=== PATIENT | female | born 1965 | race African-American/Black ===

== ENCOUNTER 2018-01-02 11:57 | Inpatient (IN) | payer OTHER ==
[2018-01-02 12:16] VITALS: BMI 24.1
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
[2018-01-02] MEDS ORDERED: IBUPROFEN 400 MG TABLET (FP) PO PRN (14:08)
[2018-01-02] MEDS ORDERED: MAG HYDROX/AL HYDROX/SIMETH 30 ML UNIT-DOSE CUP PO PRN (14:08)
[2018-01-02] MEDS ORDERED: LOPERAMIDE HCL 2 MG CAPSULE PO PRN (14:08)
[2018-01-02] MEDS ORDERED: guaiFENesin/D-METHORPHAN HB 10 ML UNIT-DOSE CUPS PO PRN (14:08)
[2018-01-02] MEDS ORDERED: MAGNESIUM HYDROX 2400MG/30ML ORAL SUSPENSION 30 ML CUP PO PRN (14:08)
[2018-01-02] MEDS ORDERED: MAGNESIUM CITRATE 300 ML BOTTLE PO PRN (14:08)
[2018-01-02] MEDS ORDERED: MENTHOL/PHENOL 1 EACH UD MM PRN (14:08)
[2018-01-02] MEDS ORDERED: ACETAMINOPHEN 325 MG TABLET (FP) PO PRN (14:08)
[2018-01-02] MEDS ORDERED: P-EPHED 60MG/TRIPROLIDI 2.5MG TABLET PO PRN (14:08)
[2018-01-02] MEDS: NICOTINE 14 MG/24 HOURS TOPICAL PATCH TD SCH (15:30)
--- NOTE | 2018-01-02 20:04 | PN ---
[facility] Progress Note Note: As per nursing report patient needs Seroquel 100mg po qhs [place] issued
--- NOTE | 2018-01-02 20:06 | PN ---
[facility] Progress Note Note: as per nursing report patient needs Seroquel 100mg po qhs Order issued
[2018-01-02 21:21] LABS: URINE APPEARANCE SLCLOUDY; URINE BILIRUBIN NEGATIVE (<2.0 mg/dL); URINE COLOR LTYELLOW; URINE GLUCOSE (UA) NEGATIVE (NEGATIVE); URINE KETONE NEGATIVE (NEGATIVE); URINE LEUK ESTERASE NEGATIVE (NEGATIVE); URINE NITRITE NEGATIVE (NEGATIVE); URINE PROTEIN NEGATIVE (NEGATIVE); URINE UROBILINOGEN NEGATIVE mg/dL (0.2-1.0)
[2018-01-02] MEDS: QUEtiapine FUMARATE 100 MG TABLET (FP) PO SCH (21:44)
[2018-01-02] MEDS: THIAMINE HCL 100 MG TABLET (FP) PO SCH (21:44)
[2018-01-02] MEDS: PHENYTOIN NA EXTENDED 100 MG CAPSULE (FP) PO SCH (21:44)
[2018-01-02] MEDS: MELATONIN 5 MG TABLETS PO PRN (21:45)
[2018-01-03] MEDS ORDERED: ALBUTEROL SO4 8 GM HFA INHALER IH PRN (00:20)
[2018-01-03] MEDS ORDERED: PT OWN MED DRAWER 7, Y5N ONE ×4 (08:47→21:56)
[2018-01-03 10:07] LABS: HEMATOCRIT 40.1 % (32.4-45.2); HEMOGLOBIN 13.4 GM/dL (10.7-15.3); MCH 30.8 pg (25.7-33.7); MCHC 33.3 g/dl (32.0-36.0); MEAN CELL VOLUME 92.5 fl (80-96); MEAN PLT VOLUME 9.9 fl (7.5-11.1); PLATELET COUNT 255 K/MM3 (134-434); RBC 4.34 M/mm3 (3.60-5.2); RDW 13.9 % (11.6-15.6); WHITE BLOOD COUNT 5.9 K/mm3 (4.0-10.0)
[2018-01-03 10:09] LABS: ANION GAP 7 (8-16); BLOOD UREA NITROGEN 9 mg/dL (7-18); CHLORIDE 110 mmol/L (98-107); CO2 27 mmol/L (21-32); GLUCOSE,RANDOM 77 mg/dL (74-106); POTASSIUM 4.5 mmol/L (3.5-5.1); SODIUM 144 mmol/L (136-145)
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
[2018-01-03 10:27] LABS: ALK PHOS 109 U/L (45-117); BILIRUBIN,TOTAL 0.2 mg/dL (0.2-1.0); CREATININE 0.7 mg/dL (0.55-1.02); SGOT/AST 18 U/L (15-37); SGPT/ALT 22 U/L (12-78); TOT PROT 7.4 g/dl (6.4-8.2)
[2018-01-03] MEDS: PRENATAL VITAMINS W/ FOLIC ACID TABLET (FP) PO SCH (10:27)
[2018-01-03] MEDS: NICOTINE 14 MG/24 HOURS TOPICAL PATCH TD SCH (10:27)
[2018-01-03] MEDS: DIGOXIN 0.125 MG TABLET (FP) PO SCH (10:27)
[2018-01-03] MEDS: ASPIRIN 81 MG CHEWABLE TABLETS PO SCH (10:27)
[2018-01-03] MEDS: LIDOCAINE HCL 5% TOP OINTMENT 50 GM TUBE TP SCH (10:27)
[2018-01-03] MEDS ORDERED: PNEUMOCOCCAL 23 VACCINE 0.5 ML VIAL IM ONE (12:00)
[2018-01-03] MEDS ORDERED: PNEUMOC 13-VAL CONJ-DIP CRM/PF 0.5 ML DISP.SYRIN IM ONE (12:00)
--- NOTE | 2018-01-03 13:03 | EKG ---
Test Reason : Blood Pressure : / mmHG Vent. Rate : 077 BPM Atrial Rate : 077 BPM P-R Int : 108 ms QRS Dur : 076 ms QT Int : 376 ms P-R-T Axes : 013 072 069 degrees QTc Int : 425 ms SINUS RHYTHM WITH SHORT RI OTHERWISE NORMAL ECG NO PREVIOUS ECGS AVAILABLE Confirmed by BENITO SILVA MD ([id number]) on 01/03/2018 1:02:47 PM Referred By: Confirmed By:BENITO SILVA MD
--- NOTE | 2018-01-03 13:49 | PN ---
[facility] Progress Note Note: EKG REVIEWED AND SHOWS SINUS RHYTHM WITH SHORT OH, CXR NO ACUTE PATHOLOGY. PT ASYMPTOMATIC. CONTINUE TO MONITOR CLINICALLY. DILANTIN LEVEL 3.3, WILL REPEAT LEVEL IN 01/08/18. Vital Signs Temperature 97.8 F 01/03/18 07:17 Pulse Rate 82 01/03/18 10:27 Respiratory Rate 18 01/03/18 07:17 Blood Pressure 92/68 01/03/18 09:48 O2 Sat by Pulse Oximetry (%) Laboratory Tests 01/02/18 01/03/18 01/03/18 21:03 05:45 05:45 WBC 5.9 RBC 4.34 Hgb 13.4 Hct 40.1 MCV 92.5 MCH 30.8 MCHC 33.3 RDW 13.9 Plt Count 255 MPV 9.9 Sodium 144 Potassium 4.5 Chloride 110 H Carbon Dioxide 27 Anion Gap 7 L BUN 9 Creatinine 0.7 Creat Clearance w eGFR > 60 Random Glucose 77 Calcium 9.0 Total Bilirubin 0.2 AST 18 ALT 22 Alkaline Phosphatase 109 Total Protein 7.4 Albumin 4.0 Urine Color Ltyellow Urine Appearance Slcloudy Urine pH 5.0 Ur Specific [place] 1.018 Urine Protein Negative Urine Glucose (UA) Negative Urine Ketones Negative Urine Blood Negative Urine Nitrite Negative Urine Bilirubin Negative Urine Urobilinogen Negative Ur Leukocyte Esterase Negative Digoxin 0.48 L Phenytoin RPR Titer HIV 1&2 Antibody Screen HIV P24 Antigen 01/03/18 01/03/18 01/03/18 05:45 05:45 05:45 WBC RBC Hgb Hct MCV MCH MCHC RDW Plt Count MPV Sodium Potassium Chloride Carbon Dioxide Anion Gap BUN Creatinine Creat Clearance w eGFR Random Glucose Calcium Total Bilirubin AST ALT Alkaline Phosphatase Total Protein Albumin Urine Color Urine Appearance Urine pH Ur Specific [place] Urine Protein Urine Glucose (UA) Urine Ketones Urine Blood Urine Nitrite Urine Bilirubin Urine Urobilinogen Ur Leukocyte Esterase Digoxin Phenytoin 3.3 L D RPR Titer Nonreactive HIV 1&2 Antibody Screen Negative HIV P24 Antigen Negative
[2018-01-03] MEDS ORDERED: PERMETHRIN 5% TOPICAL CREAM 60 GM TUBE TP ONE (14:50)
--- NOTE | 2018-01-03 14:51 | PN ---
[facility] Progress Note Note: PATIENT PRESENTS WITH C/O ITCHING TO ARMS, LEGS AND GROIN. STATES SHE WAS TREATED WITH PREMETHRIN CREAM FOR HEAD LICE AND SCABIES AT [facility] BUT DID NOT FOLLOW DIRECTIONS CORRECTLY. PATIENT MEDICALLY STABLE. EXAM SHOWS SHOWS SCRATCH HUSAIN ON ARMS AND LEGS AND SCARS BUT NO BURROWS. WILL ORDER HYDROCORTISONE CREAM PRURITIS AND REORDER PREMETHRIN CREAM TO ASSURE PROPER AND COMPLETE TREATMENT ALTHOUGH EXAM DOES NOT SHOW ACTIVE SCABIES. PATIENT EDUCATED REGARDING PROPER USE OF CREAM AND VERBALIZES UNDERSTANDING. CONTINUE TO MONITOR CLINICALLY.
[2018-01-03] MEDS: DIVALPROEX SODIUM 250 MG TABLET E.C. PO SCH ×2 (15:13→21:51)
[2018-01-03] MEDS ORDERED: ALBUTEROL SO4 2.5/IPRATROPIUM 0.5 INH SOL 3 ML VIAL.NEB. NEB PRN (18:27)
--- NOTE | 2018-01-03 18:29 | PN ---
S Progress Note Note: Vital Signs Temperature 97.8 F 01/03/18 07:17 Pulse Rate 82 01/03/18 10:27 Respiratory Rate 18 01/03/18 07:17 Blood Pressure 92/68 01/03/18 09:48 O2 Sat by Pulse Oximetry (%) Patient with hx of COPD. Patient reports taking symbicort BID at home. medication ordered PRN neb ordered continue to monitor
[2018-01-03] MEDS: THIAMINE HCL 100 MG TABLET (FP) PO SCH (21:51)
[2018-01-03] MEDS: PHENYTOIN NA EXTENDED 100 MG CAPSULE (FP) PO SCH (21:51)
[2018-01-03] MEDS: QUEtiapine FUMARATE 100 MG TABLET (FP) PO SCH (21:51)
[2018-01-03] MEDS: BUDESONIDE/FORMETEROL FUMARATE 160/4.5 mcg INHALER IH SCH (21:52)
[2018-01-03] MEDS: hydrOXYzine PAMOATE 25 MG CAPSULE (FP) PO PRN (21:54)
[2018-01-03] MEDS: LIDOCAINE PATCH REMOVAL MC SCH (21:55)
[2018-01-03] MEDS: HYDROCORTISONE 1% TOPICAL CREAM 30 GM TUBE TP SCH (21:56)
[2018-01-04] MEDS ORDERED: LIDOCAINE 5% TOPICAL PATCH TP SCH (10:00)
[2018-01-04] MEDS: ASPIRIN 81 MG CHEWABLE TABLETS PO SCH (10:16)
[2018-01-04] MEDS: DIVALPROEX SODIUM 250 MG TABLET E.C. PO SCH ×2 (10:16→21:52)
[2018-01-04] MEDS: BUDESONIDE/FORMETEROL FUMARATE 160/4.5 mcg INHALER IH SCH ×2 (10:17→21:52)
[2018-01-04] MEDS: DIGOXIN 0.125 MG TABLET (FP) PO SCH (10:17)
[2018-01-04] MEDS: NICOTINE 14 MG/24 HOURS TOPICAL PATCH TD SCH (10:18)
[2018-01-04] MEDS: LIDOCAINE HCL 5% TOP OINTMENT 50 GM TUBE TP SCH (10:21)
[2018-01-04] MEDS: PRENATAL VITAMINS W/ FOLIC ACID TABLET (FP) PO SCH (10:21)
[2018-01-04] MEDS: HYDROCORTISONE 1% TOPICAL CREAM 30 GM TUBE TP SCH ×2 (10:21→21:54)
[2018-01-04] MEDS ORDERED: PT OWN MED DRAWER 7, Y5N ONE (10:34)
--- NOTE | 2018-01-04 13:36 | PN ---
[facility] Progress Note Note: Vital Signs Temperature 97.6 F 01/04/18 07:21 Pulse Rate 91 H 01/04/18 10:17 Respiratory Rate 18 01/04/18 07:21 Blood Pressure 136/83 01/04/18 09:19 O2 Sat by Pulse Oximetry (%) Laboratory Last Values WBC 5.9 K/mm3 (4.0-10.0) 01/03/18 05:45 RBC 4.34 M/mm3 (3.60-5.2) 01/03/18 05:45 Hgb 13.4 GM/dL (10.7-15.3) 01/03/18 05:45 Hct 40.1 % (32.4-45.2) 01/03/18 05:45 MCV 92.5 fl (80-96) 01/03/18 05:45 MCH 30.8 pg (25.7-33.7) 01/03/18 05:45 MCHC 33.3 g/dl (32.0-36.0) 01/03/18 05:45 RDW 13.9 % (11.6-15.6) 01/03/18 05:45 Plt Count 255 K/MM3 (134-434) 01/03/18 05:45 MPV 9.9 fl (7.5-11.1) 01/03/18 05:45 Sodium 144 mmol/L (136-145) 01/03/18 05:45 Potassium 4.5 mmol/L (3.5-5.1) 01/03/18 05:45 Chloride 110 mmol/L (98-107) H 01/03/18 05:45 Carbon Dioxide 27 mmol/L (21-32) 01/03/18 05:45 Anion Gap 7 (8-16) L 01/03/18 05:45 BUN 9 mg/dL (7-18) 01/03/18 05:45 Creatinine 0.7 mg/dL (0.55-1.02) 01/03/18 05:45 Creat Clearance w eGFR > 60 (>60) 01/03/18 05:45 Random Glucose 77 mg/dL (74-106) 01/03/18 05:45 Calcium 9.0 mg/dL (8.5-10.1) 01/03/18 05:45 Total Bilirubin 0.2 mg/dL (0.2-1.0) 01/03/18 05:45 AST 18 U/L (15-37) 01/03/18 05:45 ALT 22 U/L (12-78) 01/03/18 05:45 Alkaline Phosphatase 109 U/L (45-117) 01/03/18 05:45 Total Protein 7.4 g/dl (6.4-8.2) 01/03/18 05:45 Albumin 4.0 g/dl (3.4-5.0) 01/03/18 05:45 Urine Color Ltyellow 01/02/18 21:03 Urine Appearance Slcloudy 01/02/18 21:03 Urine pH 5.0 (5.0-8.0) 01/02/18 21:03 Ur Specific [place] 1.018 (1.001-1.035) 01/02/18 21:03 Urine Protein Negative (NEGATIVE) 01/02/18 21:03 Urine Glucose (UA) Negative (NEGATIVE) 01/02/18 21:03 Urine Ketones Negative (NEGATIVE) 01/02/18 21:03 Urine Blood Negative (NEGATIVE) 01/02/18 21:03 Urine Nitrite Negative (NEGATIVE) 01/02/18 21:03 Urine Bilirubin Negative (<2.0 mg/dL) 01/02/18 21:03 Urine Urobilinogen Negative mg/dL (0.2-1.0) 01/02/18 21:03 Ur Leukocyte Esterase Negative (NEGATIVE) 01/02/18 21:03 Digoxin 0.48 ng/ml (0.8-2.0) L 01/03/18 05:45 Phenytoin 3.3 ug/ml (10.0-20.0) L D 01/03/18 05:45 RPR Titer Nonreactive (NONREACTIVE) 01/03/18 05:45 HIV 1&2 Antibody Screen Negative 01/03/18 05:45 HIV P24 Antigen Negative 01/03/18 05:45 Patient asymptomatic. patient requested lidocaine patch for knee t be d/c. order d/c as per patients requested. repeat dig and phenytoin in AM continue to monitor
[2018-01-04] MEDS: LIDOCAINE 5% TOPICAL PATCH TP SCH (14:17)
[2018-01-04] MEDS: QUEtiapine FUMARATE 100 MG TABLET (FP) PO SCH (21:52)
[2018-01-04] MEDS: THIAMINE HCL 100 MG TABLET (FP) PO SCH (21:52)
[2018-01-04] MEDS: PHENYTOIN NA EXTENDED 100 MG CAPSULE (FP) PO SCH (21:52)
[2018-01-04] MEDS: MELATONIN 5 MG TABLETS PO PRN (21:53)
[2018-01-04] MEDS: hydrOXYzine PAMOATE 25 MG CAPSULE (FP) PO PRN (21:53)
[2018-01-04] MEDS: LIDOCAINE PATCH REMOVAL MC SCH (21:54)
[2018-01-05] MEDS ORDERED: PT OWN MED DRAWER 7, Y5N ONE ×2 (08:52→21:53)
[2018-01-05] MEDS: DIVALPROEX SODIUM 250 MG TABLET E.C. PO SCH ×2 (10:50→21:43)
[2018-01-05] MEDS: ASPIRIN 81 MG CHEWABLE TABLETS PO SCH (10:50)
[2018-01-05] MEDS: PRENATAL VITAMINS W/ FOLIC ACID TABLET (FP) PO SCH (10:50)
[2018-01-05] MEDS: DIGOXIN 0.125 MG TABLET (FP) PO SCH (10:50)
[2018-01-05] MEDS: NICOTINE 14 MG/24 HOURS TOPICAL PATCH TD SCH (10:52)
[2018-01-05] MEDS: LIDOCAINE HCL 5% TOP OINTMENT 50 GM TUBE TP SCH (10:53)
[2018-01-05] MEDS: HYDROCORTISONE 1% TOPICAL CREAM 30 GM TUBE TP SCH ×2 (10:54→21:44)
[2018-01-05] MEDS: BUDESONIDE/FORMETEROL FUMARATE 160/4.5 mcg INHALER IH SCH ×2 (10:54→21:52)
[2018-01-05] MEDS: LIDOCAINE 5% TOPICAL PATCH TP SCH (10:55)
[2018-01-05] MEDS: hydrOXYzine PAMOATE 25 MG CAPSULE (FP) PO PRN (18:57)
[2018-01-05] MEDS: QUEtiapine FUMARATE 100 MG TABLET (FP) PO SCH (21:43)
[2018-01-05] MEDS: THIAMINE HCL 100 MG TABLET (FP) PO SCH (21:43)
[2018-01-05] MEDS: PHENYTOIN NA EXTENDED 100 MG CAPSULE (FP) PO SCH (21:43)
[2018-01-05] MEDS: LIDOCAINE PATCH REMOVAL MC SCH (21:44)
[2018-01-05] MEDS: MELATONIN 5 MG TABLETS PO PRN (21:44)
[2018-01-06] MEDS ORDERED: PT OWN MED DRAWER 7, Y5N ONE ×2 (08:55→20:38)
[2018-01-06] MEDS: ASPIRIN 81 MG CHEWABLE TABLETS PO SCH (10:10)
[2018-01-06] MEDS: NICOTINE 14 MG/24 HOURS TOPICAL PATCH TD SCH (10:11)
[2018-01-06] MEDS: PRENATAL VITAMINS W/ FOLIC ACID TABLET (FP) PO SCH (10:11)
[2018-01-06] MEDS: DIGOXIN 0.125 MG TABLET (FP) PO SCH (10:11)
[2018-01-06] MEDS: DIVALPROEX SODIUM 250 MG TABLET E.C. PO SCH ×2 (10:11→21:42)
[2018-01-06] MEDS: HYDROCORTISONE 1% TOPICAL CREAM 30 GM TUBE TP SCH ×2 (10:12→21:46)
[2018-01-06] MEDS: BUDESONIDE/FORMETEROL FUMARATE 160/4.5 mcg INHALER IH SCH ×2 (10:13→21:42)
[2018-01-06] MEDS: LIDOCAINE 5% TOPICAL PATCH TP SCH (10:13)
[2018-01-06] MEDS: LIDOCAINE HCL 5% TOP OINTMENT 50 GM TUBE TP SCH (10:29)
[2018-01-06] MEDS: QUEtiapine FUMARATE 100 MG TABLET (FP) PO SCH (21:42)
[2018-01-06] MEDS: PHENYTOIN NA EXTENDED 100 MG CAPSULE (FP) PO SCH (21:42)
[2018-01-06] MEDS: THIAMINE HCL 100 MG TABLET (FP) PO SCH (21:43)
[2018-01-06] MEDS: LIDOCAINE PATCH REMOVAL MC SCH (21:43)
[2018-01-06] MEDS: MELATONIN 5 MG TABLETS PO PRN (21:44)
[2018-01-06] MEDS: hydrOXYzine PAMOATE 25 MG CAPSULE (FP) PO PRN (21:45)
[2018-01-07] MEDS: hydrOXYzine PAMOATE 25 MG CAPSULE (FP) PO PRN (01:39)
[2018-01-07] MEDS ORDERED: PT OWN MED DRAWER 7, Y5N ONE ×2 (08:57→20:15)
[2018-01-07] MEDS ORDERED: COLLOIDAL OATMEAL 1 BAR EACH TP PRN (09:16)
--- NOTE | 2018-01-07 09:18 | PN ---
S Progress Note Note: Patient c/o of dry skin after treated for scabies. Patient was started on TP hydrocortisone cream . Vital Signs Temperature 97.6 F 01/07/18 07:01 Pulse Rate 81 01/07/18 07:01 Respiratory Rate 18 01/07/18 07:01 Blood Pressure 105/69 01/07/18 07:01 O2 Sat by Pulse Oximetry (%) Patient AOx3 no distress dry skin full ROM, ambulating in the unit dry skin Plan: aveeno soap A & D oint BID increase fluids continue to monitor
[2018-01-07] MEDS: DIVALPROEX SODIUM 250 MG TABLET E.C. PO SCH ×2 (10:05→21:43)
[2018-01-07] MEDS: DIGOXIN 0.125 MG TABLET (FP) PO SCH (10:05)
[2018-01-07] MEDS: PRENATAL VITAMINS W/ FOLIC ACID TABLET (FP) PO SCH (10:05)
[2018-01-07] MEDS: ASPIRIN 81 MG CHEWABLE TABLETS PO SCH (10:07)
[2018-01-07] MEDS: LIDOCAINE HCL 5% TOP OINTMENT 50 GM TUBE TP SCH (10:07)
[2018-01-07] MEDS: HYDROCORTISONE 1% TOPICAL CREAM 30 GM TUBE TP SCH ×2 (10:08→21:43)
[2018-01-07] MEDS: LIDOCAINE 5% TOPICAL PATCH TP SCH (10:08)
[2018-01-07] MEDS: BUDESONIDE/FORMETEROL FUMARATE 160/4.5 mcg INHALER IH SCH ×2 (10:08→21:42)
[2018-01-07] MEDS: NICOTINE 14 MG/24 HOURS TOPICAL PATCH TD SCH (10:08)
[2018-01-07] MEDS: QUEtiapine FUMARATE 100 MG TABLET (FP) PO SCH (21:43)
[2018-01-07] MEDS: THIAMINE HCL 100 MG TABLET (FP) PO SCH (21:43)
[2018-01-07] MEDS: PHENYTOIN NA EXTENDED 100 MG CAPSULE (FP) PO SCH (21:43)
[2018-01-07] MEDS: LIDOCAINE PATCH REMOVAL MC SCH (21:44)
[2018-01-07] MEDS: MELATONIN 5 MG TABLETS PO PRN (21:45)
[2018-01-08] MEDS: ASPIRIN 81 MG CHEWABLE TABLETS PO SCH (10:40)
[2018-01-08] MEDS: PRENATAL VITAMINS W/ FOLIC ACID TABLET (FP) PO SCH (10:41)
[2018-01-08] MEDS: NICOTINE 14 MG/24 HOURS TOPICAL PATCH TD SCH (10:41)
[2018-01-08] MEDS: BUDESONIDE/FORMETEROL FUMARATE 160/4.5 mcg INHALER IH SCH ×2 (10:42→22:26)
[2018-01-08] MEDS: LIDOCAINE 5% TOPICAL PATCH TP SCH (10:42)
[2018-01-08] MEDS: LIDOCAINE HCL 5% TOP OINTMENT 50 GM TUBE TP SCH (10:43)
[2018-01-08] MEDS: DIVALPROEX SODIUM 250 MG TABLET E.C. PO SCH ×2 (10:47→22:26)
[2018-01-08] MEDS: HYDROCORTISONE 1% TOPICAL CREAM 30 GM TUBE TP SCH ×2 (11:07→22:27)
[2018-01-08] MEDS: DIGOXIN 0.125 MG TABLET (FP) PO SCH (11:08)
[2018-01-08] MEDS ORDERED: diphenhydrAMINE HCL 25 MG CAPSULE (FP) PO PRN (17:04)
--- NOTE | 2018-01-08 17:09 | PN ---
S Progress Note Note: c/o of itch on pubic hair and body. Reports prior to admission was treated for pubic lice and scabies. Vital Signs Temperature 97.6 F 01/08/18 07:05 Pulse Rate 92 H 01/08/18 16:12 Respiratory Rate 18 01/08/18 07:05 Blood Pressure 105/70 01/08/18 16:12 O2 Sat by Pulse Oximetry (%) Laboratory Last Values WBC 5.9 K/mm3 (4.0-10.0) 01/03/18 05:45 RBC 4.34 M/mm3 (3.60-5.2) 01/03/18 05:45 Hgb 13.4 GM/dL (10.7-15.3) 01/03/18 05:45 Hct 40.1 % (32.4-45.2) 01/03/18 05:45 MCV 92.5 fl (80-96) 01/03/18 05:45 MCH 30.8 pg (25.7-33.7) 01/03/18 05:45 MCHC 33.3 g/dl (32.0-36.0) 01/03/18 05:45 RDW 13.9 % (11.6-15.6) 01/03/18 05:45 Plt Count 255 K/MM3 (134-434) 01/03/18 05:45 MPV 9.9 fl (7.5-11.1) 01/03/18 05:45 Sodium 144 mmol/L (136-145) 01/03/18 05:45 Potassium 4.5 mmol/L (3.5-5.1) 01/03/18 05:45 Chloride 110 mmol/L (98-107) H 01/03/18 05:45 Carbon Dioxide 27 mmol/L (21-32) 01/03/18 05:45 Anion Gap 7 (8-16) L 01/03/18 05:45 BUN 9 mg/dL (7-18) 01/03/18 05:45 Creatinine 0.7 mg/dL (0.55-1.02) 01/03/18 05:45 Creat Clearance w eGFR > 60 (>60) 01/03/18 05:45 Random Glucose 77 mg/dL (74-106) 01/03/18 05:45 Calcium 9.0 mg/dL (8.5-10.1) 01/03/18 05:45 Total Bilirubin 0.2 mg/dL (0.2-1.0) 01/03/18 05:45 AST 18 U/L (15-37) 01/03/18 05:45 ALT 22 U/L (12-78) 01/03/18 05:45 Alkaline Phosphatase 109 U/L (45-117) 01/03/18 05:45 Total Protein 7.4 g/dl (6.4-8.2) 01/03/18 05:45 Albumin 4.0 g/dl (3.4-5.0) 01/03/18 05:45 Urine Color Ltyellow 01/02/18 21:03 Urine Appearance Slcloudy 01/02/18 21:03 Urine pH 5.0 (5.0-8.0) 01/02/18 21:03 Ur Specific [place] 1.018 (1.001-1.035) 01/02/18 21:03 Urine Protein Negative (NEGATIVE) 01/02/18 21:03 Urine Glucose (UA) Negative (NEGATIVE) 01/02/18 21:03 Urine Ketones Negative (NEGATIVE) 01/02/18 21:03 Urine Blood Negative (NEGATIVE) 01/02/18 21:03 Urine Nitrite Negative (NEGATIVE) 01/02/18 21:03 Urine Bilirubin Negative (<2.0 mg/dL) 01/02/18 21:03 Urine Urobilinogen Negative mg/dL (0.2-1.0) 01/02/18 21:03 Ur Leukocyte Esterase Negative (NEGATIVE) 01/02/18 21:03 Digoxin 0.35 ng/ml (0.8-2.0) L 01/05/18 08:30 Phenytoin 8.4 ug/ml (10.0-20.0) L D 01/08/18 08:30 RPR Titer Nonreactive (NONREACTIVE) 01/03/18 05:45 HIV 1&2 Antibody Screen Negative 01/03/18 05:45 HIV P24 Antigen Negative 01/03/18 05:45 Patient Aox3, no distress no adventitious breath sounds + dry dandruff on hair and pubic area skin dry Plan: wash bedding patient to wash hair benadryl 25 mg PRN for pruritus permenthium TOP on scalp and hair on pubic area continue to monitor
[2018-01-08] MEDS ORDERED: PERMETHRIN 5% TOPICAL CREAM 60 GM TUBE TP ONE (17:30)
[2018-01-08] MEDS ORDERED: PT OWN MED DRAWER 7, Y5N ONE (18:35)
[2018-01-08] MEDS: THIAMINE HCL 100 MG TABLET (FP) PO SCH (22:25)
[2018-01-08] MEDS: PHENYTOIN NA EXTENDED 100 MG CAPSULE (FP) PO SCH (22:25)
[2018-01-08] MEDS: QUEtiapine FUMARATE 100 MG TABLET (FP) PO SCH (22:26)
[2018-01-08] MEDS: LIDOCAINE PATCH REMOVAL MC SCH (22:27)
[2018-01-09] MEDS ORDERED: PT OWN MED DRAWER 7, Y5N ONE (09:03)
[2018-01-09] MEDS: ASPIRIN 81 MG CHEWABLE TABLETS PO SCH (09:25)
[2018-01-09] MEDS: DIVALPROEX SODIUM 250 MG TABLET E.C. PO SCH (09:26)
[2018-01-09] MEDS: HYDROCORTISONE 1% TOPICAL CREAM 30 GM TUBE TP SCH (09:26)
[2018-01-09] MEDS: NICOTINE 14 MG/24 HOURS TOPICAL PATCH TD SCH (09:28)
[2018-01-09] MEDS: LIDOCAINE 5% TOPICAL PATCH TP SCH (09:28)
[2018-01-09] MEDS: BUDESONIDE/FORMETEROL FUMARATE 160/4.5 mcg INHALER IH SCH (09:29)
[2018-01-09] MEDS: PRENATAL VITAMINS W/ FOLIC ACID TABLET (FP) PO SCH (09:29)
[2018-01-09] MEDS: DIGOXIN 0.125 MG TABLET (FP) PO SCH (10:37)
[2018-01-09] MEDS: LIDOCAINE HCL 5% TOP OINTMENT 50 GM TUBE TP SCH (11:00)
--- NOTE | 2018-01-09 12:42 | PN ---
[facility] Progress Note Note: complaint of tightness in the chest not in distress Vital Signs Temperature 98.2 F 01/09/18 11:32 Pulse Rate 88 01/09/18 12:25 Respiratory Rate 19 01/09/18 11:32 Blood Pressure 95/60 01/09/18 12:25 O2 Sat by Pulse Oximetry (%) pulse oxymeter is 99 ekg nsr,no acute change qt/qtc 366/445 close monitoring with vital signs monitoring
--- NOTE | 2018-01-09 13:31 | PN ---
[facility] Progress Note Note: Vital Signs Temperature 98.2 F 01/09/18 11:32 Pulse Rate 88 01/09/18 12:25 Respiratory Rate 19 01/09/18 11:32 Blood Pressure 95/60 01/09/18 12:25 O2 Sat by Pulse Oximetry (%) Patient is a 52 yo female currently in rehab for cocaine and alcohol, has hx of cardiac arrest in 2009, CHF on Digioxin 0.125 mg, GERD and seizure d/o. Patient c/o of Chest pain, non-radiating since this AM, rates pain 8/10 at this time, as per patient, pain worsen when sitting in an upright position and with ambulation. Patient reports mild relief with rest. Reports feeling dizzy and unsteady on her feet and "tingling" on both of her finger tips. No SOB present at this time. pulse oxymeter is 99 ekg nsr, non- specific T waves, no acute change qt/qtc 366/445 A/P Patient Aox3 no distress no JVD lungs clear throughout, no adventitious breath sounds Full ROM skin intact no edema or erythema Plan: Patient to be evaluate with at [facility] ED, transferred via [facility] to Dr. Godinez
[2018-01-09 13:58] VITALS: BP 103/64; PULSE 97; TEMP 98.6
--- NOTE | 2018-01-09 17:04 | EKG ---
Test Reason : Blood Pressure : / mmHG Vent. Rate : 089 BPM Atrial Rate : 089 BPM P-R Int : 128 ms QRS Dur : 078 ms QT Int : 366 ms P-R-T Axes : 070 071 072 degrees QTc Int : 445 ms NORMAL SINUS RHYTHM POSSIBLE LEFT ATRIAL ENLARGEMENT NONSPECIFIC T WAVE ABNORMALITY ABNORMAL ECG WHEN COMPARED WITH ECG OF 03-JAN-2018 10:07, NO SIGNIFICANT CHANGE WAS FOUND Confirmed by MD Elliott, Josh ([id number]) on 01/09/2018 5:04:01 PM Referred By: Sari ALVAREZ Confirmed By:Josh Gallagher MD
== END 2018-01-09 22:41 | disposition hospice, inpatient (51) | DRG 772 ==
LOC: YASAS 11:57 → Y3E 13:40
PROVIDERS: ADMIT Psychiatry & Neurology Psychiatry; ATTEND Psychiatry & Neurology Psychiatry
PROC: HZ42ZZZ Group Counseling for Substance Abuse Treatment, Cognitive-Behavioral (ICD-10-PCS; principal; 2018-01-02)
DX: F10.20 Alcohol dependence, uncomplicated (principal); F14.20 Cocaine dependence, uncomplicated; F31.81 Bipolar II disorder; I10 Essential (primary) hypertension; I50.9 Heart failure, unspecified; G47.00 Insomnia, unspecified; G40.909 Epilepsy, unspecified, not intractable, without status epilepticus; K21.9 Gastro-esophageal reflux disease without esophagitis; E78.00 Pure hypercholesterolemia, unspecified; L85.3 Xerosis cutis; B86 Scabies; B85.0 Pediculosis due to Pediculus humanus capitis; D64.9 Anemia, unspecified; R07.9 Chest pain, unspecified; Z86.74 Personal history of sudden cardiac arrest
CPT/HCPCS: 36415; 71046-TC-FY; 80053; 80162; 80185; 81003; 85027; 86593; 87389; 93005; 93010

== ENCOUNTER 2018-01-10 17:42 | Inpatient (IN) | payer OTHER ==
[2018-01-10] MEDS ORDERED: MENTHOL/PHENOL 1 EACH UD MM PRN (17:53)
[2018-01-10] MEDS ORDERED: P-EPHED 60MG/TRIPROLIDI 2.5MG TABLET PO PRN (17:53)
[2018-01-10] MEDS ORDERED: LOPERAMIDE HCL 2 MG CAPSULE PO PRN (17:53)
[2018-01-10] MEDS ORDERED: IBUPROFEN 400 MG TABLET (FP) PO PRN (17:53)
[2018-01-10] MEDS ORDERED: guaiFENesin/D-METHORPHAN HB 10 ML UNIT-DOSE CUPS PO PRN (17:53)
--- NOTE | 2018-01-10 17:56 | HP ---
[facility] Rehab Assess/Revision - Admission History Admitted to Rehab from: Emergency Department Date of Admission to Rehab: 01/10/18 - Vital signs Vital Signs: Vital Signs Period Temp Pulse Resp BP Sys/Mauricio Pulse Ox Last 24 Hr 97.7 F 78 18 119/81 - Findings Detox History & Physical reviewed: Yes Concur with findings: Yes Comments/Additional Findings: Patient was admitted to Rehab program 01/02/18 during the course of her treatment patient was sent to [facility] for evaluation of chest pain on 01/09/18 and returns today to continue her rehab at [facility]. Inpatient Rehab Admission - Initial Determination Are CD services needed?: Yes Free of communicable disease: Yes Not in need of hospitalization: Yes - Rehab Admission Criteria Previous failed treatment: Yes Poor recovery environment: Yes Comorbidities: Yes Lacks judgement: Yes Patient is meeting Inpatient Rehab admission criteria:: Yes
[2018-01-10] MEDS: PHENYTOIN NA EXTENDED 100 MG CAPSULE (FP) PO SCH (21:30)
[2018-01-10] MEDS: THIAMINE HCL 100 MG TABLET (FP) PO SCH (21:30)
[2018-01-10] MEDS: ATORVASTATIN CA 20 MG TABLET (FP) PO SCH (21:30)
[2018-01-10] MEDS ORDERED: MELATONIN 5 MG TABLETS PO PRN (22:00)
[2018-01-11] MEDS: ACETAMINOPHEN 325 MG TABLET (FP) PO PRN (01:34)
[2018-01-11] MEDS: DIGOXIN 0.125 MG TABLET (FP) PO SCH (09:10)
[2018-01-11] MEDS: ASPIRIN 81 MG CHEWABLE TABLETS PO SCH (09:10)
[2018-01-11] MEDS: PRENATAL VITAMINS W/ FOLIC ACID TABLET (FP) PO SCH (09:11)
[2018-01-11] MEDS: PHENYTOIN NA EXTENDED 100 MG CAPSULE (FP) PO SCH (21:48)
[2018-01-11] MEDS: THIAMINE HCL 100 MG TABLET (FP) PO SCH (21:48)
[2018-01-11] MEDS: ATORVASTATIN CA 20 MG TABLET (FP) PO SCH (21:51)
[2018-01-11] MEDS ORDERED: hydrOXYzine PAMOATE 50 MG CAPSULE (FP) PO PRN (22:47)
--- NOTE | 2018-01-12 06:06 | PN ---
[facility] Progress Note Note: seen for alleged fall. informed client stated she fell oob. client now denies; states she rolled in the bed hitting right elbow against the edge of the bed. denies pain, injury or falling out of bed seen seated in bed awake/alert x3 nad ncat, peerla, eomi skin intact moving all extremities w/o limitations or pain back- nl findings denies pain Vital Signs Temperature 97.7 F 01/12/18 07:03 Pulse Rate 76 01/12/18 07:03 Respiratory Rate 16 01/12/18 07:03 Blood Pressure 97/67 01/12/18 07:03 O2 Sat by Pulse Oximetry (%) a- alleged fall p- fall protocol #1 cont to monitor clincally tylenol/motrin for delayed pain
[2018-01-12] MEDS: ASPIRIN 81 MG CHEWABLE TABLETS PO SCH (10:34)
[2018-01-12] MEDS: PRENATAL VITAMINS W/ FOLIC ACID TABLET (FP) PO SCH (10:34)
[2018-01-12] MEDS: DIGOXIN 0.125 MG TABLET (FP) PO SCH (10:34)
[2018-01-12] MEDS ORDERED: ALBUTEROL SO4 2.5/IPRATROPIUM 0.5 INH SOL 3 ML VIAL.NEB. NEB PRN (13:34)
--- NOTE | 2018-01-12 13:35 | PN ---
S Progress Note Note: Vital Signs Temperature 98 F 01/12/18 12:00 Pulse Rate 81 01/12/18 12:00 Respiratory Rate 18 01/12/18 12:00 Blood Pressure 91/62 01/12/18 12:00 O2 Sat by Pulse Oximetry (%) reports taking symbicort out patient. Home meds reviewed. Symbicort ordered continue to monitor
--- NOTE | 2018-01-12 14:02 | PN ---
[facility] Progress Note Note: Patient c/o of dizziness. Foundry Worker tried assessed the patient, patient decline continue to monitor
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
[2018-01-12] MEDS ORDERED: PT OWN MED DRAWER 7, Y5N ONE ×3 (19:59→20:20)
[2018-01-12] MEDS: ACETAMINOPHEN 325 MG TABLET (FP) PO PRN (20:20)
[2018-01-12] MEDS ORDERED: QUEtiapine FUMARATE 100 MG TABLET (FP) PO SCH (22:00)
[2018-01-12] MEDS: BUDESONIDE/FORMETEROL FUMARATE 160/4.5 mcg INHALER IH SCH (22:00)
[2018-01-12] MEDS: QUEtiapine FUMARATE 50 MG TABLET PO SCH (22:01)
[2018-01-12] MEDS: PHENYTOIN NA EXTENDED 100 MG CAPSULE (FP) PO SCH (22:01)
[2018-01-12] MEDS: ATORVASTATIN CA 20 MG TABLET (FP) PO SCH (22:01)
[2018-01-12] MEDS: THIAMINE HCL 100 MG TABLET (FP) PO SCH (22:02)
[2018-01-13] MEDS: PRENATAL VITAMINS W/ FOLIC ACID TABLET (FP) PO SCH (10:06)
[2018-01-13] MEDS: ASPIRIN 81 MG CHEWABLE TABLETS PO SCH (10:07)
[2018-01-13] MEDS: BUDESONIDE/FORMETEROL FUMARATE 160/4.5 mcg INHALER IH SCH ×2 (10:08→21:49)
[2018-01-13] MEDS: DIGOXIN 0.125 MG TABLET (FP) PO SCH (10:31)
[2018-01-13] MEDS ORDERED: PT OWN MED DRAWER 7, Y5N ONE (11:04)
[2018-01-13] MEDS: LIDOCAINE HCL 5% TOP OINTMENT 50 GM TUBE TP SCH (11:05)
[2018-01-13] MEDS ORDERED: ALBUTEROL SO4 8 GM HFA INHALER IH PRN (11:29)
[2018-01-13] MEDS: DIVALPROEX SODIUM 250 MG TABLET E.C. PO SCH ×2 (12:30→21:46)
[2018-01-13] MEDS: ACETAMINOPHEN 325 MG TABLET (FP) PO PRN (14:40)
[2018-01-13] MEDS: THIAMINE HCL 100 MG TABLET (FP) PO SCH (21:46)
[2018-01-13] MEDS: ATORVASTATIN CA 20 MG TABLET (FP) PO SCH (21:46)
[2018-01-13] MEDS: PHENYTOIN NA EXTENDED 100 MG CAPSULE (FP) PO SCH (21:46)
[2018-01-13] MEDS: QUEtiapine FUMARATE 50 MG TABLET PO SCH (21:46)
[2018-01-14 07:18] VITALS: TEMP 97.8
[2018-01-14] MEDS: ASPIRIN 81 MG CHEWABLE TABLETS PO SCH (10:26)
[2018-01-14] MEDS: BUDESONIDE/FORMETEROL FUMARATE 160/4.5 mcg INHALER IH SCH ×2 (10:26→21:40)
[2018-01-14] MEDS: DIGOXIN 0.125 MG TABLET (FP) PO SCH (10:26)
[2018-01-14] MEDS: DIVALPROEX SODIUM 250 MG TABLET E.C. PO SCH ×2 (10:26→21:38)
[2018-01-14] MEDS: PRENATAL VITAMINS W/ FOLIC ACID TABLET (FP) PO SCH (10:27)
[2018-01-14] MEDS: LIDOCAINE HCL 5% TOP OINTMENT 50 GM TUBE TP SCH (10:27)
[2018-01-14] MEDS: PHENYTOIN NA EXTENDED 100 MG CAPSULE (FP) PO SCH (21:38)
[2018-01-14] MEDS: QUEtiapine FUMARATE 50 MG TABLET PO SCH (21:38)
[2018-01-14] MEDS: THIAMINE HCL 100 MG TABLET (FP) PO SCH (21:38)
[2018-01-14] MEDS: ATORVASTATIN CA 20 MG TABLET (FP) PO SCH (21:39)
[2018-01-15 07:26] VITALS: BP 120/82
--- NOTE | 2018-01-15 08:21 | PN ---
Psychiatric Progress Note Vital Signs: Vital Signs Period Temp Pulse Resp BP Sys/Mauricio Pulse Ox Last 24 Hr 97.8 F 79-85 16-18 98-120/65-82 Date of Session: 01/15/18 Chief Complaint:: Discharge visit HPI: Patient addressed Alcohol ,Cocaine dependence comorbid with Bipolar disorder. ROS: Multiple medical conditions. Current Medications: Active Medications Generic Name Dose Route Start Last Admin Trade Name Freq PRN Reason Stop Dose Admin Acetaminophen 650 mg 01/10/18 17:53 01/13/18 14:40 Tylenol - PO 650 mg Q4H PRN Administration FEVER Albuterol Sulfate 2 puff 01/13/18 11:29 01/13/18 11:43 Ventolin Hfa Inhaler - IH 2 puff Q4H PRN Administration SHORT OF BREATH/WHEEZING Albuterol/Ipratropium 1 amp 01/12/18 13:34 Duoneb - NEB Q6H PRN SHORTNESS OF BREATH Aspirin 81 mg 01/11/18 10:00 01/14/18 10:26 Asa - PO 81 mg DAILY STAN Administration Atorvastatin Calcium 20 mg 01/10/18 22:00 01/14/18 21:39 Lipitor - PO 20 mg HS STAN Administration Budesonide/Formoterol Fumarate 2 puff 01/12/18 22:00 01/14/18 21:40 Symbicort 160/4.5mcg - IH Not Given BID STAN Digoxin 0.125 mg 01/11/18 10:00 01/14/18 10:26 Lanoxin - PO 0.125 mg DAILY STAN Administration Divalproex Sodium 250 mg 01/13/18 12:45 01/14/18 21:38 Depakote - PO 250 mg BID STAN Administration Eucalyptus/Menthol/Phenol/Sorbitol 1 each 01/10/18 17:53 Cepastat Lozenge - MM Q4H PRN SORE THROAT Guaifenesin 10 ml 01/10/18 17:53 Robitussin Dm - PO Q6H PRN COUGH Hydroxyzine Pamoate 50 mg 01/11/18 22:47 Vistaril - PO Q4H PRN ANXIETY Ibuprofen 400 mg 01/10/18 17:53 Motrin - PO Q6H PRN Pain Level 4-6 Lidocaine HCl 1 applic 01/13/18 11:00 01/14/18 10:27 Xylocaine 5% Top. Ointment TP 1 applic DAILY STAN Administration Loperamide HCl 4 mg 01/10/18 17:53 Imodium - PO Q6H PRN DIARRHEA Melatonin 5 mg 01/10/18 22:00 01/11/18 01:37 Melatonin PO 5 mg HS PRN Administration INSOMNIA Phenytoin Sodium 400 mg 01/10/18 22:00 01/14/18 21:38 Dilantin - PO 400 mg HS STAN Administration Multivit/Folic Acid/Iron 1 tab 01/11/18 10:00 01/14/18 10:27 Vitamins (Sjr) - PO Not Given DAILY STAN Pseudoephedrine/Triprolidine 1 combo 01/10/18 17:53 Actifed - PO TID PRN NASAL CONGESTION Quetiapine Fumarate 50 mg 01/12/18 22:00 01/14/18 21:38 Seroquel - PO 50 mg HS STAN Administration Thiamine HCl 100 mg 01/10/18 22:00 01/14/18 21:38 Vitamin B1 - PO 100 mg HS STAN Administration Current Side Effect: No Lab tests ordered: No Lab tests reviewed: Yes Provider note:: Patient completed this program today.She has met her treatment goals and will continue to address her issues on outpatient basis at [facility] rehabilitation program in the [place].Patient will continue Depakote 250 mg po bid ,Seroquel 50 mg po hs.Scripts for 30 days provided. Supportive therapy provided focusing on relapse prevention including coping skills ,support utilization to maintain recovery. patient is stable for discharge today. Total face to face time:: 30 Mental Status Exam - Mental Status Exam Alert and Oriented to: Time, Place, Person Cognitive Function: Grossly Intact Patient Appearance: Well Groomed Mood: Hopeful, Euthymic Affect: Appropriate, Mood Congruent Patient Behavior: Cooperative Speech Pattern: Clear Voice Loudness: Normal Thought Process: Goal Oriented Thought Disorder: Not Present Hallucinations: Denies Suicidal Ideation: Denies Homicidal Ideation: Denies Insight/Judgement: Fair Sleep: Fair Appetite: Good Muscle strength/Tone: Normal Gait/Station: Normal Psychiatric Treatment Plan - Problem List (1) Dry skin Current Visit: Yes (2) Knee pain, left Current Visit: Yes (3) Pruritic rash Current Visit: Yes (4) Alcohol dependence Current Visit: No (5) Cocaine dependence in remission Current Visit: Yes (6) Bipolar II disorder Current Visit: Yes (7) CHF Congestive heart failure Current Visit: Yes (8) Gastroesophageal reflux disease Current Visit: Yes (9) Hypercholesterolemia Current Visit: Yes (10) Hypertension Current Visit: Yes (11) Seizure disorder Current Visit: Yes
[2018-01-15] MEDS ORDERED: PT OWN MED DRAWER 7, Y5N ONE (08:47)
[2018-01-15] MEDS: LIDOCAINE HCL 5% TOP OINTMENT 50 GM TUBE TP SCH (09:13)
[2018-01-15] MEDS: DIGOXIN 0.125 MG TABLET (FP) PO SCH (09:14)
[2018-01-15] MEDS: ASPIRIN 81 MG CHEWABLE TABLETS PO SCH (09:14)
[2018-01-15] MEDS: PRENATAL VITAMINS W/ FOLIC ACID TABLET (FP) PO SCH (09:14)
[2018-01-15] MEDS: DIVALPROEX SODIUM 250 MG TABLET E.C. PO SCH (09:14)
[2018-01-15] MEDS: BUDESONIDE/FORMETEROL FUMARATE 160/4.5 mcg INHALER IH SCH (09:15)
[2018-01-15 09:16] VITALS: PULSE 86
== END 2018-01-15 09:55 | disposition home or self-care (01) | DRG 772 ==
LOC: YASAS 17:42 → Y3E 17:43
PROVIDERS: ADMIT Psychiatry & Neurology Psychiatry; ATTEND Psychiatry & Neurology Psychiatry
PROC: HZ42ZZZ Group Counseling for Substance Abuse Treatment, Cognitive-Behavioral (ICD-10-PCS; principal; 2018-01-10)
DX: F10.20 Alcohol dependence, uncomplicated (principal); F14.20 Cocaine dependence, uncomplicated; F31.81 Bipolar II disorder; I10 Essential (primary) hypertension; I50.9 Heart failure, unspecified; G40.909 Epilepsy, unspecified, not intractable, without status epilepticus; K21.9 Gastro-esophageal reflux disease without esophagitis; E78.00 Pure hypercholesterolemia, unspecified; M25.562 Pain in left knee; R21 Rash and other nonspecific skin eruption; L29.9 Pruritus, unspecified; L98.8 Other specified disorders of the skin and subcutaneous tissue
CPT/HCPCS: 36415; 80162; 80185

== ENCOUNTER 2018-07-26 13:44 | Inpatient (IN) | payer OTHER ==
[2018-07-26 15:43] VITALS: BMI 22.3
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
[2018-07-26] MEDS ORDERED: MAGNESIUM HYDROX 2400MG/30ML ORAL SUSPENSION 30 ML CUP PO PRN (16:54)
[2018-07-26] MEDS ORDERED: MAG HYDROX/AL HYDROX/SIMETH 30 ML UNIT-DOSE CUP PO PRN (16:54)
[2018-07-26] MEDS ORDERED: NICOTINE POLACRILEX 2 MG GUM BC PRN (16:54)
[2018-07-26] MEDS ORDERED: ACETAMINOPHEN 325 MG TABLET (FP) PO PRN (16:54)
[2018-07-26] MEDS ORDERED: hydrOXYzine PAMOATE 25 MG CAPSULE (FP) PO PRN (16:54)
[2018-07-26] MEDS ORDERED: chlordiazePOXIDE HCL 25 MG CAPSULE PO PRN (16:54)
[2018-07-26] MEDS ORDERED: MAGNESIUM CITRATE 300 ML BOTTLE PO PRN (16:54)
[2018-07-26] MEDS ORDERED: ALBUTEROL SO4 0.083% IH SOL 2.5 MG/3 ML VIAL.NEB. NEB PRN (16:59)
[2018-07-26] MEDS ORDERED: MELATONIN 5 MG TABLETS PO PRN (22:00)
[2018-07-26] MEDS: PHENYTOIN NA EXTENDED 100 MG CAPSULE (FP) PO SCH (22:38)
[2018-07-26] MEDS: QUEtiapine FUMARATE 50 MG TABLET PO SCH (22:38)
[2018-07-26] MEDS: LIDOCAINE HCL 5% TOP OINTMENT 50 GM TUBE TP SCH (22:39)
[2018-07-26] MEDS: DIGOXIN 0.125 MG TABLET (FP) PO SCH (22:39)
[2018-07-26] MEDS: ASPIRIN 81 MG CHEWABLE TABLETS PO SCH (22:39)
[2018-07-26] MEDS: THIAMINE HCL 100 MG TABLET (FP) PO SCH (22:39)
[2018-07-26] MEDS: chlordiazePOXIDE HCL 25 MG CAPSULE PO SCH (23:25)
[2018-07-27] MEDS: chlordiazePOXIDE HCL 25 MG CAPSULE PO SCH ×4 (05:24→22:15)
[2018-07-27] MEDS: LIDOCAINE HCL 5% TOP OINTMENT 50 GM TUBE TP SCH (10:29)
[2018-07-27] MEDS: NICOTINE 7 MG/24 HOURS TOPICAL PATCH TD SCH (10:29)
[2018-07-27] MEDS: PRENATAL VITAMINS W/ FOLIC ACID TABLET (FP) PO SCH (10:29)
[2018-07-27] MEDS: ASPIRIN 81 MG CHEWABLE TABLETS PO SCH (10:29)
[2018-07-27 11:28] LABS: HEMATOCRIT 39.2 % (32.4-45.2); HEMOGLOBIN 13.1 GM/dL (10.7-15.3); MCH 31.7 pg (25.7-33.7); MCHC 33.5 g/dl (32.0-36.0); MEAN CELL VOLUME 94.5 fl (80-96); MEAN PLT VOLUME 9.5 fl (7.5-11.1); PLATELET COUNT 224 K/MM3 (134-434); RBC 4.14 M/mm3 (3.60-5.2); RDW 13.9 % (11.6-15.6); WHITE BLOOD COUNT 6.7 K/mm3 (4.0-10.0)
[2018-07-27] MEDS: DIGOXIN 0.125 MG TABLET (FP) PO SCH (11:58)
[2018-07-27 12:09] LABS: ALBUMIN 3.6 g/dl (3.4-5.0); ALK PHOS 134 U/L (45-117); ANION GAP 7 MMOL/L (8-16); BILIRUBIN,TOTAL 0.1 mg/dL (0.2-1); BLOOD UREA NITROGEN 11 mg/dL (7-18); CALCIUM 8.9 mg/dL (8.5-10.1); CHLORIDE 107 mmol/L (98-107); CO2 24 mmol/L (21-32); CREATININE 0.6 mg/dL (0.55-1.3); GLUCOSE,RANDOM 81 mg/dL (74-106); POTASSIUM 4.5 mmol/L (3.5-5.1); SGOT/AST 20 U/L (15-37); SGPT/ALT 41 U/L (13-61); SODIUM 139 mmol/L (136-145); TOT PROT 7.2 g/dl (6.4-8.2)
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
[2018-07-27] MEDS: MENTHOL/PHENOL 1 EACH UD MM PRN (16:59)
[2018-07-27] MEDS ORDERED: ALBUTEROL SO4 8 GM HFA INHALER IH PRN (17:02)
--- NOTE | 2018-07-27 18:11 | PN ---
S CIWA - CIWA Score Nausea/Vomitin Muscle Tremors: None Anxiety: 3 Agitation: 3 Paroxysmal Sweats: 3 Orientation: 0-Oriented Tacttile Disturbances: 0-None Auditory Disturbances: 0-None Visual Disturbances: 0-None Headache: 3-Moderate CIWA-Ar Total Score: 15 BHS Progress Note (SOAP) Subjective: Sweating, H/A, Body Aches, Nausea, Stomach Cramping, Diarrhea. Objective: PATIENT A & O X 3, OBSERVED AMBULATING ON UNIT. IN NO ACUTE DISTRESS. 07/27/18 18:10 Vital Signs Temperature 98.2 F 07/27/18 17:50 Pulse Rate 95 H 07/27/18 17:50 Respiratory Rate 18 07/27/18 17:50 Blood Pressure 102/69 07/27/18 17:50 O2 Sat by Pulse Oximetry (%) Laboratory Tests 07/27/18 07/27/18 07/27/18 07:00 07:00 07:00 WBC 6.7 RBC 4.14 Hgb 13.1 Hct 39.2 MCV 94.5 MCH 31.7 MCHC 33.5 RDW 13.9 Plt Count 224 MPV 9.5 D Sodium 139 Potassium 4.5 Chloride 107 Carbon Dioxide 24 Anion Gap 7 L BUN 11 Creatinine 0.6 Creat Clearance w eGFR > 60 Random Glucose 81 Calcium 8.9 Total Bilirubin 0.1 L AST 20 ALT 41 Alkaline Phosphatase 134 H Total Protein 7.2 Albumin 3.6 Phenytoin RPR Titer Nonreactive 07/27/18 07:00 WBC RBC Hgb Hct MCV MCH MCHC RDW Plt Count MPV Sodium Potassium Chloride Carbon Dioxide Anion Gap BUN Creatinine Creat Clearance w eGFR Random Glucose Calcium Total Bilirubin AST ALT Alkaline Phosphatase Total Protein Albumin Phenytoin 4.4 L RPR Titer LABS NOTED. Assessment: 07/27/18 18:10 WITHDRAWAL SYMPTOMS. Plan: CONTINUE DETOX.
[2018-07-27] MEDS ORDERED: LOPERAMIDE HCL 2 MG CAPSULE PO PRN (18:15)
[2018-07-27] MEDS: guaiFENesin 200 MG/10 ML 10 ML UNIT-DOSE CUPS PO PRN (20:50)
[2018-07-27] MEDS: PHENYTOIN NA EXTENDED 100 MG CAPSULE (FP) PO SCH (22:14)
[2018-07-27] MEDS: QUEtiapine FUMARATE 50 MG TABLET PO SCH (22:15)
[2018-07-27] MEDS: THIAMINE HCL 100 MG TABLET (FP) PO SCH (22:15)
[2018-07-28] MEDS: chlordiazePOXIDE HCL 25 MG CAPSULE PO SCH ×3 (05:56→17:19)
[2018-07-28] MEDS: guaiFENesin 200 MG/10 ML 10 ML UNIT-DOSE CUPS PO PRN ×2 (05:57→20:44)
[2018-07-28] MEDS: MENTHOL/PHENOL 1 EACH UD MM PRN ×2 (05:58→20:47)
[2018-07-28] MEDS: NICOTINE 7 MG/24 HOURS TOPICAL PATCH TD SCH (10:16)
[2018-07-28] MEDS: LIDOCAINE HCL 5% TOP OINTMENT 50 GM TUBE TP SCH (10:17)
[2018-07-28] MEDS: ASPIRIN 81 MG CHEWABLE TABLETS PO SCH (10:18)
[2018-07-28] MEDS: DIGOXIN 0.125 MG TABLET (FP) PO SCH (10:18)
[2018-07-28] MEDS: PRENATAL VITAMINS W/ FOLIC ACID TABLET (FP) PO SCH (10:18)
--- NOTE | 2018-07-28 13:23 | PN ---
[facility] CIWA - CIWA Score Nausea/Vomitin Muscle Tremors: None Anxiety: 3 Agitation: 2 Paroxysmal Sweats: 3 Orientation: 0-Oriented Tacttile Disturbances: 2-Mild Itch/Numbness/Burn Auditory Disturbances: 0-None Visual Disturbances: 1-Very Mild Sensitivity Headache: 0-None Present CIWA-Ar Total Score: 13 S Progress Note (SOAP) Subjective: Sweating, Anxious, Nausea, Diarrhea. Objective: PATIENT A & O X 3, OBSERVED AMBULATING ON UNIT. IN NO ACUTE DISTRESS. PATIENT REPORTS A HISTORY OF LOW BP. 07/28/18 13:24 Vital Signs Temperature 98.1 F 07/28/18 09:42 Pulse Rate 85 07/28/18 10:18 Respiratory Rate 20 07/28/18 09:42 Blood Pressure 105/80 07/28/18 09:42 O2 Sat by Pulse Oximetry (%) Laboratory Tests 07/27/18 07/27/18 07/27/18 07:00 07:00 07:00 WBC 6.7 RBC 4.14 Hgb 13.1 Hct 39.2 MCV 94.5 MCH 31.7 MCHC 33.5 RDW 13.9 Plt Count 224 MPV 9.5 D Sodium 139 Potassium 4.5 Chloride 107 Carbon Dioxide 24 Anion Gap 7 L BUN 11 Creatinine 0.6 Creat Clearance w eGFR > 60 Random Glucose 81 Calcium 8.9 Total Bilirubin 0.1 L AST 20 ALT 41 Alkaline Phosphatase 134 H Total Protein 7.2 Albumin 3.6 Phenytoin RPR Titer Nonreactive 07/27/18 07:00 WBC RBC Hgb Hct MCV MCH MCHC RDW Plt Count MPV Sodium Potassium Chloride Carbon Dioxide Anion Gap BUN Creatinine Creat Clearance w eGFR Random Glucose Calcium Total Bilirubin AST ALT Alkaline Phosphatase Total Protein Albumin Phenytoin 4.4 L RPR Titer LABS NOTED. 07/28/18 13:32 Assessment: 07/28/18 13:25 WITHDRAWAL SYMPTOMS. Plan: CONTINUE DETOX. INCREASE DAILY PO FLUID INTAKE. PRN IMMODIUM FOR DIARRHEA. PATIENT BROUGHT PRESCRIPTION (WRITTEN BY MEDICAL PROVIDER DR. WANDA ESPINOSA) WITH HER AT TIME OF ADMISSION FOR DILATNIN ER, 400 MG PO HS. PRESCRIPTION VIEWED AGAIN ON DETOX UNIT. HOWEVER, PATIENT CLEARLY STATES TO [employer]IVER TODAY THAT, AT RECOMMENDATION OF DR. ESPINOSA, SHE TAKES DILANTIN ER, 100 MG PO IN AM AND THEN 400 MG PO HS EVERY DAY ON AN OUTPATIENT BASIS. DILANTIN LEVEL ON DETOX ADMISSION NOTED TO BE LOW (4.4). WILL ORDER DILANTIN ER 100 MG DAILY IN AM TO TAKEN IN ADDITION TO 400 MG PO HS.
[2018-07-28] MEDS ORDERED: PHENYTOIN NA EXTENDED 100 MG CAPSULE (FP) PO ONE (14:00)
[2018-07-28] MEDS: IBUPROFEN 400 MG TABLET (FP) PO PRN (20:46)
[2018-07-28] MEDS: THIAMINE HCL 100 MG TABLET (FP) PO SCH (22:18)
[2018-07-28] MEDS: chlordiazePOXIDE 5 MG CAPSULE PO SCH (22:19)
[2018-07-28] MEDS: PHENYTOIN NA EXTENDED 100 MG CAPSULE (FP) PO SCH (22:19)
[2018-07-28] MEDS: QUEtiapine FUMARATE 50 MG TABLET PO SCH (22:19)
[2018-07-29] MEDS: chlordiazePOXIDE 5 MG CAPSULE PO SCH ×3 (06:20→16:39)
[2018-07-29] MEDS: MENTHOL/PHENOL 1 EACH UD MM PRN (06:43)
[2018-07-29] MEDS: guaiFENesin 200 MG/10 ML 10 ML UNIT-DOSE CUPS PO PRN (06:45)
[2018-07-29] MEDS ORDERED: PHENYTOIN NA EXTENDED 100 MG CAPSULE (FP) PO SCH (10:00)
--- NOTE | 2018-07-29 10:02 | PN ---
S CIWA - CIWA Score Nausea/Vomitin-No Nausea/No Vomiting Muscle Tremors: 3 Anxiety: 2 Agitation: 2 Paroxysmal Sweats: 1-Minimal Palms Moist Orientation: 0-Oriented Tacttile Disturbances: 0-None Auditory Disturbances: 0-None Visual Disturbances: 0-None Headache: 1-Very Mild CIWA-Ar Total Score: 9 S Progress Note (SOAP) Subjective: feeling better but anxious about discharged to the community that temptation and environmental factors made her felt weak ambulate with cane on [address] social with peers in day room discuss aftercare care Objective: 07/29/18 10:04 Vital Signs Temperature 98.2 F 07/29/18 09:46 Pulse Rate 84 07/29/18 09:46 Respiratory Rate 20 07/29/18 09:46 Blood Pressure 94/65 07/29/18 09:46 O2 Sat by Pulse Oximetry (%) Laboratory Last Values WBC 6.7 K/mm3 (4.0-10.0) 07/27/18 07:00 RBC 4.14 M/mm3 (3.60-5.2) 07/27/18 07:00 Hgb 13.1 GM/dL (10.7-15.3) 07/27/18 07:00 Hct 39.2 % (32.4-45.2) 07/27/18 07:00 MCV 94.5 fl (80-96) 07/27/18 07:00 MCH 31.7 pg (25.7-33.7) 07/27/18 07:00 MCHC 33.5 g/dl (32.0-36.0) 07/27/18 07:00 RDW 13.9 % (11.6-15.6) 07/27/18 07:00 Plt Count 224 K/MM3 (134-434) 07/27/18 07:00 MPV 9.5 fl (7.5-11.1) D 07/27/18 07:00 Sodium 139 mmol/L (136-145) 07/27/18 07:00 Potassium 4.5 mmol/L (3.5-5.1) 07/27/18 07:00 Chloride 107 mmol/L (98-107) 07/27/18 07:00 Carbon Dioxide 24 mmol/L (21-32) 07/27/18 07:00 Anion Gap 7 MMOL/L (8-16) L 07/27/18 07:00 BUN 11 mg/dL (7-18) 07/27/18 07:00 Creatinine 0.6 mg/dL (0.55-1.3) 07/27/18 07:00 Creat Clearance w eGFR > 60 (>60) 07/27/18 07:00 Random Glucose 81 mg/dL (74-106) 07/27/18 07:00 Calcium 8.9 mg/dL (8.5-10.1) 07/27/18 07:00 Total Bilirubin 0.1 mg/dL (0.2-1) L 07/27/18 07:00 AST 20 U/L (15-37) 07/27/18 07:00 ALT 41 U/L (13-61) 07/27/18 07:00 Alkaline Phosphatase 134 U/L (45-117) H 07/27/18 07:00 Total Protein 7.2 g/dl (6.4-8.2) 07/27/18 07:00 Albumin 3.6 g/dl (3.4-5.0) 07/27/18 07:00 Phenytoin 4.4 ug/ml (10.0-20.0) L 07/27/18 07:00 RPR Titer Nonreactive (NONREACTIVE) 07/27/18 07:00 lab noted low dilantin serum level encourage adherence with dilantin and digoxin patient acknowledged the negative consequences of non adherence with medications as prescribed 07/29/18 10:08 Assessment: 07/29/18 10:08 mild withdrawal sx Plan: continue detox patient agrees to return to her primary care provider for follow up patient admitted that last visited primary care provider was around 05/2018 to 06/2018 discuss urgent care and [facility] as walk in community health services for medical and mental issues as well as addiction
[2018-07-29] MEDS: ASPIRIN 81 MG CHEWABLE TABLETS PO SCH (10:30)
[2018-07-29] MEDS: PRENATAL VITAMINS W/ FOLIC ACID TABLET (FP) PO SCH (10:30)
[2018-07-29] MEDS: DIGOXIN 0.125 MG TABLET (FP) PO SCH (10:30)
[2018-07-29] MEDS: LIDOCAINE HCL 5% TOP OINTMENT 50 GM TUBE TP SCH (10:34)
[2018-07-29] MEDS: NICOTINE 7 MG/24 HOURS TOPICAL PATCH TD SCH (10:35)
[2018-07-29] MEDS: IBUPROFEN 400 MG TABLET (FP) PO PRN (16:40)
[2018-07-29] MEDS ORDERED: hydrOXYzine PAMOATE 25 MG CAPSULE (FP) PO ONE (22:00)
[2018-07-29] MEDS: THIAMINE HCL 100 MG TABLET (FP) PO SCH (22:33)
[2018-07-29] MEDS: chlordiazePOXIDE HCL 10 MG CAPSULE PO SCH (22:33)
[2018-07-29] MEDS: QUEtiapine FUMARATE 50 MG TABLET PO SCH (22:34)
[2018-07-29] MEDS: PHENYTOIN NA EXTENDED 100 MG CAPSULE (FP) PO SCH (22:34)
[2018-07-30] MEDS: chlordiazePOXIDE HCL 10 MG CAPSULE PO SCH (05:25)
[2018-07-30] MEDS: guaiFENesin 200 MG/10 ML 10 ML UNIT-DOSE CUPS PO PRN (05:25)
[2018-07-30] MEDS: MENTHOL/PHENOL 1 EACH UD MM PRN (05:25)
[2018-07-30 09:17] VITALS: TEMP 96.4
[2018-07-30 09:19] VITALS: BP 112/60; PULSE 90
--- NOTE | 2018-07-30 11:28 | DS ---
[facility] Detox Discharge Summary Admission Date: 07/26/18 Discharge Date: 07/30/18 - History Present History: Alcohol Dependence Additional Comments: 52 years old female admitted on 07/26/18 for alcohol withdrawal sx completed alcohol detox regimen aftercare [facility] - Physical Exam Results Vital Signs: Vital Signs Temperature 96.4 F L 07/30/18 09:16 Pulse Rate 90 07/30/18 09:16 Respiratory Rate 18 07/30/18 09:16 Blood Pressure 112/60 07/30/18 09:16 O2 Sat by Pulse Oximetry (%) Pertinent Admission Physical Exam Findings: alcohol withdrawal sx Laboratory Last Values WBC 6.7 K/mm3 (4.0-10.0) 07/27/18 07:00 RBC 4.14 M/mm3 (3.60-5.2) 07/27/18 07:00 Hgb 13.1 GM/dL (10.7-15.3) 07/27/18 07:00 Hct 39.2 % (32.4-45.2) 07/27/18 07:00 MCV 94.5 fl (80-96) 07/27/18 07:00 MCH 31.7 pg (25.7-33.7) 07/27/18 07:00 MCHC 33.5 g/dl (32.0-36.0) 07/27/18 07:00 RDW 13.9 % (11.6-15.6) 07/27/18 07:00 Plt Count 224 K/MM3 (134-434) 07/27/18 07:00 MPV 9.5 fl (7.5-11.1) D 07/27/18 07:00 Sodium 139 mmol/L (136-145) 07/27/18 07:00 Potassium 4.5 mmol/L (3.5-5.1) 07/27/18 07:00 Chloride 107 mmol/L (98-107) 07/27/18 07:00 Carbon Dioxide 24 mmol/L (21-32) 07/27/18 07:00 Anion Gap 7 MMOL/L (8-16) L 07/27/18 07:00 BUN 11 mg/dL (7-18) 07/27/18 07:00 Creatinine 0.6 mg/dL (0.55-1.3) 07/27/18 07:00 Creat Clearance w eGFR > 60 (>60) 07/27/18 07:00 Random Glucose 81 mg/dL (74-106) 07/27/18 07:00 Calcium 8.9 mg/dL (8.5-10.1) 07/27/18 07:00 Total Bilirubin 0.1 mg/dL (0.2-1) L 07/27/18 07:00 AST 20 U/L (15-37) 07/27/18 07:00 ALT 41 U/L (13-61) 07/27/18 07:00 Alkaline Phosphatase 134 U/L (45-117) H 07/27/18 07:00 Total Protein 7.2 g/dl (6.4-8.2) 07/27/18 07:00 Albumin 3.6 g/dl (3.4-5.0) 07/27/18 07:00 Phenytoin 4.4 ug/ml (10.0-20.0) L 07/27/18 07:00 RPR Titer Nonreactive (NONREACTIVE) 07/27/18 07:00 lab noted strong recommend adherence with dilantin dosage and schedule as well as follow up with neurologist or primary care provider for dilantin serum level encourage the patient to follow up with offc spec for digoxin serum level as well as adherence with the schedule and dosage as prescribed - Treatment Hospital Course: Detox Protocol Followed, Detoxed Safely, Responded well, Discharged Condition Good, Rehab Referral Accepted Patient has Accepted a Rehab Referral to: [facility] - Medication Discharge Medications: Ambulatory Orders Aspirin [ASA -] 81 mg PO DAILY 20 Days #20 tab.chew 01/15/18 Digoxin [Lanoxin -] 0.125 mg PO DAILY 20 Days #20 tablet 01/15/18 Quetiapine Fumarate [Seroquel -] 50 mg PO HS #30 tablet 01/15/18 Albuterol Sulfate Inhaler - [Ventolin Hfa Inhaler -] 2 inh PO Q4H 07/26/18 Phenytoin Na Extended [Dilantin -] 400 mg PO HS 07/29/18 - Diagnosis (1) Weight decreased Status: Acute (2) Hypertension Status: Chronic Qualifiers: Hypertension type: essential hypertension Qualified Code(s): I10 - Essential (primary) hypertension (3) Nicotine dependence Status: Acute Qualifiers: Nicotine product type: cigarettes Substance use status: in withdrawal Qualified Code(s): F17.213 - Nicotine dependence, cigarettes, with withdrawal (4) Seizure disorder Status: Chronic (5) Substance induced mood disorder Status: Suspected - AMA Did Patient Leave Against Medical Advice: No
== END 2018-07-30 10:20 | disposition home or self-care (01) | DRG 775 ==
LOC: YASAS 13:44 → Y3N 17:52
PROVIDERS: ADMIT Surgery; ATTEND Surgery
PROC: HZ2ZZZZ Detoxification Services for Substance Abuse Treatment (ICD-10-PCS; principal; 2018-07-26)
DX: F10.230 Alcohol dependence with withdrawal, uncomplicated (principal); F12.20 Cannabis dependence, uncomplicated; F17.213 Nicotine dependence, cigarettes, with withdrawal; F19.24 Other psychoactive substance dependence with psychoactive substance-induced mood disorder; F43.10 Post-traumatic stress disorder, unspecified; I10 Essential (primary) hypertension; G40.909 Epilepsy, unspecified, not intractable, without status epilepticus; G47.00 Insomnia, unspecified; I50.9 Heart failure, unspecified; I48.91 Unspecified atrial fibrillation; J45.909 Unspecified asthma, uncomplicated; D64.9 Anemia, unspecified; Z91.14 Patient's other noncompliance with medication regimen
CPT/HCPCS: 36415; 80053; 80185; 85027; 86593

== ENCOUNTER 2018-07-31 13:25 | Inpatient (IN) | payer OTHER ==
[2018-07-31 15:43] VITALS: BMI 27.4
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
[2018-07-31] MEDS ORDERED: ALBUTEROL SO4 2.5/IPRATROPIUM 0.5 INH SOL 3 ML VIAL.NEB. NEB PRN (17:21)
[2018-07-31] MEDS ORDERED: LOPERAMIDE HCL 2 MG CAPSULE PO PRN (17:30)
[2018-07-31] MEDS ORDERED: P-EPHED 60MG/TRIPROLIDI 2.5MG TABLET PO PRN (17:30)
[2018-07-31] MEDS ORDERED: MAGNESIUM CITRATE 300 ML BOTTLE PO PRN (17:30)
[2018-07-31] MEDS ORDERED: NICOTINE POLACRILEX 2 MG GUM BC PRN (17:30)
[2018-07-31] MEDS ORDERED: MAGNESIUM HYDROX 2400MG/30ML ORAL SUSPENSION 30 ML CUP PO PRN (17:30)
[2018-07-31] MEDS ORDERED: HYDROCORTISONE 1% TOPICAL OINT 30 GM TUBE TP PRN (17:35)
[2018-07-31] MEDS ORDERED: LIDOCAINE HCL 5% TOP OINTMENT 50 GM TUBE TP ONE (18:45)
[2018-07-31] MEDS: PHENYTOIN NA EXTENDED 100 MG CAPSULE (FP) PO SCH (21:37)
[2018-07-31] MEDS: THIAMINE HCL 100 MG TABLET (FP) PO SCH (21:37)
[2018-07-31] MEDS ORDERED: MELATONIN 5 MG TABLETS PO PRN (22:00)
[2018-07-31] MEDS: guaiFENesin/D-METHORPHAN HB 10 ML UNIT-DOSE CUPS PO PRN (22:50)
[2018-07-31] MEDS: MENTHOL/PHENOL 1 EACH UD MM PRN (22:50)
[2018-08-01] MEDS: guaiFENesin/D-METHORPHAN HB 10 ML UNIT-DOSE CUPS PO PRN ×2 (03:53→20:28)
[2018-08-01] MEDS: MENTHOL/PHENOL 1 EACH UD MM PRN ×2 (03:54→20:28)
[2018-08-01] MEDS ORDERED: PT OWN MED DRAWER 7, Y5N ONE ×2 (09:04→16:33)
[2018-08-01] MEDS: ALBUTEROL SO4 8 GM HFA INHALER IH PRN ×2 (09:16→18:26)
[2018-08-01] MEDS: ASPIRIN 81 MG CHEWABLE TABLETS PO SCH (10:44)
[2018-08-01] MEDS: PRENATAL VITAMINS W/ FOLIC ACID TABLET (FP) PO SCH (10:44)
[2018-08-01] MEDS: NICOTINE 7 MG/24 HOURS TOPICAL PATCH TD SCH (10:45)
[2018-08-01] MEDS: DIGOXIN 0.125 MG TABLET (FP) PO SCH (11:39)
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
[2018-08-01] MEDS: hydrOXYzine PAMOATE 50 MG CAPSULE (FP) PO PRN ×2 (16:01→21:29)
[2018-08-01] MEDS: PHENYTOIN NA EXTENDED 100 MG CAPSULE (FP) PO SCH (21:29)
[2018-08-01] MEDS: THIAMINE HCL 100 MG TABLET (FP) PO SCH (21:29)
[2018-08-01] MEDS: QUEtiapine FUMARATE 50 MG TABLET PO SCH (21:30)
[2018-08-01] MEDS: DIVALPROEX SODIUM 250 MG TABLET E.C. PO SCH (21:30)
[2018-08-02] MEDS: ASPIRIN 81 MG CHEWABLE TABLETS PO SCH (09:55)
[2018-08-02] MEDS: DIVALPROEX SODIUM 250 MG TABLET E.C. PO SCH ×2 (09:55→21:25)
[2018-08-02] MEDS: DIGOXIN 0.125 MG TABLET (FP) PO SCH (09:55)
[2018-08-02] MEDS: PRENATAL VITAMINS W/ FOLIC ACID TABLET (FP) PO SCH (09:56)
[2018-08-02] MEDS: NICOTINE 7 MG/24 HOURS TOPICAL PATCH TD SCH (09:56)
[2018-08-02] MEDS: QUEtiapine FUMARATE 50 MG TABLET PO SCH ×2 (09:57→21:25)
--- NOTE | 2018-08-02 13:25 | PN ---
[facility] Progress Note Note: Vital Signs Temperature 97.8 F 08/02/18 07:16 Pulse Rate 91 H 08/02/18 10:00 Respiratory Rate 18 08/02/18 07:16 Blood Pressure 105/70 08/02/18 10:00 O2 Sat by Pulse Oximetry (%) Laboratory Tests 08/01/18 08/01/18 08/01/18 10:30 10:30 10:30 Digoxin 0.11 L Phenytoin 7.7 L HIV 1&2 Antibody Screen Negative HIV P24 Antigen Negative Digoxin level appreciated. Patient currently on 0.125mg of Digoxin daily. Will repeat level on 08/06/18. Continue to monitor clinically.
[2018-08-02] MEDS: THIAMINE HCL 100 MG TABLET (FP) PO SCH (21:24)
[2018-08-02] MEDS: PHENYTOIN NA EXTENDED 100 MG CAPSULE (FP) PO SCH (21:25)
[2018-08-02] MEDS: hydrOXYzine PAMOATE 50 MG CAPSULE (FP) PO PRN (21:26)
[2018-08-03] MEDS: guaiFENesin/D-METHORPHAN HB 10 ML UNIT-DOSE CUPS PO PRN ×2 (01:08→23:21)
[2018-08-03] MEDS: MENTHOL/PHENOL 1 EACH UD MM PRN ×2 (01:08→23:21)
[2018-08-03] MEDS: DIVALPROEX SODIUM 250 MG TABLET E.C. PO SCH ×2 (10:12→21:33)
[2018-08-03] MEDS: QUEtiapine FUMARATE 50 MG TABLET PO SCH ×2 (10:12→21:32)
[2018-08-03] MEDS: PRENATAL VITAMINS W/ FOLIC ACID TABLET (FP) PO SCH (10:12)
[2018-08-03] MEDS: ASPIRIN 81 MG CHEWABLE TABLETS PO SCH (10:12)
[2018-08-03] MEDS: NICOTINE 7 MG/24 HOURS TOPICAL PATCH TD SCH (10:12)
[2018-08-03] MEDS: DIGOXIN 0.125 MG TABLET (FP) PO SCH (11:00)
[2018-08-03] MEDS: hydrOXYzine PAMOATE 50 MG CAPSULE (FP) PO PRN ×2 (14:21→21:34)
[2018-08-03] MEDS: PHENYTOIN NA EXTENDED 100 MG CAPSULE (FP) PO SCH (21:32)
[2018-08-03] MEDS: THIAMINE HCL 100 MG TABLET (FP) PO SCH (21:32)
[2018-08-03] MEDS ORDERED: PT OWN MED DRAWER 7, Y5N ONE (22:27)
[2018-08-04] MEDS ORDERED: PT OWN MED DRAWER 7, Y5N ONE ×2 (08:43→20:45)
[2018-08-04] MEDS: PRENATAL VITAMINS W/ FOLIC ACID TABLET (FP) PO SCH (10:13)
[2018-08-04] MEDS: NICOTINE 7 MG/24 HOURS TOPICAL PATCH TD SCH (10:13)
[2018-08-04] MEDS: DIVALPROEX SODIUM 250 MG TABLET E.C. PO SCH ×2 (10:13→21:46)
[2018-08-04] MEDS: DIGOXIN 0.125 MG TABLET (FP) PO SCH (10:13)
[2018-08-04] MEDS: QUEtiapine FUMARATE 50 MG TABLET PO SCH ×2 (10:13→21:46)
[2018-08-04] MEDS: ASPIRIN 81 MG CHEWABLE TABLETS PO SCH (10:13)
[2018-08-04] MEDS: THIAMINE HCL 100 MG TABLET (FP) PO SCH (21:46)
[2018-08-04] MEDS: PHENYTOIN NA EXTENDED 100 MG CAPSULE (FP) PO SCH (21:46)
[2018-08-04] MEDS: hydrOXYzine PAMOATE 50 MG CAPSULE (FP) PO PRN (21:47)
[2018-08-04] MEDS: guaiFENesin/D-METHORPHAN HB 10 ML UNIT-DOSE CUPS PO PRN (23:50)
[2018-08-04] MEDS: MENTHOL/PHENOL 1 EACH UD MM PRN (23:51)
[2018-08-05] MEDS ORDERED: PT OWN MED DRAWER 7, Y5N ONE (08:42)
[2018-08-05] MEDS: DIVALPROEX SODIUM 250 MG TABLET E.C. PO SCH ×2 (09:55→21:39)
[2018-08-05] MEDS: ASPIRIN 81 MG CHEWABLE TABLETS PO SCH (09:55)
[2018-08-05] MEDS: DIGOXIN 0.125 MG TABLET (FP) PO SCH (09:56)
[2018-08-05] MEDS: NICOTINE 7 MG/24 HOURS TOPICAL PATCH TD SCH (09:56)
[2018-08-05] MEDS: PRENATAL VITAMINS W/ FOLIC ACID TABLET (FP) PO SCH (09:56)
[2018-08-05] MEDS: QUEtiapine FUMARATE 50 MG TABLET PO SCH ×2 (09:57→21:40)
[2018-08-05] MEDS: THIAMINE HCL 100 MG TABLET (FP) PO SCH (21:39)
[2018-08-05] MEDS: PHENYTOIN NA EXTENDED 100 MG CAPSULE (FP) PO SCH (21:40)
[2018-08-05] MEDS: hydrOXYzine PAMOATE 50 MG CAPSULE (FP) PO PRN (21:41)
[2018-08-05] MEDS: guaiFENesin/D-METHORPHAN HB 10 ML UNIT-DOSE CUPS PO PRN (23:08)
[2018-08-05] MEDS: MENTHOL/PHENOL 1 EACH UD MM PRN (23:13)
[2018-08-06] MEDS: ACETAMINOPHEN 325 MG TABLET (FP) PO PRN (02:41)
[2018-08-06] MEDS ORDERED: PT OWN MED DRAWER 7, Y5N ONE ×2 (08:45→22:40)
[2018-08-06] MEDS ORDERED: METHYL SALICYLATE/MENTHOL OINT 30 GM TUBE TP PRN (10:05)
[2018-08-06] MEDS: NICOTINE 7 MG/24 HOURS TOPICAL PATCH TD SCH (10:06)
[2018-08-06] MEDS: QUEtiapine FUMARATE 50 MG TABLET PO SCH ×2 (10:06→21:53)
[2018-08-06] MEDS: DIVALPROEX SODIUM 250 MG TABLET E.C. PO SCH ×2 (10:06→21:53)
[2018-08-06] MEDS: PRENATAL VITAMINS W/ FOLIC ACID TABLET (FP) PO SCH (10:06)
[2018-08-06] MEDS: ASPIRIN 81 MG CHEWABLE TABLETS PO SCH (10:06)
[2018-08-06] MEDS: DIGOXIN 0.125 MG TABLET (FP) PO SCH (10:07)
[2018-08-06] MEDS: hydrOXYzine PAMOATE 50 MG CAPSULE (FP) PO PRN ×2 (10:08→21:54)
--- NOTE | 2018-08-06 11:19 | PN ---
Psychiatric Progress Note Vital Signs: Vital Signs Period Temp Pulse Resp BP Sys/Mauricio Pulse Ox Last 24 Hr 97.7 F 58-85 16-16 98-103/65-71 Date of Session: 08/06/18 Chief Complaint:: Remy hearing voices,i need my Zyprexa back. HPI: Patient addressed Alcohol and Cocaine dependence comprbid with Bipolar disorder. ROS: Significant for BA,COPD,Anemia. Current Medications: Active Medications Generic Name Dose Route Start Last Admin Trade Name Freq PRN Reason Stop Dose Admin Acetaminophen 650 mg 07/31/18 17:30 08/06/18 02:41 Tylenol - PO 650 mg Q4H PRN Administration FEVER Al Hydroxide/Mg Hydroxide 30 ml 07/31/18 17:30 Mylanta Oral Suspension - PO Q6H PRN DYSPEPSIA Albuterol Sulfate 2 puff 07/31/18 17:22 08/01/18 18:26 Ventolin Hfa Inhaler - IH 2 puff Q4H PRN Administration WHEEZING Artificial Tears 1 drop 07/31/18 17:24 Artificial Tears OU Q12H PRN dry eyes Aspirin 81 mg 08/01/18 10:00 08/06/18 10:06 Asa - PO 81 mg DAILY STAN Administration Digoxin 0.125 mg 08/01/18 10:00 08/06/18 10:07 Lanoxin - PO Not Given DAILY STAN Divalproex Sodium 250 mg 08/01/18 22:00 08/06/18 10:06 Depakote - PO 250 mg BID STAN Administration Eucalyptus/Menthol/Phenol/Sorbitol 1 each 07/31/18 17:30 08/05/18 23:13 Cepastat Lozenge - MM 1 each Q4H PRN Administration SORE THROAT Guaifenesin 10 ml 07/31/18 17:30 08/05/18 23:08 Robitussin Dm - PO 10 ml Q6H PRN Administration COUGH Hydrocortisone 1 applic 07/31/18 17:35 Hytone 1% Ointment - TP Q12H PRN FOR ITCHING Hydroxyzine Pamoate 50 mg 08/01/18 14:23 08/06/18 10:08 Vistaril - PO 50 mg Q6H PRN Administration ANXIETY Loperamide HCl 4 mg 07/31/18 17:30 Imodium - PO Q6H PRN DIARRHEA Magnesium Citrate 300 ml 07/31/18 17:30 Citroma - PO Q48H PRN CONSTIPATION Magnesium Hydroxide 30 ml 07/31/18 17:30 Milk Of Magnesia - PO DAILY PRN CONSTIPATION Melatonin 5 mg 07/31/18 22:00 07/31/18 21:38 Melatonin PO 5 mg HS PRN Administration INSOMNIA Methyl Salicylate 1 applic 08/06/18 10:05 Oj-Mehta - TP BID PRN PAIN LEVEL 1-5 Nicotine 7 mg 08/01/18 10:00 08/06/18 10:06 Nicoderm Patch - TD 7 mg DAILY STAN Administration Nicotine Polacrilex 2 mg 07/31/18 17:30 Nicorette Gum - BC Q2H PRN NICOTINE REPLACEMENT RX Phenytoin Sodium 400 mg 07/31/18 22:00 08/05/18 21:40 Dilantin - PO 400 mg HS STAN Administration Multivit/Folic Acid/Iron 1 tab 08/01/18 10:00 08/06/18 10:06 Vitamins (Sjr) - PO 1 tab DAILY STAN Administration Pseudoephedrine/Triprolidine 1 combo 07/31/18 17:30 Actifed - PO TID PRN NASAL CONGESTION Quetiapine Fumarate 50 mg 08/01/18 22:00 08/06/18 10:06 Seroquel - PO 50 mg BID STAN Administration Thiamine HCl 100 mg 07/31/18 22:00 08/05/18 21:39 Vitamin B1 - PO 100 mg HS STAN Administration Current Side Effect: No Lab tests ordered: No Lab tests reviewed: Yes Provider note:: Chart was revuewed,attending notes read and appreciated,patient was seen in my office.She addressed auditory ahallucinations (voices calling her name on and off).Patient reports that she was on Zyprexa in the past with good effect.Patient will contibue her psychotropic medications as per plan. Properties of Zyprexa has been discussed with the patient including side effcts, benefits and dose adjustment. Zyprexa 5 mg po hs will be strarted tonight. Supportive therapy provided. Mental Status Exam - Mental Status Exam Alert and Oriented to: Time, Place, Person Cognitive Function: Grossly Intact Patient Appearance: Well Groomed Mood: Sad, Anxious Affect: Mood Congruent, Labile Patient Behavior: Cooperative Speech Pattern: Clear Voice Loudness: Mildly Loud Thought Process: Goal Oriented Thought Disorder: Present Hallucinations: Auditory Suicidal Ideation: Denies Homicidal Ideation: Denies Insight/Judgement: Fair Sleep: Fair Appetite: Good Muscle strength/Tone: Normal Gait/Station: Normal Psychiatric Treatment Plan - Problem List (1) Nicotine dependence Current Visit: Yes Qualifiers: Nicotine product type: cigarettes Substance use status: in withdrawal Qualified Code(s): F17.213 - Nicotine dependence, cigarettes, with withdrawal (2) Alcohol dependence Current Visit: Yes (3) Anemia Current Visit: Yes Qualifiers: Anemia type: unspecified type Qualified Code(s): D64.9 - Anemia, unspecified (4) Seizure disorder Current Visit: Yes Comment: on dilantin (5) COPD (chronic obstructive pulmonary disease) Current Visit: Yes (6) Bipolar disorder Current Visit: Yes (7) Hypercholesterolemia Current Visit: Yes (8) Hypertension Current Visit: Yes Qualifiers: Hypertension type: essential hypertension Qualified Code(s): I10 - Essential (primary) hypertension (9) Post traumatic stress disorder (PTSD) Current Visit: Yes (10) Cocaine dependence in remission Current Visit: Yes
--- NOTE | 2018-08-06 11:44 | PN ---
[facility] Progress Note Note: PATIENT C/O JOINT PAIN WITH RELIEF FROM BENGAY TP OINTMENT. PATIENT DENIES RECENT INJURIES AND EXTREMITIES WITHOUT SWELLING AND HAS FULL ROM. AMB INDEPENDENTLY. WILL ORDER BENGAY OINTMENT PRN AND MONITOR CLINICALLY. Vital Signs Temperature 97.7 F 08/06/18 07:04 Pulse Rate 58 L 08/06/18 10:07 Respiratory Rate 16 08/06/18 09:16 Blood Pressure 103/71 08/06/18 09:16 O2 Sat by Pulse Oximetry (%)
--- NOTE | 2018-08-06 15:48 | PN ---
[facility] Progress Note Note: Repeat Digoxin level 0.32. Will repeat level in one week. Continue current dose of Digoxin. Laboratory Tests 08/01/18 08/01/18 08/01/18 10:30 10:30 10:30 Digoxin 0.11 L Phenytoin 7.7 L HIV 1&2 Antibody Screen Negative HIV P24 Antigen Negative 08/06/18 07:30 Digoxin 0.32 L Phenytoin HIV 1&2 Antibody Screen HIV P24 Antigen
[2018-08-06] MEDS: MAG HYDROX/AL HYDROX/SIMETH 30 ML UNIT-DOSE CUP PO PRN (18:59)
[2018-08-06] MEDS: PHENYTOIN NA EXTENDED 100 MG CAPSULE (FP) PO SCH (21:53)
[2018-08-06] MEDS: THIAMINE HCL 100 MG TABLET (FP) PO SCH (21:54)
[2018-08-06] MEDS: guaiFENesin/D-METHORPHAN HB 10 ML UNIT-DOSE CUPS PO PRN (21:56)
[2018-08-06] MEDS: OLANZapine 5 MG TABLET PO SCH (22:39)
[2018-08-07] MEDS: ACETAMINOPHEN 325 MG TABLET (FP) PO PRN ×2 (05:42→10:59)
[2018-08-07] MEDS ORDERED: ALBUTEROL SO4 0.083% IH SOL 2.5 MG/3 ML VIAL.NEB. NEB ONE (07:05)
[2018-08-07] MEDS ORDERED: ALBUTEROL SO4 2.5/IPRATROPIUM 0.5 INH SOL 3 ML VIAL.NEB. NEB PRN (07:13)
[2018-08-07] MEDS: ALBUTEROL SO4 8 GM HFA INHALER IH PRN (07:19)
[2018-08-07] MEDS ORDERED: ASPIRIN 81 MG CHEWABLE TABLETS PO ONE (07:21)
--- NOTE | 2018-08-07 07:25 | PN ---
[facility] Progress Note Note: Rapid response was called by the nurse, Ms. Singh for a patient with complaint of respiratory distress and chest pain. Patient was very anxious and hyperventilation. She was alert and able to answer questions. Vital Signs 08/07/18 08/07/18 08/07/18 00:30 03:30 07:25 Temperature 98.0 F Pulse Rate 77 Respiratory 17 18 22 H Rate Blood Pressure 87/61 L Action: Oxygen a 2 liters per minute initiated Duoeb nebulizer treatment Q4H PRN initiated Aspirin 81mg tablet 1 tablet oral stat ordered EKG stat
[2018-08-07] MEDS: NICOTINE 7 MG/24 HOURS TOPICAL PATCH TD SCH (09:40)
[2018-08-07] MEDS: ASPIRIN 81 MG CHEWABLE TABLETS PO SCH (09:40)
[2018-08-07] MEDS: PRENATAL VITAMINS W/ FOLIC ACID TABLET (FP) PO SCH (09:41)
[2018-08-07] MEDS: QUEtiapine FUMARATE 50 MG TABLET PO SCH ×2 (09:41→21:57)
[2018-08-07] MEDS: DIVALPROEX SODIUM 250 MG TABLET E.C. PO SCH ×2 (09:41→21:57)
[2018-08-07] MEDS ORDERED: PT OWN MED DRAWER 7, Y5N ONE ×2 (09:42→17:30)
[2018-08-07] MEDS: hydrOXYzine PAMOATE 50 MG CAPSULE (FP) PO PRN ×2 (09:43→21:57)
[2018-08-07] MEDS: DIGOXIN 0.125 MG TABLET (FP) PO SCH (10:58)
--- NOTE | 2018-08-07 11:42 | EKG ---
Test Reason : Blood Pressure : / mmHG Vent. Rate : 074 BPM Atrial Rate : 074 BPM P-R Int : 120 ms QRS Dur : 080 ms QT Int : 370 ms P-R-T Axes : 012 075 057 degrees QTc Int : 410 ms NORMAL SINUS RHYTHM NONSPECIFIC T WAVE ABNORMALITY ABNORMAL ECG WHEN COMPARED WITH ECG OF 09-JAN-2018 14:43, NONSPECIFIC T WAVE ABNORMALITY NOW EVIDENT IN INFERIOR LEADS Confirmed by Yrn Plummer MD ([id number]) on 08/07/2018 11:41:40 AM Referred By: GLORIA CHAVEZ Confirmed By:Yrn Plummer MD
[2018-08-07] MEDS ORDERED: LIDOCAINE HCL 5% TOP OINTMENT 50 GM TUBE MM ONE (13:14)
--- NOTE | 2018-08-07 13:24 | PN ---
[facility] Progress Note Note: PT REPORTS SHE HAS A HX OF CARPLE TUNNEL AND JOINT PAIN ON HANDS/WRISTS. ON BENGAY OINTMENT BT STATES SHE WANTS LIDOCAINE OINTMENT INSTEAD. PT WAS SEEN IN BED IN HER ROOM AND QUICKLY SAT UP. SHE IS ALERT O X 3. REPORTS NO SOB. Vital Signs - 24 hr 08/07/18 08/07/18 08/07/18 00:30 03:30 06:30 Temperature 97.6 F Pulse Rate 84 Respiratory 17 18 18 Rate Blood Pressure 118/76 O2 Sat by Pulse Oximetry (%) 08/07/18 08/07/18 08/07/18 07:25 07:45 10:58 Temperature 98.0 F Pulse Rate 77 77 86 Respiratory 22 H Rate Blood Pressure 87/61 L O2 Sat by Pulse 99 Oximetry (%) PLAN:D/C ANALGESIC BALM BEFORE START LIDOCAINE 5% TOPICAL APPLY BID TO AFFECTED AREAS.
[2018-08-07] MEDS ORDERED: LIDOCAINE HCL 5% TOP OINTMENT 50 GM TUBE TP ONE (13:45)
[2018-08-07] MEDS: THIAMINE HCL 100 MG TABLET (FP) PO SCH (21:56)
[2018-08-07] MEDS: PHENYTOIN NA EXTENDED 100 MG CAPSULE (FP) PO SCH (21:57)
[2018-08-07] MEDS: OLANZapine 5 MG TABLET PO SCH (21:57)
[2018-08-07] MEDS: LIDOCAINE HCL 5% TOP OINTMENT 50 GM TUBE TP SCH (21:58)
[2018-08-08] MEDS ORDERED: PT OWN MED DRAWER 7, Y5N ONE (08:21)
[2018-08-08] MEDS: DIGOXIN 0.125 MG TABLET (FP) PO SCH (10:05)
[2018-08-08] MEDS: ASPIRIN 81 MG CHEWABLE TABLETS PO SCH (10:05)
[2018-08-08] MEDS: DIVALPROEX SODIUM 250 MG TABLET E.C. PO SCH ×2 (10:05→21:58)
[2018-08-08] MEDS: PRENATAL VITAMINS W/ FOLIC ACID TABLET (FP) PO SCH (10:06)
[2018-08-08] MEDS: QUEtiapine FUMARATE 50 MG TABLET PO SCH ×2 (10:06→21:59)
[2018-08-08] MEDS: NICOTINE 7 MG/24 HOURS TOPICAL PATCH TD SCH (10:06)
[2018-08-08] MEDS: LIDOCAINE HCL 5% TOP OINTMENT 50 GM TUBE TP SCH ×2 (10:07→21:59)
[2018-08-08] MEDS: hydrOXYzine PAMOATE 50 MG CAPSULE (FP) PO PRN (21:58)
[2018-08-08] MEDS: PHENYTOIN NA EXTENDED 100 MG CAPSULE (FP) PO SCH (21:58)
[2018-08-08] MEDS: OLANZapine 5 MG TABLET PO SCH (21:59)
[2018-08-08] MEDS: THIAMINE HCL 100 MG TABLET (FP) PO SCH (21:59)
[2018-08-09] MEDS: PRENATAL VITAMINS W/ FOLIC ACID TABLET (FP) PO SCH (10:16)
[2018-08-09] MEDS: QUEtiapine FUMARATE 50 MG TABLET PO SCH ×2 (10:16→21:15)
[2018-08-09] MEDS: ASPIRIN 81 MG CHEWABLE TABLETS PO SCH (10:17)
[2018-08-09] MEDS: DIVALPROEX SODIUM 250 MG TABLET E.C. PO SCH ×2 (10:17→21:15)
[2018-08-09] MEDS: ARTIFICIAL TEARS (POLYVINYL ALCOHOL) OPTH DROPS OU PRN (10:17)
[2018-08-09] MEDS: NICOTINE 7 MG/24 HOURS TOPICAL PATCH TD SCH (10:17)
[2018-08-09] MEDS: DIGOXIN 0.125 MG TABLET (FP) PO SCH (10:19)
[2018-08-09] MEDS: LIDOCAINE HCL 5% TOP OINTMENT 50 GM TUBE TP SCH ×2 (10:21→22:15)
[2018-08-09] MEDS: ACETAMINOPHEN 325 MG TABLET (FP) PO PRN (15:17)
[2018-08-09] MEDS: MAG HYDROX/AL HYDROX/SIMETH 30 ML UNIT-DOSE CUP PO PRN (18:53)
[2018-08-09] MEDS: PHENYTOIN NA EXTENDED 100 MG CAPSULE (FP) PO SCH (21:14)
[2018-08-09] MEDS: OLANZapine 5 MG TABLET PO SCH (21:15)
[2018-08-09] MEDS: THIAMINE HCL 100 MG TABLET (FP) PO SCH (21:15)
[2018-08-09] MEDS: hydrOXYzine PAMOATE 50 MG CAPSULE (FP) PO PRN (21:16)
[2018-08-10] MEDS ORDERED: PT OWN MED DRAWER 7, Y5N ONE ×3 (09:10→19:35)
[2018-08-10] MEDS: MENTHOL/PHENOL 1 EACH UD MM PRN (09:17)
[2018-08-10] MEDS: guaiFENesin/D-METHORPHAN HB 10 ML UNIT-DOSE CUPS PO PRN (09:17)
[2018-08-10] MEDS: ASPIRIN 81 MG CHEWABLE TABLETS PO SCH (09:18)
[2018-08-10] MEDS: NICOTINE 7 MG/24 HOURS TOPICAL PATCH TD SCH (09:18)
[2018-08-10] MEDS: PRENATAL VITAMINS W/ FOLIC ACID TABLET (FP) PO SCH (09:18)
[2018-08-10] MEDS: QUEtiapine FUMARATE 50 MG TABLET PO SCH ×2 (09:18→21:49)
[2018-08-10] MEDS: DIVALPROEX SODIUM 250 MG TABLET E.C. PO SCH ×2 (09:18→21:50)
[2018-08-10] MEDS: DIGOXIN 0.125 MG TABLET (FP) PO SCH (09:18)
[2018-08-10] MEDS: ARTIFICIAL TEARS (POLYVINYL ALCOHOL) OPTH DROPS OU PRN ×2 (09:19→21:50)
[2018-08-10] MEDS: LIDOCAINE HCL 5% TOP OINTMENT 50 GM TUBE TP SCH ×2 (09:20→21:50)
[2018-08-10] MEDS ORDERED: ALBUTEROL SO4 2.5/IPRATROPIUM 0.5 INH SOL 3 ML VIAL.NEB. NEB PRN (12:00)
[2018-08-10] MEDS: ACETAMINOPHEN 325 MG TABLET (FP) PO PRN (15:22)
[2018-08-10] MEDS: PHENYTOIN NA EXTENDED 100 MG CAPSULE (FP) PO SCH (21:49)
[2018-08-10] MEDS: OLANZapine 5 MG TABLET PO SCH (21:50)
[2018-08-10] MEDS: THIAMINE HCL 100 MG TABLET (FP) PO SCH (21:50)
[2018-08-10] MEDS: hydrOXYzine PAMOATE 50 MG CAPSULE (FP) PO PRN (21:52)
[2018-08-11] MEDS: guaiFENesin/D-METHORPHAN HB 10 ML UNIT-DOSE CUPS PO PRN (05:43)
[2018-08-11] MEDS: DIGOXIN 0.125 MG TABLET (FP) PO SCH (10:10)
[2018-08-11] MEDS: ASPIRIN 81 MG CHEWABLE TABLETS PO SCH (10:10)
[2018-08-11] MEDS: PRENATAL VITAMINS W/ FOLIC ACID TABLET (FP) PO SCH (10:10)
[2018-08-11] MEDS: DIVALPROEX SODIUM 250 MG TABLET E.C. PO SCH ×2 (10:10→21:55)
[2018-08-11] MEDS: hydrOXYzine PAMOATE 50 MG CAPSULE (FP) PO PRN ×2 (10:10→21:57)
[2018-08-11] MEDS: QUEtiapine FUMARATE 50 MG TABLET PO SCH ×2 (10:10→21:55)
[2018-08-11] MEDS: NICOTINE 7 MG/24 HOURS TOPICAL PATCH TD SCH (10:11)
[2018-08-11] MEDS: LIDOCAINE HCL 5% TOP OINTMENT 50 GM TUBE TP SCH ×2 (10:11→21:56)
[2018-08-11] MEDS: OLANZapine 5 MG TABLET PO SCH (21:55)
[2018-08-11] MEDS: THIAMINE HCL 100 MG TABLET (FP) PO SCH (21:55)
[2018-08-11] MEDS: PHENYTOIN NA EXTENDED 100 MG CAPSULE (FP) PO SCH (21:55)
[2018-08-12] MEDS: hydrOXYzine PAMOATE 50 MG CAPSULE (FP) PO PRN ×3 (04:27→21:58)
[2018-08-12] MEDS: ACETAMINOPHEN 325 MG TABLET (FP) PO PRN ×2 (04:27→14:25)
[2018-08-12] MEDS: ASPIRIN 81 MG CHEWABLE TABLETS PO SCH (10:00)
[2018-08-12] MEDS: DIVALPROEX SODIUM 250 MG TABLET E.C. PO SCH ×2 (10:00→21:57)
[2018-08-12] MEDS: QUEtiapine FUMARATE 50 MG TABLET PO SCH ×2 (10:00→21:57)
[2018-08-12] MEDS: PRENATAL VITAMINS W/ FOLIC ACID TABLET (FP) PO SCH (10:01)
[2018-08-12] MEDS: LIDOCAINE HCL 5% TOP OINTMENT 50 GM TUBE TP SCH ×2 (10:01→21:57)
[2018-08-12] MEDS: NICOTINE 7 MG/24 HOURS TOPICAL PATCH TD SCH (10:01)
[2018-08-12] MEDS: DIGOXIN 0.125 MG TABLET (FP) PO SCH (10:01)
[2018-08-12] MEDS ORDERED: PT OWN MED DRAWER 7, Y5N ONE (11:54)
[2018-08-12] MEDS: THIAMINE HCL 100 MG TABLET (FP) PO SCH (21:56)
[2018-08-12] MEDS: PHENYTOIN NA EXTENDED 100 MG CAPSULE (FP) PO SCH (21:57)
[2018-08-12] MEDS: OLANZapine 5 MG TABLET PO SCH (21:57)
[2018-08-13 07:13] VITALS: BP 118/82; TEMP 97.6
--- NOTE | 2018-08-13 09:24 | PN ---
[facility] Progress Note Note: Patient is discharged today. Scripts for 30 days supply of medications(Depakote , Seroquel, Zyprexa) are electronically transmitted to [facility] at [address] [place] [phone]
[2018-08-13] MEDS: QUEtiapine FUMARATE 50 MG TABLET PO SCH (09:30)
[2018-08-13] MEDS: PRENATAL VITAMINS W/ FOLIC ACID TABLET (FP) PO SCH (09:31)
[2018-08-13] MEDS: DIVALPROEX SODIUM 250 MG TABLET E.C. PO SCH (09:31)
[2018-08-13] MEDS: NICOTINE 7 MG/24 HOURS TOPICAL PATCH TD SCH (09:31)
[2018-08-13] MEDS: ASPIRIN 81 MG CHEWABLE TABLETS PO SCH (09:31)
[2018-08-13] MEDS: DIGOXIN 0.125 MG TABLET (FP) PO SCH (09:31)
[2018-08-13 09:32] VITALS: PULSE 86
[2018-08-13] MEDS: LIDOCAINE HCL 5% TOP OINTMENT 50 GM TUBE TP SCH (09:32)
--- NOTE | 2018-08-13 09:35 | PN ---
[facility] Progress Note Note: PT COMPLETED REHAB AND DISCHARGING TODAY. PT MET WITH HER COUNSELOR AND WAS REFERRED TO [facility] AFTERC[facility]. PT REPORTS SHE HAS PRIMARY CARE AT [facility] WHERE SHE WILL FOLLOW UP WITH MEDICAL MANAGEMENT AFTER DISCHARGE(FORGOT HER DOCTOR'S NAME BECAUSE GOT A NEW ONE WITH NEW INSURANCE- [email or web address]). PT REQUESTED FOR COURTESY RX SENT ELECTRONICALLY TO HER PREFERRED PHARMACY ON CHART UNTILL SHE CAN GET TO HER PCP. ALERT O X 3. DENIES S/H/I. Home Medications Medication Instructions Recorded Albuterol Sulfate Inhaler - 2 inh PO Q4H 07/26/18 [Ventolin Hfa Inhaler -] Quetiapine Fumarate [Seroquel -] 50 mg PO BID #60 tablet 08/01/18 Aspirin [ASA -] 81 mg PO DAILY 20 Days #20 tab.chew 08/13/18 Digoxin [Lanoxin -] 0.125 mg PO DAILY 20 Days #30 08/13/18 tablet Divalproex [Depakote -] 250 mg PO BID #60 tablet.ec 08/13/18 Olanzapine [Zyprexa -] 5 mg PO HS #30 tablet 08/13/18 Phenytoin Na Extended [Dilantin -] 400 mg PO HS #30 capsule 08/13/18 Quetiapine Fumarate [Seroquel -] 50 mg PO BID #60 tablet 08/13/18 Vital Signs - 24 hr 08/12/18 08/12/18 08/13/18 10:00 10:01 00:30 Temperature Pulse Rate 80 80 Respiratory 18 Rate Blood Pressure 101/75 08/13/18 08/13/18 08/13/18 03:30 07:11 09:31 Temperature 97.6 F Pulse Rate 73 86 Respiratory 18 18 Rate Blood Pressure 118/82 Laboratory Tests 08/01/18 08/01/18 08/01/18 10:30 10:30 10:30 Digoxin 0.11 L Phenytoin 7.7 L HIV 1&2 Antibody Screen Negative HIV P24 Antigen Negative 08/06/18 08/12/18 07:30 08:40 Digoxin 0.32 L 0.24 L Phenytoin HIV 1&2 Antibody Screen HIV P24 Antigen NAD MEDICALLY STABLE PLAN:FOLLOW UP WITH CD AFTERCARE WITH [facility] RECOMMENDED FOLLOW UP WITH PCP AT [facility] FOR MEDICAL MANAGEMENT WITHIN 1-2 WEEKS AFTER DISCHARGE.
== END 2018-08-13 10:30 | disposition home or self-care (01) | DRG 772 ==
LOC: YASAS 13:25 → Y3E 18:17
PROVIDERS: ADMIT Neuromusculoskeletal Medicine & OMM; ATTEND Neuromusculoskeletal Medicine & OMM
PROC: HZ42ZZZ Group Counseling for Substance Abuse Treatment, Cognitive-Behavioral (ICD-10-PCS; principal; 2018-07-30)
DX: F10.20 Alcohol dependence, uncomplicated (principal); F14.21 Cocaine dependence, in remission; F17.210 Nicotine dependence, cigarettes, uncomplicated; F30.9 Manic episode, unspecified; F43.10 Post-traumatic stress disorder, unspecified; F20.9 Schizophrenia, unspecified; I11.0 Hypertensive heart disease with heart failure; I50.9 Heart failure, unspecified; E78.00 Pure hypercholesterolemia, unspecified; J44.9 Chronic obstructive pulmonary disease, unspecified; J45.909 Unspecified asthma, uncomplicated; K21.9 Gastro-esophageal reflux disease without esophagitis; G40.909 Epilepsy, unspecified, not intractable, without status epilepticus; D64.9 Anemia, unspecified; L29.8 Other pruritus; R07.9 Chest pain, unspecified; R06.02 Shortness of breath
CPT/HCPCS: 36415; 80162; 80185; 87389; 93005; 93010; 94640

== ENCOUNTER 2019-04-27 12:37 | Inpatient (IN) | payer OTHER ==
[2019-04-27 13:29] VITALS: BMI 26.5
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
[2019-04-27] MEDS ORDERED: MAGNESIUM HYDROX 2400MG/30ML ORAL SUSPENSION 30 ML CUP PO PRN (15:13)
[2019-04-27] MEDS ORDERED: MAGNESIUM CITRATE 300 ML BOTTLE PO PRN (15:13)
[2019-04-27] MEDS ORDERED: METHOCARBAMOL 500 MG TABLET PO PRN (15:13)
[2019-04-27] MEDS ORDERED: NICOTINE POLACRILEX 2 MG GUM BUC PRN (15:13)
[2019-04-27] MEDS ORDERED: chlordiazePOXIDE HCL 25 MG CAPSULE PO ONE (15:13)
[2019-04-27] MEDS ORDERED: MAG HYDROX/AL HYDROX/SIMETH 30 ML UNIT-DOSE CUP PO PRN (15:13)
[2019-04-27] MEDS ORDERED: MELATONIN 5 MG TABLETS PO PRN (15:13)
[2019-04-27] MEDS ORDERED: IBUPROFEN 400 MG TABLET (FP) PO PRN (15:13)
[2019-04-27] MEDS ORDERED: ACETAMINOPHEN 325 MG TABLET (FP) PO PRN (15:13)
[2019-04-27] MEDS ORDERED: chlordiazePOXIDE HCL 10 MG CAPSULE PO PRN (15:13)
[2019-04-27] MEDS ORDERED: hydrOXYzine PAMOATE 25 MG CAPSULE (FP) PO PRN (15:13)
[2019-04-27] MEDS ORDERED: ONDANSETRON *ODT* 4 MG TABLET SL PRN (15:13)
[2019-04-27] MEDS ORDERED: BISMUTH SUBSALICYLATE 524 MG/30 ML UD PO PRN (15:13)
[2019-04-27] MEDS ORDERED: PROCHLORPERAZINE MALEATE 5 MG TABLET PO PRN (15:13)
[2019-04-27] MEDS ORDERED: ALBUTEROL SO4 8 GM HFA INHALER IH PRN (15:15)
[2019-04-27] MEDS: NICOTINE 7 MG/24 HOURS TOPICAL PATCH TD SCH (17:31)
[2019-04-27] MEDS: PHENYTOIN NA EXTENDED 100 MG CAPSULE (FP) PO SCH (22:47)
[2019-04-27] MEDS: DIVALPROEX SODIUM 250 MG TABLET E.C. PO SCH (22:48)
[2019-04-27] MEDS: OLANZapine 10 MG TABLET PO SCH (22:48)
[2019-04-27] MEDS: THIAMINE HCL 100 MG TABLET (FP) PO SCH (22:48)
[2019-04-27] MEDS: QUEtiapine FUMARATE 50 MG TABLET PO SCH (22:48)
[2019-04-27] MEDS: ACETAMINOPHEN 325 MG TABLET (FP) PO PRN (22:51)
[2019-04-27] MEDS: chlordiazePOXIDE HCL 25 MG CAPSULE PO SCH (23:24)
[2019-04-28] MEDS: chlordiazePOXIDE HCL 25 MG CAPSULE PO SCH ×3 (05:06→22:46)
[2019-04-28] MEDS: MENTHOL/PHENOL 1 EACH UD MM PRN (05:08)
[2019-04-28] MEDS: ASPIRIN 81 MG CHEWABLE TABLETS PO SCH (10:54)
[2019-04-28] MEDS: NICOTINE 7 MG/24 HOURS TOPICAL PATCH TD SCH (10:55)
[2019-04-28] MEDS: PRENATAL VITAMINS W/ FOLIC ACID TABLET (FP) PO SCH (10:55)
[2019-04-28] MEDS: QUEtiapine FUMARATE 50 MG TABLET PO SCH ×2 (10:55→22:44)
[2019-04-28] MEDS: DIVALPROEX SODIUM 250 MG TABLET E.C. PO SCH ×2 (10:55→22:44)
[2019-04-28] MEDS: DIGOXIN 0.125 MG TABLET (FP) PO SCH (10:55)
[2019-04-28 11:03] LABS: HEMATOCRIT 39.8 % (32.4-45.2); HEMOGLOBIN 13.3 GM/dL (10.7-15.3); MCH 31.4 pg (25.7-33.7); MCHC 33.5 g/dl (32.0-36.0); MEAN CELL VOLUME 93.9 fl (80-96); MEAN PLT VOLUME 8.8 fl (7.5-11.1); PLATELET COUNT 256 K/MM3 (134-434); RBC 4.24 M/mm3 (3.60-5.2); RDW 14.2 % (11.6-15.6); WHITE BLOOD COUNT 5.6 K/mm3 (4.0-10.0)
[2019-04-28 11:11] LABS: ALBUMIN 3.4 g/dl (3.4-5.0); BILIRUBIN,TOTAL 0.2 mg/dL (0.2-1); CALCIUM 8.5 mg/dL (8.5-10.1); CREATININE 0.7 mg/dL (0.55-1.3); POTASSIUM 3.8 mmol/L (3.5-5.1); TOT PROT 6.4 g/dl (6.4-8.2)
[2019-04-28] MEDS ORDERED: PNEUMOC 13-VAL CONJ-DIP CRM/PF 0.5 ML DISP.SYRIN IM ONE (12:00)
--- NOTE | 2019-04-28 16:10 | PN ---
[facility] CIWA - CIWA Score Nausea/Vomitin-Mild Nausea/No Vomiting Muscle Tremors: 3 Anxiety: 4-Mod. Anxious/Guarded Agitation: 3 Paroxysmal Sweats: 3 Orientation: 0-Oriented Tacttile Disturbances: 0-None Auditory Disturbances: 0-None Visual Disturbances: 0-None Headache: 0-None Present CIWA-Ar Total Score: 14 S Progress Note (SOAP) Subjective: Chills, N/V (vomited once this morning), interrupted sleep Objective: 04/28/19 16:08 Last Vital Signs Temp Pulse Resp BP Pulse Ox 97.5 F L 94 H 18 110/66 04/28/19 06:23 04/28/19 06:23 04/28/19 06:23 04/28/19 06:23 Laboratory Tests 04/28/19 04/28/19 04/28/19 07:40 07:40 07:40 WBC 5.6 RBC 4.24 Hgb 13.3 Hct 39.8 MCV 93.9 MCH 31.4 MCHC 33.5 RDW 14.2 Plt Count 256 MPV 8.8 Sodium 142 Potassium 3.8 Chloride 112 H Carbon Dioxide 26 Anion Gap 5 L BUN 11.0 Creatinine 0.7 Est GFR (CKD-EPI)AfAm 116.27 Est GFR (CKD-EPI)NonAf 100.32 Random Glucose 124 H Calcium 8.5 Total Bilirubin 0.2 AST 9 L ALT 19 Alkaline Phosphatase 134 H Total Protein 6.4 Albumin 3.4 Digoxin Phenytoin 5.1 RPR Titer 04/28/19 04/28/19 07:40 09:00 WBC RBC Hgb Hct MCV MCH MCHC RDW Plt Count MPV Sodium Potassium Chloride Carbon Dioxide Anion Gap BUN Creatinine Est GFR (CKD-EPI)AfAm Est GFR (CKD-EPI)NonAf Random Glucose Calcium Total Bilirubin AST ALT Alkaline Phosphatase Total Protein Albumin Digoxin < 0.3 L Phenytoin RPR Titer Nonreactive Labs reviewed: serum glucose 124 Assessment: 04/28/19 16:09 Withdrawal sxs Hyperglycemia noted Plan: Continue detox Encouraged PO water intake Hyperglycemia: denies DM, most likely r/t withdrawal, repeat fasting glucose ( will order BMP due to c/o vomiting), send A1c
[2019-04-28] MEDS: PHENYTOIN NA EXTENDED 100 MG CAPSULE (FP) PO SCH (22:44)
[2019-04-28] MEDS: THIAMINE HCL 100 MG TABLET (FP) PO SCH (22:44)
[2019-04-28] MEDS: OLANZapine 10 MG TABLET PO SCH (22:44)
[2019-04-29] MEDS: chlordiazePOXIDE 5 MG CAPSULE PO SCH ×3 (05:17→22:58)
[2019-04-29] MEDS: MENTHOL/PHENOL 1 EACH UD MM PRN (05:17)
[2019-04-29] MEDS: ACETAMINOPHEN 325 MG TABLET (FP) PO PRN (05:18)
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
[2019-04-29] MEDS ORDERED: MELATONIN 5 MG TABLETS PO PRN (08:38)
[2019-04-29] MEDS: DIGOXIN 0.125 MG TABLET (FP) PO SCH (10:32)
[2019-04-29] MEDS: PRENATAL VITAMINS W/ FOLIC ACID TABLET (FP) PO SCH (10:32)
[2019-04-29] MEDS: ASPIRIN 81 MG CHEWABLE TABLETS PO SCH (10:32)
[2019-04-29] MEDS: DIVALPROEX SODIUM 250 MG TABLET E.C. PO SCH ×2 (10:32→22:38)
[2019-04-29] MEDS: QUEtiapine FUMARATE 50 MG TABLET PO SCH ×2 (10:32→22:38)
[2019-04-29] MEDS: NICOTINE 7 MG/24 HOURS TOPICAL PATCH TD SCH (10:33)
[2019-04-29 12:20] LABS: BLOOD UREA NITROGEN 13.1 mg/dL (7-18); CREATININE 0.7 mg/dL (0.55-1.3); POTASSIUM 4.1 mmol/L (3.5-5.1)
--- NOTE | 2019-04-29 12:42 | PN ---
S CIWA - CIWA Score Nausea/Vomitin-No Nausea/No Vomiting Muscle Tremors: 2 Anxiety: 2 Agitation: 2 Paroxysmal Sweats: 2 Orientation: 0-Oriented Tacttile Disturbances: 0-None Auditory Disturbances: 0-None Visual Disturbances: 0-None Headache: 0-None Present CIWA-Ar Total Score: 8 BHS Progress Note (SOAP) Subjective: sweats interrupted sleep agitation Objective: 04/29/19 12:41 Vital Signs Temperature 98.2 F 04/29/19 09:32 Pulse Rate 106 H 04/29/19 10:32 Respiratory Rate 20 04/29/19 09:32 Blood Pressure 148/64 04/29/19 09:32 O2 Sat by Pulse Oximetry (%) Laboratory Tests 04/27/19 04/28/19 04/28/19 14:57 07:40 07:40 WBC 5.6 RBC 4.24 Hgb 13.3 Hct 39.8 MCV 93.9 MCH 31.4 MCHC 33.5 RDW 14.2 Plt Count 256 MPV 8.8 Sodium Potassium Chloride Carbon Dioxide Anion Gap BUN Creatinine Est GFR (CKD-EPI)AfAm Est GFR (CKD-EPI)NonAf Random Glucose Hemoglobin A1c % Calcium Total Bilirubin AST ALT Alkaline Phosphatase Total Protein Albumin POC Urine HCG, Qual Negative Digoxin Phenytoin 5.1 RPR Titer 04/28/19 04/28/19 04/28/19 07:40 07:40 09:00 WBC RBC Hgb Hct MCV MCH MCHC RDW Plt Count MPV Sodium 142 Potassium 3.8 Chloride 112 H Carbon Dioxide 26 Anion Gap 5 L BUN 11.0 Creatinine 0.7 Est GFR (CKD-EPI)AfAm 116.27 Est GFR (CKD-EPI)NonAf 100.32 Random Glucose 124 H Hemoglobin A1c % Calcium 8.5 Total Bilirubin 0.2 AST 9 L ALT 19 Alkaline Phosphatase 134 H Total Protein 6.4 Albumin 3.4 POC Urine HCG, Qual Digoxin < 0.3 L Phenytoin RPR Titer Nonreactive 04/29/19 04/29/19 08:15 08:15 WBC RBC Hgb Hct MCV MCH MCHC RDW Plt Count MPV Sodium 140 Potassium 4.1 Chloride 109 H Carbon Dioxide 24 Anion Gap 7 L BUN 13.1 Creatinine 0.7 Est GFR (CKD-EPI)AfAm 116.27 Est GFR (CKD-EPI)NonAf 100.32 Random Glucose 113 H Hemoglobin A1c % 5.0 Calcium 9.0 Total Bilirubin AST ALT Alkaline Phosphatase Total Protein Albumin POC Urine HCG, Qual Digoxin Phenytoin RPR Titer labs noted A1C 5.0 WNL. pt denies having diabetes. aaox3 ambulating no acute distress Assessment: 04/29/19 12:46 withdrawal Plan: continue detox increase fluids
[2019-04-29] MEDS: PHENYTOIN NA EXTENDED 100 MG CAPSULE (FP) PO SCH (22:38)
[2019-04-29] MEDS: OLANZapine 10 MG TABLET PO SCH (22:38)
[2019-04-29] MEDS: THIAMINE HCL 100 MG TABLET (FP) PO SCH (22:38)
[2019-04-29] MEDS: MELATONIN 5 MG TABLETS PO SCH (22:39)
[2019-04-30] MEDS ORDERED: chlordiazePOXIDE HCL 10 MG CAPSULE PO PRN
[2019-04-30] MEDS: chlordiazePOXIDE HCL 10 MG CAPSULE PO SCH ×3 (06:43→22:20)
[2019-04-30] MEDS: ASPIRIN 81 MG CHEWABLE TABLETS PO SCH (10:21)
[2019-04-30] MEDS: NICOTINE 7 MG/24 HOURS TOPICAL PATCH TD SCH (10:21)
[2019-04-30] MEDS: DIVALPROEX SODIUM 250 MG TABLET E.C. PO SCH ×2 (10:21→22:23)
[2019-04-30] MEDS: DIGOXIN 0.125 MG TABLET (FP) PO SCH (10:21)
[2019-04-30] MEDS: QUEtiapine FUMARATE 50 MG TABLET PO SCH ×2 (10:22→22:23)
[2019-04-30] MEDS: PRENATAL VITAMINS W/ FOLIC ACID TABLET (FP) PO SCH (10:22)
--- NOTE | 2019-04-30 11:53 | PN ---
S CIWA - CIWA Score Nausea/Vomitin-No Nausea/No Vomiting Muscle Tremors: 2 Anxiety: 1-Mildly Anxious Agitation: 1-Slight > Activity Paroxysmal Sweats: No Perspiration Orientation: 0-Oriented Tacttile Disturbances: 0-None Auditory Disturbances: 0-None Visual Disturbances: 0-None Headache: 0-None Present CIWA-Ar Total Score: 4 BHS Progress Note (SOAP) Subjective: feeling better I slept better little sweats Objective: 04/30/19 11:53 Vital Signs Temperature 97.9 F 04/30/19 10:29 Pulse Rate 86 04/30/19 10:29 Respiratory Rate 16 04/30/19 10:29 Blood Pressure 109/76 04/30/19 06:35 O2 Sat by Pulse Oximetry (%) Laboratory Tests 04/27/19 04/28/19 04/28/19 14:57 07:40 07:40 WBC 5.6 RBC 4.24 Hgb 13.3 Hct 39.8 MCV 93.9 MCH 31.4 MCHC 33.5 RDW 14.2 Plt Count 256 MPV 8.8 Sodium Potassium Chloride Carbon Dioxide Anion Gap BUN Creatinine Est GFR (CKD-EPI)AfAm Est GFR (CKD-EPI)NonAf Random Glucose Hemoglobin A1c % Calcium Total Bilirubin AST ALT Alkaline Phosphatase Total Protein Albumin POC Urine HCG, Qual Negative Digoxin Phenytoin 5.1 RPR Titer 04/28/19 04/28/19 04/28/19 07:40 07:40 09:00 WBC RBC Hgb Hct MCV MCH MCHC RDW Plt Count MPV Sodium 142 Potassium 3.8 Chloride 112 H Carbon Dioxide 26 Anion Gap 5 L BUN 11.0 Creatinine 0.7 Est GFR (CKD-EPI)AfAm 116.27 Est GFR (CKD-EPI)NonAf 100.32 Random Glucose 124 H Hemoglobin A1c % Calcium 8.5 Total Bilirubin 0.2 AST 9 L ALT 19 Alkaline Phosphatase 134 H Total Protein 6.4 Albumin 3.4 POC Urine HCG, Qual Digoxin < 0.3 L Phenytoin RPR Titer Nonreactive 04/29/19 04/29/19 08:15 08:15 WBC RBC Hgb Hct MCV MCH MCHC RDW Plt Count MPV Sodium 140 Potassium 4.1 Chloride 109 H Carbon Dioxide 24 Anion Gap 7 L BUN 13.1 Creatinine 0.7 Est GFR (CKD-EPI)AfAm 116.27 Est GFR (CKD-EPI)NonAf 100.32 Random Glucose 113 H Hemoglobin A1c % 5.0 Calcium 9.0 Total Bilirubin AST ALT Alkaline Phosphatase Total Protein Albumin POC Urine HCG, Qual Digoxin Phenytoin RPR Titer aaox3 ambulating no acute distress Assessment: 04/30/19 11:53 mild withdrawal sx Plan: continue detox increase fluids d/c in am
[2019-04-30] MEDS: OLANZapine 10 MG TABLET PO SCH (22:23)
[2019-04-30] MEDS: MELATONIN 5 MG TABLETS PO SCH (22:23)
[2019-04-30] MEDS: PHENYTOIN NA EXTENDED 100 MG CAPSULE (FP) PO SCH (22:23)
[2019-04-30] MEDS: THIAMINE HCL 100 MG TABLET (FP) PO SCH (22:23)
[2019-05-01] MEDS ORDERED: chlordiazePOXIDE HCL 10 MG CAPSULE PO ONE (05:00)
[2019-05-01] MEDS: ACETAMINOPHEN 325 MG TABLET (FP) PO PRN (05:43)
[2019-05-01] MEDS: QUEtiapine FUMARATE 50 MG TABLET PO SCH (09:27)
[2019-05-01] MEDS: ASPIRIN 81 MG CHEWABLE TABLETS PO SCH (09:27)
[2019-05-01] MEDS: DIVALPROEX SODIUM 250 MG TABLET E.C. PO SCH (09:27)
[2019-05-01] MEDS: DIGOXIN 0.125 MG TABLET (FP) PO SCH (09:27)
[2019-05-01 09:41] VITALS: BP 98/76; PULSE 101; TEMP 97.7
--- NOTE | 2019-05-01 09:42 | DS ---
[facility] Detox Discharge Summary Admission Date: 04/27/19 Discharge Date: 05/01/19 - History Present History: Alcohol Dependence - Physical Exam Results Vital Signs: Vital Signs Temperature 97.9 F 05/01/19 06:28 Pulse Rate 72 05/01/19 09:27 Respiratory Rate 16 05/01/19 06:28 Blood Pressure 123/80 05/01/19 06:28 O2 Sat by Pulse Oximetry (%) Pertinent Admission Physical Exam Findings: pt arrived in withdrawals Vital Signs Temperature 97.9 F 05/01/19 06:28 Pulse Rate 72 05/01/19 09:27 Respiratory Rate 16 05/01/19 06:28 Blood Pressure 123/80 05/01/19 06:28 O2 Sat by Pulse Oximetry (%) Laboratory Tests 04/27/19 04/28/19 04/28/19 14:57 07:40 07:40 WBC 5.6 RBC 4.24 Hgb 13.3 Hct 39.8 MCV 93.9 MCH 31.4 MCHC 33.5 RDW 14.2 Plt Count 256 MPV 8.8 Sodium Potassium Chloride Carbon Dioxide Anion Gap BUN Creatinine Est GFR (CKD-EPI)AfAm Est GFR (CKD-EPI)NonAf Random Glucose Hemoglobin A1c % Calcium Total Bilirubin AST ALT Alkaline Phosphatase Total Protein Albumin POC Urine HCG, Qual Negative Digoxin Phenytoin 5.1 RPR Titer 04/28/19 04/28/19 04/28/19 07:40 07:40 09:00 WBC RBC Hgb Hct MCV MCH MCHC RDW Plt Count MPV Sodium 142 Potassium 3.8 Chloride 112 H Carbon Dioxide 26 Anion Gap 5 L BUN 11.0 Creatinine 0.7 Est GFR (CKD-EPI)AfAm 116.27 Est GFR (CKD-EPI)NonAf 100.32 Random Glucose 124 H Hemoglobin A1c % Calcium 8.5 Total Bilirubin 0.2 AST 9 L ALT 19 Alkaline Phosphatase 134 H Total Protein 6.4 Albumin 3.4 POC Urine HCG, Qual Digoxin < 0.3 L Phenytoin RPR Titer Nonreactive 04/29/19 04/29/19 08:15 08:15 WBC RBC Hgb Hct MCV MCH MCHC RDW Plt Count MPV Sodium 140 Potassium 4.1 Chloride 109 H Carbon Dioxide 24 Anion Gap 7 L BUN 13.1 Creatinine 0.7 Est GFR (CKD-EPI)AfAm 116.27 Est GFR (CKD-EPI)NonAf 100.32 Random Glucose 113 H Hemoglobin A1c % 5.0 Calcium 9.0 Total Bilirubin AST ALT Alkaline Phosphatase Total Protein Albumin POC Urine HCG, Qual Digoxin Phenytoin RPR Titer today pt is aaox3 ambulating no acute distress no s/s of withdrawals - Treatment Hospital Course: Detox Protocol Followed, Detoxed Safely, Responded well, Discharged Condition Good, Rehab Referral Accepted Patient has Accepted a Rehab Referral to: pt referred to [facility] inpatient rehab - Medication Discharge Medications: Ambulatory Orders Albuterol Sulfate Inhaler - [Ventolin Hfa Inhaler -] 2 inh PO Q4H 07/26/18 Quetiapine Fumarate [Seroquel -] 50 mg PO BID #60 tablet 08/01/18 Aspirin [ASA -] 81 mg PO DAILY 20 Days #20 tab.chew 08/13/18 Digoxin [Lanoxin -] 0.125 mg PO DAILY 20 Days #30 tablet 08/13/18 Divalproex [Depakote -] 250 mg PO BID #60 tablet.ec 08/13/18 Phenytoin Na Extended [Dilantin -] 400 mg PO HS #30 capsule 08/13/18 Quetiapine Fumarate [Seroquel -] 50 mg PO BID #60 tablet 08/13/18 Olanzapine [Zyprexa -] 10 mg PO HS 04/27/19 - Diagnosis (1) Alcohol dependence, uncomplicated Current Visit: Yes Status: Chronic (2) Substance induced mood disorder Current Visit: Yes Status: Acute (3) Substance-induced sleep disorder Current Visit: Yes Status: Acute (4) A-fib Current Visit: Yes Status: Chronic Qualifiers: Atrial fibrillation type: longstanding persistent Qualified Code(s): I48.11 - Longstanding persistent atrial fibrillation (5) COPD (chronic obstructive pulmonary disease) Current Visit: Yes Status: Chronic Qualifiers: COPD type: COPD with acute lower respiratory infection Qualified Code(s): J44.0 - Chronic obstructive pulmonary disease with (acute) lower respiratory infection (6) Nicotine dependence Current Visit: Yes Status: Chronic Qualifiers: Nicotine product type: cigarettes Substance use status: uncomplicated Qualified Code(s): F17.210 - Nicotine dependence, cigarettes, uncomplicated (7) PTSD (post-traumatic stress disorder) Current Visit: Yes Status: Chronic (8) Seizure disorder Current Visit: Yes Status: Chronic (9) Chest pain Current Visit: No Status: Acute Qualifiers: Chest pain type: unspecified Qualified Code(s): R07.9 - Chest pain, unspecified (10) Non-compliance Current Visit: No Status: Acute (11) Syncope Current Visit: No Status: Acute (12) Bipolar II disorder Current Visit: No Status: Chronic (13) Bipolar disorder Current Visit: No Status: Chronic (14) CHF Congestive heart failure Current Visit: No Status: Chronic (15) Cocaine dependence Current Visit: Yes Status: Chronic Qualifiers: Substance use status: uncomplicated Qualified Code(s): F14.20 - Cocaine dependence, uncomplicated (16) Gastroesophageal reflux disease Current Visit: No Status: Chronic (17) History of bipolar disorder Current Visit: No Status: Chronic (18) Hypercholesterolemia Current Visit: No Status: Chronic (19) Hypertension Current Visit: No Status: Chronic Qualifiers: Hypertension type: essential hypertension Qualified Code(s): I10 - Essential (primary) hypertension (20) Insomnia Current Visit: No Status: Chronic (21) Knee pain, left Current Visit: No Status: Chronic Qualifiers: Chronicity: chronic Qualified Code(s): M25.562 - Pain in left knee; G89.29 - Other chronic pain (22) Post traumatic stress disorder (PTSD) Current Visit: No Status: Chronic (23) Substance induced mood disorder Current Visit: No Status: Suspected (24) Anemia Current Visit: No Status: Resolved Qualifiers: Anemia type: unspecified type Qualified Code(s): D64.9 - Anemia, unspecified - AMA Did Patient Leave Against Medical Advice: No
== END 2019-05-01 13:04 | disposition home or self-care (01) | DRG 774 ==
LOC: YASAS 12:37 → Y6N 15:24
PROVIDERS: ADMIT Allergy & Immunology; ATTEND Allergy & Immunology
PROC: HZ2ZZZZ Detoxification Services for Substance Abuse Treatment (ICD-10-PCS; principal; 2019-04-27)
DX: F10.230 Alcohol dependence with withdrawal, uncomplicated (principal); F14.20 Cocaine dependence, uncomplicated; F17.210 Nicotine dependence, cigarettes, uncomplicated; F19.282 Other psychoactive substance dependence with psychoactive substance-induced sleep disorder; F19.24 Other psychoactive substance dependence with psychoactive substance-induced mood disorder; F43.10 Post-traumatic stress disorder, unspecified; G40.909 Epilepsy, unspecified, not intractable, without status epilepticus; I11.0 Hypertensive heart disease with heart failure; I50.9 Heart failure, unspecified; I48.91 Unspecified atrial fibrillation; J44.0 Chronic obstructive pulmonary disease with (acute) lower respiratory infection; K21.9 Gastro-esophageal reflux disease without esophagitis; E78.00 Pure hypercholesterolemia, unspecified; D64.9 Anemia, unspecified; Z91.018 Allergy to other foods
CPT/HCPCS: 36415; 80048; 80053; 80162; 80185; 81025; 83036; 85027; 86593

== ENCOUNTER 2019-12-31 11:38 | Inpatient (IN) | payer OTHER ==
--- NOTE | 2019-12-31 12:08 | BHS.RME ---
Substance Use & Tx History - Substance Use History Alcohol Substance amount: 2 six pack beers Frequency of use: Daily Substance route: Oral Date of Last Use: 12/31/19 Marijuana/Hashish Substance amount: $10 Frequency of use: Daily Substance route: Smoking Date of Last Use: 12/28/19 Nicotine Substance amount: 1/2 pack Frequency of use: Daily Substance route: Smoking Date of Last Use: 12/31/19 Physical/Psych/Mental Status - Behavior General Behavior: Decreased activity Eye Contact: Normal - Cooperativeness Cooperativeness: Cooperative - Thinking Thought Processes: Tight, Logical, Goal Directed - Physical Health Problems Is patient presently having any pain?: No Does patient presently have any injuries (include location): No Does patient currently have a fever: No Is patient : No CIWA Nausea/Vomitin-No Nausea/No Vomiting Muscle Tremors: 1-None Visible, but [place] Anxiety: 1-Mildly Anxious Agitation: 1-Slight > Activity Paroxysmal Sweats: No Perspiration Orientation: 0-Oriented Tacttile Disturbances: 0-None Auditory Disturbances: 0-None Visual Disturbances: 0-None Headache: 0-None Present (drank 8:30AM) CIWA-Ar Total Score: 3
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
[2019-12-31] MEDS ORDERED: BISMUTH SUBSALICYLATE 524 MG/30 ML UD PO PRN (16:48)
[2019-12-31] MEDS ORDERED: NICOTINE POLACRILEX 2 MG GUM BUC PRN (16:48)
[2019-12-31] MEDS ORDERED: MAG HYDROX/AL HYDROX/SIMETH 30 ML UNIT-DOSE CUP PO PRN (16:48)
[2019-12-31] MEDS ORDERED: MAGNESIUM CITRATE 300 ML BOTTLE PO PRN (16:48)
[2019-12-31] MEDS ORDERED: ACETAMINOPHEN 325 MG TABLET (FP) PO PRN ×2 (16:48)
[2019-12-31] MEDS ORDERED: MAGNESIUM HYDROX 2400MG/30ML ORAL SUSPENSION 30 ML CUP PO PRN (16:48)
[2019-12-31] MEDS ORDERED: IBUPROFEN 400 MG TABLET (FP) PO PRN (16:48)
[2019-12-31] MEDS ORDERED: chlordiazePOXIDE HCL 25 MG CAPSULE PO PRN (16:50)
[2019-12-31] MEDS ORDERED: chlordiazePOXIDE HCL 25 MG CAPSULE PO SCH (17:00)
[2019-12-31] MEDS ORDERED: ALBUTEROL SO4 HFA INHALER IH PRN (17:07)
[2019-12-31] MEDS ORDERED: ONDANSETRON *ODT* 4 MG TABLET SL ONE (17:30)
[2019-12-31 17:41] VITALS: BMI 26.5
[2019-12-31] MEDS ORDERED: METHYL SALICYLATE/MENTHOL OINT 30 GM TUBE TP PRN (17:47)
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
[2019-12-31] MEDS ORDERED: chlordiazePOXIDE HCL 10 MG CAPSULE PO PRN (18:22)
[2019-12-31] MEDS: PHENYTOIN NA EXTENDED 100 MG CAPSULE (FP) PO SCH (18:37)
[2019-12-31] MEDS: NICOTINE 7 MG/24 HOURS TOPICAL PATCH TD SCH (18:38)
[2019-12-31] MEDS: hydrOXYzine PAMOATE 25 MG CAPSULE (FP) PO SCH ×2 (18:38→23:00)
[2019-12-31] MEDS: PRENATAL VITAMINS W/ FOLIC ACID TABLET (FP) PO SCH (18:39)
[2019-12-31] MEDS: chlordiazePOXIDE HCL 25 MG CAPSULE PO SCH (21:52)
[2019-12-31] MEDS ORDERED: QUEtiapine FUMARATE 50 MG TABLET PO ONE (22:00)
[2019-12-31] MEDS: THIAMINE HCL 100 MG TABLET (FP) PO SCH (23:00)
[2019-12-31] MEDS: MELATONIN 5 MG TABLETS PO SCH (23:00)
[2020-01-01] MEDS: hydrOXYzine PAMOATE 25 MG CAPSULE (FP) PO SCH ×2 (06:15→10:40)
[2020-01-01] MEDS: METHOCARBAMOL 500 MG TABLET PO PRN (06:15)
[2020-01-01] MEDS: chlordiazePOXIDE HCL 25 MG CAPSULE PO SCH ×3 (06:16→20:59)
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
[2020-01-01 09:54] LABS: HEMATOCRIT 42.5 % (32.4-45.2); HEMOGLOBIN 14.1 GM/dL (10.7-15.3); MCHC 33.2 g/dl (32.0-36.0); MEAN CELL VOLUME 93.3 fl (80-96); MEAN PLT VOLUME 9.6 fl (7.5-11.1); PLATELET COUNT 248 K/MM3 (134-434); RBC 4.56 M/mm3 (3.60-5.2); RDW 13.6 % (11.6-15.6); WHITE BLOOD COUNT 5.9 K/mm3 (4.0-10.0)
[2020-01-01 10:05] LABS: ALBUMIN 3.6 g/dl (3.4-5.0); BILIRUBIN,TOTAL 0.5 mg/dL (0.2-1); BLOOD UREA NITROGEN 9.2 mg/dL (7-18); CALCIUM 9.2 mg/dL (8.5-10.1); CREATININE 0.6 mg/dL (0.55-1.3); POTASSIUM 4.5 mmol/L (3.5-5.1)
[2020-01-01] MEDS ORDERED: hydrOXYzine PAMOATE 25 MG CAPSULE (FP) PO PRN (10:32)
[2020-01-01] MEDS: NICOTINE 7 MG/24 HOURS TOPICAL PATCH TD SCH (10:34)
[2020-01-01] MEDS: ASPIRIN 81 MG CHEWABLE TABLETS PO SCH (10:34)
[2020-01-01] MEDS: PRENATAL VITAMINS W/ FOLIC ACID TABLET (FP) PO SCH (10:34)
[2020-01-01] MEDS: DIGOXIN 0.125 MG TABLET (FP) PO SCH (10:34)
[2020-01-01] MEDS: PHENYTOIN NA EXTENDED 100 MG CAPSULE (FP) PO SCH (10:34)
[2020-01-01] MEDS: QUEtiapine FUMARATE 50 MG TABLET PO SCH ×2 (10:35→20:59)
--- NOTE | 2020-01-01 10:39 | PN ---
[facility] CIWA - CIWA Score Nausea/Vomitin-Mild Nausea/No Vomiting Muscle Tremors: 3 Anxiety: 2 Agitation: 2 Paroxysmal Sweats: 2 Orientation: 0-Oriented Tacttile Disturbances: 0-None Auditory Disturbances: 0-None Visual Disturbances: 0-None Headache: 0-None Present CIWA-Ar Total Score: 10 S Progress Note (SOAP) Subjective: sweats agitation interrupted sleep body aches irritable carpel tunnel pain Objective: 01/01/20 10:37 Vital Signs Temperature 97.1 F L 01/01/20 08:40 Pulse Rate 78 01/01/20 08:40 Respiratory Rate 17 01/01/20 08:40 Blood Pressure 118/62 01/01/20 08:40 O2 Sat by Pulse Oximetry (%) 98 01/01/20 05:45 Laboratory Tests 12/31/19 01/01/20 01/01/20 15:05 07:45 07:45 WBC 5.9 RBC 4.56 Hgb 14.1 Hct 42.5 MCV 93.3 MCH 31.0 MCHC 33.2 RDW 13.6 Plt Count 248 MPV 9.6 Sodium Potassium Chloride Carbon Dioxide Anion Gap BUN Creatinine Est GFR (CKD-EPI)AfAm Est GFR (CKD-EPI)NonAf Random Glucose Calcium Total Bilirubin AST ALT Alkaline Phosphatase Total Protein Albumin POC Urine HCG, Qual Negative Digoxin < 0.3 L Phenytoin 10.9 01/01/20 07:45 WBC RBC Hgb Hct MCV MCH MCHC RDW Plt Count MPV Sodium 138 Potassium 4.5 Chloride 106 Carbon Dioxide 25 Anion Gap 7 L BUN 9.2 Creatinine 0.6 Est GFR (CKD-EPI)AfAm 121.46 Est GFR (CKD-EPI)NonAf 104.80 Random Glucose 96 Calcium 9.2 Total Bilirubin 0.5 AST 12 L ALT 17 Alkaline Phosphatase 112 Total Protein 7.0 Albumin 3.6 POC Urine HCG, Qual Digoxin Phenytoin labs noted aaox3 ambulating no acute distress Assessment: 01/01/20 10:38 withdrawals Plan: continue detox increase fluids lidocaine patch ordered motrin and tylenol prn
--- NOTE | 2020-01-01 12:57 | EKG ---
Test Reason : Blood Pressure : / mmHG Vent. Rate : 071 BPM Atrial Rate : 071 BPM P-R Int : 116 ms QRS Dur : 080 ms QT Int : 420 ms P-R-T Axes : 068 082 062 degrees QTc Int : 456 ms NORMAL SINUS RHYTHM NONSPECIFIC T WAVE ABNORMALITY ABNORMAL ECG WHEN COMPARED WITH ECG OF 07-AUG-2018 07:14, NONSPECIFIC T WAVE ABNORMALITY NO LONGER EVIDENT IN ANTERIOR LEADS QT HAS LENGTHENED Confirmed by MD NASIR, CHRISTINA ([id number]) on 01/01/2020 12:57:24 PM Referred By: Confirmed By:CHRISTINA BEST MD
[2020-01-01] MEDS: LIDOCAINE 5% TOPICAL PATCH TP SCH (13:34)
[2020-01-01] MEDS: MENTHOL/PHENOL 1 EACH UD MM PRN (16:01)
[2020-01-01] MEDS: THIAMINE HCL 100 MG TABLET (FP) PO SCH (20:59)
[2020-01-01] MEDS: LIDOCAINE PATCH REMOVAL MC SCH (22:20)
[2020-01-01] MEDS: MELATONIN 5 MG TABLETS PO SCH (22:20)
[2020-01-02] MEDS ORDERED: chlordiazePOXIDE HCL 25 MG CAPSULE PO SCH (05:00)
[2020-01-02] MEDS: chlordiazePOXIDE 5 MG CAPSULE PO SCH ×3 (06:42→22:00)
[2020-01-02] MEDS: METHOCARBAMOL 500 MG TABLET PO PRN (06:46)
[2020-01-02] MEDS: PHENYTOIN NA EXTENDED 100 MG CAPSULE (FP) PO SCH (10:36)
[2020-01-02] MEDS: ASPIRIN 81 MG CHEWABLE TABLETS PO SCH (10:36)
[2020-01-02] MEDS: DIGOXIN 0.125 MG TABLET (FP) PO SCH (10:36)
[2020-01-02] MEDS: PRENATAL VITAMINS W/ FOLIC ACID TABLET (FP) PO SCH (10:37)
[2020-01-02] MEDS: NICOTINE 7 MG/24 HOURS TOPICAL PATCH TD SCH (10:37)
[2020-01-02] MEDS: LIDOCAINE 5% TOPICAL PATCH TP SCH (10:37)
[2020-01-02] MEDS: QUEtiapine FUMARATE 50 MG TABLET PO SCH ×2 (10:37→22:44)
--- NOTE | 2020-01-02 11:58 | PN ---
S CIWA - CIWA Score Nausea/Vomitin-No Nausea/No Vomiting Muscle Tremors: 2 Anxiety: 2 Agitation: 2 Paroxysmal Sweats: No Perspiration Orientation: 0-Oriented Tacttile Disturbances: 0-None Auditory Disturbances: 0-None Visual Disturbances: 0-None Headache: 0-None Present CIWA-Ar Total Score: 6 BHS Progress Note (SOAP) Subjective: sweats interrupted sleep I need two lidocaine patches for both my wrist d/t carpal tunnel Objective: 01/02/20 11:57 Vital Signs Temperature 98.3 F 01/02/20 09:00 Pulse Rate 72 01/02/20 10:36 Respiratory Rate 16 01/02/20 09:00 Blood Pressure 151/88 01/02/20 09:00 O2 Sat by Pulse Oximetry (%) 99 01/02/20 06:04 Laboratory Tests 12/31/19 01/01/20 01/01/20 15:05 07:45 07:45 WBC RBC Hgb Hct MCV MCH MCHC RDW Plt Count MPV Sodium Potassium Chloride Carbon Dioxide Anion Gap BUN Creatinine Est GFR (CKD-EPI)AfAm Est GFR (CKD-EPI)NonAf Random Glucose Calcium Total Bilirubin AST ALT Alkaline Phosphatase Total Protein Albumin POC Urine HCG, Qual Negative Digoxin < 0.3 L Phenytoin 10.9 Syphilis Serology Non-reactive 01/01/20 01/01/20 07:45 07:45 WBC 5.9 RBC 4.56 Hgb 14.1 Hct 42.5 MCV 93.3 MCH 31.0 MCHC 33.2 RDW 13.6 Plt Count 248 MPV 9.6 Sodium 138 Potassium 4.5 Chloride 106 Carbon Dioxide 25 Anion Gap 7 L BUN 9.2 Creatinine 0.6 Est GFR (CKD-EPI)AfAm 121.46 Est GFR (CKD-EPI)NonAf 104.80 Random Glucose 96 Calcium 9.2 Total Bilirubin 0.5 AST 12 L ALT 17 Alkaline Phosphatase 112 Total Protein 7.0 Albumin 3.6 POC Urine HCG, Qual Digoxin Phenytoin Syphilis Serology labs noted aaox3 ambulating no acute distress Assessment: 01/02/20 11:58 withdrawals Plan: continue detox lidocaine x 2 patches ordered
[2020-01-02] MEDS ORDERED: LIDOCAINE 5% TOPICAL PATCH TP ONE (12:45)
[2020-01-02] MEDS: MENTHOL/PHENOL 1 EACH UD MM PRN (19:53)
[2020-01-02] MEDS ORDERED: LIDOCAINE PATCH REMOVAL MC ONE (22:00)
[2020-01-02] MEDS: MELATONIN 5 MG TABLETS PO SCH ×2 (22:44)
[2020-01-02] MEDS: THIAMINE HCL 100 MG TABLET (FP) PO SCH (22:44)
[2020-01-02] MEDS: LIDOCAINE PATCH REMOVAL MC SCH (22:48)
[2020-01-03] MEDS ORDERED: chlordiazePOXIDE HCL 10 MG CAPSULE PO PRN ×2
[2020-01-03] MEDS ORDERED: chlordiazePOXIDE HCL 10 MG CAPSULE PO SCH (05:00)
[2020-01-03] MEDS: chlordiazePOXIDE HCL 10 MG CAPSULE PO SCH ×3 (06:16→22:08)
[2020-01-03] MEDS ORDERED: LIDOCAINE 5% TOPICAL PATCH TP SCH (10:00)
[2020-01-03] MEDS: PHENYTOIN NA EXTENDED 100 MG CAPSULE (FP) PO SCH (11:56)
[2020-01-03] MEDS: QUEtiapine FUMARATE 50 MG TABLET PO SCH ×2 (11:56→22:08)
[2020-01-03] MEDS: ASPIRIN 81 MG CHEWABLE TABLETS PO SCH (11:57)
[2020-01-03] MEDS: DIGOXIN 0.125 MG TABLET (FP) PO SCH (11:58)
[2020-01-03] MEDS ORDERED: hydrOXYzine PAMOATE 50 MG CAPSULE (FP) PO PRN (11:58)
[2020-01-03] MEDS: PRENATAL VITAMINS W/ FOLIC ACID TABLET (FP) PO SCH (11:59)
[2020-01-03] MEDS: NICOTINE 7 MG/24 HOURS TOPICAL PATCH TD SCH (12:13)
[2020-01-03] MEDS ORDERED: LIDOCAINE PATCH REMOVAL MC SCH (22:00)
[2020-01-03] MEDS: THIAMINE HCL 100 MG TABLET (FP) PO SCH (22:08)
[2020-01-03] MEDS: MELATONIN 5 MG TABLETS PO SCH (22:08)
[2020-01-04] MEDS ORDERED: chlordiazePOXIDE HCL 10 MG CAPSULE PO SCH (05:00)
[2020-01-04] MEDS ORDERED: chlordiazePOXIDE HCL 10 MG CAPSULE PO ONE (05:00)
[2020-01-04] MEDS: METHOCARBAMOL 500 MG TABLET PO PRN (05:41)
[2020-01-04] MEDS: MENTHOL/PHENOL 1 EACH UD MM PRN (05:42)
[2020-01-04 09:39] VITALS: BP 98/64; PULSE 85; TEMP 97.1
--- NOTE | 2020-01-04 12:53 | DS ---
[facility] Detox Discharge Summary Admission Date: 12/31/19 Discharge Date: 01/04/20 - History Present History: Alcohol Dependence, Cannabis Dependence, Cocaine Dependence Additional Comments: Alert and oriented x3, in no acute respiratory distress. Decreased ROM, ambulatory with walker. Skin warm to touch. Completed detox protocol, stable for discharge today. Pertinent Past History: History of Afib, CHF, COPD/Asthma, Carpel turnel syndrome, hernia repair, es xlap, alcohol, Cannabis, and cocaine use disorder. - Physical Exam Results Vital Signs: Vital Signs Temperature 97.1 F L 01/04/20 08:43 Pulse Rate 85 01/04/20 08:43 Respiratory Rate 18 01/04/20 08:43 Blood Pressure 98/64 01/04/20 08:43 O2 Sat by Pulse Oximetry (%) 100 01/04/20 08:43 Vital Signs 01/04/20 01/04/20 05:27 08:43 Temperature 97.3 F L 97.1 F L Pulse Rate 80 85 Respiratory 20 18 Rate Blood Pressure 114/76 98/64 O2 Sat by Pulse 100 100 Oximetry (%) Laboratory Last Values WBC 5.9 K/mm3 (4.0-10.0) 01/01/20 07:45 RBC 4.56 M/mm3 (3.60-5.2) 01/01/20 07:45 Hgb 14.1 GM/dL (10.7-15.3) 01/01/20 07:45 Hct 42.5 % (32.4-45.2) 01/01/20 07:45 MCV 93.3 fl (80-96) 01/01/20 07:45 MCH 31.0 pg (25.7-33.7) 01/01/20 07:45 MCHC 33.2 g/dl (32.0-36.0) 01/01/20 07:45 RDW 13.6 % (11.6-15.6) 01/01/20 07:45 Plt Count 248 K/MM3 (134-434) 01/01/20 07:45 MPV 9.6 fl (7.5-11.1) 01/01/20 07:45 Sodium 138 mmol/L (136-145) 01/01/20 07:45 Potassium 4.5 mmol/L (3.5-5.1) 01/01/20 07:45 Chloride 106 mmol/L (98-107) 01/01/20 07:45 Carbon Dioxide 25 mmol/L (21-32) 01/01/20 07:45 Anion Gap 7 MMOL/L (8-16) L 01/01/20 07:45 BUN 9.2 mg/dL (7-18) 01/01/20 07:45 Creatinine 0.6 mg/dL (0.55-1.3) 01/01/20 07:45 Est GFR (CKD-EPI)AfAm 121.46 01/01/20 07:45 Est GFR (CKD-EPI)NonAf 104.80 01/01/20 07:45 Random Glucose 96 mg/dL (74-106) 01/01/20 07:45 Calcium 9.2 mg/dL (8.5-10.1) 01/01/20 07:45 Total Bilirubin 0.5 mg/dL (0.2-1) 01/01/20 07:45 AST 12 U/L (15-37) L 01/01/20 07:45 ALT 17 U/L (13-61) 01/01/20 07:45 Alkaline Phosphatase 112 U/L (45-117) 01/01/20 07:45 Total Protein 7.0 g/dl (6.4-8.2) 01/01/20 07:45 Albumin 3.6 g/dl (3.4-5.0) 01/01/20 07:45 POC Urine HCG, Qual Negative 12/31/19 15:05 Digoxin < 0.3 ng/ml (0.8-2.0) L 01/01/20 07:45 Phenytoin 10.9 01/01/20 07:45 Syphilis Serology Non-reactive (NONREACTIVE) 01/01/20 07:45 COVID-19 (LELA) Not detected (Not Detected) 12/31/19 21:32 Labs noted. Pertinent Admission Physical Exam Findings: Withdrawal symptoms. - Treatment Hospital Course: Detox Protocol Followed, Detoxed Safely, Responded well, Discharged Condition Good - Medication Discharge Medications: Ambulatory Orders Quetiapine Fumarate [Seroquel -] 50 mg PO BID #60 tablet 08/13/18 Olanzapine [Zyprexa -] 10 mg PO HS 04/27/19 Albuterol Sulfate Inhaler - [Ventolin HFA Inhaler -] 2 inh PO Q4H #1 inhaler 05/01/19 Aspirin [ASA -] 81 mg PO DAILY 20 Days #20 tab.chew 05/01/19 Digoxin [Lanoxin -] 0.125 mg PO DAILY 20 Days #30 tablet 05/01/19 Phenytoin Sodium Extended 300 mg PO HS 12/31/19 - Diagnosis (1) Alcohol dependence, uncomplicated Status: Acute (2) Cannabis dependence Status: Chronic (3) Cocaine dependence Status: Chronic Qualifiers: Substance use status: uncomplicated Qualified Code(s): F14.20 - Cocaine dependence, uncomplicated (4) A-fib Status: Chronic Qualifiers: Atrial fibrillation type: longstanding persistent Qualified Code(s): I48.11 - Longstanding persistent atrial fibrillation (5) Nicotine dependence Status: Chronic Qualifiers: Nicotine product type: cigarettes Substance use status: uncomplicated Qualified Code(s): F17.210 - Nicotine dependence, cigarettes, uncomplicated - AMA Did Patient Leave Against Medical Advice: No
[2020-01-05] MEDS ORDERED: chlordiazePOXIDE HCL 10 MG CAPSULE PO ONE (05:00)
== END 2020-01-04 09:59 | disposition home or self-care (01) | DRG 774 ==
LOC: YASAS 11:38 → Y6N 17:09
PROVIDERS: ADMIT Allergy & Immunology; ATTEND Allergy & Immunology
PROC: HZ2ZZZZ Detoxification Services for Substance Abuse Treatment (ICD-10-PCS; principal; 2019-12-31)
DX: F10.230 Alcohol dependence with withdrawal, uncomplicated (principal); F14.20 Cocaine dependence, uncomplicated; F12.20 Cannabis dependence, uncomplicated; F17.210 Nicotine dependence, cigarettes, uncomplicated; F19.280 Other psychoactive substance dependence with psychoactive substance-induced anxiety disorder; F19.282 Other psychoactive substance dependence with psychoactive substance-induced sleep disorder; F20.9 Schizophrenia, unspecified; F31.9 Bipolar disorder, unspecified; F90.9 Attention-deficit hyperactivity disorder, unspecified type; F43.10 Post-traumatic stress disorder, unspecified; F41.9 Anxiety disorder, unspecified; I11.0 Hypertensive heart disease with heart failure; I50.9 Heart failure, unspecified; I48.11 Longstanding persistent atrial fibrillation; I25.2 Old myocardial infarction; J44.0 Chronic obstructive pulmonary disease with (acute) lower respiratory infection; J22 Unspecified acute lower respiratory infection; G56.03 Carpal tunnel syndrome, bilateral upper limbs; G40.909 Epilepsy, unspecified, not intractable, without status epilepticus; E78.00 Pure hypercholesterolemia, unspecified; Z86.2 Personal history of diseases of the blood and blood-forming organs and certain disorders involving the immune mechanism; Z98.890 Other specified postprocedural states; Z99.89 Dependence on other enabling machines and devices; Z79.82 Long term (current) use of aspirin; Z91.410 Personal history of adult physical and sexual abuse
CPT/HCPCS: 36415; 71046-TC-FY; 80053; 80162; 80185; 81025; 85027; 86780; 93005; 93010; Q0162; U0003

== ENCOUNTER 2020-03-26 10:53 | Inpatient (IN) | payer OTHER ==
--- OUTSIDE RECORDS SUMMARY | 2020-03-26 10:57 | XMS ---
:1965 Author Organization [facility] Support Name Relationship Address Phone UE, UNEMPLOYED Unavailable Unavailable Unavailable UE Unavailable Unavailable Unavailable DIANA MORALES COUSIN [address] [phone] [place] [address] DIANA MORALES Other [address] [place] [address] Re-disclosure Warning The records that you are about to access may contain information from federally- assisted alcohol or drug abuse programs. If such information is present, then the following federally mandated warning applies: This information has been disclosed to you from records protected by federal confidentiality rules (42 CFR part 2). The federal rules prohibit you from making any further disclosure of this information unless further disclosure is expressly permitted by the written consent of the person to whom it pertains or as otherwise permitted by 42 CFR part 2. A general authorization for the release of medical or other information is NOT sufficient for this purpose. The Federal rules restrict any use of the information to criminally investigate or prosecute any alcohol or drug abuse patient.The records that you are about to access may contain highly sensitive health information, the redisclosure of which is protected by Article 27-F of the [facility] Public Health law. If you continue you may haveaccess to information: Regarding HIV / AIDS; Provided by facilities licensed or operated by the [facility] Office of Mental Health; or Provided by the [facility] Office for People With Developmental Disabilities. If such information is present, then the following [facility] mandated warning applies: This information has been disclosed to you from confidential records which are protected by state law. State law prohibits you from making any further disclosure of this information without the specific written consent of the person to whom it pertains, or as otherwise permitted by law. Any unauthorized further disclosure in violation of state law may result in a fine or usp sentence or both. A general authorization for the release of medical or other information is NOT sufficient authorization for further disclosure. Insurance Providers Payer name Policy type Policy ID Covered Covered democrat's Policy P jamia / Coverage democrat ID relationship to Lopez Inf ormation type lopez BEACON [id number] SP [id number] METROPLUS BEACON [id number] SP [id number] METROPLUS BEACON [id number] SP [id number] METROPLUS DILSHAD [id number] SP [id number] 900 HEALTH NON CAP Results ID Date Data Source [id number] 03/02/2020 08:05:00 PM EDT [facility] Name Value Range Interpretation Code Description Data [place] rce(s) Supporting Document(s ) Overall [facility] Result: This lab was ordered by [facility] and reported by [facility]. ID Date Data Source [id number] 02/03/2020 07:54:00 PM EDT [facility] Name Value Range Interpretation Description Data Sup porting Code Source(s) Document(s ) SARS [facility] coronavirus 2 RNA This lab was ordered by [facility] and reported by [facility]. ID Date Data Source [id number] 01/29/2020 07:48:00 AM EDT [facility] Name Value Range Interpretation Description Data Sup porting Code Source(s) Document(s ) SARS [facility] Coronavirus 2 RNA Presence Respiratory Specimen LELA Probe Detection This lab was ordered by [facility] and rep orted by [facility]. ID Date Data Source [id number] 12/31/2019 09:32:00 PM EDT [facility] Name Value Range Interpretation Description Data Sup porting Code Source(s) Document(s ) SARS [facility] coronavirus 2 RNA This lab was ordered by [facility] and reported by [facility]. ID Date Data Source [id number] 11/17/2019 06:13:00 PM EDT [facility] Name Value Range Interpretation Code Description Data [place] rce(s) Supporting Document(s ) SARS-CoV-2 [facility] RNA Resp Ql LELA+probe This lab was ordered by Kelechi and lili [facility]. Procedure
--- NOTE | 2020-03-26 12:07 | BHS.RME ---
CIWA Nausea/Vomitin-Mild Nausea/No Vomiting Muscle Tremors: 3 Anxiety: 2 Agitation: 2 Paroxysmal Sweats: 2 Orientation: 0-Oriented Tacttile Disturbances: 1-Very Mild Itch/Numbness Auditory Disturbances: 0-None Visual Disturbances: 1-Very Mild Sensitivity Headache: 5-Severe CIWA-Ar Total Score: 17
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
[2020-03-26 12:33] VITALS: BMI 24.1
[2020-03-26] MEDS ORDERED: ONDANSETRON *ODT* 4 MG TABLET SL PRN (12:44)
[2020-03-26] MEDS ORDERED: MAGNESIUM HYDROX 2400MG/30ML ORAL SUSPENSION 30 ML CUP PO PRN (12:44)
[2020-03-26] MEDS ORDERED: chlordiazePOXIDE HCL 25 MG CAPSULE PO PRN (12:44)
[2020-03-26] MEDS ORDERED: ACETAMINOPHEN 325 MG TABLET (FP) PO PRN ×2 (12:44)
[2020-03-26] MEDS ORDERED: MAGNESIUM CITRATE 300 ML BOTTLE PO PRN (12:44)
[2020-03-26] MEDS ORDERED: NICOTINE POLACRILEX 2 MG GUM BUC PRN (12:44)
[2020-03-26] MEDS ORDERED: BISMUTH SUBSALICYLATE 262 MG/15 ML BTL PO PRN (12:44)
[2020-03-26] MEDS ORDERED: IBUPROFEN 400 MG TABLET (FP) PO PRN (12:44)
--- OUTSIDE RECORDS SUMMARY | 2020-03-26 13:08 | XMS ---
:1965 Author Organization [facility] Support Name Relationship Address Phone UE, UNEMPLOYED Unavailable Unavailable Unavailable UE Unavailable Unavailable Unavailable DIANA MORALES COUSIN [address] [place] [address] DIANA MORALES Other [address] [place] [address] Re-disclosure Warning The records that you are [...] protected by Article 27-F of the [facility] Public Health law. If you continue you may haveaccess to information: Regarding HIV / AIDS; Provided by facilities licensed or operated by the [facility] Office of Mental Health; or Provided by the [facility] Office for People With Developmental Disabilities. If such information is present, then the following [facility] mandated warning applies: This information has [...] law may result in a fine or skilled nursing sentence or both. A general authorization for the release of medical or other information is NOT sufficient authorization for further disclosure. Insurance Providers Payer name Policy type Policy ID Covered Covered alliance party's Policy P jamia / Coverage alliance party ID relationship to Lopez Inf ormation type lopez BEACON [id number] SP [id number] METROP[employer]US BEACON [id number] SP [id number] METROPLUS BEACON [id number] SP [id number] METROPLUS DILSHAD [id number] SP [id number] 900 HEALTH NON CAP Results ID Date Data Source [id number] 03/02/2020 08:05:00 PM EDT [facility] Name Value Range Interpretation Code Description Data [place] rce(s) Supporting Document(s ) Overall [facility] Result: This lab was ordered by [facility] and reported by [facility]. ID Date Data Source [id number] 02/03/2020 07:54:00 PM EDT [facility] Name Value Range Interpretation Description Data Sup porting Code Source(s) Document(s ) SARS [facility] coronavirus 2 RNA This lab was ordered by [facility] Ac ct [facility] and reported by [facility]. ID Date Data Source [id number] 01/29/2020 07:48:00 AM EDT [facility] Name Value Range Interpretation Description Data Sup porting Code Source(s) Document(s ) SARS [facility] Coronavirus 2 RNA Presence Respiratory Specimen LELA Probe Detection This lab was ordered by [facility] and rep orted by [facility]. ID Date Data Source [id number] 12/31/2019 09:32:00 PM EDT [facility] Name Value Range Interpretation Description Data Sup porting Code Source(s) Document(s ) SARS [facility] coronavirus 2 RNA This lab was ordered by [facility] Ac ct [facility] and reported by [facility]. ID Date Data Source [id number] 11/17/2019 06:13:00 PM EDT [facility] Name Value Range Interpretation Code Description Data [place] rce(s) Supporting Document(s ) SARS-CoV-2 [facility] RNA Resp Ql LELA+probe This lab was ordered by Kelechi and lili cobb by [facility]. Procedure
[2020-03-26] MEDS: hydrOXYzine PAMOATE 25 MG CAPSULE (FP) PO SCH ×3 (14:49→22:52)
[2020-03-26] MEDS: MENTHOL/PHENOL 1 EACH UD MM PRN ×2 (14:53→23:46)
[2020-03-26] MEDS: ALBUTEROL SO4 HFA INHALER IH SCH ×3 (14:53→20:52)
[2020-03-26 14:58] LABS: HEMATOCRIT 40.4 % (32.4-45.2); HEMOGLOBIN 13.3 GM/dL (10.7-15.3); MCH 30.3 pg (25.7-33.7); MCHC 32.9 g/dl (32.0-36.0); MEAN CELL VOLUME 92.2 fl (80-96); MEAN PLT VOLUME 9.1 fl (7.5-11.1); PLATELET COUNT 197 K/MM3 (134-434); RBC 4.38 M/mm3 (3.60-5.2); RDW 13.6 % (11.6-15.6)
[2020-03-26 15:05] LABS: INR 0.89 (0.83-1.09); PROTHROMBIN TIME (PATIENT) 10.8 SEC (9.7-13.0)
[2020-03-26 15:11] LABS: ALBUMIN 3.8 g/dl (3.4-5.0); BILIRUBIN,TOTAL 0.2 mg/dL (0.2-1); BLOOD UREA NITROGEN 14.6 mg/dL (7-18); CALCIUM 9.1 mg/dL (8.5-10.1); CREATININE 0.7 mg/dL (0.55-1.3); POTASSIUM 4.3 mmol/L (3.5-5.1); TOT PROT 7.4 g/dl (6.4-8.2)
[2020-03-26] MEDS: chlordiazePOXIDE HCL 25 MG CAPSULE PO SCH ×2 (17:46→22:59)
[2020-03-26] MEDS: guaiFENesin 200 MG/10 ML 10 ML UNIT-DOSE CUPS PO PRN (22:49)
[2020-03-26] MEDS: THIAMINE HCL 100 MG TABLET (FP) PO SCH (22:49)
[2020-03-26] MEDS: MELATONIN 5 MG TABLETS PO SCH ×2 (22:59→23:46)
[2020-03-26] MEDS ORDERED: PHENYTOIN NA EXTENDED 100 MG CAPSULE (FP) PO ONE (23:46)
--- NOTE | 2020-03-26 23:49 | PN ---
[facility] Progress Note Note: Patient with history of epilepsy was admitted this morning by Dr. Delvalle. She reports that she is on Dilantin 400mg tablet oral but medication was acknowledged and not ordered for patient. Unknown at this time why other meds. were ordered except Dilantin. Vital Signs Temperature 97.3 F L 03/26/20 23:32 Pulse Rate 96 H 03/26/20 23:32 Respiratory Rate 18 03/26/20 23:32 Blood Pressure 94/66 03/26/20 23:32 O2 Sat by Pulse Oximetry (%) 96 03/26/20 23:32 Action: Dilantin level ordered Dilantin 400mg capsule oral stat ordered
[2020-03-27] MEDS: METHOCARBAMOL 500 MG TABLET PO PRN ×2 (01:12→22:14)
[2020-03-27] MEDS: ALBUTEROL SO4 HFA INHALER IH SCH ×3 (01:13→10:22)
[2020-03-27] MEDS: hydrOXYzine PAMOATE 25 MG CAPSULE (FP) PO SCH ×2 (05:10→10:26)
[2020-03-27] MEDS: chlordiazePOXIDE HCL 25 MG CAPSULE PO SCH ×4 (05:14→22:15)
[2020-03-27] MEDS: MENTHOL/PHENOL 1 EACH UD MM PRN ×2 (06:22→14:35)
[2020-03-27 09:59] LABS: INR 0.86 (0.83-1.09); PROTHROMBIN TIME (PATIENT) 10.6 SEC (9.7-13.0)
[2020-03-27] MEDS ORDERED: NICOTINE 7 MG/24 HOURS TOPICAL PATCH TD SCH (10:00)
[2020-03-27] MEDS: ASPIRIN 81 MG CHEWABLE TABLETS PO SCH (10:26)
[2020-03-27] MEDS: NICOTINE 21 MG/24 HOURS TOPICAL PATCH TD SCH (10:27)
[2020-03-27] MEDS: PRENATAL VITAMINS W/ FOLIC ACID TABLET (FP) PO SCH (10:27)
[2020-03-27] MEDS: guaiFENesin 200 MG/10 ML 10 ML UNIT-DOSE CUPS PO PRN ×2 (10:29→23:11)
[2020-03-27] MEDS: DIGOXIN 0.125 MG TABLET (FP) PO SCH (11:05)
[2020-03-27] MEDS ORDERED: hydrOXYzine PAMOATE 50 MG CAPSULE (FP) PO SCH (11:15)
--- NOTE | 2020-03-27 12:40 | PN ---
S CIWA - CIWA Score Nausea/Vomitin Muscle Tremors: 3 Anxiety: 4-Mod. Anxious/Guarded Agitation: 2 Paroxysmal Sweats: 1-Minimal Palms Moist Orientation: 0-Oriented Tacttile Disturbances: 0-None Auditory Disturbances: 1-Very Mild Visual Disturbances: 1-Very Mild Sensitivity Headache: 1-Very Mild CIWA-Ar Total Score: 15 S Progress Note (SOAP) Subjective: Pt seen and examined at bedside this morning. Pt with mild improvement of withdrawal symptoms; still c/o anxiety, restlessness, etc. Pt also c/o interrupted sleep. Objective: Last Vital Signs Temp Pulse Resp BP Pulse Ox 97.1 F L 81 19 107/71 97 03/27/20 09:05 03/27/20 11:05 03/27/20 09:05 03/27/20 09:05 03/27/20 09:05 Gen - AOx3; well-nourished; anxious appearing CV - RRR, normal s1/s2 Pulm - CTAB Ext - moving all extremities equally/spontaneously; mild tremor; moist palms; ambulating well with walker Laboratory 03/26/20 03/26/20 03/26/20 11:31 12:33 13:10 WBC RBC Hgb Hct MCV MCH MCHC RDW Plt Count MPV PT with INR 10.80 SEC SEC (9.7-13.0) INR 0.89 (0.83-1.09) Sodium Potassium Chloride Carbon Dioxide Anion Gap BUN Creatinine Est GFR (CKD-EPI)AfAm Est GFR (CKD-EPI)NonAf Random Glucose Calcium Total Bilirubin AST ALT Alkaline Phosphatase Total Protein Albumin POC Urine HCG, Qual Negative Digoxin < 0.3 ng/ml L ng/ml (0.8-2.0) Phenytoin Syphilis Serology HIV Ag/Ab Combo Qual 03/26/20 03/26/20 03/26/20 13:15 13:15 13:15 WBC 7.0 K/mm3 K/mm3 (4.0-10.0) RBC 4.38 M/mm3 M/mm3 (3.60-5.2) Hgb 13.3 GM/dL GM/dL (10.7-15.3) Hct 40.4 % % (32.4-45.2) MCV 92.2 fl fl (80-96) MCH 30.3 pg pg (25.7-33.7) MCHC 32.9 g/dl g/dl (32.0-36.0) RDW 13.6 % % (11.6-15.6) Plt Count 197 K/MM3 K/MM3 (134-434) MPV 9.1 fl fl (7.5-11.1) PT with INR INR Sodium 140 mmol/L mmol/L (136-145) Potassium 4.3 mmol/L mmol/L (3.5-5.1) Chloride 108 mmol/L H mmol/L (98-107) Carbon Dioxide 25 mmol/L mmol/L (21-32) Anion Gap 7 MMOL/L L MMOL/L (8-16) BUN 14.6 mg/dL mg/dL (7-18) Creatinine 0.7 mg/dL mg/dL (0.55-1.3) Est GFR (CKD-EPI)AfAm 115.45 Est GFR (CKD-EPI)NonAf 99.62 Random Glucose 90 mg/dL mg/dL (74-106) Calcium 9.1 mg/dL mg/dL (8.5-10.1) Total Bilirubin 0.2 mg/dL mg/dL (0.2-1) AST 12 U/L L U/L (15-37) ALT 19 U/L U/L (13-61) Alkaline Phosphatase 115 U/L U/L (45-117) Total Protein 7.4 g/dl g/dl (6.4-8.2) Albumin 3.8 g/dl g/dl (3.4-5.0) POC Urine HCG, Qual Digoxin Phenytoin Syphilis Serology Non-reactive (NONREACTIVE) HIV Ag/Ab Combo Qual 03/26/20 03/26/20 03/27/20 13:15 13:15 07:50 WBC RBC Hgb Hct MCV MCH MCHC RDW Plt Count MPV PT with INR INR Sodium Potassium Chloride Carbon Dioxide Anion Gap BUN Creatinine Est GFR (CKD-EPI)AfAm Est GFR (CKD-EPI)NonAf Random Glucose Calcium Total Bilirubin AST ALT Alkaline Phosphatase Total Protein Albumin POC Urine HCG, Qual Digoxin Phenytoin <0.4 6.5 Syphilis Serology HIV Ag/Ab Combo Qual Negative (NEGATIVE) 03/27/20 03/27/20 07:50 07:50 WBC RBC Hgb Hct MCV MCH MCHC RDW Plt Count MPV PT with INR 10.60 SEC SEC (9.7-13.0) INR 0.86 (0.83-1.09) Sodium Potassium Chloride Carbon Dioxide Anion Gap BUN Creatinine Est GFR (CKD-EPI)AfAm Est GFR (CKD-EPI)NonAf Random Glucose Calcium Total Bilirubin AST ALT Alkaline Phosphatase Total Protein Albumin POC Urine HCG, Qual Digoxin Phenytoin Syphilis Serology HIV Ag/Ab Combo Qual Negative (NEGATIVE) 03/27/20 12:38 Assessment: Pt with continued alcohol withdrawal symptoms; mild improvement. Interrupted sleep. 03/27/20 12:40 Plan: Continue librium detox protocol. Vistaril dose increased. Dilantin level checked. Home dilantin dose resumed.
[2020-03-27] MEDS: ALBUTEROL SO4 HFA INHALER IH PRN ×2 (14:34→23:11)
[2020-03-27] MEDS: MAG HYDROX/AL HYDROX/SIMETH 30 ML UNIT-DOSE CUP PO PRN (16:31)
[2020-03-27] MEDS: hydrOXYzine PAMOATE 50 MG CAPSULE (FP) PO SCH ×2 (17:37→22:14)
[2020-03-27] MEDS ORDERED: PHENYTOIN NA EXTENDED 100 MG CAPSULE (FP) PO SCH (22:00)
[2020-03-27] MEDS: MELATONIN 5 MG TABLETS PO SCH (22:14)
[2020-03-27] MEDS: THIAMINE HCL 100 MG TABLET (FP) PO SCH (22:15)
[2020-03-28] MEDS: hydrOXYzine PAMOATE 50 MG CAPSULE (FP) PO SCH ×5 (06:17→22:01)
[2020-03-28] MEDS: chlordiazePOXIDE HCL 25 MG CAPSULE PO SCH ×4 (06:17→22:27)
[2020-03-28] MEDS: PHENYTOIN NA EXTENDED 100 MG CAPSULE (FP) PO SCH ×2 (07:33→10:14)
[2020-03-28] MEDS: ASPIRIN 81 MG CHEWABLE TABLETS PO SCH (10:12)
[2020-03-28] MEDS: NICOTINE 21 MG/24 HOURS TOPICAL PATCH TD SCH (10:13)
[2020-03-28] MEDS: PRENATAL VITAMINS W/ FOLIC ACID TABLET (FP) PO SCH (10:14)
[2020-03-28] MEDS: DIGOXIN 0.125 MG TABLET (FP) PO SCH (12:12)
--- NOTE | 2020-03-28 12:51 | PN ---
S CIWA - CIWA Score Nausea/Vomitin-No Nausea/No Vomiting Muscle Tremors: 2 Anxiety: 2 Agitation: 0-Normal Activity Paroxysmal Sweats: 2 Orientation: 0-Oriented Tacttile Disturbances: 0-None Auditory Disturbances: 0-None Visual Disturbances: 0-None Headache: 2-Mild CIWA-Ar Total Score: 8 [facility] Progress Note (SOAP) Subjective: c/o shakes, sweats, anxiety, and headache. Objective: 03/28/20 12:51 Vital Signs 03/28/20 03/28/20 06:35 09:04 Temperature 97.9 F 97.3 F L Pulse Rate 69 82 Respiratory 18 18 Rate Blood Pressure 96/59 L 100/70 O2 Sat by Pulse 100 100 Oximetry (%) Laboratory Last Values WBC 7.0 K/mm3 (4.0-10.0) 03/26/20 13:15 RBC 4.38 M/mm3 (3.60-5.2) 03/26/20 13:15 Hgb 13.3 GM/dL (10.7-15.3) 03/26/20 13:15 Hct 40.4 % (32.4-45.2) 03/26/20 13:15 MCV 92.2 fl (80-96) 03/26/20 13:15 MCH 30.3 pg (25.7-33.7) 03/26/20 13:15 MCHC 32.9 g/dl (32.0-36.0) 03/26/20 13:15 RDW 13.6 % (11.6-15.6) 03/26/20 13:15 Plt Count 197 K/MM3 (134-434) 03/26/20 13:15 MPV 9.1 fl (7.5-11.1) 03/26/20 13:15 PT with INR 10.60 SEC (9.7-13.0) 03/27/20 07:50 INR 0.86 (0.83-1.09) 03/27/20 07:50 Sodium 140 mmol/L (136-145) 03/26/20 13:15 Potassium 4.3 mmol/L (3.5-5.1) 03/26/20 13:15 Chloride 108 mmol/L (98-107) H 03/26/20 13:15 Carbon Dioxide 25 mmol/L (21-32) 03/26/20 13:15 Anion Gap 7 MMOL/L (8-16) L 03/26/20 13:15 BUN 14.6 mg/dL (7-18) 03/26/20 13:15 Creatinine 0.7 mg/dL (0.55-1.3) 03/26/20 13:15 Est GFR (CKD-EPI)AfAm 115.45 03/26/20 13:15 Est GFR (CKD-EPI)NonAf 99.62 03/26/20 13:15 Random Glucose 90 mg/dL (74-106) 03/26/20 13:15 Calcium 9.1 mg/dL (8.5-10.1) 03/26/20 13:15 Total Bilirubin 0.2 mg/dL (0.2-1) 03/26/20 13:15 AST 12 U/L (15-37) L 03/26/20 13:15 ALT 19 U/L (13-61) 03/26/20 13:15 Alkaline Phosphatase 115 U/L (45-117) 03/26/20 13:15 Total Protein 7.4 g/dl (6.4-8.2) 03/26/20 13:15 Albumin 3.8 g/dl (3.4-5.0) 03/26/20 13:15 POC Urine HCG, Qual Negative 03/26/20 12:33 Digoxin < 0.3 ng/ml (0.8-2.0) L 03/26/20 11:31 Phenytoin 6.5 03/27/20 07:50 Syphilis Serology Non-reactive (NONREACTIVE) 03/26/20 13:15 COVID-19 ([facility]LA) Not detected (Not Detected) 03/26/20 13:35 HIV Ag/Ab Combo Qual Negative (NEGATIVE) 03/27/20 07:50 Labs noted. Assessment: 03/28/20 12:51 AOX3, in no acute respiratory distress. Full ROM, ambulating in the unit. Withdrawal symptoms. Plan: continue detox.
[2020-03-28] MEDS: MAG HYDROX/AL HYDROX/SIMETH 30 ML UNIT-DOSE CUP PO PRN (17:48)
[2020-03-28] MEDS: guaiFENesin 200 MG/10 ML 10 ML UNIT-DOSE CUPS PO PRN (17:48)
[2020-03-28] MEDS: THIAMINE HCL 100 MG TABLET (FP) PO SCH (22:01)
[2020-03-28] MEDS: MELATONIN 5 MG TABLETS PO SCH (22:01)
[2020-03-28] MEDS: METHOCARBAMOL 500 MG TABLET PO PRN (22:02)
[2020-03-29] MEDS ORDERED: chlordiazePOXIDE HCL 10 MG CAPSULE PO PRN
[2020-03-29] MEDS: guaiFENesin 200 MG/10 ML 10 ML UNIT-DOSE CUPS PO PRN ×2 (01:38→21:40)
[2020-03-29] MEDS: chlordiazePOXIDE HCL 10 MG CAPSULE PO SCH ×4 (06:27→22:19)
[2020-03-29] MEDS: hydrOXYzine PAMOATE 50 MG CAPSULE (FP) PO SCH ×5 (06:27→21:39)
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
[2020-03-29] MEDS: ASPIRIN 81 MG CHEWABLE TABLETS PO SCH (10:30)
[2020-03-29] MEDS: QUEtiapine FUMARATE 50 MG TABLET PO SCH ×2 (10:30→21:39)
[2020-03-29] MEDS: DIGOXIN 0.125 MG TABLET (FP) PO SCH (10:30)
[2020-03-29] MEDS: PHENYTOIN NA EXTENDED 100 MG CAPSULE (FP) PO SCH (10:30)
[2020-03-29] MEDS: PRENATAL VITAMINS W/ FOLIC ACID TABLET (FP) PO SCH (10:32)
[2020-03-29] MEDS: NICOTINE 21 MG/24 HOURS TOPICAL PATCH TD SCH (10:32)
--- NOTE | 2020-03-29 13:03 | PN ---
[facility] CIWA - CIWA Score Nausea/Vomitin-No Nausea/No Vomiting Muscle Tremors: 1-None Visible, but [place] Anxiety: 1-Mildly Anxious Agitation: 3 Paroxysmal Sweats: 1-Minimal Palms Moist Orientation: 0-Oriented Tacttile Disturbances: 0-None Auditory Disturbances: 0-None Visual Disturbances: 0-None Headache: 0-None Present CIWA-Ar Total Score: 6 BHS Progress Note (SOAP) Subjective: 54 years old female was admitted on 03/26/20 for alcohol withdrawal sx management treating with librium regiment ambulating with walker slow steady demands ability seen by psychiatrist resume seroquel low serum digoxin and dilantin level ms shirley refuses to discuss digoxin and dilantin but "ability" the doctor will give me ability when I leave right ? encourage ms shirley to discuss with psychiatrist Objective: 03/29/20 13:07 Vital Signs - 24 hr 03/28/20 03/28/20 03/29/20 16:57 20:58 06:35 Temperature 97.5 F L 97.3 F L 97.5 F L Pulse Rate 93 H 92 H 86 Respiratory 16 18 18 Rate Blood Pressure 107/75 123/78 103/77 O2 Sat by Pulse 97 98 Oximetry (%) 03/29/20 03/29/20 03/29/20 06:36 08:37 10:30 Temperature 97.6 F Pulse Rate 64 64 Respiratory 18 Rate Blood Pressure 126/73 O2 Sat by Pulse 98 98 Oximetry (%) Laboratory Tests 03/26/20 03/26/20 03/26/20 11:31 12:33 13:10 WBC RBC Hgb Hct MCV MCH MCHC RDW Plt Count MPV PT with INR 10.80 INR 0.89 Sodium Potassium Chloride Carbon Dioxide Anion Gap BUN Creatinine Est GFR (CKD-EPI)AfAm Est GFR (CKD-EPI)NonAf Random Glucose Calcium Total Bilirubin AST ALT Alkaline Phosphatase Total Protein Albumin POC Urine HCG, Qual Negative Digoxin < 0.3 L Phenytoin Syphilis Serology COVID-19 (LELA) HIV Ag/Ab Combo Qual 03/26/20 03/26/20 03/26/20 13:15 13:15 13:15 WBC 7.0 RBC 4.38 Hgb 13.3 Hct 40.4 MCV 92.2 MCH 30.3 MCHC 32.9 RDW 13.6 Plt Count 197 MPV 9.1 PT with INR INR Sodium 140 Potassium 4.3 Chloride 108 H Carbon Dioxide 25 Anion Gap 7 L BUN 14.6 Creatinine 0.7 Est GFR (CKD-EPI)AfAm 115.45 Est GFR (CKD-EPI)NonAf 99.62 Random Glucose 90 Calcium 9.1 Total Bilirubin 0.2 AST 12 L ALT 19 Alkaline Phosphatase 115 Total Protein 7.4 Albumin 3.8 POC Urine HCG, Qual Digoxin Phenytoin Syphilis Serology Non-reactive COVID-19 (LELA) HIV Ag/Ab Combo Qual 03/26/20 03/26/20 03/26/20 13:15 13:15 13:35 WBC RBC Hgb Hct MCV MCH MCHC RDW Plt Count MPV PT with INR INR Sodium Potassium Chloride Carbon Dioxide Anion Gap BUN Creatinine Est GFR (CKD-EPI)AfAm Est GFR (CKD-EPI)NonAf Random Glucose Calcium Total Bilirubin AST ALT Alkaline Phosphatase Total Protein Albumin POC Urine HCG, Qual Digoxin Phenytoin <0.4 Syphilis Serology COVID-19 (LELA) Not detected HIV Ag/Ab Combo Qual Negative 03/27/20 03/27/20 03/27/20 07:50 07:50 07:50 WBC RBC Hgb Hct MCV MCH MCHC RDW Plt Count MPV PT with INR 10.60 INR 0.86 Sodium Potassium Chloride Carbon Dioxide Anion Gap BUN Creatinine Est GFR (CKD-EPI)AfAm Est GFR (CKD-EPI)NonAf Random Glucose Calcium Total Bilirubin AST ALT Alkaline Phosphatase Total Protein Albumin POC Urine HCG, Qual Digoxin Phenytoin 6.5 Syphilis Serology COVID-19 (LELA) HIV Ag/Ab Combo Qual Negative low digoxin low dilantin upon admission discuss cardiac and seizure disorders Assessment: 03/29/20 13:09 alcohol withdrawal Plan: librium regiment
[2020-03-29] MEDS: CLOTRIMAZOLE 1% CREAM 15 GM TUBE TP SCH ×2 (15:52→21:38)
[2020-03-29] MEDS ORDERED: MASKS NR ONE (21:28)
[2020-03-29] MEDS: MELATONIN 5 MG TABLETS PO SCH (21:38)
[2020-03-29] MEDS: THIAMINE HCL 100 MG TABLET (FP) PO SCH (21:39)
[2020-03-30] MEDS: chlordiazePOXIDE HCL 10 MG CAPSULE PO SCH ×2 (06:21→18:06)
[2020-03-30] MEDS: hydrOXYzine PAMOATE 50 MG CAPSULE (FP) PO SCH ×4 (06:22→18:06)
[2020-03-30] MEDS: METHOCARBAMOL 500 MG TABLET PO PRN (06:24)
[2020-03-30] MEDS: guaiFENesin 200 MG/10 ML 10 ML UNIT-DOSE CUPS PO PRN (06:26)
[2020-03-30] MEDS: PHENYTOIN NA EXTENDED 100 MG CAPSULE (FP) PO SCH (11:10)
[2020-03-30] MEDS: DIGOXIN 0.125 MG TABLET (FP) PO SCH (11:11)
[2020-03-30] MEDS: QUEtiapine FUMARATE 50 MG TABLET PO SCH (11:11)
[2020-03-30] MEDS: ASPIRIN 81 MG CHEWABLE TABLETS PO SCH (11:11)
[2020-03-30] MEDS: CLOTRIMAZOLE 1% CREAM 15 GM TUBE TP SCH (11:12)
[2020-03-30] MEDS: NICOTINE 21 MG/24 HOURS TOPICAL PATCH TD SCH (11:12)
[2020-03-30] MEDS: PRENATAL VITAMINS W/ FOLIC ACID TABLET (FP) PO SCH (11:12)
--- NOTE | 2020-03-30 13:33 | PN ---
S CIWA - CIWA Score Nausea/Vomitin-No Nausea/No Vomiting Muscle Tremors: 1-None Visible, but [place] Anxiety: 1-Mildly Anxious Agitation: 0-Normal Activity Paroxysmal Sweats: No Perspiration Orientation: 0-Oriented Tacttile Disturbances: 0-None Auditory Disturbances: 0-None Visual Disturbances: 0-None Headache: 1-Very Mild CIWA-Ar Total Score: 3 BHS Progress Note (SOAP) Subjective: 54 years old female was admitted on 03/26/20 for alcohol withdrawal sx management treating with librium detox regiment ambulating with walker slow steady feels better today less tremor mild anxiety discussing aftercare with staff ms shirley prefers [facility] for alcohol abuse treatment Objective: 03/30/20 13:34 Vital Signs - 24 hr 03/29/20 03/29/20 03/30/20 16:56 20:33 07:05 Temperature 97.1 F L 98.2 F 97.3 F L Pulse Rate 84 96 H 86 Respiratory 18 18 18 Rate Blood Pressure 101/74 113/81 99/69 O2 Sat by Pulse 96 99 Oximetry (%) 03/30/20 03/30/20 03/30/20 08:35 11:11 12:39 Temperature 97.5 F L 97.8 F Pulse Rate 86 86 93 H Respiratory 18 18 Rate Blood Pressure 100/64 110/68 O2 Sat by Pulse 95 Oximetry (%) Laboratory Tests 03/26/20 03/26/20 03/26/20 11:31 12:33 13:10 WBC RBC Hgb Hct MCV MCH MCHC RDW Plt Count MPV PT with INR 10.80 INR 0.89 Sodium Potassium Chloride Carbon Dioxide Anion Gap BUN Creatinine Est GFR (CKD-EPI)AfAm Est GFR (CKD-EPI)NonAf Random Glucose Calcium Total Bilirubin AST ALT Alkaline Phosphatase Total Protein Albumin POC Urine HCG, Qual Negative Digoxin < 0.3 L Phenytoin Syphilis Serology COVID-19 ([facility]) HIV Ag/Ab Combo Qual 03/26/20 03/26/20 03/26/20 13:15 13:15 13:15 WBC 7.0 RBC 4.38 Hgb 13.3 Hct 40.4 MCV 92.2 MCH 30.3 MCHC 32.9 RDW 13.6 Plt Count 197 MPV 9.1 PT with INR INR Sodium 140 Potassium 4.3 Chloride 108 H Carbon Dioxide 25 Anion Gap 7 L BUN 14.6 Creatinine 0.7 Est GFR (CKD-EPI)AfAm 115.45 Est GFR (CKD-EPI)NonAf 99.62 Random Glucose 90 Calcium 9.1 Total Bilirubin 0.2 AST 12 L ALT 19 Alkaline Phosphatase 115 Total Protein 7.4 Albumin 3.8 POC Urine HCG, Qual Digoxin Phenytoin Syphilis Serology Non-reactive COVID-19 ([facility]LA) HIV Ag/Ab Combo Qual 03/26/20 03/26/20 03/26/20 13:15 13:15 13:35 WBC RBC Hgb Hct MCV MCH MCHC RDW Plt Count MPV PT with INR INR Sodium Potassium Chloride Carbon Dioxide Anion Gap BUN Creatinine Est GFR (CKD-EPI)AfAm Est GFR (CKD-EPI)NonAf Random Glucose Calcium Total Bilirubin AST ALT Alkaline Phosphatase Total Protein Albumin POC Urine HCG, Qual Digoxin Phenytoin <0.4 Syphilis Serology COVID-19 (LELA) Not detected HIV Ag/Ab Combo Qual Negative 03/27/20 03/27/20 03/27/20 07:50 07:50 07:50 WBC RBC Hgb Hct MCV MCH MCHC RDW Plt Count MPV PT with INR 10.60 INR 0.86 Sodium Potassium Chloride Carbon Dioxide Anion Gap BUN Creatinine Est GFR (CKD-EPI)AfAm Est GFR (CKD-EPI)NonAf Random Glucose Calcium Total Bilirubin AST ALT Alkaline Phosphatase Total Protein Albumin POC Urine HCG, Qual Digoxin Phenytoin 6.5 Syphilis Serology COVID-19 (LELA) HIV Ag/Ab Combo Qual Negative lab noted discuss risks of non compliance with digoxin and dilantin Assessment: 03/30/20 13:38 alcohol withdrawal Plan: librium regiment
--- NOTE | 2020-03-30 19:57 | DS ---
[facility] Detox Discharge Summary Admission Date: 03/26/20 Discharge Date: 03/30/20 - History Additional Comments: Patient is scheduled for discharge tomorrow. She reports that she was on the phone at the counselor's office and was told by a relative that her mother had a heart attack and was transferred to [facility]. Patient is medically cleared to be discharged to home today. She states that she will be picked up by a relative. She is alert ad oriented, ambulates with a walker, not in acute distress and vital signs within patient's norm. Patient reports that she recently refilled her medications from her provider, yet admitting that she is not compliant with prescribed medications. She tolerated detox well and is stable to be discharged home. Discharge was completed in 30 minutes. Pertinent Past History: Alcohol dependence Cocaine dependence Cannabis dependence Nicotine dependence AFIB CHF COPD GERD Hypertension Hyperlipidemia Seizure disorder Anemia PPD positive AdHD Bipolar disorder PTSD Insomnia - Physical Exam Results Vital Signs: Vital Signs Temperature 97.1 F L 03/30/20 16:54 Pulse Rate 95 H 03/30/20 16:54 Respiratory Rate 18 03/30/20 16:54 Blood Pressure 110/71 03/30/20 16:54 O2 Sat by Pulse Oximetry (%) 95 03/30/20 12:39 Laboratory Last Values WBC 7.0 K/mm3 (4.0-10.0) 03/26/20 13:15 RBC 4.38 M/mm3 (3.60-5.2) 03/26/20 13:15 Hgb 13.3 GM/dL (10.7-15.3) 03/26/20 13:15 Hct 40.4 % (32.4-45.2) 03/26/20 13:15 MCV 92.2 fl (80-96) 03/26/20 13:15 MCH 30.3 pg (25.7-33.7) 03/26/20 13:15 MCHC 32.9 g/dl (32.0-36.0) 03/26/20 13:15 RDW 13.6 % (11.6-15.6) 03/26/20 13:15 Plt Count 197 K/MM3 (134-434) 03/26/20 13:15 MPV 9.1 fl (7.5-11.1) 03/26/20 13:15 PT with INR 10.60 SEC (9.7-13.0) 03/27/20 07:50 INR 0.86 (0.83-1.09) 03/27/20 07:50 Sodium 140 mmol/L (136-145) 03/26/20 13:15 Potassium 4.3 mmol/L (3.5-5.1) 03/26/20 13:15 Chloride 108 mmol/L (98-107) H 03/26/20 13:15 Carbon Dioxide 25 mmol/L (21-32) 03/26/20 13:15 Anion Gap 7 MMOL/L (8-16) L 03/26/20 13:15 BUN 14.6 mg/dL (7-18) 03/26/20 13:15 Creatinine 0.7 mg/dL (0.55-1.3) 03/26/20 13:15 Est GFR (CKD-EPI)AfAm 115.45 03/26/20 13:15 Est GFR (CKD-EPI)NonAf 99.62 03/26/20 13:15 Random Glucose 90 mg/dL (74-106) 03/26/20 13:15 Calcium 9.1 mg/dL (8.5-10.1) 03/26/20 13:15 Total Bilirubin 0.2 mg/dL (0.2-1) 03/26/20 13:15 AST 12 U/L (15-37) L 03/26/20 13:15 ALT 19 U/L (13-61) 03/26/20 13:15 Alkaline Phosphatase 115 U/L (45-117) 03/26/20 13:15 Total Protein 7.4 g/dl (6.4-8.2) 03/26/20 13:15 Albumin 3.8 g/dl (3.4-5.0) 03/26/20 13:15 POC Urine HCG, Qual Negative 03/26/20 12:33 Digoxin < 0.3 ng/ml (0.8-2.0) L 03/26/20 11:31 Phenytoin 6.5 03/27/20 07:50 Syphilis Serology Non-reactive (NONREACTIVE) 03/26/20 13:15 COVID-19 (LELA) Not detected (Not Detected) 03/26/20 13:35 HIV Ag/Ab Combo Qual Negative (NEGATIVE) 03/27/20 07:50 Pertinent Admission Physical Exam Findings: Alcohol withdrawal symptoms - Treatment Hospital Course: Detox Protocol Followed, Detoxed Safely, Responded well, Discharged Condition Good - Medication Discharge Medications: Ambulatory Orders Quetiapine Fumarate [Seroquel -] 50 mg PO BID #60 tablet 08/13/18 Olanzapine [Zyprexa -] 10 mg PO HS 04/27/19 Albuterol Sulfate Inhaler - [Ventolin HFA Inhaler -] 2 inh PO Q4H #1 inhaler 05/01/19 Aspirin [ASA -] 81 mg PO DAILY 20 Days #20 tab.chew 05/01/19 Digoxin [Lanoxin -] 0.125 mg PO DAILY 20 Days #30 tablet 05/01/19 Phenytoin Na Extended [Dilantin -] 400 mg PO HS 03/26/20 - Diagnosis (1) Alcohol abuse with withdrawal, uncomplicated Status: Chronic (2) Cocaine dependence Status: Chronic Qualifiers: Substance use status: uncomplicated Qualified Code(s): F14.20 - Cocaine dependence, uncomplicated (3) A-fib Status: Chronic Qualifiers: Atrial fibrillation type: longstanding persistent Qualified Code(s): I48.11 - Longstanding persistent atrial fibrillation (4) Nicotine dependence Status: Chronic Qualifiers: Nicotine product type: cigarettes Substance use status: uncomplicated Qualified Code(s): F17.210 - Nicotine dependence, cigarettes, uncomplicated (5) Walker as ambulation aid Status: Chronic (6) Schizoaffective disorder Status: Chronic Qualifiers: Schizoaffective disorder type: unspecified Qualified Code(s): F25.9 - Schizoaffective disorder, unspecified (7) Cannabis dependence Status: Chronic (8) ADHD (attention deficit hyperactivity disorder) Status: Chronic (9) Bipolar disorder Status: Chronic (10) CHF Congestive heart failure Status: Chronic (11) COPD (chronic obstructive pulmonary disease) Status: Chronic Qualifiers: COPD type: COPD with acute lower respiratory infection Qualified Code(s): J44.0 - Chronic obstructive pulmonary disease with (acute) lower respiratory infection (12) Gastroesophageal reflux disease Status: Chronic (13) Hypercholesterolemia Status: Chronic (14) Hypertension Status: Chronic Qualifiers: Hypertension type: essential hypertension Qualified Code(s): I10 - Essential (primary) hypertension (15) Insomnia Status: Chronic (16) PPD positive, treated Status: Chronic (17) PTSD (post-traumatic stress disorder) Status: Chronic (18) Seizure disorder Status: Chronic (19) Anemia Status: Resolved Qualifiers: Anemia type: unspecified type Qualified Code(s): D64.9 - Anemia, unspecified - AMA Did Patient Leave Against Medical Advice: No
[2020-03-30 21:44] VITALS: BP 105/65; PULSE 101; TEMP 97.9
[2020-03-31] MEDS ORDERED: chlordiazePOXIDE HCL 10 MG CAPSULE PO ONE (05:00)
== END 2020-03-30 20:50 | disposition home or self-care (01) | DRG 774 ==
LOC: YASAS 10:53 → Y3N 13:06
PROVIDERS: ADMIT Allergy & Immunology; ATTEND Allergy & Immunology
PROC: HZ2ZZZZ Detoxification Services for Substance Abuse Treatment (ICD-10-PCS; principal; 2020-03-26)
DX: F10.230 Alcohol dependence with withdrawal, uncomplicated (principal); F14.20 Cocaine dependence, uncomplicated; F12.20 Cannabis dependence, uncomplicated; F17.210 Nicotine dependence, cigarettes, uncomplicated; F19.282 Other psychoactive substance dependence with psychoactive substance-induced sleep disorder; F19.24 Other psychoactive substance dependence with psychoactive substance-induced mood disorder; F31.81 Bipolar II disorder; F43.10 Post-traumatic stress disorder, unspecified; F90.9 Attention-deficit hyperactivity disorder, unspecified type; J44.0 Chronic obstructive pulmonary disease with (acute) lower respiratory infection; I11.0 Hypertensive heart disease with heart failure; I50.9 Heart failure, unspecified; I48.11 Longstanding persistent atrial fibrillation; I25.2 Old myocardial infarction; G40.909 Epilepsy, unspecified, not intractable, without status epilepticus; K21.9 Gastro-esophageal reflux disease without esophagitis; E78.00 Pure hypercholesterolemia, unspecified; R76.11 Nonspecific reaction to tuberculin skin test without active tuberculosis; Z86.2 Personal history of diseases of the blood and blood-forming organs and certain disorders involving the immune mechanism; Z99.89 Dependence on other enabling machines and devices; Z91.5 Personal history of self-harm; Z91.018 Allergy to other foods
CPT/HCPCS: 36415; 80053; 80162; 80185; 81025; 85027; 85610; 86780; 87389; C9803; U0003

== ENCOUNTER 2020-05-03 17:27 | Inpatient (IN) | payer OTHER ==
[2020-05-03 17:56] VITALS: BMI 25.2
[2020-05-03] MEDS ORDERED: MAG HYDROX/AL HYDROX/SIMETH 30 ML UNIT-DOSE CUP PO PRN (19:23)
[2020-05-03] MEDS ORDERED: ACETAMINOPHEN 325 MG TABLET (FP) PO PRN (19:23)
[2020-05-03] MEDS ORDERED: NICOTINE POLACRILEX 2 MG GUM BUC PRN (19:23)
[2020-05-03] MEDS ORDERED: METHOCARBAMOL 500 MG TABLET PO PRN (19:23)
[2020-05-03] MEDS ORDERED: BISMUTH SUBSALICYLATE 524 MG/30 ML UD PO PRN (19:23)
[2020-05-03] MEDS ORDERED: MAGNESIUM CITRATE 300 ML BOTTLE PO PRN (19:23)
[2020-05-03] MEDS ORDERED: MAGNESIUM HYDROX 2400MG/30ML ORAL SUSPENSION 30 ML CUP PO PRN (19:23)
[2020-05-03] MEDS ORDERED: ONDANSETRON *ODT* 4 MG TABLET SL PRN (19:23)
[2020-05-03] MEDS ORDERED: ALBUTEROL SO4 HFA INHALER IH PRN (19:30)
[2020-05-03] MEDS: P-EPHED 60MG/TRIPROLIDI 2.5MG TABLET PO SCH (20:59)
[2020-05-03] MEDS: PHENYTOIN NA EXTENDED 100 MG CAPSULE (FP) PO SCH (21:00)
[2020-05-03] MEDS: THIAMINE HCL 100 MG TABLET (FP) PO SCH (21:00)
[2020-05-03] MEDS: BACITRACIN 0.9 GM PACKET TP SCH (21:00)
[2020-05-03] MEDS: hydrOXYzine PAMOATE 25 MG CAPSULE (FP) PO PRN (21:02)
[2020-05-03] MEDS ORDERED: MELATONIN 5 MG TABLETS PO SCH (22:00)
[2020-05-03] MEDS: chlordiazePOXIDE HCL 25 MG CAPSULE PO SCH (22:19)
[2020-05-03] MEDS: ACETAMINOPHEN 325 MG TABLET (FP) PO PRN (22:24)
[2020-05-04] MEDS: MENTHOL/PHENOL 1 EACH UD MM PRN (01:20)
[2020-05-04] MEDS: guaiFENesin 200 MG/10 ML 10 ML UNIT-DOSE CUPS PO PRN ×2 (01:20→17:16)
[2020-05-04] MEDS: P-EPHED 60MG/TRIPROLIDI 2.5MG TABLET PO SCH ×2 (01:52→07:22)
[2020-05-04] MEDS: chlordiazePOXIDE HCL 25 MG CAPSULE PO SCH (06:13)
[2020-05-04] MEDS: hydrOXYzine PAMOATE 25 MG CAPSULE (FP) PO PRN (06:14)
[2020-05-04] MEDS ORDERED: P-EPHED 60MG/TRIPROLIDI 2.5MG TABLET PO PRN (09:07)
[2020-05-04] MEDS ORDERED: LORazepam 1 MG TABLET PO PRN (09:38)
[2020-05-04 10:20] LABS: POTASSIUM 4.5 mmol/L (3.5-5.1)
[2020-05-04 10:21] LABS: HEMOGLOBIN 12.4 GM/dL (10.7-15.3); MCHC 32.6 g/dl (32.0-36.0); MEAN PLT VOLUME 9.3 fl (7.5-11.1); PLATELET COUNT 259 K/MM3 (134-434); RDW 14.3 % (11.6-15.6); WHITE BLOOD COUNT 5.4 K/mm3 (4.0-10.0)
[2020-05-04] MEDS: NICOTINE 7 MG/24 HOURS TOPICAL PATCH TD SCH (10:23)
[2020-05-04] MEDS: ASPIRIN 81 MG CHEWABLE TABLETS PO SCH (10:23)
[2020-05-04] MEDS: PRENATAL VITAMINS W/ FOLIC ACID TABLET (FP) PO SCH (10:23)
[2020-05-04] MEDS: BACITRACIN 0.9 GM PACKET TP SCH ×2 (10:23→22:27)
[2020-05-04] MEDS: LORazepam 2 MG TABLET PO SCH ×3 (10:24→22:26)
[2020-05-04 10:30] LABS: CALCIUM 8.4 mg/dL (8.5-10.1)
[2020-05-04 10:31] LABS: ALBUMIN 3.3 g/dl (3.4-5.0); BLOOD UREA NITROGEN 16.6 mg/dL (7-18)
[2020-05-04 10:34] LABS: CREATININE 0.7 mg/dL (0.55-1.3)
[2020-05-04 10:35] LABS: BILIRUBIN,TOTAL 0.6 mg/dL (0.2-1)
[2020-05-04 10:36] LABS: TOT PROT 6.4 g/dl (6.4-8.2)
[2020-05-04] MEDS: QUEtiapine FUMARATE 50 MG TABLET PO SCH ×2 (11:11→22:26)
[2020-05-04] MEDS: DIGOXIN 0.125 MG TABLET (FP) PO SCH (11:11)
[2020-05-04] MEDS: CLOTRIMAZOLE 1% CREAM 15 GM TUBE TP SCH ×2 (11:13→22:27)
[2020-05-04] MEDS ORDERED: PNEUMOC 13-VAL CONJ-DIP CRM/PF 0.5 ML DISP.SYRIN IM ONE (12:00)
[2020-05-04] MEDS ORDERED: PNEUMOCOCCAL 23 VACCINE 0.5 ML VIAL IM ONE (12:00)
[2020-05-04] MEDS: hydrOXYzine PAMOATE 50 MG CAPSULE (FP) PO PRN ×2 (13:06→22:29)
[2020-05-04] MEDS: MELATONIN 5 MG TABLETS PO SCH (22:26)
[2020-05-04] MEDS: PHENYTOIN NA EXTENDED 100 MG CAPSULE (FP) PO SCH (22:26)
[2020-05-04] MEDS: THIAMINE HCL 100 MG TABLET (FP) PO SCH (22:26)
[2020-05-05] MEDS ORDERED: chlordiazePOXIDE HCL 10 MG CAPSULE PO SCH (05:00)
[2020-05-05] MEDS: LORazepam 1 MG TABLET PO SCH ×4 (06:03→22:01)
[2020-05-05] MEDS: MENTHOL/PHENOL 1 EACH UD MM PRN (06:15)
[2020-05-05] MEDS: guaiFENesin 200 MG/10 ML 10 ML UNIT-DOSE CUPS PO PRN (06:16)
[2020-05-05] MEDS: CLOTRIMAZOLE 1% CREAM 15 GM TUBE TP SCH ×2 (10:22→21:33)
[2020-05-05] MEDS: BACITRACIN 0.9 GM PACKET TP SCH ×2 (10:23→21:32)
[2020-05-05] MEDS: QUEtiapine FUMARATE 50 MG TABLET PO SCH ×2 (10:23→21:34)
[2020-05-05] MEDS: DIGOXIN 0.125 MG TABLET (FP) PO SCH (10:23)
[2020-05-05] MEDS: PRENATAL VITAMINS W/ FOLIC ACID TABLET (FP) PO SCH (10:23)
[2020-05-05] MEDS: ASPIRIN 81 MG CHEWABLE TABLETS PO SCH (10:24)
[2020-05-05] MEDS: NICOTINE 7 MG/24 HOURS TOPICAL PATCH TD SCH (10:24)
[2020-05-05] MEDS ORDERED: PHENYTOIN NA EXTENDED 100 MG CAPSULE (FP) PO ONE (10:30)
[2020-05-05] MEDS: PHENYTOIN NA EXTENDED 100 MG CAPSULE (FP) PO SCH (21:34)
[2020-05-05] MEDS: MIRTAZAPINE 15 MG TABLET (FP) PO SCH (21:34)
[2020-05-05] MEDS: MELATONIN 5 MG TABLETS PO SCH (21:35)
[2020-05-05] MEDS: THIAMINE HCL 100 MG TABLET (FP) PO SCH (21:35)
[2020-05-05] MEDS: hydrOXYzine PAMOATE 50 MG CAPSULE (FP) PO PRN (21:37)
[2020-05-06] MEDS ORDERED: LORazepam 0.5 MG TABLET PO PRN
[2020-05-06] MEDS ORDERED: chlordiazePOXIDE HCL 10 MG CAPSULE PO PRN
[2020-05-06] MEDS ORDERED: chlordiazePOXIDE HCL 10 MG CAPSULE PO SCH (05:00)
[2020-05-06] MEDS ORDERED: MASKS NR ONE ×2 (07:12→07:52)
[2020-05-06] MEDS: LORazepam 0.5 MG TABLET PO SCH ×4 (07:55→22:24)
[2020-05-06] MEDS: CLOTRIMAZOLE 1% CREAM 15 GM TUBE TP SCH ×2 (10:01→22:24)
[2020-05-06] MEDS: QUEtiapine FUMARATE 50 MG TABLET PO SCH ×2 (10:02→22:24)
[2020-05-06] MEDS: PRENATAL VITAMINS W/ FOLIC ACID TABLET (FP) PO SCH (10:02)
[2020-05-06] MEDS: ASPIRIN 81 MG CHEWABLE TABLETS PO SCH (10:02)
[2020-05-06] MEDS: BACITRACIN 0.9 GM PACKET TP SCH ×2 (10:03→22:23)
[2020-05-06] MEDS: NICOTINE 7 MG/24 HOURS TOPICAL PATCH TD SCH (10:04)
[2020-05-06] MEDS: DIGOXIN 0.125 MG TABLET (FP) PO SCH (10:04)
[2020-05-06] MEDS ORDERED: PHENYTOIN NA EXTENDED 100 MG CAPSULE (FP) PO ONE (13:58)
[2020-05-06] MEDS: hydrOXYzine PAMOATE 50 MG CAPSULE (FP) PO PRN ×2 (17:32→22:27)
[2020-05-06] MEDS: THIAMINE HCL 100 MG TABLET (FP) PO SCH (22:23)
[2020-05-06] MEDS: MELATONIN 5 MG TABLETS PO SCH (22:23)
[2020-05-06] MEDS: PHENYTOIN NA EXTENDED 100 MG CAPSULE (FP) PO SCH (22:24)
[2020-05-06] MEDS: MIRTAZAPINE 15 MG TABLET (FP) PO SCH (22:25)
[2020-05-06] MEDS: ACETAMINOPHEN 325 MG TABLET (FP) PO PRN (22:26)
[2020-05-07] MEDS ORDERED: LORazepam 0.5 MG TABLET PO ONE (05:00)
[2020-05-07] MEDS ORDERED: chlordiazePOXIDE HCL 10 MG CAPSULE PO ONE (05:00)
[2020-05-07] MEDS: hydrOXYzine PAMOATE 50 MG CAPSULE (FP) PO PRN (06:16)
[2020-05-07] MEDS: DIGOXIN 0.125 MG TABLET (FP) PO SCH (10:20)
[2020-05-07] MEDS: QUEtiapine FUMARATE 50 MG TABLET PO SCH ×2 (10:20→22:08)
[2020-05-07] MEDS: ASPIRIN 81 MG CHEWABLE TABLETS PO SCH (10:20)
[2020-05-07] MEDS: BACITRACIN 0.9 GM PACKET TP SCH ×2 (10:21→22:06)
[2020-05-07] MEDS: CLOTRIMAZOLE 1% CREAM 15 GM TUBE TP SCH ×2 (10:21→22:09)
[2020-05-07] MEDS: NICOTINE 7 MG/24 HOURS TOPICAL PATCH TD SCH (10:21)
[2020-05-07] MEDS: PRENATAL VITAMINS W/ FOLIC ACID TABLET (FP) PO SCH (10:24)
[2020-05-07] MEDS: PHENYTOIN NA EXTENDED 100 MG CAPSULE (FP) PO SCH (22:06)
[2020-05-07] MEDS: MELATONIN 5 MG TABLETS PO SCH (22:07)
[2020-05-07] MEDS: MIRTAZAPINE 15 MG TABLET (FP) PO SCH (22:07)
[2020-05-07] MEDS: THIAMINE HCL 100 MG TABLET (FP) PO SCH (22:09)
[2020-05-08] MEDS ORDERED: LORazepam 0.5 MG TABLET PO ONE (05:00)
[2020-05-08] MEDS: QUEtiapine FUMARATE 50 MG TABLET PO SCH (09:06)
[2020-05-08] MEDS: DIGOXIN 0.125 MG TABLET (FP) PO SCH (09:06)
[2020-05-08] MEDS: ASPIRIN 81 MG CHEWABLE TABLETS PO SCH (09:07)
[2020-05-08] MEDS: PRENATAL VITAMINS W/ FOLIC ACID TABLET (FP) PO SCH (09:07)
[2020-05-08] MEDS: BACITRACIN 0.9 GM PACKET TP SCH (09:07)
[2020-05-08] MEDS: CLOTRIMAZOLE 1% CREAM 15 GM TUBE TP SCH (09:07)
[2020-05-08 09:10] VITALS: BP 128/73; PULSE 69; TEMP 97.3
[2020-05-08] MEDS: NICOTINE 7 MG/24 HOURS TOPICAL PATCH TD SCH (09:10)
== END 2020-05-08 09:20 | disposition home or self-care (01) | DRG 774 ==
LOC: YASAS 17:27 → Y3N 18:32
PROVIDERS: ADMIT Allergy & Immunology; ATTEND Allergy & Immunology
PROC: HZ2ZZZZ Detoxification Services for Substance Abuse Treatment (ICD-10-PCS; principal; 2020-05-03)
DX: F10.230 Alcohol dependence with withdrawal, uncomplicated (principal); F14.20 Cocaine dependence, uncomplicated; F12.20 Cannabis dependence, uncomplicated; F17.210 Nicotine dependence, cigarettes, uncomplicated; F19.282 Other psychoactive substance dependence with psychoactive substance-induced sleep disorder; F25.9 Schizoaffective disorder, unspecified; F31.9 Bipolar disorder, unspecified; F25.0 Schizoaffective disorder, bipolar type; F90.9 Attention-deficit hyperactivity disorder, unspecified type; F43.10 Post-traumatic stress disorder, unspecified; G40.309 Generalized idiopathic epilepsy and epileptic syndromes, not intractable, without status epilepticus; I25.10 Atherosclerotic heart disease of native coronary artery without angina pectoris; I11.0 Hypertensive heart disease with heart failure; I50.9 Heart failure, unspecified; I48.11 Longstanding persistent atrial fibrillation; I25.2 Old myocardial infarction; Z79.01 Long term (current) use of anticoagulants; E78.00 Pure hypercholesterolemia, unspecified; G47.00 Insomnia, unspecified; E78.5 Hyperlipidemia, unspecified; J44.9 Chronic obstructive pulmonary disease, unspecified; K21.9 Gastro-esophageal reflux disease without esophagitis; Z87.81 Personal history of (healed) traumatic fracture; Z86.2 Personal history of diseases of the blood and blood-forming organs and certain disorders involving the immune mechanism; Z91.013 Allergy to seafood; Z91.018 Allergy to other foods; Z91.5 Personal history of self-harm
CPT/HCPCS: 36415; 80053; 80162; 80185; 81025; 85027; 86780; 90732; C9803; G0009; U0003

== ENCOUNTER 2020-08-23 12:08 | Inpatient (IN) | payer OTHER ==
[2020-08-23 12:58] VITALS: BMI 24.5
[2020-08-23] MEDS ORDERED: MENTHOL/PHENOL 1 EACH UD MM PRN (13:59)
[2020-08-23] MEDS ORDERED: MAG HYDROX/AL HYDROX/SIMETH 30 ML UNIT-DOSE CUP PO PRN (13:59)
[2020-08-23] MEDS ORDERED: ONDANSETRON *ODT* 4 MG TABLET SL PRN (13:59)
[2020-08-23] MEDS ORDERED: METHOCARBAMOL 500 MG TABLET PO PRN (13:59)
[2020-08-23] MEDS ORDERED: MAGNESIUM HYDROX 2400MG/30ML ORAL SUSPENSION 30 ML CUP PO PRN (13:59)
[2020-08-23] MEDS ORDERED: ACETAMINOPHEN 325 MG TABLET (FP) PO PRN ×2 (13:59)
[2020-08-23] MEDS ORDERED: BISMUTH SUBSALICYLATE 524 MG/30 ML UD PO PRN (13:59)
[2020-08-23] MEDS ORDERED: NICOTINE POLACRILEX 2 MG GUM BUC PRN (13:59)
[2020-08-23] MEDS ORDERED: IBUPROFEN 400 MG TABLET (FP) PO PRN (13:59)
[2020-08-23] MEDS ORDERED: MAGNESIUM CITRATE 300 ML BOTTLE PO PRN (13:59)
[2020-08-23] MEDS ORDERED: ALBUTEROL SO4 HFA INHALER IH PRN (14:07)
[2020-08-23] MEDS: hydrOXYzine PAMOATE 25 MG CAPSULE (FP) PO SCH ×2 (14:58→19:10)
[2020-08-23] MEDS ORDERED: valACYclovir HCL 500 MG TABLET (FP) PO SCH (15:45)
[2020-08-23] MEDS ORDERED: diphenhydrAMINE HCL 50 MG CAPSULE PO ONE (17:41)
[2020-08-23] MEDS ORDERED: diphenhydrAMINE HCL 25 MG CAPSULE (FP) PO ONE (17:49)
[2020-08-23] MEDS: chlordiazePOXIDE HCL 25 MG CAPSULE PO SCH (17:55)
[2020-08-23] MEDS: chlordiazePOXIDE HCL 25 MG CAPSULE PO PRN (19:50)
[2020-08-23] MEDS: levETIRAcetam 500 MG TABLET (FP) PO SCH (23:27)
[2020-08-23] MEDS: PHENYTOIN NA EXTENDED 100 MG CAPSULE (FP) PO SCH (23:28)
[2020-08-24] MEDS: THIAMINE HCL 100 MG TABLET (FP) PO SCH ×2 (00:09→22:29)
[2020-08-24] MEDS: MELATONIN 5 MG TABLETS PO SCH ×2 (00:09→22:30)
[2020-08-24] MEDS: chlordiazePOXIDE HCL 25 MG CAPSULE PO SCH ×5 (00:09→22:34)
[2020-08-24] MEDS: hydrOXYzine PAMOATE 25 MG CAPSULE (FP) PO SCH ×6 (00:09→22:31)
[2020-08-24] MEDS: chlordiazePOXIDE HCL 25 MG CAPSULE PO PRN ×2 (03:25→22:32)
[2020-08-24] MEDS: guaiFENesin 200 MG/10 ML 10 ML UNIT-DOSE CUPS PO PRN (05:02)
[2020-08-24] MEDS: ASPIRIN 81 MG CHEWABLE TABLETS PO SCH (10:28)
[2020-08-24] MEDS: PRENATAL VITAMINS W/ FOLIC ACID TABLET (FP) PO SCH (10:28)
[2020-08-24] MEDS: levETIRAcetam 500 MG TABLET (FP) PO SCH ×2 (10:28→22:29)
[2020-08-24] MEDS: valACYclovir HCL 500 MG TABLET (FP) PO SCH (10:29)
[2020-08-24] MEDS: DIGOXIN 0.125 MG TABLET (FP) PO SCH (12:00)
[2020-08-24 12:54] LABS: HEMATOCRIT 39.1 % (32.4-45.2); HEMOGLOBIN 13.2 GM/dL (10.7-15.3); MCH 31.6 pg (25.7-33.7); MCHC 33.7 g/dl (32.0-36.0); MEAN CELL VOLUME 93.7 fl (80-96); MEAN PLT VOLUME 9.4 fl (7.5-11.1); PLATELET COUNT 252 K/MM3 (134-434); RBC 4.17 M/mm3 (3.60-5.2); RDW 13.6 % (11.6-15.6); WHITE BLOOD COUNT 6.2 K/mm3 (4.0-10.0)
[2020-08-24 13:00] LABS: POTASSIUM 4.1 mmol/L (3.5-5.1)
[2020-08-24 13:07] LABS: CALCIUM 9.2 mg/dL (8.5-10.1)
[2020-08-24 13:08] LABS: ALBUMIN 3.8 g/dl (3.4-5.0)
[2020-08-24 13:11] LABS: CREATININE 0.8 mg/dL (0.55-1.3)
[2020-08-24 13:12] LABS: BILIRUBIN,TOTAL 0.4 mg/dL (0.2-1)
[2020-08-24] MEDS ORDERED: OLANZapine 5 MG TABLET PO SCH (22:00)
[2020-08-24] MEDS: QUEtiapine FUMARATE 50 MG TABLET PO SCH (22:29)
[2020-08-24] MEDS: PHENYTOIN NA EXTENDED 100 MG CAPSULE (FP) PO SCH (22:29)
[2020-08-25] MEDS: guaiFENesin 200 MG/10 ML 10 ML UNIT-DOSE CUPS PO PRN ×2 (05:17→23:33)
[2020-08-25] MEDS: hydrOXYzine PAMOATE 25 MG CAPSULE (FP) PO SCH ×5 (05:18→23:27)
[2020-08-25] MEDS: chlordiazePOXIDE HCL 25 MG CAPSULE PO SCH ×4 (05:18→22:49)
[2020-08-25] MEDS: DIGOXIN 0.125 MG TABLET (FP) PO SCH (10:27)
[2020-08-25] MEDS: ASPIRIN 81 MG CHEWABLE TABLETS PO SCH (10:27)
[2020-08-25] MEDS: levETIRAcetam 500 MG TABLET (FP) PO SCH ×2 (10:28→22:49)
[2020-08-25] MEDS: QUEtiapine FUMARATE 50 MG TABLET PO SCH ×2 (10:28→22:51)
[2020-08-25] MEDS: valACYclovir HCL 500 MG TABLET (FP) PO SCH (10:28)
[2020-08-25] MEDS: PRENATAL VITAMINS W/ FOLIC ACID TABLET (FP) PO SCH (10:28)
[2020-08-25] MEDS: PHENYTOIN NA EXTENDED 100 MG CAPSULE (FP) PO SCH (22:49)
[2020-08-25] MEDS: MELATONIN 5 MG TABLETS PO SCH (22:51)
[2020-08-25] MEDS: THIAMINE HCL 100 MG TABLET (FP) PO SCH (22:51)
[2020-08-26] MEDS ORDERED: chlordiazePOXIDE HCL 10 MG CAPSULE PO PRN
[2020-08-26] MEDS: chlordiazePOXIDE HCL 10 MG CAPSULE PO SCH ×4 (06:27→23:41)
[2020-08-26] MEDS: hydrOXYzine PAMOATE 25 MG CAPSULE (FP) PO SCH ×5 (06:30→23:36)
[2020-08-26] MEDS: DIGOXIN 0.125 MG TABLET (FP) PO SCH (10:17)
[2020-08-26] MEDS: levETIRAcetam 500 MG TABLET (FP) PO SCH ×2 (10:17→23:35)
[2020-08-26] MEDS: ASPIRIN 81 MG CHEWABLE TABLETS PO SCH (10:17)
[2020-08-26] MEDS: valACYclovir HCL 500 MG TABLET (FP) PO SCH (10:18)
[2020-08-26] MEDS: QUEtiapine FUMARATE 50 MG TABLET PO SCH ×2 (10:18→23:35)
[2020-08-26] MEDS: PRENATAL VITAMINS W/ FOLIC ACID TABLET (FP) PO SCH (10:18)
[2020-08-26] MEDS: PHENYTOIN NA EXTENDED 100 MG CAPSULE (FP) PO SCH (23:35)
[2020-08-26] MEDS: THIAMINE HCL 100 MG TABLET (FP) PO SCH (23:35)
[2020-08-26] MEDS: MELATONIN 5 MG TABLETS PO SCH (23:37)
[2020-08-27] MEDS ORDERED: chlordiazePOXIDE HCL 10 MG CAPSULE PO SCH (05:00)
[2020-08-27] MEDS: hydrOXYzine PAMOATE 25 MG CAPSULE (FP) PO SCH (06:39)
[2020-08-27 09:40] VITALS: BP 92/57; PULSE 62; TEMP 98.2
[2020-08-27] MEDS: QUEtiapine FUMARATE 50 MG TABLET PO SCH (09:41)
[2020-08-27] MEDS: ASPIRIN 81 MG CHEWABLE TABLETS PO SCH (09:41)
[2020-08-27] MEDS: levETIRAcetam 500 MG TABLET (FP) PO SCH (09:41)
[2020-08-27] MEDS: valACYclovir HCL 500 MG TABLET (FP) PO SCH (09:42)
[2020-08-27] MEDS: PRENATAL VITAMINS W/ FOLIC ACID TABLET (FP) PO SCH (09:44)
[2020-08-28] MEDS ORDERED: chlordiazePOXIDE HCL 10 MG CAPSULE PO ONE (05:00)
== END 2020-08-27 11:04 | disposition home or self-care (01) | DRG 774 ==
LOC: YASAS 12:08 → Y6N 14:17
PROVIDERS: ADMIT Allergy & Immunology; ATTEND Allergy & Immunology
PROC: HZ2ZZZZ Detoxification Services for Substance Abuse Treatment (ICD-10-PCS; principal; 2020-08-23)
DX: F10.230 Alcohol dependence with withdrawal, uncomplicated (principal); F14.20 Cocaine dependence, uncomplicated; F17.210 Nicotine dependence, cigarettes, uncomplicated; F31.81 Bipolar II disorder; F20.9 Schizophrenia, unspecified; F19.24 Other psychoactive substance dependence with psychoactive substance-induced mood disorder; F90.9 Attention-deficit hyperactivity disorder, unspecified type; I10 Essential (primary) hypertension; G40.909 Epilepsy, unspecified, not intractable, without status epilepticus; G47.00 Insomnia, unspecified; J44.9 Chronic obstructive pulmonary disease, unspecified; Z62.810 Personal history of physical and sexual abuse in childhood; Z96.652 Presence of left artificial knee joint; Z99.89 Dependence on other enabling machines and devices; Z86.79 Personal history of other diseases of the circulatory system; Z87.42 Personal history of other diseases of the female genital tract; Z91.018 Allergy to other foods; Z56.0 Unemployment, unspecified; Z59.0 Homelessness
CPT/HCPCS: 36415; 80053; 80162; 80177; 80185; 81025; 85027; 86780; 93005; 93010; C9803; U0003

== ENCOUNTER 2021-07-09 10:02 | Inpatient (IN) | payer OTHER ==
[2021-07-09] MEDS ORDERED: MENTHOL/PHENOL 1 EACH UD MM PRN (10:16)
[2021-07-09] MEDS ORDERED: ONDANSETRON *ODT* 4 MG TABLET SL PRN (10:16)
[2021-07-09] MEDS ORDERED: METHOCARBAMOL 500 MG TABLET PO PRN (10:16)
[2021-07-09] MEDS ORDERED: MAGNESIUM CITRATE 300 ML BOTTLE PO PRN (10:16)
[2021-07-09] MEDS ORDERED: BISMUTH SUBSALICYLATE 262 MG/15 ML BTL PO PRN (10:16)
[2021-07-09] MEDS ORDERED: IBUPROFEN 400 MG TABLET (FP) PO PRN (10:16)
[2021-07-09] MEDS ORDERED: ACETAMINOPHEN 325 MG TABLET (FP) PO PRN ×2 (10:16)
[2021-07-09] MEDS ORDERED: MAGNESIUM HYDROX 2400MG/30ML ORAL SUSPENSION 30 ML CUP PO PRN (10:16)
[2021-07-09] MEDS ORDERED: MAG HYDROX/AL HYDROX/SIMETH 30 ML UNIT-DOSE CUP PO PRN (10:16)
[2021-07-09] MEDS ORDERED: NICOTINE 10 MG CARTRIDGE (INHALER) IH PRN (10:16)
[2021-07-09] MEDS ORDERED: chlordiazePOXIDE HCL 25 MG CAPSULE PO PRN (10:16)
[2021-07-09 10:32] VITALS: BMI 27.2
[2021-07-09] MEDS: chlordiazePOXIDE HCL 25 MG CAPSULE PO SCH ×3 (11:27→23:01)
[2021-07-09] MEDS ORDERED: ALBUTEROL SO4 HFA INHALER IH PRN (13:53)
[2021-07-09] MEDS: PRENATAL VITAMINS W/ FOLIC ACID TABLET (FP) PO SCH (14:37)
[2021-07-09] MEDS: hydrOXYzine PAMOATE 25 MG CAPSULE (FP) PO SCH ×3 (14:37→23:00)
[2021-07-09 14:51] LABS: HEMATOCRIT 39.8 % (32.4-45.2); HEMOGLOBIN 13.3 GM/dL (10.7-15.3); MCH 30.9 pg (25.7-33.7); MCHC 33.5 g/dl (32.0-36.0); MEAN CELL VOLUME 92.2 fl (80-96); MEAN PLT VOLUME 9.1 fl (7.5-11.1); PLATELET COUNT 199 10^3/uL (134-434); RBC 4.32 M/mm3 (3.60-5.2); RDW 14.6 % (11.6-15.6); WHITE BLOOD COUNT 5.6 K/mm3 (4.0-10.0)
[2021-07-09 15:02] LABS: ALBUMIN 3.7 g/dl (3.4-5.0); BLOOD UREA NITROGEN 12.3 mg/dL (7-18); CREATININE 0.8 mg/dL (0.55-1.3)
[2021-07-09 15:04] LABS: BILIRUBIN,TOTAL 0.2 mg/dL (0.2-1); TOT PROT 6.9 g/dl (6.4-8.2)
[2021-07-09 15:05] LABS: CALCIUM 8.7 mg/dL (8.5-10.1)
[2021-07-09 15:48] LABS: HIV INTERPRETATION NEGATIVE (NEGATIVE)
[2021-07-09] MEDS: MELATONIN 5 MG TABLETS PO SCH (23:00)
[2021-07-09] MEDS: QUEtiapine FUMARATE 50 MG TABLET PO SCH (23:00)
[2021-07-09] MEDS: THIAMINE HCL 100 MG TABLET (FP) PO SCH (23:00)
[2021-07-10] MEDS: hydrOXYzine PAMOATE 25 MG CAPSULE (FP) PO SCH ×5 (06:56→22:54)
[2021-07-10] MEDS: chlordiazePOXIDE HCL 25 MG CAPSULE PO SCH ×4 (06:56→22:55)
[2021-07-10] MEDS: PRENATAL VITAMINS W/ FOLIC ACID TABLET (FP) PO SCH (15:05)
[2021-07-10] MEDS: QUEtiapine FUMARATE 50 MG TABLET PO SCH ×2 (15:05→22:54)
[2021-07-10] MEDS: THIAMINE HCL 100 MG TABLET (FP) PO SCH (22:54)
[2021-07-10] MEDS: MELATONIN 5 MG TABLETS PO SCH (22:54)
[2021-07-11] MEDS: hydrOXYzine PAMOATE 25 MG CAPSULE (FP) PO SCH ×5 (06:29→23:27)
[2021-07-11] MEDS: chlordiazePOXIDE HCL 25 MG CAPSULE PO SCH ×4 (06:30→23:26)
[2021-07-11] MEDS: PRENATAL VITAMINS W/ FOLIC ACID TABLET (FP) PO SCH (10:21)
[2021-07-11] MEDS: QUEtiapine FUMARATE 50 MG TABLET PO SCH ×2 (10:21→23:27)
[2021-07-11] MEDS: THIAMINE HCL 100 MG TABLET (FP) PO SCH (23:27)
[2021-07-11] MEDS: MELATONIN 5 MG TABLETS PO SCH (23:27)
[2021-07-12] MEDS ORDERED: chlordiazePOXIDE HCL 10 MG CAPSULE PO PRN
[2021-07-12] MEDS: hydrOXYzine PAMOATE 25 MG CAPSULE (FP) PO SCH ×5 (06:41→23:22)
[2021-07-12] MEDS: chlordiazePOXIDE HCL 10 MG CAPSULE PO SCH ×4 (06:41→23:24)
[2021-07-12] MEDS: PRENATAL VITAMINS W/ FOLIC ACID TABLET (FP) PO SCH (10:39)
[2021-07-12] MEDS: QUEtiapine FUMARATE 50 MG TABLET PO SCH ×2 (10:41→23:23)
[2021-07-12] MEDS: MELATONIN 5 MG TABLETS PO SCH (23:23)
[2021-07-12] MEDS: THIAMINE HCL 100 MG TABLET (FP) PO SCH (23:23)
[2021-07-13] MEDS ORDERED: chlordiazePOXIDE HCL 10 MG CAPSULE PO SCH (05:00)
[2021-07-13] MEDS: hydrOXYzine PAMOATE 25 MG CAPSULE (FP) PO SCH ×2 (06:24→11:10)
[2021-07-13 08:57] VITALS: BP 100/64; TEMP 96.7
[2021-07-13] MEDS ORDERED: DIGOXIN 0.125 MG TABLET PO SCH (10:00)
[2021-07-13] MEDS: QUEtiapine FUMARATE 50 MG TABLET PO SCH (10:19)
[2021-07-13] MEDS: PRENATAL VITAMINS W/ FOLIC ACID TABLET (FP) PO SCH (10:19)
[2021-07-13 12:56] VITALS: PULSE 72
[2021-07-14] MEDS ORDERED: chlordiazePOXIDE HCL 10 MG CAPSULE PO ONE (05:00)
== END 2021-07-13 01:08 | disposition home or self-care (01) | DRG 774 ==
LOC: YASAS 10:02 → Y3N 12:27
PROVIDERS: ADMIT Allergy & Immunology; ATTEND Allergy & Immunology
PROC: HZ2ZZZZ Detoxification Services for Substance Abuse Treatment (ICD-10-PCS; principal; 2021-07-09)
DX: F10.230 Alcohol dependence with withdrawal, uncomplicated (principal); F14.10 Cocaine abuse, uncomplicated; F17.210 Nicotine dependence, cigarettes, uncomplicated; F19.282 Other psychoactive substance dependence with psychoactive substance-induced sleep disorder; F19.280 Other psychoactive substance dependence with psychoactive substance-induced anxiety disorder; F19.24 Other psychoactive substance dependence with psychoactive substance-induced mood disorder; F25.9 Schizoaffective disorder, unspecified; F31.9 Bipolar disorder, unspecified; I25.10 Atherosclerotic heart disease of native coronary artery without angina pectoris; I11.0 Hypertensive heart disease with heart failure; I50.9 Heart failure, unspecified; I48.11 Longstanding persistent atrial fibrillation; J44.0 Chronic obstructive pulmonary disease with (acute) lower respiratory infection; R73.9 Hyperglycemia, unspecified; Z99.89 Dependence on other enabling machines and devices; Z91.013 Allergy to seafood; Z88.6 Allergy status to analgesic agent; Z56.0 Unemployment, unspecified
CPT/HCPCS: 36415; 71046-TC-FY; 80053; 81025; 85027; 86780; 87389; C9803; U0003; U0005

== ENCOUNTER 2022-01-03 09:46 | Inpatient (IN) | payer OTHER ==
[2022-01-03 11:05] VITALS: BMI 32.3
[2022-01-03] MEDS ORDERED: MAGNESIUM HYDROX 2400MG/30ML ORAL SUSPENSION 30 ML CUP PO PRN (12:09)
[2022-01-03] MEDS ORDERED: MAG HYDROX/AL HYDROX/SIMETH 30 ML UNIT-DOSE CUP PO PRN (12:09)
[2022-01-03] MEDS ORDERED: NALOXONE HCL (KLOXXADO) 8 MG SPRAY NS PRN (12:09)
[2022-01-03] MEDS ORDERED: NICOTINE 10 MG CARTRIDGE (INHALER) IH PRN (12:09)
[2022-01-03] MEDS ORDERED: IBUPROFEN 400 MG TABLET (FP) PO PRN (12:09)
[2022-01-03] MEDS ORDERED: MAGNESIUM CITRATE 300 ML BOTTLE PO PRN (12:09)
[2022-01-03] MEDS ORDERED: P-EPHED 60MG/TRIPROLIDI 2.5MG TABLET PO PRN (12:09)
[2022-01-03] MEDS ORDERED: LOPERAMIDE HCL 2 MG CAPSULE PO PRN (12:09)
[2022-01-03 15:30] LABS: HEMATOCRIT 44.2 % (32.4-45.2); HEMOGLOBIN 14.7 GM/dL (10.7-15.3); MCH 30.7 pg (25.7-33.7); MCHC 33.3 g/dl (32.0-36.0); MEAN CELL VOLUME 92.3 fl (80-96); MEAN PLT VOLUME 8.9 fl (7.5-11.1); PLATELET COUNT 283 10^3/uL (134-434); RBC 4.79 M/mm3 (3.60-5.2); RDW 14.1 % (11.6-15.6); WHITE BLOOD COUNT 8.2 K/mm3 (4.0-10.0)
[2022-01-03 15:47] LABS: CALCIUM 9.1 mg/dL (8.5-10.1)
[2022-01-03 15:48] LABS: BLOOD UREA NITROGEN 11.9 mg/dL (7-18)
[2022-01-03 15:51] LABS: CREATININE 0.7 mg/dL (0.55-1.3)
[2022-01-03 15:52] LABS: BILIRUBIN,TOTAL 0.5 mg/dL (0.2-1)
[2022-01-03 15:53] LABS: TOT PROT 7.5 g/dl (6.4-8.2)
[2022-01-03] MEDS: PRENATAL VITAMINS W/ FOLIC ACID TABLET (FP) PO SCH (18:24)
[2022-01-03] MEDS: NICOTINE 7 MG/24 HOURS TOPICAL PATCH TD SCH (18:24)
[2022-01-03] MEDS: hydrOXYzine PAMOATE 25 MG CAPSULE (FP) PO SCH ×3 (18:25→21:50)
[2022-01-03] MEDS: NICOTINE 14 MG/24 HOURS TOPICAL PATCH TD SCH (18:30)
[2022-01-03] MEDS: guaiFENesin 200 MG/10 ML 10 ML UNIT-DOSE CUPS PO PRN (19:54)
[2022-01-03] MEDS: ACETAMINOPHEN 325 MG TABLET (FP) PO PRN (21:49)
[2022-01-03] MEDS: THIAMINE HCL 100 MG TABLET (FP) PO SCH (21:50)
[2022-01-03] MEDS: MELATONIN 5 MG TABLETS PO SCH (21:50)
[2022-01-03] MEDS ORDERED: ALBUTEROL SO4 HFA INHALER IH PRN (23:45)
[2022-01-04] MEDS: hydrOXYzine PAMOATE 25 MG CAPSULE (FP) PO SCH ×5 (07:24→21:41)
[2022-01-04] MEDS: NICOTINE 14 MG/24 HOURS TOPICAL PATCH TD SCH (11:04)
[2022-01-04] MEDS: PRENATAL VITAMINS W/ FOLIC ACID TABLET (FP) PO SCH ×2 (11:04→11:09)
[2022-01-04] MEDS: ACETAMINOPHEN 325 MG TABLET (FP) PO PRN (11:04)
[2022-01-04] MEDS: NICOTINE 7 MG/24 HOURS TOPICAL PATCH TD SCH (11:05)
[2022-01-04] MEDS: ASPIRIN 81 MG CHEWABLE TABLETS PO SCH (12:42)
[2022-01-04] MEDS: DIGOXIN 0.125 MG TABLET PO SCH (12:43)
[2022-01-04] MEDS: THIAMINE HCL 100 MG TABLET (FP) PO SCH (21:41)
[2022-01-04] MEDS: MELATONIN 5 MG TABLETS PO SCH (21:41)
[2022-01-04] MEDS: PHENYTOIN NA EXTENDED 100 MG CAPSULE (FP) PO SCH (21:43)
[2022-01-04] MEDS: QUEtiapine FUMARATE 50 MG TABLET PO SCH (21:44)
[2022-01-05] MEDS: hydrOXYzine PAMOATE 25 MG CAPSULE (FP) PO SCH (07:14)
[2022-01-05] MEDS: PRENATAL VITAMINS W/ FOLIC ACID TABLET (FP) PO SCH (10:11)
[2022-01-05] MEDS: DIGOXIN 0.125 MG TABLET PO SCH (10:12)
[2022-01-05] MEDS: ASPIRIN 81 MG CHEWABLE TABLETS PO SCH (10:12)
[2022-01-05] MEDS: NICOTINE 7 MG/24 HOURS TOPICAL PATCH TD SCH (10:13)
[2022-01-05] MEDS: NICOTINE 14 MG/24 HOURS TOPICAL PATCH TD SCH (10:13)
[2022-01-05] MEDS: guaiFENesin 200 MG/10 ML 10 ML UNIT-DOSE CUPS PO PRN (10:14)
[2022-01-05 10:17] LABS: EPI CELLS 31 /uL (0-25.1); HYALINE CASTS 0 /uL (0-3.1); PH,URINE 6.5 (5.0-8.0); URINE APPEARANCE CLEAR; URINE BACTERIA 680 /uL (0-1359); URINE BILIRUBIN NEGATIVE (NEGATIVE); URINE COLOR YELLOW; URINE GLUCOSE (UA) NEGATIVE (NEGATIVE); URINE KETONE NEGATIVE (NEGATIVE); URINE LEUK ESTERASE TRACE (NEGATIVE); URINE NITRITE NEGATIVE (NEGATIVE); URINE PROTEIN NEGATIVE (NEGATIVE); URINE RBC 2 /uL (0-23.9); URINE UROBILINOGEN 0.2 mg/dL (0.2-1.0); URINE WBC 14 /uL (0-25.8)
[2022-01-05] MEDS: THIAMINE HCL 100 MG TABLET (FP) PO SCH (21:36)
[2022-01-05] MEDS: hydrOXYzine PAMOATE 25 MG CAPSULE (FP) PO PRN (21:36)
[2022-01-05] MEDS: MELATONIN 5 MG TABLETS PO SCH (21:37)
[2022-01-05] MEDS: PHENYTOIN NA EXTENDED 100 MG CAPSULE (FP) PO SCH (21:38)
[2022-01-05] MEDS: QUEtiapine FUMARATE 50 MG TABLET PO SCH (21:40)
[2022-01-06 07:18] VITALS: BP 106/74; RESP 16; TEMP 97.3
[2022-01-06] MEDS: ASPIRIN 81 MG CHEWABLE TABLETS PO SCH (10:09)
[2022-01-06] MEDS: PRENATAL VITAMINS W/ FOLIC ACID TABLET (FP) PO SCH (10:09)
[2022-01-06] MEDS: hydrOXYzine PAMOATE 25 MG CAPSULE (FP) PO PRN (10:10)
[2022-01-06] MEDS: DIGOXIN 0.125 MG TABLET PO SCH (10:10)
[2022-01-06 10:11] VITALS: PULSE 70
[2022-01-06] MEDS: guaiFENesin 200 MG/10 ML 10 ML UNIT-DOSE CUPS PO PRN (11:18)
[2022-01-06] MEDS: NICOTINE 7 MG/24 HOURS TOPICAL PATCH TD SCH (11:18)
[2022-01-06] MEDS: NICOTINE 14 MG/24 HOURS TOPICAL PATCH TD SCH (11:19)
== END 2022-01-06 11:40 | disposition left against medical advice (07) | DRG 770 ==
LOC: SUATTDRO 09:46 → YASAS 09:46 → Y5N 17:30
PROVIDERS: ADMIT Allergy & Immunology; ATTEND Psychiatry & Neurology Pain Medicine
PROC: HZ42ZZZ Group Counseling for Substance Abuse Treatment, Cognitive-Behavioral (ICD-10-PCS; principal; 2022-01-03)
DX: F10.20 Alcohol dependence, uncomplicated (principal); F14.20 Cocaine dependence, uncomplicated; F17.210 Nicotine dependence, cigarettes, uncomplicated; F43.10 Post-traumatic stress disorder, unspecified; F31.9 Bipolar disorder, unspecified; F19.24 Other psychoactive substance dependence with psychoactive substance-induced mood disorder; I11.0 Hypertensive heart disease with heart failure; I50.9 Heart failure, unspecified; I48.91 Unspecified atrial fibrillation; J44.0 Chronic obstructive pulmonary disease with (acute) lower respiratory infection; J45.909 Unspecified asthma, uncomplicated; K21.9 Gastro-esophageal reflux disease without esophagitis; I25.2 Old myocardial infarction; G40.909 Epilepsy, unspecified, not intractable, without status epilepticus; G47.00 Insomnia, unspecified; Z91.013 Allergy to seafood; Z91.018 Allergy to other foods; Z88.8 Allergy status to other drugs, medicaments and biological substances; Z91.410 Personal history of adult physical and sexual abuse; Z91.51 Personal history of suicidal behavior; Z56.0 Unemployment, unspecified; Z59.00 Homelessness unspecified
CPT/HCPCS: 36415; 71045-TC-FY; 80053; 81003; 81025; 85027; 86780; 86803; C9803-CS; U0003; U0005

== ENCOUNTER 2022-02-15 15:19 | Inpatient (IN) | payer OTHER ==
[2022-02-15 19:33] VITALS: BMI 28.5
[2022-02-15] MEDS ORDERED: MAG HYDROX/AL HYDROX/SIMETH 30 ML UNIT-DOSE CUP PO PRN (20:23)
[2022-02-15] MEDS ORDERED: P-EPHED 60MG/TRIPROLIDI 2.5MG TABLET PO PRN (20:23)
[2022-02-15] MEDS ORDERED: BENZOCAINE/MENTHOL (CHLORASEPTIC ) LOZENGE MM PRN (20:23)
[2022-02-15] MEDS ORDERED: MAGNESIUM HYDROX 2400MG/30ML ORAL SUSPENSION 30 ML CUP PO PRN (20:23)
[2022-02-15] MEDS ORDERED: guaiFENesin 200 MG/10 ML 10 ML UNIT-DOSE CUPS PO PRN (20:23)
[2022-02-15] MEDS ORDERED: MAGNESIUM CITRATE 300 ML BOTTLE PO PRN (20:23)
[2022-02-15] MEDS ORDERED: LOPERAMIDE HCL 2 MG CAPSULE PO PRN (20:23)
[2022-02-15] MEDS ORDERED: ALBUTEROL SO4 HFA INHALER IH PRN (20:25)
[2022-02-16] MEDS: ACETAMINOPHEN 325 MG TABLET (FP) PO PRN ×2 (01:01→12:34)
[2022-02-16] MEDS: THIAMINE HCL 100 MG TABLET (FP) PO SCH ×2 (01:03→21:34)
[2022-02-16] MEDS: levETIRAcetam 500 MG TABLET (FP) PO SCH ×4 (01:03→21:33)
[2022-02-16] MEDS: ASPIRIN 81 MG CHEWABLE TABLETS PO SCH ×3 (01:03→12:36)
[2022-02-16] MEDS: PRENATAL VITAMINS W/ FOLIC ACID TABLET (FP) PO SCH (10:20)
[2022-02-16] MEDS: DIGOXIN 0.125 MG TABLET PO SCH (10:21)
[2022-02-16] MEDS: hydrOXYzine PAMOATE 25 MG CAPSULE (FP) PO PRN ×2 (12:35→21:37)
[2022-02-16 14:05] LABS: HEMATOCRIT 43.1 % (32.4-45.2); HEMOGLOBIN 14.2 GM/dL (10.7-15.3); MCH 30.2 pg (25.7-33.7); MCHC 32.9 g/dl (32.0-36.0); MEAN CELL VOLUME 91.9 fl (80-96); MEAN PLT VOLUME 9.7 fl (7.5-11.1); PLATELET COUNT 209 10^3/uL (134-434); RBC 4.69 M/mm3 (3.60-5.2); RDW 14.4 % (11.6-15.6)
[2022-02-16 14:08] LABS: ALBUMIN 3.5 g/dl (3.4-5.0); BLOOD UREA NITROGEN 13.6 mg/dL (7-18); CALCIUM 8.9 mg/dL (8.5-10.1)
[2022-02-16 14:11] LABS: EPI CELLS >36 /uL (0-25.1); HYALINE CASTS 3 /uL (0-3.1); URINE APPEARANCE CLOUDY; URINE BACTERIA 805 /uL (0-1359); URINE BILIRUBIN NEGATIVE (NEGATIVE); URINE COLOR YELLOW; URINE GLUCOSE (UA) NEGATIVE (NEGATIVE); URINE KETONE NEGATIVE (NEGATIVE); URINE LEUK ESTERASE TRACE (NEGATIVE); URINE NITRITE NEGATIVE (NEGATIVE); URINE PROTEIN NEGATIVE (NEGATIVE); URINE RBC 6 /uL (0-23.9); URINE UROBILINOGEN 0.2 mg/dL (0.2-1.0); URINE WBC 49 /uL (0-25.8)
[2022-02-16 14:16] LABS: CREATININE 0.6 mg/dL (0.55-1.3)
[2022-02-16 14:17] LABS: BILIRUBIN,TOTAL 0.2 mg/dL (0.2-1); TOT PROT 6.8 g/dl (6.4-8.2)
[2022-02-16 21:07] LABS: HIV INTERPRETATION NEGATIVE (NEGATIVE)
[2022-02-16] MEDS: LIDOCAINE PATCH REMOVAL MC SCH (21:34)
[2022-02-16] MEDS: QUEtiapine FUMARATE 25 MG TABLET PO SCH (21:36)
[2022-02-16] MEDS: MELATONIN 5 MG TABLETS PO PRN (21:37)
[2022-02-17] MEDS: ACETAMINOPHEN 325 MG TABLET (FP) PO PRN (06:57)
[2022-02-17] MEDS: PRENATAL VITAMINS W/ FOLIC ACID TABLET (FP) PO SCH (10:20)
[2022-02-17] MEDS: levETIRAcetam 500 MG TABLET (FP) PO SCH ×2 (10:20→21:46)
[2022-02-17] MEDS: QUEtiapine FUMARATE 25 MG TABLET PO SCH ×2 (10:20→21:46)
[2022-02-17] MEDS: LIDOCAINE 5% TOPICAL PATCH TP SCH (10:20)
[2022-02-17] MEDS: ASPIRIN 81 MG CHEWABLE TABLETS PO SCH (10:20)
[2022-02-17] MEDS: METHOCARBAMOL 500 MG TABLET PO PRN (10:21)
[2022-02-17] MEDS: hydrOXYzine PAMOATE 25 MG CAPSULE (FP) PO PRN (10:21)
[2022-02-17] MEDS: DIGOXIN 0.125 MG TABLET PO SCH ×2 (10:22→10:29)
[2022-02-17] MEDS: LIDOCAINE PATCH REMOVAL MC SCH (21:46)
[2022-02-17] MEDS: THIAMINE HCL 100 MG TABLET (FP) PO SCH (21:46)
[2022-02-18] MEDS ORDERED: COLLOIDAL OATMEAL 1 BAR EACH TP PRN (08:52)
[2022-02-18] MEDS: QUEtiapine FUMARATE 25 MG TABLET PO SCH ×2 (10:35→21:34)
[2022-02-18] MEDS: DIGOXIN 0.125 MG TABLET PO SCH (10:35)
[2022-02-18] MEDS: ASPIRIN 81 MG CHEWABLE TABLETS PO SCH (10:36)
[2022-02-18] MEDS: ACETAMINOPHEN 325 MG TABLET (FP) PO PRN ×2 (10:36→21:35)
[2022-02-18] MEDS: LIDOCAINE 5% TOPICAL PATCH TP SCH (10:37)
[2022-02-18] MEDS: levETIRAcetam 500 MG TABLET (FP) PO SCH ×2 (10:37→21:34)
[2022-02-18] MEDS: PRENATAL VITAMINS W/ FOLIC ACID TABLET (FP) PO SCH (10:37)
[2022-02-18] MEDS: hydrOXYzine PAMOATE 25 MG CAPSULE (FP) PO PRN ×3 (10:38→21:35)
[2022-02-18] MEDS: MELATONIN 5 MG TABLETS PO PRN (21:34)
[2022-02-18] MEDS: THIAMINE HCL 100 MG TABLET (FP) PO SCH (21:34)
[2022-02-18] MEDS: LIDOCAINE PATCH REMOVAL MC SCH (21:59)
[2022-02-19] MEDS: ACETAMINOPHEN 325 MG TABLET (FP) PO PRN ×3 (07:43→23:12)
[2022-02-19] MEDS: LIDOCAINE 5% TOPICAL PATCH TP SCH (10:00)
[2022-02-19] MEDS: ASPIRIN 81 MG CHEWABLE TABLETS PO SCH (10:12)
[2022-02-19] MEDS: PRENATAL VITAMINS W/ FOLIC ACID TABLET (FP) PO SCH (10:13)
[2022-02-19] MEDS: levETIRAcetam 500 MG TABLET (FP) PO SCH ×2 (10:13→22:39)
[2022-02-19] MEDS: QUEtiapine FUMARATE 25 MG TABLET PO SCH ×2 (10:13→22:39)
[2022-02-19] MEDS: DIGOXIN 0.125 MG TABLET PO SCH (10:13)
[2022-02-19] MEDS: hydrOXYzine PAMOATE 25 MG CAPSULE (FP) PO PRN ×2 (15:22→23:12)
[2022-02-19] MEDS: LIDOCAINE PATCH REMOVAL MC SCH (22:39)
[2022-02-19] MEDS: THIAMINE HCL 100 MG TABLET (FP) PO SCH (22:39)
[2022-02-20 07:20] VITALS: RESP 18
[2022-02-20] MEDS: QUEtiapine FUMARATE 25 MG TABLET PO SCH ×2 (09:57→21:36)
[2022-02-20] MEDS: ASPIRIN 81 MG CHEWABLE TABLETS PO SCH (09:57)
[2022-02-20] MEDS: levETIRAcetam 500 MG TABLET (FP) PO SCH ×2 (09:57→21:36)
[2022-02-20] MEDS: DIGOXIN 0.125 MG TABLET PO SCH (09:58)
[2022-02-20] MEDS: ACETAMINOPHEN 325 MG TABLET (FP) PO PRN ×2 (09:59→21:37)
[2022-02-20] MEDS: LIDOCAINE 5% TOPICAL PATCH TP SCH (10:00)
[2022-02-20] MEDS: PRENATAL VITAMINS W/ FOLIC ACID TABLET (FP) PO SCH (10:00)
[2022-02-20] MEDS: THIAMINE HCL 100 MG TABLET (FP) PO SCH (21:36)
[2022-02-20] MEDS: METHOCARBAMOL 500 MG TABLET PO PRN (21:37)
[2022-02-20] MEDS: hydrOXYzine PAMOATE 25 MG CAPSULE (FP) PO PRN (21:37)
[2022-02-20] MEDS: MELATONIN 5 MG TABLETS PO PRN (21:37)
[2022-02-21] MEDS: LIDOCAINE PATCH REMOVAL MC SCH (00:07)
[2022-02-21 07:28] VITALS: BP 111/72; PULSE 72; TEMP 97.3
[2022-02-21] MEDS: ACETAMINOPHEN 325 MG TABLET (FP) PO PRN (07:41)
[2022-02-21] MEDS ORDERED: ARTIFICIAL TEARS (POLYVINYL ALCOHOL) OPTH DROPS OU PRN (09:29)
[2022-02-21] MEDS: ASPIRIN 81 MG CHEWABLE TABLETS PO SCH (09:46)
[2022-02-21] MEDS: levETIRAcetam 500 MG TABLET (FP) PO SCH (09:51)
[2022-02-21] MEDS: LIDOCAINE 5% TOPICAL PATCH TP SCH (09:51)
[2022-02-21] MEDS: PRENATAL VITAMINS W/ FOLIC ACID TABLET (FP) PO SCH (09:51)
[2022-02-21] MEDS: DIGOXIN 0.125 MG TABLET PO SCH (09:51)
[2022-02-21] MEDS: QUEtiapine FUMARATE 25 MG TABLET PO SCH (09:51)
== END 2022-02-21 09:40 | disposition home or self-care (01) | DRG 772 ==
LOC: YASAS 15:19 → Y5N 23:15
PROVIDERS: ADMIT Allergy & Immunology; ATTEND Psychiatry & Neurology Pain Medicine
PROC: HZ42ZZZ Group Counseling for Substance Abuse Treatment, Cognitive-Behavioral (ICD-10-PCS; principal; 2022-02-15)
DX: F10.20 Alcohol dependence, uncomplicated (principal); F14.20 Cocaine dependence, uncomplicated; F12.20 Cannabis dependence, uncomplicated; F17.210 Nicotine dependence, cigarettes, uncomplicated; F31.9 Bipolar disorder, unspecified; F19.282 Other psychoactive substance dependence with psychoactive substance-induced sleep disorder; F19.24 Other psychoactive substance dependence with psychoactive substance-induced mood disorder; F43.10 Post-traumatic stress disorder, unspecified; G40.909 Epilepsy, unspecified, not intractable, without status epilepticus; I11.0 Hypertensive heart disease with heart failure; I50.9 Heart failure, unspecified; J45.909 Unspecified asthma, uncomplicated; Z62.810 Personal history of physical and sexual abuse in childhood; I25.2 Old myocardial infarction; Z87.09 Personal history of other diseases of the respiratory system; Z86.79 Personal history of other diseases of the circulatory system; Z86.59 Personal history of other mental and behavioral disorders; Z88.6 Allergy status to analgesic agent; Z91.014 Allergy to mammalian meats; Z96.652 Presence of left artificial knee joint
CPT/HCPCS: 36415; 80053; 81003; 85027; 86780; 87389; 93005; 93010; C9803-CS; U0003; U0005

== ENCOUNTER 2022-03-26 08:14 | Inpatient (IN) | payer OTHER ==
[2022-03-26 10:42] VITALS: BMI 30.7
[2022-03-26] MEDS ORDERED: BENZOCAINE/MENTHOL (CHLORASEPTIC ) LOZENGE MM PRN (11:08)
[2022-03-26] MEDS ORDERED: NICOTINE 10 MG CARTRIDGE (INHALER) IH PRN (11:08)
[2022-03-26] MEDS ORDERED: ACETAMINOPHEN 325 MG TABLET (FP) PO PRN (11:08)
[2022-03-26] MEDS ORDERED: MAGNESIUM CITRATE 300 ML BOTTLE PO PRN (11:08)
[2022-03-26] MEDS ORDERED: MAG HYDROX/AL HYDROX/SIMETH 30 ML UNIT-DOSE CUP PO PRN (11:08)
[2022-03-26] MEDS ORDERED: METHOCARBAMOL 500 MG TABLET PO PRN (11:08)
[2022-03-26] MEDS ORDERED: MAGNESIUM HYDROX 2400MG/30ML ORAL SUSPENSION 30 ML CUP PO PRN (11:08)
[2022-03-26] MEDS ORDERED: ONDANSETRON *ODT* 4 MG TABLET SL PRN (11:08)
[2022-03-26] MEDS ORDERED: DICYCLOMINE HCL 10 MG CAPSULE PO PRN (11:08)
[2022-03-26] MEDS ORDERED: BISMUTH SUBSALICYLATE 524 MG/30 ML PO PRN (11:08)
[2022-03-26] MEDS ORDERED: chlordiazePOXIDE HCL 25 MG CAPSULE PO PRN (11:08)
[2022-03-26] MEDS ORDERED: LOPERAMIDE HCL 2 MG CAPSULE PO PRN (11:08)
[2022-03-26] MEDS ORDERED: ALBUTEROL SO4 HFA INHALER IH PRN (14:11)
[2022-03-26] MEDS: NICOTINE 7 MG/24 HOURS TOPICAL PATCH TD SCH (14:56)
[2022-03-26] MEDS: DIGOXIN 0.125 MG TABLET PO SCH (14:57)
[2022-03-26] MEDS: ASPIRIN 81 MG CHEWABLE TABLETS PO SCH (14:58)
[2022-03-26] MEDS: hydrOXYzine PAMOATE 25 MG CAPSULE (FP) PO PRN ×2 (17:49→23:13)
[2022-03-26] MEDS: chlordiazePOXIDE HCL 25 MG CAPSULE PO SCH ×2 (17:49→23:13)
[2022-03-26] MEDS: MELATONIN 5 MG TABLETS PO SCH (23:13)
[2022-03-26] MEDS: THIAMINE HCL 100 MG TABLET (FP) PO SCH (23:13)
[2022-03-26] MEDS: levETIRAcetam 500 MG TABLET (FP) PO SCH (23:13)
[2022-03-27] MEDS: hydrOXYzine PAMOATE 25 MG CAPSULE (FP) PO PRN (01:26)
[2022-03-27] MEDS: ACETAMINOPHEN 325 MG TABLET (FP) PO PRN (01:26)
[2022-03-27] MEDS: chlordiazePOXIDE HCL 25 MG CAPSULE PO SCH ×4 (06:22→22:41)
[2022-03-27] MEDS: DIGOXIN 0.125 MG TABLET PO SCH (10:38)
[2022-03-27] MEDS: levETIRAcetam 500 MG TABLET (FP) PO SCH ×2 (10:39→22:41)
[2022-03-27] MEDS: QUEtiapine FUMARATE 25 MG TABLET PO SCH ×2 (10:39→22:41)
[2022-03-27] MEDS: ASPIRIN 81 MG CHEWABLE TABLETS PO SCH (10:39)
[2022-03-27] MEDS: PRENATAL VITAMINS W/ FOLIC ACID TABLET (FP) PO SCH (10:39)
[2022-03-27] MEDS: NICOTINE 7 MG/24 HOURS TOPICAL PATCH TD SCH (10:43)
[2022-03-27] MEDS ORDERED: FLU VACC QS2022-23(6MOS UP)/PF 60 MCG/0.5 ML SYRINGE IM ONE (12:06)
[2022-03-27 12:17] LABS: HEMATOCRIT 41.1 % (32.4-45.2); HEMOGLOBIN 13.3 GM/dL (10.7-15.3); MCH 30.1 pg (25.7-33.7); MCHC 32.4 g/dl (32.0-36.0); MEAN CELL VOLUME 93.1 fl (80-96); MEAN PLT VOLUME 9.7 fl (7.5-11.1); PLATELET COUNT 217 10^3/uL (134-434); RBC 4.42 M/mm3 (3.60-5.2); RDW 14.5 % (11.6-15.6); WHITE BLOOD COUNT 5.4 K/mm3 (4.0-10.0)
[2022-03-27 12:47] LABS: ALBUMIN 3.1 g/dl (3.4-5.0); BLOOD UREA NITROGEN 9.8 mg/dL (7-18); CALCIUM 8.4 mg/dL (8.5-10.1)
[2022-03-27 12:51] LABS: CREATININE 0.6 mg/dL (0.55-1.3)
[2022-03-27 12:52] LABS: BILIRUBIN,TOTAL 0.2 mg/dL (0.2-1); TOT PROT 5.9 g/dl (6.4-8.2)
[2022-03-27] MEDS: MELATONIN 5 MG TABLETS PO SCH (22:41)
[2022-03-27] MEDS: THIAMINE HCL 100 MG TABLET (FP) PO SCH (22:41)
[2022-03-28] MEDS: chlordiazePOXIDE HCL 25 MG CAPSULE PO SCH ×4 (06:01→22:19)
[2022-03-28] MEDS: QUEtiapine FUMARATE 25 MG TABLET PO SCH ×2 (10:25→22:18)
[2022-03-28] MEDS: ASPIRIN 81 MG CHEWABLE TABLETS PO SCH (10:25)
[2022-03-28] MEDS: levETIRAcetam 500 MG TABLET (FP) PO SCH ×2 (10:25→22:18)
[2022-03-28] MEDS: DIGOXIN 0.125 MG TABLET PO SCH (10:26)
[2022-03-28] MEDS: NICOTINE 7 MG/24 HOURS TOPICAL PATCH TD SCH (10:28)
[2022-03-28] MEDS: PRENATAL VITAMINS W/ FOLIC ACID TABLET (FP) PO SCH (10:28)
[2022-03-28] MEDS: hydrOXYzine PAMOATE 25 MG CAPSULE (FP) PO PRN ×2 (18:50→22:18)
[2022-03-28] MEDS: METHOCARBAMOL 500 MG TABLET PO PRN (18:52)
[2022-03-28] MEDS: MELATONIN 5 MG TABLETS PO SCH (22:18)
[2022-03-28] MEDS: THIAMINE HCL 100 MG TABLET (FP) PO SCH (22:18)
[2022-03-28] MEDS: ACETAMINOPHEN 325 MG TABLET (FP) PO PRN (22:20)
[2022-03-29] MEDS ORDERED: chlordiazePOXIDE HCL 10 MG CAPSULE PO PRN
[2022-03-29] MEDS: METHOCARBAMOL 500 MG TABLET PO PRN ×2 (02:50→10:37)
[2022-03-29] MEDS: chlordiazePOXIDE HCL 10 MG CAPSULE PO SCH ×2 (06:02→10:42)
[2022-03-29] MEDS: DIGOXIN 0.125 MG TABLET PO SCH (10:37)
[2022-03-29] MEDS: ASPIRIN 81 MG CHEWABLE TABLETS PO SCH (10:37)
[2022-03-29] MEDS: QUEtiapine FUMARATE 25 MG TABLET PO SCH ×2 (10:41→22:55)
[2022-03-29] MEDS: PRENATAL VITAMINS W/ FOLIC ACID TABLET (FP) PO SCH (10:41)
[2022-03-29] MEDS: NICOTINE 7 MG/24 HOURS TOPICAL PATCH TD SCH (10:41)
[2022-03-29] MEDS: levETIRAcetam 500 MG TABLET (FP) PO SCH ×2 (10:41→22:55)
[2022-03-29] MEDS ORDERED: PHENYTOIN NA EXTENDED 100 MG CAPSULE (FP) PO ONE (10:44)
[2022-03-29] MEDS: PHENYTOIN NA EXTENDED 100 MG CAPSULE (FP) PO SCH ×2 (13:32→22:55)
[2022-03-29] MEDS ORDERED: chlordiazePOXIDE 5 MG CAPSULE PO PRN ×2 (14:00→14:41)
[2022-03-29] MEDS ORDERED: chlordiazePOXIDE 5 MG CAPSULE PO SCH (17:00)
[2022-03-29] MEDS: chlordiazePOXIDE 5 MG CAPSULE PO SCH (18:50)
[2022-03-29 21:55] VITALS: RESP 18; TEMP 97.3
[2022-03-29] MEDS: THIAMINE HCL 100 MG TABLET (FP) PO SCH (22:55)
[2022-03-29] MEDS: MELATONIN 5 MG TABLETS PO SCH (22:56)
[2022-03-30] MEDS: chlordiazePOXIDE 5 MG CAPSULE PO SCH (01:10)
[2022-03-30] MEDS: ACETAMINOPHEN 325 MG TABLET (FP) PO PRN (01:12)
[2022-03-30] MEDS ORDERED: chlordiazePOXIDE HCL 10 MG CAPSULE PO SCH (05:00)
[2022-03-30] MEDS: hydrOXYzine PAMOATE 25 MG CAPSULE (FP) PO PRN (05:05)
[2022-03-30] MEDS: PHENYTOIN NA EXTENDED 100 MG CAPSULE (FP) PO SCH (07:00)
[2022-03-30 07:04] VITALS: BP 102/73
[2022-03-30] MEDS: PRENATAL VITAMINS W/ FOLIC ACID TABLET (FP) PO SCH (10:03)
[2022-03-30] MEDS: ASPIRIN 81 MG CHEWABLE TABLETS PO SCH (10:03)
[2022-03-30] MEDS: NICOTINE 7 MG/24 HOURS TOPICAL PATCH TD SCH (10:03)
[2022-03-30] MEDS: levETIRAcetam 500 MG TABLET (FP) PO SCH (10:03)
[2022-03-30] MEDS: QUEtiapine FUMARATE 25 MG TABLET PO SCH (10:04)
[2022-03-30 10:08] VITALS: PULSE 97
[2022-03-30] MEDS: DIGOXIN 0.125 MG TABLET PO SCH (10:08)
[2022-03-31] MEDS ORDERED: chlordiazePOXIDE HCL 10 MG CAPSULE PO ONE (05:00)
== END 2022-03-30 10:30 | disposition home or self-care (01) | DRG 774 ==
LOC: YASAS 08:14 → Y6N 11:55
PROVIDERS: ADMIT Allergy & Immunology; ATTEND Surgery
PROC: HZ2ZZZZ Detoxification Services for Substance Abuse Treatment (ICD-10-PCS; principal; 2022-03-26)
DX: F10.230 Alcohol dependence with withdrawal, uncomplicated (principal); F14.20 Cocaine dependence, uncomplicated; F17.210 Nicotine dependence, cigarettes, uncomplicated; F25.9 Schizoaffective disorder, unspecified; F19.282 Other psychoactive substance dependence with psychoactive substance-induced sleep disorder; F19.24 Other psychoactive substance dependence with psychoactive substance-induced mood disorder; F31.9 Bipolar disorder, unspecified; I48.11 Longstanding persistent atrial fibrillation; I11.0 Hypertensive heart disease with heart failure; I50.9 Heart failure, unspecified; G40.909 Epilepsy, unspecified, not intractable, without status epilepticus; J45.20 Mild intermittent asthma, uncomplicated; Z91.81 History of falling; Z99.89 Dependence on other enabling machines and devices; Z88.6 Allergy status to analgesic agent; Z91.014 Allergy to mammalian meats; Z86.69 Personal history of other diseases of the nervous system and sense organs
CPT/HCPCS: 36415; 80053; 80162; 80185; 81025; 85027; 86780; C9803-CS; U0003; U0005

== ENCOUNTER 2022-04-13 10:21 | Inpatient (IN) | payer OTHER ==
[2022-04-13 11:29] VITALS: BMI 30.7
[2022-04-13] MEDS ORDERED: BENZOCAINE/MENTHOL (CHLORASEPTIC ) LOZENGE MM PRN (12:22)
[2022-04-13] MEDS ORDERED: IBUPROFEN 600 MG TABLET (FP) PO PRN (12:22)
[2022-04-13] MEDS ORDERED: MAGNESIUM HYDROX 2400MG/30ML ORAL SUSPENSION 30 ML CUP PO PRN (12:22)
[2022-04-13] MEDS ORDERED: MAG HYDROX/AL HYDROX/SIMETH 30 ML UNIT-DOSE CUP PO PRN (12:22)
[2022-04-13] MEDS ORDERED: BISMUTH SUBSALICYLATE 524 MG/30 ML PO PRN (12:22)
[2022-04-13] MEDS ORDERED: MAGNESIUM CITRATE 300 ML BOTTLE PO PRN (12:22)
[2022-04-13] MEDS ORDERED: NICOTINE 10 MG CARTRIDGE (INHALER) IH PRN (12:22)
[2022-04-13] MEDS ORDERED: LOPERAMIDE HCL 2 MG CAPSULE PO PRN (12:22)
[2022-04-13] MEDS ORDERED: ACETAMINOPHEN 325 MG TABLET (FP) PO PRN ×2 (12:22)
[2022-04-13] MEDS ORDERED: NALOXONE HCL (KLOXXADO) 8 MG SPRAY NS PRN (12:22)
[2022-04-13] MEDS ORDERED: DICYCLOMINE HCL 10 MG CAPSULE PO PRN (12:22)
[2022-04-13] MEDS ORDERED: hydrOXYzine PAMOATE 25 MG CAPSULE (FP) PO PRN (12:22)
[2022-04-13] MEDS ORDERED: LORazepam 1 MG TABLET PO PRN (12:22)
[2022-04-13] MEDS ORDERED: ONDANSETRON *ODT* 4 MG TABLET SL PRN (12:22)
[2022-04-13] MEDS ORDERED: METHOCARBAMOL 500 MG TABLET PO PRN (12:22)
[2022-04-13] MEDS ORDERED: IBUPROFEN 400 MG TABLET (FP) PO PRN (12:22)
[2022-04-13] MEDS ORDERED: ALBUTEROL SO4 HFA INHALER IH SCH (12:45)
[2022-04-13] MEDS ORDERED: NICOTINE 14 MG/24 HOURS TOPICAL PATCH TD SCH (13:00)
[2022-04-13] MEDS ORDERED: PRENATAL VITAMINS W/ FOLIC ACID TABLET (FP) PO SCH (13:00)
[2022-04-13] MEDS ORDERED: ALBUTEROL SO4 HFA INHALER IH PRN (15:42)
[2022-04-13 16:02] LABS: HEMATOCRIT 43.5 % (32.4-45.2); HEMOGLOBIN 14.1 GM/dL (10.7-15.3); MCH 30.3 pg (25.7-33.7); MCHC 32.5 g/dl (32.0-36.0); MEAN PLT VOLUME 9.1 fl (7.5-11.1); PLATELET COUNT 268 10^3/uL (134-434); RBC 4.67 M/mm3 (3.60-5.2); RDW 14.4 % (11.6-15.6); WHITE BLOOD COUNT 8.9 K/mm3 (4.0-10.0)
[2022-04-13 16:11] LABS: ALBUMIN 4.1 g/dl (3.4-5.0); BLOOD UREA NITROGEN 14.2 mg/dL (7-18); CALCIUM 9.5 mg/dL (8.5-10.1)
[2022-04-13 16:14] LABS: CREATININE 0.8 mg/dL (0.55-1.3)
[2022-04-13 16:16] LABS: BILIRUBIN,TOTAL 0.5 mg/dL (0.2-1); TOT PROT 7.9 g/dl (6.4-8.2)
[2022-04-13] MEDS: LORazepam 2 MG TABLET PO SCH (18:00)
[2022-04-13] MEDS ORDERED: guaiFENesin 200 MG/10 ML 10 ML UNIT-DOSE CUPS PO PRN (18:06)
[2022-04-13 19:08] VITALS: BP 103/70; PULSE 108; RESP 19; TEMP 97.4
[2022-04-13] MEDS ORDERED: levETIRAcetam 500 MG TABLET (FP) PO SCH (22:00)
[2022-04-13] MEDS ORDERED: MELATONIN 5 MG TABLETS PO SCH (22:00)
[2022-04-13] MEDS ORDERED: THIAMINE HCL 100 MG TABLET (FP) PO SCH (22:00)
[2022-04-14] MEDS: LORazepam 2 MG TABLET PO SCH ×2 (00:10→07:55)
[2022-04-15] MEDS ORDERED: LORazepam 1 MG TABLET PO SCH (05:00)
[2022-04-16] MEDS ORDERED: LORazepam 0.5 MG TABLET PO PRN
[2022-04-16] MEDS ORDERED: LORazepam 0.5 MG TABLET PO SCH (05:00)
[2022-04-17] MEDS ORDERED: LORazepam 0.5 MG TABLET PO ONE (05:00)
== END 2022-04-13 23:55 | disposition short-term general hospital (02) | DRG 774 ==
LOC: YASAS 10:21 → Y3N 12:38
PROVIDERS: ADMIT Allergy & Immunology; ATTEND Surgery
PROC: HZ2ZZZZ Detoxification Services for Substance Abuse Treatment (ICD-10-PCS; principal; 2022-04-13)
DX: F10.230 Alcohol dependence with withdrawal, uncomplicated (principal); F14.10 Cocaine abuse, uncomplicated; F17.210 Nicotine dependence, cigarettes, uncomplicated; F31.9 Bipolar disorder, unspecified; F20.9 Schizophrenia, unspecified; F41.8 Other specified anxiety disorders; U07.1 COVID-19; J45.20 Mild intermittent asthma, uncomplicated; G40.909 Epilepsy, unspecified, not intractable, without status epilepticus; I48.11 Longstanding persistent atrial fibrillation; I50.9 Heart failure, unspecified; R05.9 Cough, unspecified; R06.02 Shortness of breath; I25.2 Old myocardial infarction
CPT/HCPCS: 36415; 80053; 81025; 85027; 86780; 87811; C9803-CS; U0003; U0005

== ENCOUNTER 2022-04-13 20:14 | Inpatient (IN) | payer OTHER ==
[2022-04-13 20:45] VITALS: BMI 30.7
[2022-04-14 00:39] LABS: BASO % 0.5 % (0-2.0); EOS % 1.6 % (0-4.5); HEMATOCRIT 41.2 % (32.4-45.2); HEMOGLOBIN 13.9 GM/dL (10.7-15.3); MCHC 33.7 g/dl (32.0-36.0); MEAN CELL VOLUME 92.1 fl (80-96); MEAN PLT VOLUME 8.6 fl (7.5-11.1); NEUT % 46.9 % (42.8-82.8); PLATELET COUNT 240 10^3/uL (134-434); RBC 4.47 M/mm3 (3.60-5.2); RDW 14.4 % (11.6-15.6); WHITE BLOOD COUNT 7.5 K/mm3 (4.0-10.0)
[2022-04-14 00:49] LABS: INR 0.92 (0.83-1.09); PROTHROMBIN TIME (PATIENT) 10.6 SEC (9.7-13.0)
[2022-04-14 00:52] LABS: ACTIVATED PTT 31.3 SECONDS (25.2-36.5)
[2022-04-14 01:01] LABS: ALBUMIN 3.9 g/dl (3.4-5.0); CALCIUM 9.5 mg/dL (8.5-10.1)
[2022-04-14 01:02] LABS: BLOOD UREA NITROGEN 18.8 mg/dL (7-18); MAGNESIUM 2.4 mg/dL (1.8-2.4)
[2022-04-14 01:03] LABS: CREATININE 0.7 mg/dL (0.55-1.3)
[2022-04-14 01:06] LABS: BILIRUBIN,TOTAL 0.4 mg/dL (0.2-1); TOT PROT 7.6 g/dl (6.4-8.2)
[2022-04-14] MEDS ORDERED: ASPIRIN 81 MG CHEWABLE TABLETS PO ONE (10:27)
[2022-04-14] MEDS ORDERED: ATORVASTATIN CA 80 MG TABLET (FP) PO SCH (10:27)
[2022-04-14] MEDS ORDERED: ATORVASTATIN CA 80 MG TABLET (FP) ONE (11:24)
[2022-04-14] MEDS ORDERED: ASPIRIN 81 MG CHEWABLE TABLETS ONE (11:25)
[2022-04-14] MEDS ORDERED: LORazepam 2 MG/ML SDV VIAL IVPB ONE (16:04)
[2022-04-14 16:10] VITALS: BP 115/65; PULSE 76; RESP 16; TEMP 98
[2022-04-15] MEDS ORDERED: ASPIRIN 81 MG CHEWABLE TABLETS PO SCH (10:00)
[2022-04-15] MEDS ORDERED: ENOXAPARIN NA (PORCINE) 40 MG/0.4 ML DISP.SYRIN SQ SCH (10:00)
== END 2022-04-14 16:33 | disposition other institution (70) | DRG 137 ==
LOC: JER 20:14 → JERBED 04-14 03:44 → OBSVTOIN 04-14 10:24
PROVIDERS: ADMIT Internal Medicine; ATTEND Internal Medicine
DX: U07.1 COVID-19 (principal); D68.69 Other thrombophilia; F14.10 Cocaine abuse, uncomplicated; G40.909 Epilepsy, unspecified, not intractable, without status epilepticus; J44.9 Chronic obstructive pulmonary disease, unspecified; F17.210 Nicotine dependence, cigarettes, uncomplicated; R07.89 Other chest pain
CPT/HCPCS: 36415; 71045-TC-FY; 71275-TC; 80053; 83690; 83735; 84484; 85025; 85610; 85730; 86850; 86870; 86900; 86901; 86902; 93005; 93010; 99285-25; G0378

== ENCOUNTER 2022-04-14 17:04 | Inpatient (IN) | payer OTHER ==
[2022-04-14 17:47] VITALS: BMI 30.7
[2022-04-14] MEDS ORDERED: NICOTINE POLACRILEX 2 MG GUM BUC PRN (17:47)
[2022-04-14] MEDS ORDERED: MAGNESIUM CITRATE 300 ML BOTTLE PO PRN (17:47)
[2022-04-14] MEDS ORDERED: ONDANSETRON *ODT* 4 MG TABLET SL PRN (17:47)
[2022-04-14] MEDS ORDERED: MAGNESIUM HYDROX 2400MG/30ML ORAL SUSPENSION 30 ML CUP PO PRN (17:47)
[2022-04-14] MEDS ORDERED: ACETAMINOPHEN 325 MG TABLET (FP) PO PRN ×2 (17:47)
[2022-04-14] MEDS ORDERED: MAG HYDROX/AL HYDROX/SIMETH 30 ML UNIT-DOSE CUP PO PRN (17:47)
[2022-04-14] MEDS ORDERED: LORazepam 1 MG TABLET PO PRN (17:47)
[2022-04-14] MEDS ORDERED: DICYCLOMINE HCL 10 MG CAPSULE PO PRN (17:47)
[2022-04-14] MEDS ORDERED: LOPERAMIDE HCL 2 MG CAPSULE PO PRN (17:47)
[2022-04-14] MEDS ORDERED: BENZOCAINE/MENTHOL (CHLORASEPTIC ) LOZENGE MM PRN (17:47)
[2022-04-14] MEDS ORDERED: ALBUTEROL SO4 HFA INHALER IH PRN (18:15)
[2022-04-14] MEDS ORDERED: LORazepam 2 MG TABLET PO ONE (19:00)
[2022-04-14] MEDS: hydrOXYzine PAMOATE 25 MG CAPSULE (FP) PO PRN ×2 (19:32→21:58)
[2022-04-14] MEDS: levETIRAcetam 500 MG TABLET (FP) PO SCH (21:58)
[2022-04-14] MEDS: MELATONIN 5 MG TABLETS PO SCH (21:58)
[2022-04-14] MEDS: THIAMINE HCL 100 MG TABLET (FP) PO SCH (21:58)
[2022-04-14] MEDS ORDERED: LORazepam 2 MG TABLET PO SCH (23:00)
[2022-04-15] MEDS: PRENATAL VITAMINS W/ FOLIC ACID TABLET (FP) PO SCH (09:45)
[2022-04-15] MEDS: levETIRAcetam 500 MG TABLET (FP) PO SCH ×2 (09:46→22:33)
[2022-04-15] MEDS: PATIENT'S OWN MEDICATION (NON-FORMULARY) (Nirmatrelvir/Ritonavir 1 EACH Tablet) PO SCH ×2 (09:46→22:34)
[2022-04-15] MEDS: METHOCARBAMOL 500 MG TABLET PO PRN ×2 (09:46→18:10)
[2022-04-15] MEDS: LORazepam 2 MG TABLET PO SCH ×3 (10:33→22:34)
[2022-04-15] MEDS: hydrOXYzine PAMOATE 25 MG CAPSULE (FP) PO PRN (18:10)
[2022-04-15] MEDS: MELATONIN 5 MG TABLETS PO SCH (22:33)
[2022-04-15] MEDS: THIAMINE HCL 100 MG TABLET (FP) PO SCH (22:34)
[2022-04-16] MEDS: LORazepam 1 MG TABLET PO SCH ×4 (06:16→23:07)
[2022-04-16] MEDS: PRENATAL VITAMINS W/ FOLIC ACID TABLET (FP) PO SCH (10:43)
[2022-04-16] MEDS: levETIRAcetam 500 MG TABLET (FP) PO SCH ×2 (10:43→23:06)
[2022-04-16] MEDS: PATIENT'S OWN MEDICATION (NON-FORMULARY) (Nirmatrelvir/Ritonavir 1 EACH Tablet) PO SCH ×2 (10:44→23:08)
[2022-04-16] MEDS: THIAMINE HCL 100 MG TABLET (FP) PO SCH (23:07)
[2022-04-16] MEDS: MELATONIN 5 MG TABLETS PO SCH (23:08)
[2022-04-17] MEDS ORDERED: LORazepam 0.5 MG TABLET PO PRN
[2022-04-17] MEDS ORDERED: LORazepam 0.5 MG TABLET PO SCH (05:00)
[2022-04-17 08:14] VITALS: BP 111/67; PULSE 79; RESP 17; TEMP 98.9
[2022-04-18] MEDS ORDERED: LORazepam 0.5 MG TABLET PO ONE (05:00)
== END 2022-04-17 09:55 | disposition home or self-care (01) | DRG 774 ==
LOC: YASAS 17:04 → Y6N 17:22
PROVIDERS: ADMIT Allergy & Immunology; ATTEND Surgery
PROC: HZ2ZZZZ Detoxification Services for Substance Abuse Treatment (ICD-10-PCS; principal; 2022-04-14)
DX: F10.230 Alcohol dependence with withdrawal, uncomplicated (principal); F14.10 Cocaine abuse, uncomplicated; F17.210 Nicotine dependence, cigarettes, uncomplicated; F20.9 Schizophrenia, unspecified; G40.909 Epilepsy, unspecified, not intractable, without status epilepticus; I48.11 Longstanding persistent atrial fibrillation; J44.9 Chronic obstructive pulmonary disease, unspecified; J45.20 Mild intermittent asthma, uncomplicated; R94.31 Abnormal electrocardiogram [ECG] [EKG]; R76.11 Nonspecific reaction to tuberculin skin test without active tuberculosis; Z99.89 Dependence on other enabling machines and devices; Z88.8 Allergy status to other drugs, medicaments and biological substances; Z79.01 Long term (current) use of anticoagulants
CPT/HCPCS: C9803-CS; U0003; U0005

== ENCOUNTER 2022-05-27 14:56 | Inpatient (IN) | payer OTHER ==
[2022-05-27 15:37] VITALS: BMI 28.7
[2022-05-27] MEDS ORDERED: POLYETHYLENE GLYCOL (HEALTHYLAX) 3350 17 GM PACKET PO PRN (17:01)
[2022-05-27] MEDS ORDERED: MAG HYDROX/AL HYDROX/SIMETH 30 ML UNIT-DOSE CUP PO PRN (17:01)
[2022-05-27] MEDS ORDERED: DICYCLOMINE HCL 10 MG CAPSULE PO PRN (17:01)
[2022-05-27] MEDS ORDERED: LOPERAMIDE HCL 2 MG CAPSULE PO PRN (17:01)
[2022-05-27] MEDS ORDERED: LORazepam 1 MG TABLET PO PRN (17:01)
[2022-05-27] MEDS ORDERED: ONDANSETRON *ODT* 4 MG TABLET SL PRN (17:01)
[2022-05-27] MEDS ORDERED: BENZOCAINE/MENTHOL (CHLORASEPTIC ) LOZENGE MM PRN (17:01)
[2022-05-27] MEDS ORDERED: MAGNESIUM HYDROX 2400MG/30ML ORAL SUSPENSION 30 ML CUP PO PRN (17:01)
[2022-05-27] MEDS ORDERED: NALOXONE HCL (KLOXXADO) 8 MG SPRAY NS PRN (17:01)
[2022-05-27] MEDS ORDERED: LORazepam 2 MG TABLET ONE (17:52)
[2022-05-27] MEDS ORDERED: ACETAMINOPHEN 325 MG TABLET (FP) ONE (17:53)
[2022-05-27] MEDS: LORazepam 2 MG TABLET PO SCH ×2 (17:55→22:56)
[2022-05-27] MEDS: ACETAMINOPHEN 325 MG TABLET (FP) PO PRN ×2 (17:55→22:59)
[2022-05-27] MEDS ORDERED: ALBUTEROL SO4 HFA INHALER IH PRN (18:15)
[2022-05-27] MEDS ORDERED: MELATONIN 5 MG TABLETS PO SCH (22:00)
[2022-05-27] MEDS: METHOCARBAMOL 500 MG TABLET PO PRN (22:55)
[2022-05-27] MEDS: THIAMINE HCL 100 MG TABLET (FP) PO SCH (22:56)
[2022-05-27] MEDS: levETIRAcetam 500 MG TABLET (FP) PO SCH (22:57)
[2022-05-28] MEDS: hydrOXYzine PAMOATE 25 MG CAPSULE (FP) PO PRN ×3 (01:40→22:27)
[2022-05-28] MEDS: LORazepam 2 MG TABLET PO SCH ×4 (05:19→22:24)
[2022-05-28] MEDS: ACETAMINOPHEN 325 MG TABLET (FP) PO PRN ×2 (05:20→17:17)
[2022-05-28] MEDS: AMOX TR/POT CLAV 875MG/125MG TABLETS (FP) PO SCH ×2 (07:29→17:16)
[2022-05-28] MEDS: METHOCARBAMOL 500 MG TABLET PO PRN (07:30)
[2022-05-28] MEDS: PRENATAL VITAMINS W/ FOLIC ACID TABLET (FP) PO SCH (10:25)
[2022-05-28] MEDS: levETIRAcetam 500 MG TABLET (FP) PO SCH ×2 (10:26→22:24)
[2022-05-28] MEDS: NICOTINE 7 MG/24 HOURS TOPICAL PATCH TD SCH (10:26)
[2022-05-28 11:50] LABS: HEMATOCRIT 40.9 % (32.4-45.2); HEMOGLOBIN 13.2 GM/dL (10.7-15.3); MCH 29.9 pg (25.7-33.7); MCHC 32.3 g/dl (32.0-36.0); MEAN CELL VOLUME 92.5 fl (80-96); PLATELET COUNT 239 10^3/uL (134-434); RBC 4.43 M/mm3 (3.60-5.2); RDW 13.7 % (11.6-15.6); WHITE BLOOD COUNT 6.9 K/mm3 (4.0-10.0)
[2022-05-28 11:57] LABS: CALCIUM 8.7 mg/dL (8.5-10.1)
[2022-05-28 11:58] LABS: ALBUMIN 3.1 g/dl (3.4-5.0); BLOOD UREA NITROGEN 12.8 mg/dL (7-18)
[2022-05-28 12:00] LABS: CREATININE 0.6 mg/dL (0.55-1.3)
[2022-05-28 12:02] LABS: BILIRUBIN,TOTAL 0.2 mg/dL (0.2-1); TOT PROT 6.3 g/dl (6.4-8.2)
[2022-05-28] MEDS: QUEtiapine FUMARATE 25 MG TABLET PO SCH (22:23)
[2022-05-28] MEDS: THIAMINE HCL 100 MG TABLET (FP) PO SCH (22:24)
[2022-05-28] MEDS: OLANZapine 5 MG TABLET PO SCH (23:15)
[2022-05-29] MEDS: METHOCARBAMOL 500 MG TABLET PO PRN ×2 (00:33→17:45)
[2022-05-29] MEDS: ACETAMINOPHEN 325 MG TABLET (FP) PO PRN ×2 (00:33→17:48)
[2022-05-29] MEDS: LORazepam 1 MG TABLET PO SCH ×4 (05:36→22:35)
[2022-05-29] MEDS: hydrOXYzine PAMOATE 25 MG CAPSULE (FP) PO PRN ×2 (05:36→17:45)
[2022-05-29] MEDS: AMOX TR/POT CLAV 875MG/125MG TABLETS (FP) PO SCH ×2 (08:06→18:05)
[2022-05-29] MEDS: levETIRAcetam 500 MG TABLET (FP) PO SCH ×2 (10:28→22:35)
[2022-05-29] MEDS: PRENATAL VITAMINS W/ FOLIC ACID TABLET (FP) PO SCH (10:28)
[2022-05-29] MEDS: QUEtiapine FUMARATE 25 MG TABLET PO SCH ×2 (10:28→22:35)
[2022-05-29] MEDS: NICOTINE 7 MG/24 HOURS TOPICAL PATCH TD SCH (10:29)
[2022-05-29] MEDS: OLANZapine 5 MG TABLET PO SCH (22:35)
[2022-05-29] MEDS: THIAMINE HCL 100 MG TABLET (FP) PO SCH (22:35)
[2022-05-30] MEDS ORDERED: LORazepam 0.5 MG TABLET PO PRN
[2022-05-30] MEDS: ACETAMINOPHEN 325 MG TABLET (FP) PO PRN ×3 (00:39→17:55)
[2022-05-30] MEDS: hydrOXYzine PAMOATE 25 MG CAPSULE (FP) PO PRN ×2 (00:41→10:32)
[2022-05-30] MEDS: LORazepam 0.5 MG TABLET PO SCH ×4 (06:16→22:41)
[2022-05-30] MEDS: AMOX TR/POT CLAV 875MG/125MG TABLETS (FP) PO SCH ×2 (07:24→17:54)
[2022-05-30] MEDS: METHOCARBAMOL 500 MG TABLET PO PRN ×2 (10:32→17:54)
[2022-05-30] MEDS: PRENATAL VITAMINS W/ FOLIC ACID TABLET (FP) PO SCH (10:32)
[2022-05-30] MEDS: NICOTINE 7 MG/24 HOURS TOPICAL PATCH TD SCH (10:34)
[2022-05-30] MEDS: levETIRAcetam 500 MG TABLET (FP) PO SCH ×2 (10:35→22:36)
[2022-05-30] MEDS: QUEtiapine FUMARATE 25 MG TABLET PO SCH ×2 (10:36→22:36)
[2022-05-30] MEDS ORDERED: AMOX TR/POT CLAV 500MG/125MG TABLETS (FP) PO SCH (10:45)
[2022-05-30] MEDS: OLANZapine 5 MG TABLET PO SCH (22:36)
[2022-05-30] MEDS: THIAMINE HCL 100 MG TABLET (FP) PO SCH (22:42)
[2022-05-31] MEDS: METHOCARBAMOL 500 MG TABLET PO PRN ×2 (03:15→10:27)
[2022-05-31] MEDS ORDERED: LORazepam 0.5 MG TABLET PO ONE (05:00)
[2022-05-31 07:12] VITALS: RESP 18; TEMP 96.6
[2022-05-31] MEDS: AMOX TR/POT CLAV 875MG/125MG TABLETS (FP) PO SCH (08:10)
[2022-05-31] MEDS: levETIRAcetam 500 MG TABLET (FP) PO SCH (10:25)
[2022-05-31] MEDS: QUEtiapine FUMARATE 25 MG TABLET PO SCH (10:26)
[2022-05-31] MEDS: PRENATAL VITAMINS W/ FOLIC ACID TABLET (FP) PO SCH (10:27)
[2022-05-31] MEDS: ACETAMINOPHEN 325 MG TABLET (FP) PO PRN (10:29)
[2022-05-31] MEDS: NICOTINE 7 MG/24 HOURS TOPICAL PATCH TD SCH (10:30)
[2022-05-31 13:05] VITALS: BP 119/79; PULSE 102
[2022-05-31] MEDS ORDERED: PATIENT'S OWN MEDICATION (NON-FORMULARY) (Nirmatrelvir/Ritonavir 1 EACH Tablet) PO SCH (22:00)
== END 2022-05-31 12:00 | disposition home or self-care (01) | DRG 774 ==
LOC: YASAS 14:56 → Y6N 18:10
PROVIDERS: ADMIT Allergy & Immunology; ATTEND Surgery
PROC: HZ2ZZZZ Detoxification Services for Substance Abuse Treatment (ICD-10-PCS; principal; 2022-05-27)
DX: F10.230 Alcohol dependence with withdrawal, uncomplicated (principal); F14.20 Cocaine dependence, uncomplicated; F17.210 Nicotine dependence, cigarettes, uncomplicated; F43.10 Post-traumatic stress disorder, unspecified; F33.9 Major depressive disorder, recurrent, unspecified; F20.9 Schizophrenia, unspecified; I48.91 Unspecified atrial fibrillation; I50.9 Heart failure, unspecified; I25.2 Old myocardial infarction; G40.909 Epilepsy, unspecified, not intractable, without status epilepticus; J44.9 Chronic obstructive pulmonary disease, unspecified; K08.89 Other specified disorders of teeth and supporting structures; Z88.6 Allergy status to analgesic agent; Z91.010 Allergy to peanuts; Z91.013 Allergy to seafood; Z91.018 Allergy to other foods; Z91.51 Personal history of suicidal behavior; Z56.0 Unemployment, unspecified
CPT/HCPCS: 36415; 80053; 81025; 85027; 86780; 93005; 93010; C9803-CS; U0003; U0005

== ENCOUNTER 2022-07-01 14:57 | Inpatient (IN) | payer OTHER ==
[2022-07-01 18:54] VITALS: BMI 29.6
[2022-07-01] MEDS ORDERED: ONDANSETRON *ODT* 4 MG TABLET SL PRN (20:02)
[2022-07-01] MEDS ORDERED: POLYETHYLENE GLYCOL (HEALTHYLAX) 3350 17 GM PACKET PO PRN (20:02)
[2022-07-01] MEDS ORDERED: NALOXONE HCL (KLOXXADO) 8 MG SPRAY NS PRN (20:02)
[2022-07-01] MEDS ORDERED: BISMUTH SUBSALICYLATE 524 MG/30 ML PO PRN (20:02)
[2022-07-01] MEDS ORDERED: ACETAMINOPHEN 325 MG TABLET (FP) PO PRN ×2 (20:02)
[2022-07-01] MEDS ORDERED: DICYCLOMINE HCL 10 MG CAPSULE PO PRN (20:02)
[2022-07-01] MEDS ORDERED: MAG HYDROX/AL HYDROX/SIMETH 30 ML UNIT-DOSE CUP PO PRN (20:02)
[2022-07-01] MEDS ORDERED: LORazepam 1 MG TABLET PO PRN (20:02)
[2022-07-01] MEDS ORDERED: LOPERAMIDE HCL 2 MG CAPSULE PO PRN (20:02)
[2022-07-01] MEDS ORDERED: NICOTINE 10 MG CARTRIDGE (INHALER) IH PRN (20:02)
[2022-07-01] MEDS ORDERED: MAGNESIUM HYDROX 2400MG/30ML ORAL SUSPENSION 30 ML CUP PO PRN (20:02)
[2022-07-01] MEDS ORDERED: IBUPROFEN 600 MG TABLET (FP) PO PRN (20:02)
[2022-07-01] MEDS ORDERED: ALBUTEROL SO4 HFA INHALER IH PRN (20:15)
[2022-07-01] MEDS: guaiFENesin 200 MG/10 ML 10 ML UNIT-DOSE CUPS PO PRN (21:21)
[2022-07-01] MEDS: BENZOCAINE/MENTHOL (CHLORASEPTIC ) LOZENGE MM PRN (21:23)
[2022-07-01] MEDS: NICOTINE 7 MG/24 HOURS TOPICAL PATCH TD SCH (21:25)
[2022-07-01] MEDS: THIAMINE HCL 100 MG TABLET (FP) PO SCH (22:46)
[2022-07-01] MEDS: LORazepam 2 MG TABLET PO SCH (22:46)
[2022-07-01] MEDS: MELATONIN 5 MG TABLETS PO SCH (22:46)
[2022-07-02] MEDS: LORazepam 2 MG TABLET PO SCH ×4 (06:26→23:09)
[2022-07-02] MEDS: guaiFENesin 200 MG/10 ML 10 ML UNIT-DOSE CUPS PO PRN ×2 (06:29→17:19)
[2022-07-02] MEDS: PRENATAL VITAMINS W/ FOLIC ACID TABLET (FP) PO SCH (11:02)
[2022-07-02] MEDS: NICOTINE 7 MG/24 HOURS TOPICAL PATCH TD SCH (11:03)
[2022-07-02] MEDS: BENZOCAINE/MENTHOL (CHLORASEPTIC ) LOZENGE MM PRN ×2 (11:05→17:21)
[2022-07-02] MEDS: DIGOXIN 0.125 MG TABLET PO SCH (12:36)
[2022-07-02] MEDS: THIAMINE HCL 100 MG TABLET (FP) PO SCH (23:09)
[2022-07-02] MEDS: MELATONIN 5 MG TABLETS PO SCH (23:09)
[2022-07-03] MEDS: LORazepam 1 MG TABLET PO SCH ×4 (07:06→22:16)
[2022-07-03] MEDS: guaiFENesin 200 MG/10 ML 10 ML UNIT-DOSE CUPS PO PRN (07:21)
[2022-07-03] MEDS: PRENATAL VITAMINS W/ FOLIC ACID TABLET (FP) PO SCH (10:30)
[2022-07-03] MEDS: NICOTINE 7 MG/24 HOURS TOPICAL PATCH TD SCH (10:31)
[2022-07-03] MEDS: ASPIRIN COATED 81 MG TABLET.EC PO SCH ×2 (10:43→10:45)
[2022-07-03] MEDS: DIGOXIN 0.125 MG TABLET PO SCH (10:45)
[2022-07-03] MEDS: BENZOCAINE/MENTHOL (CHLORASEPTIC ) LOZENGE MM PRN (19:22)
[2022-07-03] MEDS: hydrOXYzine PAMOATE 25 MG CAPSULE (FP) PO PRN (19:22)
[2022-07-03] MEDS: THIAMINE HCL 100 MG TABLET (FP) PO SCH (22:17)
[2022-07-03] MEDS: MELATONIN 5 MG TABLETS PO SCH (22:17)
[2022-07-04] MEDS ORDERED: LORazepam 0.5 MG TABLET PO PRN
[2022-07-04] MEDS: METHOCARBAMOL 500 MG TABLET PO PRN (01:59)
[2022-07-04] MEDS: hydrOXYzine PAMOATE 25 MG CAPSULE (FP) PO PRN ×3 (01:59→17:33)
[2022-07-04] MEDS: LORazepam 0.5 MG TABLET PO SCH ×4 (06:05→22:28)
[2022-07-04] MEDS: DIGOXIN 0.125 MG TABLET PO SCH (11:32)
[2022-07-04] MEDS: PRENATAL VITAMINS W/ FOLIC ACID TABLET (FP) PO SCH (11:32)
[2022-07-04] MEDS: NICOTINE 7 MG/24 HOURS TOPICAL PATCH TD SCH (11:33)
[2022-07-04] MEDS: ASPIRIN COATED 81 MG TABLET.EC PO SCH (11:33)
[2022-07-04 15:44] LABS: ALBUMIN 3.5 g/dl (3.4-5.0); BLOOD UREA NITROGEN 11.9 mg/dL (7-18)
[2022-07-04 15:47] LABS: CREATININE 0.6 mg/dL (0.55-1.3)
[2022-07-04 15:48] LABS: TOT PROT 6.7 g/dl (6.4-8.2)
[2022-07-04 15:49] LABS: BILIRUBIN,TOTAL 0.1 mg/dL (0.2-1)
[2022-07-04 16:09] LABS: HEMATOCRIT 42.9 % (32.4-45.2); MCH 30.2 pg (25.7-33.7); MCHC 32.6 g/dl (32.0-36.0); MEAN CELL VOLUME 92.4 fl (80-96); MEAN PLT VOLUME 9.6 fl (7.5-11.1); PLATELET COUNT 277 10^3/uL (134-434); RBC 4.64 M/mm3 (3.60-5.2); RDW 14.4 % (11.6-15.6); WHITE BLOOD COUNT 6.7 K/mm3 (4.0-10.0)
[2022-07-04] MEDS: THIAMINE HCL 100 MG TABLET (FP) PO SCH (22:29)
[2022-07-04] MEDS: MELATONIN 5 MG TABLETS PO SCH (22:29)
[2022-07-05] MEDS ORDERED: LORazepam 0.5 MG TABLET PO ONE (05:00)
[2022-07-05 06:37] VITALS: BP 109/69
[2022-07-05 09:39] VITALS: PULSE 81; RESP 17; TEMP 97.3
[2022-07-05] MEDS: ASPIRIN COATED 81 MG TABLET.EC PO SCH (10:02)
[2022-07-05] MEDS: hydrOXYzine PAMOATE 25 MG CAPSULE (FP) PO PRN (10:02)
[2022-07-05] MEDS: PRENATAL VITAMINS W/ FOLIC ACID TABLET (FP) PO SCH (10:02)
[2022-07-05] MEDS: DIGOXIN 0.125 MG TABLET PO SCH (10:02)
[2022-07-05] MEDS: METHOCARBAMOL 500 MG TABLET PO PRN (10:02)
[2022-07-05] MEDS: NICOTINE 7 MG/24 HOURS TOPICAL PATCH TD SCH (10:03)
[2022-07-05] MEDS ORDERED: levETIRAcetam 500 MG TABLET (FP) PO SCH (22:00)
== END 2022-07-05 12:10 | disposition home or self-care (01) | DRG 774 ==
LOC: YASAS 14:57 → Y3N 20:48 → Y6N 07-04 01:40
PROVIDERS: ADMIT Allergy & Immunology; ATTEND Family Medicine
PROC: HZ2ZZZZ Detoxification Services for Substance Abuse Treatment (ICD-10-PCS; principal; 2022-07-01)
DX: F10.230 Alcohol dependence with withdrawal, uncomplicated (principal); F14.10 Cocaine abuse, uncomplicated; F17.210 Nicotine dependence, cigarettes, uncomplicated; F32.9 Major depressive disorder, single episode, unspecified; F43.10 Post-traumatic stress disorder, unspecified; G40.909 Epilepsy, unspecified, not intractable, without status epilepticus; I11.0 Hypertensive heart disease with heart failure; I50.9 Heart failure, unspecified; I48.91 Unspecified atrial fibrillation; I25.2 Old myocardial infarction; J42 Unspecified chronic bronchitis; J45.20 Mild intermittent asthma, uncomplicated; R76.11 Nonspecific reaction to tuberculin skin test without active tuberculosis; Z99.89 Dependence on other enabling machines and devices; Z88.6 Allergy status to analgesic agent; Z91.010 Allergy to peanuts; Z91.014 Allergy to mammalian meats
CPT/HCPCS: 36415; 80053; 81025; 85027; 86780; C9803-CS; U0003; U0005

== ENCOUNTER 2022-08-02 12:12 | Inpatient (IN) | payer OTHER ==
[2022-08-02 13:03] VITALS: BMI 27.4
[2022-08-02] MEDS ORDERED: DICYCLOMINE HCL 10 MG CAPSULE PO PRN (14:39)
[2022-08-02] MEDS ORDERED: ONDANSETRON *ODT* 4 MG TABLET SL PRN (14:39)
[2022-08-02] MEDS ORDERED: ACETAMINOPHEN 325 MG TABLET (FP) PO PRN ×2 (14:39)
[2022-08-02] MEDS ORDERED: MAG HYDROX/AL HYDROX/SIMETH 30 ML UNIT-DOSE CUP PO PRN (14:39)
[2022-08-02] MEDS ORDERED: BENZOCAINE/MENTHOL (CHLORASEPTIC ) LOZENGE MM PRN (14:39)
[2022-08-02] MEDS ORDERED: BISMUTH SUBSALICYLATE 524 MG/30 ML PO PRN (14:39)
[2022-08-02] MEDS ORDERED: NICOTINE 10 MG CARTRIDGE (INHALER) IH PRN (14:39)
[2022-08-02] MEDS ORDERED: hydrOXYzine PAMOATE 25 MG CAPSULE (FP) PO PRN (14:39)
[2022-08-02] MEDS ORDERED: IBUPROFEN 400 MG TABLET (FP) PO PRN (14:39)
[2022-08-02] MEDS ORDERED: IBUPROFEN 600 MG TABLET (FP) PO PRN (14:39)
[2022-08-02] MEDS ORDERED: POLYETHYLENE GLYCOL (HEALTHYLAX) 3350 17 GM PACKET PO PRN (14:39)
[2022-08-02] MEDS ORDERED: BACLOFEN 10 MG TABLET (FP) PO PRN (14:39)
[2022-08-02] MEDS ORDERED: NALOXONE HCL (KLOXXADO) 8 MG SPRAY NS PRN (14:39)
[2022-08-02] MEDS ORDERED: LOPERAMIDE HCL 2 MG CAPSULE PO PRN (14:39)
[2022-08-02] MEDS ORDERED: MAGNESIUM HYDROX 2400MG/30ML ORAL SUSPENSION 30 ML CUP PO PRN (14:39)
[2022-08-02] MEDS ORDERED: ALBUTEROL SO4 HFA INHALER IH PRN (14:53)
[2022-08-02] MEDS ORDERED: LORazepam 1 MG TABLET PO PRN (14:53)
[2022-08-02] MEDS: PRENATAL VITAMINS W/ FOLIC ACID TABLET (FP) PO SCH (15:23)
[2022-08-02] MEDS: NICOTINE 7 MG/24 HOURS TOPICAL PATCH TD SCH (15:23)
[2022-08-02] MEDS: LORazepam 2 MG TABLET PO SCH ×2 (17:08→22:43)
[2022-08-02] MEDS: levETIRAcetam 500 MG TABLET (FP) PO SCH (22:42)
[2022-08-02] MEDS: THIAMINE HCL 100 MG TABLET (FP) PO SCH (22:43)
[2022-08-02] MEDS: MELATONIN 5 MG TABLETS PO SCH (22:43)
[2022-08-03] MEDS: LORazepam 2 MG TABLET PO SCH ×4 (05:50→22:32)
[2022-08-03] MEDS: ASPIRIN 81 MG CHEWABLE TABLETS PO SCH (10:49)
[2022-08-03] MEDS: levETIRAcetam 500 MG TABLET (FP) PO SCH ×3 (10:49→22:40)
[2022-08-03] MEDS: PRENATAL VITAMINS W/ FOLIC ACID TABLET (FP) PO SCH (10:50)
[2022-08-03] MEDS: NICOTINE 7 MG/24 HOURS TOPICAL PATCH TD SCH (10:50)
[2022-08-03] MEDS: DIGOXIN 0.125 MG TABLET PO SCH (11:08)
[2022-08-03] MEDS: MELATONIN 5 MG TABLETS PO SCH ×2 (22:31→22:41)
[2022-08-03] MEDS: THIAMINE HCL 100 MG TABLET (FP) PO SCH ×2 (22:31→22:41)
[2022-08-04] MEDS: LORazepam 1 MG TABLET PO SCH ×4 (06:12→22:50)
[2022-08-04] MEDS: levETIRAcetam 500 MG TABLET (FP) PO SCH ×3 (10:35→23:32)
[2022-08-04] MEDS: NICOTINE 7 MG/24 HOURS TOPICAL PATCH TD SCH (10:35)
[2022-08-04] MEDS: ASPIRIN 81 MG CHEWABLE TABLETS PO SCH (10:35)
[2022-08-04] MEDS: PRENATAL VITAMINS W/ FOLIC ACID TABLET (FP) PO SCH ×2 (10:35→10:41)
[2022-08-04] MEDS: DIGOXIN 0.125 MG TABLET PO SCH (10:36)
[2022-08-04] MEDS: THIAMINE HCL 100 MG TABLET (FP) PO SCH (22:50)
[2022-08-04] MEDS: MELATONIN 5 MG TABLETS PO SCH (22:55)
[2022-08-05] MEDS ORDERED: LORazepam 0.5 MG TABLET PO PRN
[2022-08-05] MEDS: LORazepam 0.5 MG TABLET PO SCH ×2 (06:35→10:19)
[2022-08-05 09:19] VITALS: BP 105/64; PULSE 78; RESP 17; TEMP 96.9
[2022-08-05] MEDS ORDERED: QUEtiapine FUMARATE 25 MG TABLET PO SCH (10:00)
[2022-08-05] MEDS: DIGOXIN 0.125 MG TABLET PO SCH (10:15)
[2022-08-05] MEDS: ASPIRIN 81 MG CHEWABLE TABLETS PO SCH (10:17)
[2022-08-05] MEDS: PRENATAL VITAMINS W/ FOLIC ACID TABLET (FP) PO SCH (10:18)
[2022-08-05] MEDS: levETIRAcetam 500 MG TABLET (FP) PO SCH (10:18)
[2022-08-05] MEDS: NICOTINE 7 MG/24 HOURS TOPICAL PATCH TD SCH (10:18)
[2022-08-06] MEDS ORDERED: LORazepam 0.5 MG TABLET PO ONE (05:00)
== END 2022-08-05 12:03 | disposition home or self-care (01) | DRG 774 ==
LOC: YASAS 12:12 → Y6N 15:01
PROVIDERS: ADMIT Allergy & Immunology; ATTEND Surgery
PROC: HZ2ZZZZ Detoxification Services for Substance Abuse Treatment (ICD-10-PCS; principal; 2022-08-02)
DX: F10.230 Alcohol dependence with withdrawal, uncomplicated (principal); F14.20 Cocaine dependence, uncomplicated; F17.213 Nicotine dependence, cigarettes, with withdrawal; F31.9 Bipolar disorder, unspecified; F43.10 Post-traumatic stress disorder, unspecified; F19.282 Other psychoactive substance dependence with psychoactive substance-induced sleep disorder; F19.280 Other psychoactive substance dependence with psychoactive substance-induced anxiety disorder; G40.909 Epilepsy, unspecified, not intractable, without status epilepticus; I48.91 Unspecified atrial fibrillation; I50.9 Heart failure, unspecified; I25.2 Old myocardial infarction; J44.9 Chronic obstructive pulmonary disease, unspecified; J45.20 Mild intermittent asthma, uncomplicated; Z62.810 Personal history of physical and sexual abuse in childhood
CPT/HCPCS: C9803-CS; U0003; U0005

== ENCOUNTER 2022-09-23 20:42 | Inpatient (IN) | payer OTHER ==
[2022-09-23 23:27] VITALS: BMI 26.5
[2022-09-24] MEDS ORDERED: BENZONATATE 200 MG CAPSULE PO PRN (04:03)
[2022-09-24] MEDS ORDERED: DICYCLOMINE HCL 10 MG CAPSULE PO PRN (04:03)
[2022-09-24] MEDS ORDERED: NALOXONE HCL (KLOXXADO) 8 MG SPRAY NS PRN (04:03)
[2022-09-24] MEDS ORDERED: BISMUTH SUBSALICYLATE 524 MG/30 ML PO PRN (04:03)
[2022-09-24] MEDS ORDERED: NALOXONE HCL 0.4 MG/ML VIAL IM PRN (04:03)
[2022-09-24] MEDS ORDERED: AMMONIUM LACTATE 12% LOTION 225 GM BOTTLE TP PRN (04:03)
[2022-09-24] MEDS ORDERED: NICOTINE 10 MG CARTRIDGE (INHALER) IH PRN (04:03)
[2022-09-24] MEDS ORDERED: POLYETHYLENE GLYCOL (HEALTHYLAX) 3350 17 GM PACKET PO PRN (04:03)
[2022-09-24] MEDS ORDERED: MAGNESIUM HYDROX 2400MG/30ML ORAL SUSPENSION 30 ML CUP PO PRN (04:03)
[2022-09-24] MEDS ORDERED: guaiFENesin 600 MG TABLET.ER (FP) PO PRN (04:03)
[2022-09-24] MEDS ORDERED: LOPERAMIDE HCL 2 MG CAPSULE PO PRN (04:03)
[2022-09-24] MEDS ORDERED: BENZOCAINE/MENTHOL (CHLORASEPTIC ) LOZENGE MM PRN (04:03)
[2022-09-24] MEDS ORDERED: ONDANSETRON *ODT* 4 MG TABLET SL PRN (04:03)
[2022-09-24] MEDS: PRENATAL VITAMINS W/ FOLIC ACID TABLET (FP) PO SCH (10:17)
[2022-09-24] MEDS: NICOTINE 14 MG/24 HOURS TOPICAL PATCH TD SCH (10:18)
[2022-09-24] MEDS: QUEtiapine FUMARATE 25 MG TABLET PO SCH ×2 (12:07→21:51)
[2022-09-24] MEDS: levETIRAcetam 500 MG TABLET (FP) PO SCH ×2 (12:25→21:51)
[2022-09-24] MEDS: MELATONIN 5 MG TABLETS PO SCH (21:51)
[2022-09-24] MEDS: hydrOXYzine PAMOATE 25 MG CAPSULE (FP) PO PRN (21:52)
[2022-09-24] MEDS: ACETAMINOPHEN 325 MG TABLET (FP) PO PRN (21:52)
[2022-09-24] MEDS: THIAMINE HCL 100 MG TABLET (FP) PO SCH (21:53)
[2022-09-24] MEDS: OLANZapine 5 MG TABLET PO SCH (21:54)
[2022-09-25] MEDS: ALBUTEROL SO4 HFA INHALER IH PRN (04:24)
[2022-09-25] MEDS: PRENATAL VITAMINS W/ FOLIC ACID TABLET (FP) PO SCH (10:52)
[2022-09-25] MEDS: levETIRAcetam 500 MG TABLET (FP) PO SCH ×2 (10:52→21:21)
[2022-09-25] MEDS: QUEtiapine FUMARATE 25 MG TABLET PO SCH ×2 (10:53→21:22)
[2022-09-25] MEDS: METHOCARBAMOL 500 MG TABLET PO PRN ×2 (10:53→21:23)
[2022-09-25] MEDS: NICOTINE 14 MG/24 HOURS TOPICAL PATCH TD SCH (10:53)
[2022-09-25] MEDS: ACETAMINOPHEN 325 MG TABLET (FP) PO PRN (10:54)
[2022-09-25 11:08] LABS: CALCIUM 8.5 mg/dL (8.5-10.1)
[2022-09-25 11:10] LABS: ALBUMIN 3.2 g/dl (3.4-5.0); BLOOD UREA NITROGEN 9.4 mg/dL (7-18)
[2022-09-25 11:11] LABS: HEMATOCRIT 39.2 % (32.4-45.2); HEMOGLOBIN 13.4 GM/dL (10.7-15.3); MCHC 34.1 g/dl (32.0-36.0); MEAN CELL VOLUME 90.9 fl (80-96); MEAN PLT VOLUME 9.2 fl (7.5-11.1); PLATELET COUNT 204 10^3/uL (134-434); RBC 4.31 M/mm3 (3.60-5.2); RDW 14.6 % (11.6-15.6); WHITE BLOOD COUNT 4.7 K/mm3 (4.0-10.0)
[2022-09-25 11:12] LABS: CREATININE 0.5 mg/dL (0.55-1.3)
[2022-09-25 11:14] LABS: BILIRUBIN,TOTAL 0.3 mg/dL (0.2-1); TOT PROT 6.8 g/dl (6.4-8.2)
[2022-09-25] MEDS: MELATONIN 5 MG TABLETS PO SCH (21:21)
[2022-09-25] MEDS: THIAMINE HCL 100 MG TABLET (FP) PO SCH (21:21)
[2022-09-25] MEDS: OLANZapine 5 MG TABLET PO SCH (21:21)
[2022-09-26] MEDS ORDERED: AMOX TR/POT CLAV 500MG/125MG TABLETS (FP) PO SCH (09:53)
[2022-09-26] MEDS: levETIRAcetam 500 MG TABLET (FP) PO SCH ×2 (10:05→21:44)
[2022-09-26] MEDS: NICOTINE 14 MG/24 HOURS TOPICAL PATCH TD SCH (10:06)
[2022-09-26] MEDS: PRENATAL VITAMINS W/ FOLIC ACID TABLET (FP) PO SCH (10:06)
[2022-09-26] MEDS: QUEtiapine FUMARATE 25 MG TABLET PO SCH ×2 (10:07→21:45)
[2022-09-26] MEDS: METHOCARBAMOL 500 MG TABLET PO PRN ×2 (10:08→21:44)
[2022-09-26] MEDS: ACETAMINOPHEN 325 MG TABLET (FP) PO PRN ×2 (10:09→21:44)
[2022-09-26] MEDS ORDERED: PENICILLIN G BENZATHINE 2,400,000 UNIT/4 ML PFS IM ONE (11:00)
[2022-09-26] MEDS: hydrOXYzine PAMOATE 25 MG CAPSULE (FP) PO PRN (21:41)
[2022-09-26] MEDS: MELATONIN 5 MG TABLETS PO SCH (21:41)
[2022-09-26] MEDS: OLANZapine 5 MG TABLET PO SCH (21:45)
[2022-09-26] MEDS: THIAMINE HCL 100 MG TABLET (FP) PO SCH (21:45)
[2022-09-27] MEDS: METHOCARBAMOL 500 MG TABLET PO PRN ×2 (06:45→21:33)
[2022-09-27] MEDS: PRENATAL VITAMINS W/ FOLIC ACID TABLET (FP) PO SCH (09:41)
[2022-09-27] MEDS: levETIRAcetam 500 MG TABLET (FP) PO SCH ×2 (09:42→21:32)
[2022-09-27] MEDS: NICOTINE 14 MG/24 HOURS TOPICAL PATCH TD SCH (09:42)
[2022-09-27] MEDS: QUEtiapine FUMARATE 25 MG TABLET PO SCH ×2 (09:42→21:32)
[2022-09-27] MEDS: ACETAMINOPHEN 325 MG TABLET (FP) PO PRN ×2 (09:43→19:43)
[2022-09-27] MEDS: MAG HYDROX/AL HYDROX/SIMETH 30 ML UNIT-DOSE CUP PO PRN (19:08)
[2022-09-27] MEDS: OLANZapine 5 MG TABLET PO SCH (21:32)
[2022-09-27] MEDS: MELATONIN 5 MG TABLETS PO SCH (21:32)
[2022-09-27] MEDS: hydrOXYzine PAMOATE 25 MG CAPSULE (FP) PO PRN (21:32)
[2022-09-27] MEDS: THIAMINE HCL 100 MG TABLET (FP) PO SCH (21:33)
[2022-09-28] MEDS: levETIRAcetam 500 MG TABLET (FP) PO SCH ×2 (10:21→21:30)
[2022-09-28] MEDS: QUEtiapine FUMARATE 25 MG TABLET PO SCH ×2 (10:21→21:30)
[2022-09-28] MEDS: PRENATAL VITAMINS W/ FOLIC ACID TABLET (FP) PO SCH (10:21)
[2022-09-28] MEDS: NICOTINE 14 MG/24 HOURS TOPICAL PATCH TD SCH (10:21)
[2022-09-28] MEDS: ACETAMINOPHEN 325 MG TABLET (FP) PO PRN ×2 (10:22→21:34)
[2022-09-28] MEDS: OLANZapine 5 MG TABLET PO SCH (21:30)
[2022-09-28] MEDS: THIAMINE HCL 100 MG TABLET (FP) PO SCH (21:30)
[2022-09-28] MEDS: METHOCARBAMOL 500 MG TABLET PO PRN (21:31)
[2022-09-28] MEDS: MELATONIN 5 MG TABLETS PO SCH (21:31)
[2022-09-29] MEDS: hydrOXYzine PAMOATE 25 MG CAPSULE (FP) PO PRN ×2 (01:17→21:24)
[2022-09-29] MEDS: QUEtiapine FUMARATE 25 MG TABLET PO SCH ×2 (10:14→21:23)
[2022-09-29] MEDS: PRENATAL VITAMINS W/ FOLIC ACID TABLET (FP) PO SCH (10:14)
[2022-09-29] MEDS: levETIRAcetam 500 MG TABLET (FP) PO SCH ×2 (10:14→21:24)
[2022-09-29] MEDS: NICOTINE 14 MG/24 HOURS TOPICAL PATCH TD SCH (10:15)
[2022-09-29] MEDS: METHOCARBAMOL 500 MG TABLET PO PRN ×2 (10:17→21:27)
[2022-09-29] MEDS: ACETAMINOPHEN 325 MG TABLET (FP) PO PRN (10:17)
[2022-09-29] MEDS: NICOTINE POLACRILEX 2 MG GUM BUC PRN ×4 (10:19→17:29)
[2022-09-29] MEDS ORDERED: LIDOCAINE HCL 5% TOP OINTMENT 50 GM TUBE TP ONE (14:15)
[2022-09-29] MEDS: MAG HYDROX/AL HYDROX/SIMETH 30 ML UNIT-DOSE CUP PO PRN (15:57)
[2022-09-29] MEDS: DIGOXIN 0.125 MG TABLET PO SCH (18:06)
[2022-09-29] MEDS: THIAMINE HCL 100 MG TABLET (FP) PO SCH (21:23)
[2022-09-29] MEDS: MELATONIN 5 MG TABLETS PO SCH (21:23)
[2022-09-29] MEDS: OLANZapine 5 MG TABLET PO SCH (21:24)
[2022-09-30 07:55] VITALS: RESP 18
[2022-09-30] MEDS: levETIRAcetam 500 MG TABLET (FP) PO SCH ×2 (09:54→21:32)
[2022-09-30] MEDS: QUEtiapine FUMARATE 25 MG TABLET PO SCH ×2 (09:54→21:32)
[2022-09-30] MEDS: ASPIRIN 81 MG CHEWABLE TABLETS PO SCH (09:54)
[2022-09-30] MEDS: ACETAMINOPHEN 325 MG TABLET (FP) PO PRN ×2 (09:57→21:32)
[2022-09-30] MEDS: NICOTINE 14 MG/24 HOURS TOPICAL PATCH TD SCH (10:35)
[2022-09-30] MEDS: PRENATAL VITAMINS W/ FOLIC ACID TABLET (FP) PO SCH (10:35)
[2022-09-30] MEDS: LIDOCAINE HCL 5% TOP OINTMENT 50 GM TUBE TP SCH ×2 (10:36→21:34)
[2022-09-30] MEDS: DIGOXIN 0.125 MG TABLET PO SCH (11:10)
[2022-09-30] MEDS: NICOTINE POLACRILEX 2 MG GUM BUC PRN (19:01)
[2022-09-30] MEDS: OLANZapine 5 MG TABLET PO SCH (21:32)
[2022-09-30] MEDS: THIAMINE HCL 100 MG TABLET (FP) PO SCH (21:32)
[2022-09-30] MEDS: MELATONIN 5 MG TABLETS PO SCH (23:19)
[2022-10-01] MEDS: hydrOXYzine PAMOATE 25 MG CAPSULE (FP) PO PRN ×2 (01:14→17:21)
[2022-10-01] MEDS: QUEtiapine FUMARATE 25 MG TABLET PO SCH (09:34)
[2022-10-01] MEDS: DIGOXIN 0.125 MG TABLET PO SCH (09:34)
[2022-10-01] MEDS: ASPIRIN 81 MG CHEWABLE TABLETS PO SCH (09:34)
[2022-10-01] MEDS: levETIRAcetam 500 MG TABLET (FP) PO SCH ×2 (09:34→23:59)
[2022-10-01] MEDS: LIDOCAINE HCL 5% TOP OINTMENT 50 GM TUBE TP SCH (09:35)
[2022-10-01] MEDS: NICOTINE POLACRILEX 2 MG GUM BUC PRN ×2 (09:35→11:55)
[2022-10-01] MEDS: NICOTINE 14 MG/24 HOURS TOPICAL PATCH TD SCH (09:36)
[2022-10-01] MEDS: PRENATAL VITAMINS W/ FOLIC ACID TABLET (FP) PO SCH (09:36)
[2022-10-01 16:48] VITALS: BP 109/79; PULSE 90; TEMP 97.6
[2022-10-01] MEDS: ALBUTEROL SO4 HFA INHALER IH PRN (16:51)
[2022-10-01] MEDS ORDERED: ASPIRIN 81 MG CHEWABLE TABLETS PO ONE (17:33)
[2022-10-01] MEDS: MELATONIN 5 MG TABLETS PO SCH (23:59)
[2022-10-02] MEDS: LIDOCAINE HCL 5% TOP OINTMENT 50 GM TUBE TP SCH
[2022-10-02] MEDS: QUEtiapine FUMARATE 25 MG TABLET PO SCH
[2022-10-02] MEDS: THIAMINE HCL 100 MG TABLET (FP) PO SCH
[2022-10-02] MEDS: OLANZapine 5 MG TABLET PO SCH
[2022-10-03] MEDS ORDERED: PENICILLIN G BENZATHINE 2,400,000 UNIT/4 ML PFS IM ONE (10:00)
[2022-10-10] MEDS ORDERED: PENICILLIN G BENZATHINE 2,400,000 UNIT/4 ML PFS IM ONE (09:59)
== END 2022-10-01 00:15 | disposition short-term general hospital (02) | DRG 772 ==
LOC: YASAS 20:42 → Y5N 09-24 07:17
PROVIDERS: ADMIT Allergy & Immunology; ATTEND Psychiatry & Neurology Pain Medicine
PROC: HZ42ZZZ Group Counseling for Substance Abuse Treatment, Cognitive-Behavioral (ICD-10-PCS; principal; 2022-09-24)
DX: F14.20 Cocaine dependence, uncomplicated (principal); F17.210 Nicotine dependence, cigarettes, uncomplicated; F19.282 Other psychoactive substance dependence with psychoactive substance-induced sleep disorder; F19.24 Other psychoactive substance dependence with psychoactive substance-induced mood disorder; F43.10 Post-traumatic stress disorder, unspecified; G40.909 Epilepsy, unspecified, not intractable, without status epilepticus; G56.03 Carpal tunnel syndrome, bilateral upper limbs; J44.9 Chronic obstructive pulmonary disease, unspecified; J45.20 Mild intermittent asthma, uncomplicated; J32.0 Chronic maxillary sinusitis; R07.9 Chest pain, unspecified; I50.9 Heart failure, unspecified; I25.2 Old myocardial infarction; Z86.79 Personal history of other diseases of the circulatory system; Z86.19 Personal history of other infectious and parasitic diseases; Z86.59 Personal history of other mental and behavioral disorders; Z88.9 Allergy status to unspecified drugs, medicaments and biological substances; Z62.810 Personal history of physical and sexual abuse in childhood
CPT/HCPCS: 26055; 36415; 80053; 81025; 85027; 86593; 86780; 93005; 93010; C9803-CS; U0003; U0005

== ENCOUNTER 2022-10-01 18:24 | Observation (INO) | payer OTHER ==
[2022-10-01 20:17] LABS: BASO % 0.7 % (0-2.0); EOS % 3.4 % (0-4.5); HEMATOCRIT 36.8 % (32.4-45.2); HEMOGLOBIN 12.3 GM/dL (10.7-15.3); LYMPH % 44.8 % (8-40); MCH 30.2 pg (25.7-33.7); MCHC 33.4 g/dl (32.0-36.0); MEAN CELL VOLUME 90.5 fl (80-96); MEAN PLT VOLUME 8.8 fl (7.5-11.1); MONO % 9.1 % (3.8-10.2); PLATELET COUNT 242 10^3/uL (134-434); RBC 4.07 M/mm3 (3.60-5.2); RDW 14.7 % (11.6-15.6); WHITE BLOOD COUNT 6.3 K/mm3 (4.0-10.0)
[2022-10-01 21:58] LABS: CALCIUM 8.8 mg/dL (8.5-10.1)
[2022-10-01 21:59] LABS: ALBUMIN 3.4 g/dl (3.4-5.0); BLOOD UREA NITROGEN 18.6 mg/dL (7-18)
[2022-10-01 22:02] LABS: CREATININE 0.6 mg/dL (0.55-1.3)
[2022-10-01 22:03] LABS: BILIRUBIN,TOTAL 0.2 mg/dL (0.2-1)
[2022-10-01 22:07] LABS: N-TERMINAL BNP 217.7 pg/ml (5-125)
[2022-10-02 03:02] VITALS: BMI 28.6
[2022-10-02 07:55] LABS: HEMATOCRIT 37.1 % (32.4-45.2); HEMOGLOBIN 12.9 GM/dL (10.7-15.3); MCH 31.1 pg (25.7-33.7); MCHC 34.7 g/dl (32.0-36.0); MEAN CELL VOLUME 89.6 fl (80-96); MEAN PLT VOLUME 9.3 fl (7.5-11.1); PLATELET COUNT 248 10^3/uL (134-434); RBC 4.14 M/mm3 (3.60-5.2); RDW 14.5 % (11.6-15.6); WHITE BLOOD COUNT 5.6 K/mm3 (4.0-10.0)
[2022-10-02 08:01] LABS: CALCIUM 9.4 mg/dL (8.5-10.1)
[2022-10-02 08:02] LABS: BLOOD UREA NITROGEN 17.2 mg/dL (7-18)
[2022-10-02 08:05] LABS: CREATININE 0.5 mg/dL (0.55-1.3)
[2022-10-02] MEDS: APIXABAN 5 MG TABLET PO SCH ×2 (10:12→21:11)
[2022-10-02] MEDS: QUEtiapine FUMARATE 50 MG TABLET PO SCH ×2 (10:12→21:11)
[2022-10-02] MEDS: DIGOXIN 0.125 MG TABLET PO SCH (10:12)
[2022-10-02] MEDS: levETIRAcetam 500 MG TABLET (FP) PO SCH ×2 (10:12→21:11)
[2022-10-02] MEDS: ROSUVASTATIN CA 20 MG TABLET PO SCH (21:11)
[2022-10-02] MEDS: BACLOFEN 10 MG TABLET (FP) PO PRN (21:12)
[2022-10-03 07:46] LABS: HEMATOCRIT 37.3 % (32.4-45.2); HEMOGLOBIN 12.9 GM/dL (10.7-15.3); MCHC 34.6 g/dl (32.0-36.0); MEAN CELL VOLUME 89.6 fl (80-96); MEAN PLT VOLUME 8.9 fl (7.5-11.1); PLATELET COUNT 244 10^3/uL (134-434); RBC 4.16 M/mm3 (3.60-5.2); RDW 14.3 % (11.6-15.6); WHITE BLOOD COUNT 5.6 K/mm3 (4.0-10.0)
[2022-10-03 08:13] LABS: BLOOD UREA NITROGEN 17.1 mg/dL (7-18); PHOSPHOROUS 4.8 mg/dL (2.5-4.9)
[2022-10-03 08:14] LABS: ALBUMIN 3.4 g/dl (3.4-5.0)
[2022-10-03 08:15] LABS: BILIRUBIN,TOTAL 0.4 mg/dL (0.2-1); TOT PROT 7.1 g/dl (6.4-8.2)
[2022-10-03 08:16] LABS: CALCIUM 8.8 mg/dL (8.5-10.1)
[2022-10-03 08:17] LABS: CREATININE 0.5 mg/dL (0.55-1.3)
[2022-10-03 08:18] LABS: MAGNESIUM 1.8 mg/dL (1.8-2.4)
[2022-10-03] MEDS: levETIRAcetam 500 MG TABLET (FP) PO SCH ×3 (08:21→21:30)
[2022-10-03] MEDS ORDERED: REGADENOSON 0.4 MG/5 ML PRE-FILLED SYRINGE IVPUSH ONE ×2 (09:39→09:45)
[2022-10-03] MEDS: QUEtiapine FUMARATE 50 MG TABLET PO SCH ×2 (14:18→21:30)
[2022-10-03] MEDS: DIGOXIN 0.125 MG TABLET PO SCH (14:19)
[2022-10-03] MEDS: APIXABAN 5 MG TABLET PO SCH ×2 (14:19→21:30)
[2022-10-03] MEDS: ROSUVASTATIN CA 20 MG TABLET PO SCH (21:30)
[2022-10-04] MEDS ORDERED: ACETAMINOPHEN 1000 MG/100 ML BAG IVPB ONE (01:27)
[2022-10-04] MEDS ORDERED: LIDOCAINE HCL 5% TOP OINTMENT 50 GM TUBE TP ONE (01:43)
[2022-10-04] MEDS: BACLOFEN 10 MG TABLET (FP) PO PRN ×2 (01:44→09:32)
[2022-10-04] MEDS: DIGOXIN 0.125 MG TABLET PO SCH (09:32)
[2022-10-04] MEDS: QUEtiapine FUMARATE 50 MG TABLET PO SCH (09:32)
[2022-10-04] MEDS: APIXABAN 5 MG TABLET PO SCH ×2 (09:33→22:26)
[2022-10-04] MEDS: levETIRAcetam 500 MG TABLET (FP) PO SCH ×2 (09:33→22:27)
[2022-10-04] MEDS ORDERED: NITROGLYCERIN SUBLINGUAL 1/150 0.4 MG TAB SL PRN (11:29)
[2022-10-04] MEDS ORDERED: BACLOFEN 10 MG TABLET (FP) PO PRN (11:29)
[2022-10-04] MEDS ORDERED: OLANZapine 5 MG TABLET PO SCH (22:00)
[2022-10-04] MEDS ORDERED: PHENYTOIN NA EXTENDED 100 MG CAPSULE (FP) PO SCH (22:00)
[2022-10-04] MEDS: ROSUVASTATIN CA 20 MG TABLET PO SCH (22:26)
[2022-10-04] MEDS: QUEtiapine FUMARATE 25 MG TABLET PO SCH (22:27)
[2022-10-05] MEDS ORDERED: MELATONIN 5 MG TABLETS PO ONE (01:48)
[2022-10-05] MEDS ORDERED: ALBUTEROL SO4 HFA INHALER IH PRN (04:00)
[2022-10-05 07:26] LABS: HEMATOCRIT 37.8 % (32.4-45.2); HEMOGLOBIN 13.2 GM/dL (10.7-15.3); MCH 31.9 pg (25.7-33.7); MCHC 34.9 g/dl (32.0-36.0); MEAN CELL VOLUME 91.3 fl (80-96); MEAN PLT VOLUME 9.1 fl (7.5-11.1); PLATELET COUNT 258 10^3/uL (134-434); RBC 4.14 M/mm3 (3.60-5.2); RDW 14.8 % (11.6-15.6)
[2022-10-05 07:51] LABS: CALCIUM 9.2 mg/dL (8.5-10.1)
[2022-10-05 07:52] LABS: ALBUMIN 3.8 g/dl (3.4-5.0); BLOOD UREA NITROGEN 18.6 mg/dL (7-18)
[2022-10-05 07:55] LABS: CREATININE 0.5 mg/dL (0.55-1.3); PHOSPHOROUS 5.5 mg/dL (2.5-4.9)
[2022-10-05 07:56] LABS: BILIRUBIN,TOTAL 0.4 mg/dL (0.2-1); TOT PROT 7.5 g/dl (6.4-8.2)
[2022-10-05 09:08] VITALS: BP 114/67; PULSE 86; RESP 16; TEMP 97.8
[2022-10-05] MEDS: QUEtiapine FUMARATE 25 MG TABLET PO SCH (09:23)
[2022-10-05] MEDS: levETIRAcetam 500 MG TABLET (FP) PO SCH (09:23)
[2022-10-05] MEDS: APIXABAN 5 MG TABLET PO SCH (09:24)
[2022-10-05] MEDS ORDERED: DIGOXIN 0.125 MG TABLET PO SCH (10:00)
== END 2022-10-05 14:11 | disposition home or self-care (01) ==
LOC: JER 18:24 → JERBED 23:14 → J4W 10-02 03:06
PROVIDERS: ADMIT Internal Medicine; ATTEND Internal Medicine
PROC: 3E033GC Introduction of Other Therapeutic Substance into Peripheral Vein, Percutaneous Approach (ICD-10-PCS; principal; 2022-10-01)
DX: I48.0 Paroxysmal atrial fibrillation (principal); I11.0 Hypertensive heart disease with heart failure; I25.2 Old myocardial infarction; F31.9 Bipolar disorder, unspecified; F19.10 Other psychoactive substance abuse, uncomplicated; Z87.891 Personal history of nicotine dependence; R56.9 Unspecified convulsions; Z79.01 Long term (current) use of anticoagulants; J44.9 Chronic obstructive pulmonary disease, unspecified; F20.9 Schizophrenia, unspecified; Z91.018 Allergy to other foods; Z88.8 Allergy status to other drugs, medicaments and biological substances
CPT/HCPCS: 0241U-QW; 36415; 71046-TC-FY; 78452-TC; 80048; 80053; 82550; 83735; 83880; 84100; 84443; 84484; 84703; 85025; 85027; 85730; 93005; 93010; 93017; 93306-TC; 96374; 97116-GP; 97162-GP; 99285-25; A9502; G0378; J0475; J2785

== ENCOUNTER 2022-10-26 14:41 | Inpatient (IN) | payer OTHER ==
[2022-10-26 15:18] VITALS: BMI 25.9
[2022-10-26] MEDS ORDERED: NITROGLYCERIN SUBLINGUAL 1/150 0.4 MG TAB SL PRN (18:45)
[2022-10-26] MEDS ORDERED: NALOXONE HCL 0.4 MG/ML VIAL IVPUSH PRN (19:06)
[2022-10-26] MEDS ORDERED: POLYETHYLENE GLYCOL (HEALTHYLAX) 3350 17 GM PACKET PO PRN (19:06)
[2022-10-26] MEDS ORDERED: NALOXONE HCL (KLOXXADO) 8 MG SPRAY NS PRN (19:06)
[2022-10-26] MEDS ORDERED: MAG HYDROX/AL HYDROX/SIMETH 30 ML UNIT-DOSE CUP PO PRN (19:06)
[2022-10-26] MEDS ORDERED: MAGNESIUM HYDROX 2400MG/30ML ORAL SUSPENSION 30 ML CUP PO PRN (19:06)
[2022-10-26] MEDS ORDERED: guaiFENesin 600 MG TABLET.ER (FP) PO PRN (19:06)
[2022-10-26] MEDS ORDERED: BENZONATATE 200 MG CAPSULE PO PRN (19:06)
[2022-10-26] MEDS ORDERED: P-EPHED 60MG/TRIPROLIDI 2.5MG TABLET PO PRN (19:06)
[2022-10-26] MEDS ORDERED: LOPERAMIDE HCL 2 MG CAPSULE PO PRN (19:06)
[2022-10-26] MEDS ORDERED: AMMONIUM LACTATE 12% LOTION 225 GM BOTTLE TP PRN (19:06)
[2022-10-26] MEDS ORDERED: NICOTINE POLACRILEX 2 MG GUM BUC PRN (19:06)
[2022-10-26] MEDS: PHENYTOIN NA EXTENDED 100 MG CAPSULE (FP) PO SCH (21:01)
[2022-10-26] MEDS: MELATONIN 5 MG TABLETS PO PRN (21:01)
[2022-10-26] MEDS: levETIRAcetam 500 MG TABLET (FP) PO SCH (21:01)
[2022-10-26] MEDS: THIAMINE HCL 100 MG TABLET (FP) PO SCH (21:01)
[2022-10-26] MEDS: APIXABAN 5 MG TABLET PO SCH (21:01)
[2022-10-26] MEDS: COLLOIDAL OATMEAL 1 BAR EACH TP PRN (21:05)
[2022-10-27] MEDS: PHENYTOIN NA EXTENDED 100 MG CAPSULE (FP) PO SCH (09:35)
[2022-10-27] MEDS: levETIRAcetam 500 MG TABLET (FP) PO SCH ×2 (10:20→21:31)
[2022-10-27] MEDS: APIXABAN 5 MG TABLET PO SCH ×2 (10:20→21:32)
[2022-10-27] MEDS: PRENATAL VITAMINS W/ FOLIC ACID TABLET (FP) PO SCH (10:20)
[2022-10-27] MEDS: DIGOXIN 0.125 MG TABLET PO SCH (10:22)
[2022-10-27] MEDS: QUEtiapine FUMARATE 25 MG TABLET PO SCH ×2 (10:22→21:31)
[2022-10-27] MEDS ORDERED: NICOTINE 14 MG/24 HOURS TOPICAL PATCH TD SCH (10:30)
[2022-10-27] MEDS: VITAMINS A AND D TOPICAL OINTMENT 60 GM TUBE TP SCH ×2 (14:07→17:27)
[2022-10-27] MEDS: ACETAMINOPHEN 325 MG TABLET (FP) PO PRN (20:47)
[2022-10-27] MEDS: THIAMINE HCL 100 MG TABLET (FP) PO SCH (21:31)
[2022-10-27] MEDS: OLANZapine 5 MG TABLET PO SCH (21:35)
[2022-10-28] MEDS: VITAMINS A AND D TOPICAL OINTMENT 60 GM TUBE TP SCH ×3 (06:51→18:43)
[2022-10-28] MEDS: APIXABAN 5 MG TABLET PO SCH ×2 (10:18→23:38)
[2022-10-28] MEDS: levETIRAcetam 500 MG TABLET (FP) PO SCH ×2 (10:18→23:38)
[2022-10-28] MEDS: PRENATAL VITAMINS W/ FOLIC ACID TABLET (FP) PO SCH (10:18)
[2022-10-28] MEDS: QUEtiapine FUMARATE 25 MG TABLET PO SCH ×2 (10:18→23:40)
[2022-10-28] MEDS: DIGOXIN 0.125 MG TABLET PO SCH (10:20)
[2022-10-28] MEDS: PHENYTOIN NA EXTENDED 100 MG CAPSULE (FP) PO SCH (23:38)
[2022-10-28] MEDS: THIAMINE HCL 100 MG TABLET (FP) PO SCH (23:40)
[2022-10-28] MEDS: OLANZapine 5 MG TABLET PO SCH (23:40)
[2022-10-29] MEDS: BACLOFEN 10 MG TABLET (FP) PO PRN ×2 (06:28→10:15)
[2022-10-29] MEDS: VITAMINS A AND D TOPICAL OINTMENT 60 GM TUBE TP SCH ×4 (07:11→21:37)
[2022-10-29] MEDS: QUEtiapine FUMARATE 25 MG TABLET PO SCH ×2 (10:15→21:35)
[2022-10-29] MEDS: PRENATAL VITAMINS W/ FOLIC ACID TABLET (FP) PO SCH ×2 (10:15→11:30)
[2022-10-29] MEDS: APIXABAN 5 MG TABLET PO SCH ×2 (10:15→21:35)
[2022-10-29] MEDS: levETIRAcetam 500 MG TABLET (FP) PO SCH ×2 (10:16→21:35)
[2022-10-29] MEDS: DIGOXIN 0.125 MG TABLET PO SCH ×2 (10:19→11:31)
[2022-10-29] MEDS: THIAMINE HCL 100 MG TABLET (FP) PO SCH (21:35)
[2022-10-29] MEDS: PHENYTOIN NA EXTENDED 100 MG CAPSULE (FP) PO SCH (21:35)
[2022-10-29] MEDS: MELATONIN 5 MG TABLETS PO PRN (21:36)
[2022-10-29] MEDS: hydrOXYzine PAMOATE 25 MG CAPSULE (FP) PO PRN (21:39)
[2022-10-29] MEDS: OLANZapine 5 MG TABLET PO SCH (21:39)
[2022-10-30] MEDS: VITAMINS A AND D TOPICAL OINTMENT 60 GM TUBE TP SCH ×4 (00:15→21:50)
[2022-10-30] MEDS: PRENATAL VITAMINS W/ FOLIC ACID TABLET (FP) PO SCH (10:23)
[2022-10-30] MEDS: QUEtiapine FUMARATE 25 MG TABLET PO SCH ×2 (10:23→21:28)
[2022-10-30] MEDS: APIXABAN 5 MG TABLET PO SCH ×2 (10:23→21:28)
[2022-10-30] MEDS: levETIRAcetam 500 MG TABLET (FP) PO SCH ×2 (10:23→21:28)
[2022-10-30] MEDS: DIGOXIN 0.125 MG TABLET PO SCH (10:23)
[2022-10-30] MEDS: BACLOFEN 10 MG TABLET (FP) PO PRN (10:25)
[2022-10-30] MEDS: COLLOIDAL OATMEAL 1 BAR EACH TP PRN (17:14)
[2022-10-30] MEDS: THIAMINE HCL 100 MG TABLET (FP) PO SCH (21:28)
[2022-10-30] MEDS: PHENYTOIN NA EXTENDED 100 MG CAPSULE (FP) PO SCH (21:28)
[2022-10-30] MEDS: hydrOXYzine PAMOATE 25 MG CAPSULE (FP) PO PRN (21:29)
[2022-10-30] MEDS: OLANZapine 5 MG TABLET PO SCH (21:49)
[2022-10-31] MEDS: VITAMINS A AND D TOPICAL OINTMENT 60 GM TUBE TP SCH ×5 (01:40→23:05)
[2022-10-31] MEDS: BACLOFEN 10 MG TABLET (FP) PO PRN ×2 (09:52→21:43)
[2022-10-31] MEDS: levETIRAcetam 500 MG TABLET (FP) PO SCH ×3 (09:52→21:46)
[2022-10-31] MEDS: QUEtiapine FUMARATE 25 MG TABLET PO SCH ×2 (09:52→21:41)
[2022-10-31] MEDS: APIXABAN 5 MG TABLET PO SCH ×2 (09:52→21:41)
[2022-10-31] MEDS: PRENATAL VITAMINS W/ FOLIC ACID TABLET (FP) PO SCH (09:53)
[2022-10-31] MEDS: DIGOXIN 0.125 MG TABLET PO SCH (09:54)
[2022-10-31] MEDS: ACETAMINOPHEN 325 MG TABLET (FP) PO PRN ×4 (09:56→23:13)
[2022-10-31] MEDS: AMOX TR/POT CLAV 500MG/125MG TABLETS (FP) PO SCH (17:22)
[2022-10-31] MEDS: PHENYTOIN NA EXTENDED 100 MG CAPSULE (FP) PO SCH (21:40)
[2022-10-31] MEDS: OLANZapine 5 MG TABLET PO SCH (21:41)
[2022-10-31] MEDS: THIAMINE HCL 100 MG TABLET (FP) PO SCH (21:41)
[2022-10-31] MEDS: MELATONIN 5 MG TABLETS PO PRN (21:41)
[2022-10-31] MEDS: hydrOXYzine PAMOATE 25 MG CAPSULE (FP) PO PRN (21:43)
[2022-11-01] MEDS: VITAMINS A AND D TOPICAL OINTMENT 60 GM TUBE TP SCH ×3 (07:27→17:47)
[2022-11-01] MEDS: QUEtiapine FUMARATE 25 MG TABLET PO SCH ×2 (09:58→21:35)
[2022-11-01] MEDS: levETIRAcetam 500 MG TABLET (FP) PO SCH ×2 (09:58→21:35)
[2022-11-01] MEDS: BACLOFEN 10 MG TABLET (FP) PO PRN ×2 (09:58→21:39)
[2022-11-01] MEDS: APIXABAN 5 MG TABLET PO SCH ×2 (09:58→21:35)
[2022-11-01] MEDS: ACETAMINOPHEN 325 MG TABLET (FP) PO PRN (10:00)
[2022-11-01] MEDS: AMOX TR/POT CLAV 500MG/125MG TABLETS (FP) PO SCH ×2 (10:00→17:47)
[2022-11-01] MEDS: PRENATAL VITAMINS W/ FOLIC ACID TABLET (FP) PO SCH (10:03)
[2022-11-01] MEDS: DIGOXIN 0.125 MG TABLET PO SCH (10:03)
[2022-11-01] MEDS: IBUPROFEN 400 MG TABLET (FP) PO PRN (13:09)
[2022-11-01] MEDS: BENZOCAINE 20 % GEL TUBE MM PRN ×2 (13:12→21:40)
[2022-11-01] MEDS: OLANZapine 5 MG TABLET PO SCH (21:35)
[2022-11-01] MEDS: PHENYTOIN NA EXTENDED 100 MG CAPSULE (FP) PO SCH (21:35)
[2022-11-01] MEDS: THIAMINE HCL 100 MG TABLET (FP) PO SCH (21:36)
[2022-11-02] MEDS: VITAMINS A AND D TOPICAL OINTMENT 60 GM TUBE TP SCH ×4 (01:26→20:22)
[2022-11-02] MEDS: hydrOXYzine PAMOATE 25 MG CAPSULE (FP) PO PRN (03:11)
[2022-11-02] MEDS: ACETAMINOPHEN 325 MG TABLET (FP) PO PRN ×2 (06:49→09:59)
[2022-11-02] MEDS: BACLOFEN 10 MG TABLET (FP) PO PRN ×2 (06:52→21:22)
[2022-11-02] MEDS: AMOX TR/POT CLAV 500MG/125MG TABLETS (FP) PO SCH ×2 (08:09→17:22)
[2022-11-02] MEDS: APIXABAN 5 MG TABLET PO SCH ×2 (09:54→21:22)
[2022-11-02] MEDS: levETIRAcetam 500 MG TABLET (FP) PO SCH ×2 (09:55→21:22)
[2022-11-02] MEDS: DIGOXIN 0.125 MG TABLET PO SCH (09:56)
[2022-11-02] MEDS: QUEtiapine FUMARATE 25 MG TABLET PO SCH ×2 (09:56→21:22)
[2022-11-02] MEDS: PRENATAL VITAMINS W/ FOLIC ACID TABLET (FP) PO SCH (09:58)
[2022-11-02] MEDS: BENZOCAINE 20 % GEL TUBE MM PRN ×2 (10:01→17:23)
[2022-11-02] MEDS: BENZOCAINE/MENTHOL (CHLORASEPTIC ) LOZENGE MM PRN (13:07)
[2022-11-02] MEDS ORDERED: TETANUS AND DIPHTHERIA TOXOID 0.5 ML DISP.SYRIN IM ONE (13:13)
[2022-11-02] MEDS ORDERED: SALICYLIC ACID (WART REMOVER) 9 ML LIQUID TP PRN (13:18)
[2022-11-02] MEDS: THIAMINE HCL 100 MG TABLET (FP) PO SCH (21:22)
[2022-11-02] MEDS: OLANZapine 5 MG TABLET PO SCH (21:22)
[2022-11-02] MEDS: PHENYTOIN NA EXTENDED 100 MG CAPSULE (FP) PO SCH (21:23)
[2022-11-02] MEDS: MELATONIN 5 MG TABLETS PO PRN (21:24)
[2022-11-03] MEDS: VITAMINS A AND D TOPICAL OINTMENT 60 GM TUBE TP SCH ×3 (07:09→17:34)
[2022-11-03] MEDS: AMOX TR/POT CLAV 500MG/125MG TABLETS (FP) PO SCH ×2 (07:27→17:35)
[2022-11-03] MEDS: APIXABAN 5 MG TABLET PO SCH ×2 (10:08→21:19)
[2022-11-03] MEDS: levETIRAcetam 500 MG TABLET (FP) PO SCH ×2 (10:08→21:19)
[2022-11-03] MEDS: QUEtiapine FUMARATE 25 MG TABLET PO SCH ×2 (10:08→21:19)
[2022-11-03] MEDS: PRENATAL VITAMINS W/ FOLIC ACID TABLET (FP) PO SCH (10:09)
[2022-11-03] MEDS: hydrOXYzine PAMOATE 25 MG CAPSULE (FP) PO PRN (10:09)
[2022-11-03] MEDS: DIGOXIN 0.125 MG TABLET PO SCH (10:09)
[2022-11-03] MEDS: ACETAMINOPHEN 325 MG TABLET (FP) PO PRN (17:37)
[2022-11-03] MEDS: BENZOCAINE/MENTHOL (CHLORASEPTIC ) LOZENGE MM PRN (17:39)
[2022-11-03] MEDS: THIAMINE HCL 100 MG TABLET (FP) PO SCH (21:19)
[2022-11-03] MEDS: OLANZapine 5 MG TABLET PO SCH (21:19)
[2022-11-03] MEDS: PHENYTOIN NA EXTENDED 100 MG CAPSULE (FP) PO SCH (21:19)
[2022-11-03] MEDS: MELATONIN 5 MG TABLETS PO PRN (21:20)
[2022-11-03] MEDS: BACLOFEN 10 MG TABLET (FP) PO PRN (21:23)
[2022-11-04] MEDS: VITAMINS A AND D TOPICAL OINTMENT 60 GM TUBE TP SCH ×4 (00:15→17:51)
[2022-11-04] MEDS: ACETAMINOPHEN 325 MG TABLET (FP) PO PRN ×3 (04:04→21:25)
[2022-11-04] MEDS: AMOX TR/POT CLAV 500MG/125MG TABLETS (FP) PO SCH ×2 (07:51→17:51)
[2022-11-04] MEDS: PRENATAL VITAMINS W/ FOLIC ACID TABLET (FP) PO SCH (09:55)
[2022-11-04] MEDS: QUEtiapine FUMARATE 25 MG TABLET PO SCH ×2 (09:55→21:20)
[2022-11-04] MEDS: APIXABAN 5 MG TABLET PO SCH ×2 (09:56→21:20)
[2022-11-04] MEDS: levETIRAcetam 500 MG TABLET (FP) PO SCH ×2 (09:56→21:20)
[2022-11-04] MEDS: DIGOXIN 0.125 MG TABLET PO SCH (10:00)
[2022-11-04] MEDS ORDERED: DIGOXIN 0.25 MG TABLET PO ONE (14:28)
[2022-11-04] MEDS ORDERED: DIGOXIN 0.125 MG TABLET PO ONE (20:30)
[2022-11-04] MEDS: PHENYTOIN NA EXTENDED 100 MG CAPSULE (FP) PO SCH (21:20)
[2022-11-04] MEDS: OLANZapine 5 MG TABLET PO SCH (21:20)
[2022-11-04] MEDS: THIAMINE HCL 100 MG TABLET (FP) PO SCH (21:21)
[2022-11-04] MEDS: MELATONIN 5 MG TABLETS PO PRN (21:21)
[2022-11-04] MEDS: hydrOXYzine PAMOATE 25 MG CAPSULE (FP) PO PRN (21:23)
[2022-11-05] MEDS: VITAMINS A AND D TOPICAL OINTMENT 60 GM TUBE TP SCH ×4 (01:08→17:18)
[2022-11-05] MEDS ORDERED: DIGOXIN 0.125 MG TABLET PO ONE (06:00)
[2022-11-05] MEDS: BACLOFEN 10 MG TABLET (FP) PO PRN ×2 (06:04→22:07)
[2022-11-05] MEDS: AMOX TR/POT CLAV 500MG/125MG TABLETS (FP) PO SCH ×2 (07:32→17:17)
[2022-11-05] MEDS: PRENATAL VITAMINS W/ FOLIC ACID TABLET (FP) PO SCH (10:21)
[2022-11-05] MEDS: QUEtiapine FUMARATE 25 MG TABLET PO SCH ×2 (10:22→22:06)
[2022-11-05] MEDS: DIGOXIN 0.125 MG TABLET PO SCH (10:23)
[2022-11-05] MEDS: APIXABAN 5 MG TABLET PO SCH ×2 (10:23→22:06)
[2022-11-05] MEDS: levETIRAcetam 500 MG TABLET (FP) PO SCH ×2 (10:23→22:06)
[2022-11-05] MEDS: ACETAMINOPHEN 325 MG TABLET (FP) PO PRN ×2 (10:25→22:07)
[2022-11-05] MEDS: NICOTINE 10 MG CARTRIDGE (INHALER) IH SCH (16:20)
[2022-11-05] MEDS: BENZOCAINE/MENTHOL (CHLORASEPTIC ) LOZENGE MM PRN (22:04)
[2022-11-05] MEDS: THIAMINE HCL 100 MG TABLET (FP) PO SCH (22:06)
[2022-11-05] MEDS: PHENYTOIN NA EXTENDED 100 MG CAPSULE (FP) PO SCH (22:06)
[2022-11-05] MEDS: OLANZapine 5 MG TABLET PO SCH (22:06)
[2022-11-06] MEDS: VITAMINS A AND D TOPICAL OINTMENT 60 GM TUBE TP SCH ×5 (00:09→23:54)
[2022-11-06] MEDS: BACLOFEN 10 MG TABLET (FP) PO PRN ×2 (06:11→21:32)
[2022-11-06] MEDS: AMOX TR/POT CLAV 500MG/125MG TABLETS (FP) PO SCH ×2 (07:35→17:26)
[2022-11-06] MEDS: ALBUTEROL SO4 HFA INHALER IH PRN (08:08)
[2022-11-06] MEDS: APIXABAN 5 MG TABLET PO SCH ×2 (09:55→21:33)
[2022-11-06] MEDS: QUEtiapine FUMARATE 25 MG TABLET PO SCH ×2 (09:55→21:33)
[2022-11-06] MEDS: levETIRAcetam 500 MG TABLET (FP) PO SCH ×2 (09:55→21:33)
[2022-11-06] MEDS: DIGOXIN 0.125 MG TABLET PO SCH (09:56)
[2022-11-06] MEDS: NICOTINE 10 MG CARTRIDGE (INHALER) IH SCH (09:56)
[2022-11-06] MEDS: PRENATAL VITAMINS W/ FOLIC ACID TABLET (FP) PO SCH (09:56)
[2022-11-06] MEDS: ACETAMINOPHEN 325 MG TABLET (FP) PO PRN (09:58)
[2022-11-06] MEDS ORDERED: LIDOCAINE 5% TOPICAL PATCH TP PRN (11:47)
[2022-11-06] MEDS: hydrOXYzine PAMOATE 25 MG CAPSULE (FP) PO PRN (15:45)
[2022-11-06] MEDS: PHENYTOIN NA EXTENDED 100 MG CAPSULE (FP) PO SCH (21:32)
[2022-11-06] MEDS: MELATONIN 5 MG TABLETS PO SCH (21:32)
[2022-11-06] MEDS: IBUPROFEN 400 MG TABLET (FP) PO PRN (21:33)
[2022-11-06] MEDS: THIAMINE HCL 100 MG TABLET (FP) PO SCH (21:33)
[2022-11-06] MEDS: OLANZapine 5 MG TABLET PO SCH (21:36)
[2022-11-06] MEDS ORDERED: LIDOCAINE PATCH REMOVAL MC SCH (22:00)
[2022-11-07] MEDS: ACETAMINOPHEN 325 MG TABLET (FP) PO PRN ×2 (04:09→18:53)
[2022-11-07] MEDS: VITAMINS A AND D TOPICAL OINTMENT 60 GM TUBE TP SCH ×3 (06:13→18:07)
[2022-11-07] MEDS: IBUPROFEN 400 MG TABLET (FP) PO PRN (06:15)
[2022-11-07] MEDS: BACLOFEN 10 MG TABLET (FP) PO PRN ×2 (06:18→21:46)
[2022-11-07] MEDS: AMOX TR/POT CLAV 500MG/125MG TABLETS (FP) PO SCH (07:22)
[2022-11-07] MEDS: QUEtiapine FUMARATE 25 MG TABLET PO SCH ×2 (09:59→21:47)
[2022-11-07] MEDS: levETIRAcetam 500 MG TABLET (FP) PO SCH ×2 (09:59→21:46)
[2022-11-07] MEDS: APIXABAN 5 MG TABLET PO SCH ×2 (09:59→21:46)
[2022-11-07] MEDS: DIGOXIN 0.125 MG TABLET PO SCH (10:02)
[2022-11-07] MEDS: NICOTINE 10 MG CARTRIDGE (INHALER) IH SCH (10:03)
[2022-11-07] MEDS: PRENATAL VITAMINS W/ FOLIC ACID TABLET (FP) PO SCH (10:03)
[2022-11-07] MEDS: ALBUTEROL SO4 HFA INHALER IH PRN (11:35)
[2022-11-07] MEDS ORDERED: LIDOCAINE HCL 5% TOP OINTMENT 50 GM TUBE TP ONE (12:00)
[2022-11-07] MEDS: PHENYTOIN NA EXTENDED 100 MG CAPSULE (FP) PO SCH (21:46)
[2022-11-07] MEDS: OLANZapine 5 MG TABLET PO SCH (21:46)
[2022-11-07] MEDS: THIAMINE HCL 100 MG TABLET (FP) PO SCH (21:47)
[2022-11-07] MEDS: MELATONIN 5 MG TABLETS PO SCH (21:47)
[2022-11-07] MEDS ORDERED: LIDOCAINE 5% TOPICAL PATCH TP ONE (23:38)
[2022-11-08] MEDS: hydrOXYzine PAMOATE 25 MG CAPSULE (FP) PO PRN ×2 (01:23→21:31)
[2022-11-08] MEDS: VITAMINS A AND D TOPICAL OINTMENT 60 GM TUBE TP SCH ×4 (01:24→21:34)
[2022-11-08 08:04] VITALS: RESP 18
[2022-11-08] MEDS: NICOTINE 10 MG CARTRIDGE (INHALER) IH SCH (10:02)
[2022-11-08] MEDS: NICOTINE 7 MG/24 HOURS TOPICAL PATCH TD SCH (10:02)
[2022-11-08] MEDS: PRENATAL VITAMINS W/ FOLIC ACID TABLET (FP) PO SCH (10:03)
[2022-11-08] MEDS: LIDOCAINE PATCH REMOVAL MC SCH (10:04)
[2022-11-08] MEDS: APIXABAN 5 MG TABLET PO SCH ×2 (10:05→21:30)
[2022-11-08] MEDS: levETIRAcetam 500 MG TABLET (FP) PO SCH ×2 (10:05→21:30)
[2022-11-08] MEDS: QUEtiapine FUMARATE 25 MG TABLET PO SCH ×2 (10:06→21:30)
[2022-11-08] MEDS: DIGOXIN 0.125 MG TABLET PO SCH (10:06)
[2022-11-08] MEDS: LIDOCAINE HCL 5% TOP OINTMENT 50 GM TUBE TP SCH (10:06)
[2022-11-08] MEDS: BACLOFEN 10 MG TABLET (FP) PO PRN ×2 (10:08→21:32)
[2022-11-08] MEDS: MELATONIN 5 MG TABLETS PO SCH (21:30)
[2022-11-08] MEDS: OLANZapine 5 MG TABLET PO SCH (21:30)
[2022-11-08] MEDS: PHENYTOIN NA EXTENDED 100 MG CAPSULE (FP) PO SCH (21:30)
[2022-11-08] MEDS: ACETAMINOPHEN 325 MG TABLET (FP) PO PRN (21:31)
[2022-11-08] MEDS: THIAMINE HCL 100 MG TABLET (FP) PO SCH (21:34)
[2022-11-09] MEDS: VITAMINS A AND D TOPICAL OINTMENT 60 GM TUBE TP SCH ×4 (01:39→19:56)
[2022-11-09] MEDS: ACETAMINOPHEN 325 MG TABLET (FP) PO PRN (07:29)
[2022-11-09] MEDS: QUEtiapine FUMARATE 25 MG TABLET PO SCH ×2 (10:01→21:19)
[2022-11-09] MEDS: APIXABAN 5 MG TABLET PO SCH ×2 (10:01→21:19)
[2022-11-09] MEDS: levETIRAcetam 500 MG TABLET (FP) PO SCH ×2 (10:01→21:19)
[2022-11-09] MEDS: PRENATAL VITAMINS W/ FOLIC ACID TABLET (FP) PO SCH ×2 (10:01→10:21)
[2022-11-09] MEDS: DIGOXIN 0.125 MG TABLET PO SCH (10:01)
[2022-11-09] MEDS: NICOTINE 7 MG/24 HOURS TOPICAL PATCH TD SCH (10:02)
[2022-11-09] MEDS: NICOTINE 10 MG CARTRIDGE (INHALER) IH SCH (10:03)
[2022-11-09] MEDS: LIDOCAINE HCL 5% TOP OINTMENT 50 GM TUBE TP SCH ×2 (10:04→10:21)
[2022-11-09] MEDS: LIDOCAINE PATCH REMOVAL MC SCH (10:22)
[2022-11-09] MEDS ORDERED: LIDOCAINE HCL 5% TOP OINTMENT 50 GM TUBE TP PRN (13:38)
[2022-11-09] MEDS: ALBUTEROL SO4 HFA INHALER IH PRN ×2 (19:02→21:19)
[2022-11-09] MEDS: MELATONIN 5 MG TABLETS PO SCH (21:19)
[2022-11-09] MEDS: OLANZapine 5 MG TABLET PO SCH (21:19)
[2022-11-09] MEDS: THIAMINE HCL 100 MG TABLET (FP) PO SCH (21:19)
[2022-11-09] MEDS: PHENYTOIN NA EXTENDED 100 MG CAPSULE (FP) PO SCH (21:19)
[2022-11-10] MEDS: VITAMINS A AND D TOPICAL OINTMENT 60 GM TUBE TP SCH ×4 (01:25→19:46)
[2022-11-10] MEDS: PHENYTOIN NA EXTENDED 100 MG CAPSULE (FP) PO SCH (09:00)
[2022-11-10] MEDS: QUEtiapine FUMARATE 25 MG TABLET PO SCH ×2 (10:12→21:19)
[2022-11-10] MEDS: APIXABAN 5 MG TABLET PO SCH ×2 (10:12→21:19)
[2022-11-10] MEDS: levETIRAcetam 500 MG TABLET (FP) PO SCH ×2 (10:12→21:20)
[2022-11-10] MEDS: PRENATAL VITAMINS W/ FOLIC ACID TABLET (FP) PO SCH (10:13)
[2022-11-10] MEDS: LIDOCAINE PATCH REMOVAL MC SCH (10:13)
[2022-11-10] MEDS: NICOTINE 7 MG/24 HOURS TOPICAL PATCH TD SCH (10:13)
[2022-11-10] MEDS: NICOTINE 10 MG CARTRIDGE (INHALER) IH SCH (10:13)
[2022-11-10] MEDS: DIGOXIN 0.125 MG TABLET PO SCH (10:15)
[2022-11-10] MEDS: ACETAMINOPHEN 325 MG TABLET (FP) PO PRN (10:16)
[2022-11-10] MEDS: THIAMINE HCL 100 MG TABLET (FP) PO SCH (21:19)
[2022-11-10] MEDS: OLANZapine 5 MG TABLET PO SCH (21:19)
[2022-11-10] MEDS: MELATONIN 5 MG TABLETS PO SCH (21:20)
[2022-11-10] MEDS: hydrOXYzine PAMOATE 25 MG CAPSULE (FP) PO PRN (21:22)
[2022-11-11] MEDS: VITAMINS A AND D TOPICAL OINTMENT 60 GM TUBE TP SCH ×2 (01:00→06:50)
[2022-11-11 07:31] VITALS: BP 130/73; TEMP 97.4
[2022-11-11] MEDS: APIXABAN 5 MG TABLET PO SCH (10:13)
[2022-11-11] MEDS: QUEtiapine FUMARATE 25 MG TABLET PO SCH (10:13)
[2022-11-11] MEDS: PRENATAL VITAMINS W/ FOLIC ACID TABLET (FP) PO SCH (10:13)
[2022-11-11] MEDS: NICOTINE 10 MG CARTRIDGE (INHALER) IH SCH (10:14)
[2022-11-11] MEDS: DIGOXIN 0.125 MG TABLET PO SCH (10:14)
[2022-11-11] MEDS: LIDOCAINE PATCH REMOVAL MC SCH (10:14)
[2022-11-11] MEDS: NICOTINE 7 MG/24 HOURS TOPICAL PATCH TD SCH (10:14)
[2022-11-11] MEDS: levETIRAcetam 500 MG TABLET (FP) PO SCH (10:14)
[2022-11-11 10:17] VITALS: PULSE 85
== END 2022-11-11 12:25 | disposition home or self-care (01) | DRG 772 ==
LOC: YASAS 14:41 → Y5N 18:42
PROVIDERS: ADMIT Allergy & Immunology; ATTEND Psychiatry & Neurology Pain Medicine
PROC: HZ42ZZZ Group Counseling for Substance Abuse Treatment, Cognitive-Behavioral (ICD-10-PCS; principal; 2022-10-26)
DX: F10.20 Alcohol dependence, uncomplicated (principal); F14.20 Cocaine dependence, uncomplicated; F17.210 Nicotine dependence, cigarettes, uncomplicated; F19.24 Other psychoactive substance dependence with psychoactive substance-induced mood disorder; I10 Essential (primary) hypertension; I48.91 Unspecified atrial fibrillation; G40.909 Epilepsy, unspecified, not intractable, without status epilepticus; G47.00 Insomnia, unspecified; G56.03 Carpal tunnel syndrome, bilateral upper limbs; J44.9 Chronic obstructive pulmonary disease, unspecified; K08.89 Other specified disorders of teeth and supporting structures; L30.9 Dermatitis, unspecified; L85.0 Acquired ichthyosis; M25.511 Pain in right shoulder; M54.2 Cervicalgia; W06.XXXA Fall from bed, initial encounter; Y92.230 Patient room in hospital as the place of occurrence of the external cause; R26.89 Other abnormalities of gait and mobility; Z99.89 Dependence on other enabling machines and devices; Z88.6 Allergy status to analgesic agent; Z79.01 Long term (current) use of anticoagulants
CPT/HCPCS: 36415; 71101-TC-RT-FY; 72050-TC-FY; 80162; 80177; 80185; 81025; 93005; 93010; C9803-CS; J0475; U0003; U0005

== ENCOUNTER 2022-11-08 11:10 | Emergency (ER) | payer OTHER ==
[2022-11-08 11:26] VITALS: BP 104/71; PULSE 90; RESP 18; TEMP 97.7; BMI 27.4
[2022-11-08] MEDS ORDERED: ACETAMINOPHEN 325 MG TABLET (FP) PO ONE (12:38)
[2022-11-08] MEDS ORDERED: ACETAMINOPHEN 325 MG TABLET (FP) ONE (12:40)
== END 2022-11-08 15:00 | disposition home or self-care (01) ==
LOC: JER 11:10
DX: S46.911A Strain of unspecified muscle, fascia and tendon at shoulder and upper arm level, right arm, initial encounter (principal); M25.511 Pain in right shoulder; M54.2 Cervicalgia; R51.9 Headache, unspecified; M54.50 Low back pain, unspecified; W01.198A Fall on same level from slipping, tripping and stumbling with subsequent striking against other object, initial encounter; Y93.01 Activity, walking, marching and hiking
CPT/HCPCS: 70450-TC; 71046-TC-FY; 72125-TC; 73030-TC-RT-FY; 73060-TC-RT-FY; 99284-25

== ENCOUNTER 2023-01-08 10:27 | Inpatient (IN) | payer OTHER ==
[2023-01-08 11:54] VITALS: BMI 27.4
[2023-01-08] MEDS ORDERED: LOPERAMIDE HCL 2 MG CAPSULE PO PRN (14:09)
[2023-01-08] MEDS ORDERED: METHOCARBAMOL 500 MG TABLET PO PRN (14:09)
[2023-01-08] MEDS ORDERED: chlordiazePOXIDE HCL 25 MG CAPSULE PO PRN (14:09)
[2023-01-08] MEDS ORDERED: hydrOXYzine PAMOATE 25 MG CAPSULE (FP) PO PRN (14:09)
[2023-01-08] MEDS ORDERED: ONDANSETRON *ODT* 4 MG TABLET SL PRN (14:09)
[2023-01-08] MEDS ORDERED: MAGNESIUM HYDROX 2400MG/30ML ORAL SUSPENSION 30 ML CUP PO PRN (14:09)
[2023-01-08] MEDS ORDERED: IBUPROFEN 400 MG TABLET (FP) PO PRN (14:09)
[2023-01-08] MEDS ORDERED: BISMUTH SUBSALICYLATE 524 MG/30 ML PO PRN (14:09)
[2023-01-08] MEDS ORDERED: BENZOCAINE/MENTHOL (CHLORASEPTIC ) LOZENGE MM PRN (14:09)
[2023-01-08] MEDS ORDERED: ACETAMINOPHEN 325 MG TABLET (FP) PO PRN (14:09)
[2023-01-08] MEDS ORDERED: IBUPROFEN 600 MG TABLET (FP) PO PRN (14:09)
[2023-01-08] MEDS ORDERED: guaiFENesin 600 MG TABLET.ER (FP) PO PRN (14:09)
[2023-01-08] MEDS ORDERED: DICYCLOMINE HCL 10 MG CAPSULE PO PRN (14:09)
[2023-01-08] MEDS ORDERED: MAG HYDROX/AL HYDROX/SIMETH 30 ML UNIT-DOSE CUP PO PRN (14:09)
[2023-01-08] MEDS ORDERED: NALOXONE HCL 0.4 MG/ML VIAL IM PRN (14:09)
[2023-01-08] MEDS ORDERED: POLYETHYLENE GLYCOL (HEALTHYLAX) 3350 17 GM PACKET PO PRN (14:09)
[2023-01-08] MEDS ORDERED: NALOXONE HCL (KLOXXADO) 8 MG SPRAY NS PRN (14:09)
[2023-01-08] MEDS ORDERED: BENZONATATE 200 MG CAPSULE PO PRN (14:09)
[2023-01-08] MEDS ORDERED: ALBUTEROL SO4 HFA INHALER IH PRN (14:19)
[2023-01-08] MEDS: chlordiazePOXIDE HCL 25 MG CAPSULE PO SCH ×2 (17:18→22:13)
[2023-01-08] MEDS: THIAMINE HCL 100 MG TABLET (FP) PO SCH ×2 (22:13→22:16)
[2023-01-08] MEDS: MELATONIN 5 MG TABLETS PO SCH (22:13)
[2023-01-08] MEDS: APIXABAN 5 MG TABLET PO SCH (22:14)
[2023-01-08] MEDS: levETIRAcetam 500 MG TABLET (FP) PO SCH (22:14)
[2023-01-09] MEDS: chlordiazePOXIDE HCL 25 MG CAPSULE PO SCH ×2 (05:53→10:21)
[2023-01-09] MEDS: PRENATAL VITAMINS W/ FOLIC ACID TABLET (FP) PO SCH (10:21)
[2023-01-09] MEDS: QUEtiapine FUMARATE 25 MG TABLET PO SCH ×2 (10:22→21:45)
[2023-01-09] MEDS: levETIRAcetam 500 MG TABLET (FP) PO SCH ×2 (10:22→21:45)
[2023-01-09] MEDS: APIXABAN 5 MG TABLET PO SCH ×2 (10:22→21:45)
[2023-01-09] MEDS ORDERED: LIDOCAINE 5% TOPICAL PATCH TP PRN (10:50)
[2023-01-09] MEDS ORDERED: METHOCARBAMOL 500 MG TABLET PO PRN (10:51)
[2023-01-09 10:52] LABS: POTASSIUM 4.6 mmol/L (3.5-5.1)
[2023-01-09] MEDS ORDERED: NICOTINE 7 MG/24 HOURS TOPICAL PATCH TD PRN (10:52)
[2023-01-09 10:53] LABS: HEMOGLOBIN 13.9 GM/dL (10.7-15.3); MCH 30.4 pg (25.7-33.7); MCHC 33.1 g/dl (32.0-36.0); MEAN CELL VOLUME 91.9 fl (80-96); MEAN PLT VOLUME 9.4 fl (7.5-11.1); PLATELET COUNT 273 10^3/uL (134-434); RBC 4.57 M/mm3 (3.60-5.2); RDW 14.1 % (11.6-15.6); WHITE BLOOD COUNT 6.5 K/mm3 (4.0-10.0)
[2023-01-09 11:03] LABS: CALCIUM 9.1 mg/dL (8.5-10.1)
[2023-01-09 11:04] LABS: ALBUMIN 3.7 g/dl (3.4-5.0); CREATININE 0.6 mg/dL (0.55-1.3)
[2023-01-09 11:06] LABS: BILIRUBIN,TOTAL 0.2 mg/dL (0.2-1)
[2023-01-09] MEDS: DIGOXIN 0.125 MG TABLET PO SCH (11:30)
[2023-01-09] MEDS ORDERED: ACETAMINOPHEN 325 MG TABLET (FP) PO PRN (13:55)
[2023-01-09] MEDS ORDERED: chlordiazePOXIDE HCL 25 MG CAPSULE PO SCH (17:00)
[2023-01-09] MEDS: chlordiazePOXIDE HCL 10 MG CAPSULE PO SCH ×2 (17:25→22:24)
[2023-01-09] MEDS: THIAMINE HCL 100 MG TABLET (FP) PO SCH (21:45)
[2023-01-09] MEDS: MELATONIN 5 MG TABLETS PO SCH (21:46)
[2023-01-09] MEDS ORDERED: LIDOCAINE PATCH REMOVAL MC SCH (22:00)
[2023-01-09] MEDS ORDERED: OLANZapine 5 MG TABLET PO SCH (22:00)
[2023-01-10] MEDS: chlordiazePOXIDE HCL 25 MG CAPSULE PO SCH ×3 (05:52→17:29)
[2023-01-10] MEDS: levETIRAcetam 500 MG TABLET (FP) PO SCH (10:31)
[2023-01-10] MEDS: APIXABAN 5 MG TABLET PO SCH (10:31)
[2023-01-10] MEDS: PRENATAL VITAMINS W/ FOLIC ACID TABLET (FP) PO SCH (10:31)
[2023-01-10] MEDS: QUEtiapine FUMARATE 25 MG TABLET PO SCH (10:31)
[2023-01-10] MEDS: DIGOXIN 0.125 MG TABLET PO SCH (10:32)
[2023-01-10 13:03] VITALS: BP 114/56; PULSE 85; RESP 17; TEMP 96.9
[2023-01-11] MEDS ORDERED: chlordiazePOXIDE HCL 10 MG CAPSULE PO PRN
[2023-01-11] MEDS ORDERED: chlordiazePOXIDE HCL 10 MG CAPSULE PO SCH (05:00)
[2023-01-12] MEDS ORDERED: chlordiazePOXIDE HCL 10 MG CAPSULE PO SCH (05:00)
[2023-01-13] MEDS ORDERED: chlordiazePOXIDE HCL 10 MG CAPSULE PO ONE (05:00)
== END 2023-01-10 17:48 | disposition left against medical advice (07) | DRG 770 ==
LOC: YASAS 10:27 → Y6N 14:59
PROVIDERS: ADMIT Allergy & Immunology; ATTEND Surgery
PROC: HZ2ZZZZ Detoxification Services for Substance Abuse Treatment (ICD-10-PCS; principal; 2023-01-08)
DX: F10.230 Alcohol dependence with withdrawal, uncomplicated (principal); F14.20 Cocaine dependence, uncomplicated; F17.210 Nicotine dependence, cigarettes, uncomplicated; F19.282 Other psychoactive substance dependence with psychoactive substance-induced sleep disorder; F19.24 Other psychoactive substance dependence with psychoactive substance-induced mood disorder; G40.909 Epilepsy, unspecified, not intractable, without status epilepticus; I11.0 Hypertensive heart disease with heart failure; I50.9 Heart failure, unspecified; J44.9 Chronic obstructive pulmonary disease, unspecified; J45.20 Mild intermittent asthma, uncomplicated; Z62.810 Personal history of physical and sexual abuse in childhood; I25.2 Old myocardial infarction; Z86.11 Personal history of tuberculosis; Z09 Encounter for follow-up examination after completed treatment for conditions other than malignant neoplasm; Z86.718 Personal history of other venous thrombosis and embolism; Z79.01 Long term (current) use of anticoagulants; Z99.89 Dependence on other enabling machines and devices; Z88.6 Allergy status to analgesic agent; Z86.79 Personal history of other diseases of the circulatory system
CPT/HCPCS: 36415; 80053; 80162; 81025; 85027; 86593; 86780; 87635; 87811; 93005; 93010

== ENCOUNTER 2023-01-21 11:33 | Inpatient (IN) | payer OTHER ==
[2023-01-21 12:04] VITALS: BMI 25.4
[2023-01-21] MEDS ORDERED: IBUPROFEN 400 MG TABLET (FP) PO PRN (14:38)
[2023-01-21] MEDS ORDERED: guaiFENesin 600 MG TABLET.ER (FP) PO PRN (14:38)
[2023-01-21] MEDS ORDERED: LOPERAMIDE HCL 2 MG CAPSULE PO PRN (14:38)
[2023-01-21] MEDS ORDERED: DICYCLOMINE HCL 10 MG CAPSULE PO PRN (14:38)
[2023-01-21] MEDS ORDERED: MAG HYDROX/AL HYDROX/SIMETH 30 ML UNIT-DOSE CUP PO PRN (14:38)
[2023-01-21] MEDS ORDERED: NALOXONE HCL 0.4 MG/ML VIAL IM PRN (14:38)
[2023-01-21] MEDS ORDERED: NALOXONE HCL (KLOXXADO) 8 MG SPRAY NS PRN (14:38)
[2023-01-21] MEDS ORDERED: chlordiazePOXIDE HCL 25 MG CAPSULE PO PRN (14:38)
[2023-01-21] MEDS ORDERED: ONDANSETRON *ODT* 4 MG TABLET SL PRN (14:38)
[2023-01-21] MEDS ORDERED: MAGNESIUM HYDROX 2400MG/30ML ORAL SUSPENSION 30 ML CUP PO PRN (14:38)
[2023-01-21] MEDS ORDERED: BENZOCAINE/MENTHOL (CHLORASEPTIC ) LOZENGE MM PRN (14:38)
[2023-01-21] MEDS ORDERED: POLYETHYLENE GLYCOL (HEALTHYLAX) 3350 17 GM PACKET PO PRN (14:38)
[2023-01-21] MEDS ORDERED: ACETAMINOPHEN 325 MG TABLET (FP) PO PRN (14:38)
[2023-01-21] MEDS ORDERED: BENZONATATE 200 MG CAPSULE PO PRN (14:38)
[2023-01-21] MEDS ORDERED: NITROGLYCERIN SUBLINGUAL 1/150 0.4 MG TAB SL PRN (15:19)
[2023-01-21] MEDS ORDERED: chlordiazePOXIDE HCL 25 MG CAPSULE ONE (17:16)
[2023-01-21] MEDS: chlordiazePOXIDE HCL 25 MG CAPSULE PO SCH ×2 (17:19→22:43)
[2023-01-21] MEDS ORDERED: FAMOTIDINE 20 MG TABLET PO ONE (17:30)
[2023-01-21] MEDS: BISMUTH SUBSALICYLATE 524 MG/30 ML PO PRN ×2 (17:53→22:43)
[2023-01-21] MEDS: FAMOTIDINE 20 MG TABLET PO SCH (22:41)
[2023-01-21] MEDS: MELATONIN 5 MG TABLETS PO SCH (22:41)
[2023-01-21] MEDS: THIAMINE HCL 100 MG TABLET (FP) PO SCH (22:42)
[2023-01-21] MEDS: levETIRAcetam 500 MG TABLET (FP) PO SCH (22:42)
[2023-01-21] MEDS: APIXABAN 5 MG TABLET PO SCH (22:43)
[2023-01-22] MEDS: hydrOXYzine PAMOATE 25 MG CAPSULE (FP) PO PRN ×2 (03:41→19:27)
[2023-01-22] MEDS: BISMUTH SUBSALICYLATE 524 MG/30 ML PO PRN ×5 (03:43→19:28)
[2023-01-22] MEDS: chlordiazePOXIDE HCL 25 MG CAPSULE PO SCH ×4 (05:58→22:42)
[2023-01-22] MEDS ORDERED: levETIRAcetam 500 MG TABLET (FP) PO SCH (10:00)
[2023-01-22] MEDS: PRENATAL VITAMINS W/ FOLIC ACID TABLET (FP) PO SCH (10:29)
[2023-01-22] MEDS: FAMOTIDINE 20 MG TABLET PO SCH ×2 (10:29→22:41)
[2023-01-22] MEDS: APIXABAN 5 MG TABLET PO SCH ×2 (10:30→22:42)
[2023-01-22] MEDS: levETIRAcetam 500 MG TABLET (FP) PO SCH ×2 (10:30→22:42)
[2023-01-22] MEDS: DIGOXIN 0.125 MG TABLET PO SCH (11:09)
[2023-01-22] MEDS ORDERED: QUEtiapine FUMARATE 25 MG TABLET PO SCH (11:30)
[2023-01-22] MEDS ORDERED: LIDOCAINE 5% TOPICAL PATCH TP PRN (13:33)
[2023-01-22] MEDS ORDERED: LIDOCAINE PATCH REMOVAL MC SCH ×3 (22:00)
[2023-01-22] MEDS ORDERED: APIXABAN 5 MG TABLET PO SCH (22:00)
[2023-01-22] MEDS: MELATONIN 5 MG TABLETS PO SCH (22:41)
[2023-01-22] MEDS: OLANZapine 5 MG TABLET PO SCH (22:42)
[2023-01-22] MEDS: THIAMINE HCL 100 MG TABLET (FP) PO SCH (22:42)
[2023-01-22] MEDS: QUEtiapine FUMARATE 25 MG TABLET PO SCH (22:44)
[2023-01-22] MEDS: LIDOCAINE 5% TOPICAL PATCH TP PRN (23:10)
[2023-01-23] MEDS: chlordiazePOXIDE HCL 25 MG CAPSULE PO SCH ×4 (05:35→22:43)
[2023-01-23] MEDS ORDERED: LIDOCAINE 5% TOPICAL PATCH TP SCH ×2 (10:00)
[2023-01-23] MEDS: FAMOTIDINE 10 MG TABLET PO SCH ×2 (10:10→22:43)
[2023-01-23] MEDS: QUEtiapine FUMARATE 25 MG TABLET PO SCH ×2 (10:11→22:42)
[2023-01-23] MEDS: DIGOXIN 0.125 MG TABLET PO SCH (10:11)
[2023-01-23] MEDS: APIXABAN 5 MG TABLET PO SCH ×2 (10:11→22:42)
[2023-01-23] MEDS: levETIRAcetam 500 MG TABLET (FP) PO SCH ×2 (10:11→22:42)
[2023-01-23] MEDS: PRENATAL VITAMINS W/ FOLIC ACID TABLET (FP) PO SCH (10:13)
[2023-01-23] MEDS: LIDOCAINE PATCH REMOVAL MC SCH (10:13)
[2023-01-23] MEDS: BISMUTH SUBSALICYLATE 524 MG/30 ML PO PRN ×2 (10:14→12:59)
[2023-01-23 11:37] LABS: HEMOGLOBIN 12.9 GM/dL (10.7-15.3); MCH 29.4 pg (25.7-33.7); MCHC 32.4 g/dl (32.0-36.0); MEAN PLT VOLUME 9.4 fl (7.5-11.1); PLATELET COUNT 241 10^3/uL (134-434); RBC 4.39 M/mm3 (3.60-5.2); RDW 13.8 % (11.6-15.6); WHITE BLOOD COUNT 10.7 K/mm3 (4.0-10.0)
[2023-01-23 11:51] LABS: POTASSIUM 3.6 mmol/L (3.5-5.1)
[2023-01-23 11:59] LABS: CALCIUM 8.5 mg/dL (8.5-10.1)
[2023-01-23 12:00] LABS: BLOOD UREA NITROGEN 6.2 mg/dL (7-18)
[2023-01-23 12:03] LABS: CREATININE 0.5 mg/dL (0.55-1.3)
[2023-01-23 12:05] LABS: BILIRUBIN,TOTAL 0.4 mg/dL (0.2-1); TOT PROT 6.8 g/dl (6.4-8.2)
[2023-01-23 12:07] LABS: ALBUMIN 2.9 g/dl (3.4-5.0)
[2023-01-23] MEDS: THIAMINE HCL 100 MG TABLET (FP) PO SCH (22:42)
[2023-01-23] MEDS: OLANZapine 5 MG TABLET PO SCH (22:42)
[2023-01-23] MEDS: MELATONIN 5 MG TABLETS PO SCH (22:47)
[2023-01-24] MEDS ORDERED: chlordiazePOXIDE HCL 10 MG CAPSULE PO PRN
[2023-01-24] MEDS: chlordiazePOXIDE HCL 10 MG CAPSULE PO SCH ×4 (05:55→22:21)
[2023-01-24] MEDS: hydrOXYzine PAMOATE 25 MG CAPSULE (FP) PO PRN ×2 (05:57→17:25)
[2023-01-24] MEDS: DIGOXIN 0.125 MG TABLET PO SCH (10:35)
[2023-01-24] MEDS: levETIRAcetam 500 MG TABLET (FP) PO SCH ×2 (10:36→22:21)
[2023-01-24] MEDS: FAMOTIDINE 10 MG TABLET PO SCH ×2 (10:36→22:23)
[2023-01-24] MEDS: QUEtiapine FUMARATE 25 MG TABLET PO SCH ×2 (10:36→22:21)
[2023-01-24] MEDS: APIXABAN 5 MG TABLET PO SCH ×2 (10:36→22:21)
[2023-01-24] MEDS: BISMUTH SUBSALICYLATE 524 MG/30 ML PO PRN ×2 (10:38→19:34)
[2023-01-24] MEDS: PRENATAL VITAMINS W/ FOLIC ACID TABLET (FP) PO SCH (10:41)
[2023-01-24] MEDS: LIDOCAINE PATCH REMOVAL MC SCH (10:55)
[2023-01-24] MEDS: ALBUTEROL SO4 HFA INHALER IH PRN ×2 (16:33→21:32)
[2023-01-24] MEDS: IBUPROFEN 600 MG TABLET (FP) PO PRN (17:25)
[2023-01-24] MEDS: METHOCARBAMOL 500 MG TABLET PO PRN ×2 (17:25→22:26)
[2023-01-24] MEDS: THIAMINE HCL 100 MG TABLET (FP) PO SCH (22:21)
[2023-01-24] MEDS: OLANZapine 5 MG TABLET PO SCH (22:21)
[2023-01-24] MEDS: MELATONIN 5 MG TABLETS PO SCH (22:21)
[2023-01-24] MEDS: LIDOCAINE 5% TOPICAL PATCH TP PRN (22:23)
[2023-01-25] MEDS: ALBUTEROL SO4 HFA INHALER IH PRN ×2 (00:44→04:10)
[2023-01-25] MEDS: hydrOXYzine PAMOATE 25 MG CAPSULE (FP) PO PRN ×2 (01:37→03:55)
[2023-01-25] MEDS: METHOCARBAMOL 500 MG TABLET PO PRN ×3 (03:55→22:18)
[2023-01-25] MEDS: IBUPROFEN 600 MG TABLET (FP) PO PRN (03:56)
[2023-01-25] MEDS: BISMUTH SUBSALICYLATE 524 MG/30 ML PO PRN ×3 (05:41→17:38)
[2023-01-25] MEDS: chlordiazePOXIDE HCL 10 MG CAPSULE PO SCH ×2 (05:42→17:37)
[2023-01-25] MEDS: PRENATAL VITAMINS W/ FOLIC ACID TABLET (FP) PO SCH (09:46)
[2023-01-25] MEDS: APIXABAN 5 MG TABLET PO SCH ×2 (09:47→22:18)
[2023-01-25] MEDS: QUEtiapine FUMARATE 25 MG TABLET PO SCH ×2 (09:47→22:18)
[2023-01-25] MEDS: levETIRAcetam 500 MG TABLET (FP) PO SCH ×2 (09:47→22:18)
[2023-01-25] MEDS: FAMOTIDINE 10 MG TABLET PO SCH ×2 (09:47→22:18)
[2023-01-25] MEDS: DIGOXIN 0.125 MG TABLET PO SCH (09:48)
[2023-01-25] MEDS: LIDOCAINE PATCH REMOVAL MC SCH (09:52)
[2023-01-25] MEDS ORDERED: COLLOIDAL OATMEAL 1 BAR EACH TP PRN (11:32)
[2023-01-25] MEDS: OLANZapine 5 MG TABLET PO SCH (22:18)
[2023-01-25] MEDS: MELATONIN 5 MG TABLETS PO SCH (22:18)
[2023-01-25] MEDS: THIAMINE HCL 100 MG TABLET (FP) PO SCH (22:20)
[2023-01-26] MEDS ORDERED: chlordiazePOXIDE HCL 10 MG CAPSULE PO ONE (05:00)
[2023-01-26 06:32] VITALS: BP 137/85; PULSE 71; RESP 18; TEMP 97.7
[2023-01-26 12:34] LABS: HIV INTERPRETATION NEGATIVE (NEGATIVE)
== END 2023-01-26 07:45 | disposition home or self-care (01) | DRG 774 ==
LOC: YASAS 11:33 → Y6N 16:39
PROVIDERS: ADMIT Allergy & Immunology; ATTEND Allergy & Immunology
PROC: HZ2ZZZZ Detoxification Services for Substance Abuse Treatment (ICD-10-PCS; principal; 2023-01-21)
DX: F10.230 Alcohol dependence with withdrawal, uncomplicated (principal); F14.20 Cocaine dependence, uncomplicated; F17.210 Nicotine dependence, cigarettes, uncomplicated; F31.9 Bipolar disorder, unspecified; F20.9 Schizophrenia, unspecified; J44.9 Chronic obstructive pulmonary disease, unspecified; J45.20 Mild intermittent asthma, uncomplicated; G40.909 Epilepsy, unspecified, not intractable, without status epilepticus; I48.91 Unspecified atrial fibrillation; Z79.01 Long term (current) use of anticoagulants; Z86.79 Personal history of other diseases of the circulatory system; Z86.69 Personal history of other diseases of the nervous system and sense organs; Z99.89 Dependence on other enabling machines and devices
CPT/HCPCS: 36415; 80053; 81025; 85027; 86593; 86780; 87389; 87635; 87811

== ENCOUNTER 2023-02-14 19:41 | Inpatient (IN) | payer OTHER ==
[2023-02-14 22:25] VITALS: BMI 24.7
[2023-02-15] MEDS ORDERED: NICOTINE POLACRILEX 2 MG GUM BUC PRN (03:22)
[2023-02-15] MEDS ORDERED: NALOXONE HCL (KLOXXADO) 8 MG SPRAY NS PRN (03:22)
[2023-02-15] MEDS ORDERED: BISMUTH SUBSALICYLATE 524 MG/30 ML PO PRN (03:22)
[2023-02-15] MEDS ORDERED: BENZOCAINE/MENTHOL (CHLORASEPTIC ) LOZENGE MM PRN (03:22)
[2023-02-15] MEDS ORDERED: guaiFENesin 600 MG TABLET.ER (FP) PO PRN (03:22)
[2023-02-15] MEDS ORDERED: MAGNESIUM HYDROX 2400MG/30ML ORAL SUSPENSION 30 ML CUP PO PRN (03:22)
[2023-02-15] MEDS ORDERED: NALOXONE HCL 0.4 MG/ML VIAL IM PRN (03:22)
[2023-02-15] MEDS ORDERED: DICYCLOMINE HCL 10 MG CAPSULE PO PRN (03:22)
[2023-02-15] MEDS ORDERED: LOPERAMIDE HCL 2 MG CAPSULE PO PRN (03:22)
[2023-02-15] MEDS ORDERED: BENZONATATE 200 MG CAPSULE PO PRN (03:22)
[2023-02-15] MEDS ORDERED: ACETAMINOPHEN 325 MG TABLET (FP) PO PRN (03:22)
[2023-02-15] MEDS ORDERED: ONDANSETRON *ODT* 4 MG TABLET SL PRN (03:22)
[2023-02-15] MEDS ORDERED: POLYETHYLENE GLYCOL (HEALTHYLAX) 3350 17 GM PACKET PO PRN (03:22)
[2023-02-15] MEDS ORDERED: MAG HYDROX/AL HYDROX/SIMETH 30 ML UNIT-DOSE CUP PO PRN (03:22)
[2023-02-15] MEDS ORDERED: chlordiazePOXIDE HCL 25 MG CAPSULE PO PRN (03:27)
[2023-02-15] MEDS: chlordiazePOXIDE HCL 25 MG CAPSULE PO SCH ×4 (06:00→22:26)
[2023-02-15 10:37] LABS: HEMATOCRIT 34.5 % (32.4-45.2); HEMOGLOBIN 11.7 GM/dL (10.7-15.3); MCH 29.5 pg (25.7-33.7); MCHC 33.9 g/dl (32.0-36.0); MEAN CELL VOLUME 86.9 fl (80-96); MEAN PLT VOLUME 8.7 fl (7.5-11.1); PLATELET COUNT 307 10^3/uL (134-434); RBC 3.96 M/mm3 (3.60-5.2); RDW 13.9 % (11.6-15.6); WHITE BLOOD COUNT 14.1 K/mm3 (4.0-10.0)
[2023-02-15 10:42] LABS: CHLORIDE 106 mmol/L (98-107)
[2023-02-15] MEDS: PRENATAL VITAMINS W/ FOLIC ACID TABLET (FP) PO SCH (10:46)
[2023-02-15] MEDS: METHOCARBAMOL 500 MG TABLET PO PRN (10:47)
[2023-02-15] MEDS: hydrOXYzine PAMOATE 25 MG CAPSULE (FP) PO PRN (10:47)
[2023-02-15] MEDS: NICOTINE 14 MG/24 HOURS TOPICAL PATCH TD SCH ×2 (10:48)
[2023-02-15] MEDS: QUEtiapine FUMARATE 25 MG TABLET PO SCH ×2 (10:51→22:26)
[2023-02-15 11:30] LABS: CALCIUM 8.9 mg/dL (8.5-10.1)
[2023-02-15 11:31] LABS: ALBUMIN 2.8 g/dl (3.4-5.0); BLOOD UREA NITROGEN 6.8 mg/dL (7-18); CO2 25 mmol/L (21-32); GLUCOSE,RANDOM 115 mg/dL (74-106)
[2023-02-15 11:34] LABS: CREATININE 0.5 mg/dL (0.55-1.3); SGOT/AST 11 U/L (15-37); SGPT/ALT 13 U/L (13-61)
[2023-02-15 11:36] LABS: BILIRUBIN,TOTAL 0.5 mg/dL (0.2-1); TOT PROT 7.2 g/dl (6.4-8.2)
[2023-02-15 11:37] LABS: ALK PHOS 74 U/L (45-117)
[2023-02-15 11:44] LABS: ANION GAP 11 MMOL/L (8-16); POTASSIUM 2.9 mmol/L (3.5-5.1); SODIUM 142 mmol/L (136-145)
[2023-02-15] MEDS ORDERED: POTASSIUM CHLORIDE ORAL LIQUID 20 MEQ/15 ML PO ONE ×3 (13:00→21:00)
[2023-02-15] MEDS: AMOX TR/POT CLAV 875MG/125MG TABLETS (FP) PO SCH (17:47)
[2023-02-15] MEDS: MELATONIN 5 MG TABLETS PO SCH (22:26)
[2023-02-15] MEDS: THIAMINE HCL 100 MG TABLET (FP) PO SCH (22:26)
[2023-02-15] MEDS: OLANZapine 5 MG TABLET PO SCH (22:35)
[2023-02-15 23:32] LABS: EPI CELLS >36 /uL (0-25.1); HYALINE CASTS 3 /uL (0-3.1); URINE APPEARANCE CLOUDY; URINE BACTERIA 1676 /uL (0-1359); URINE BILIRUBIN NEGATIVE (NEGATIVE); URINE COLOR YELLOW; URINE GLUCOSE (UA) NEGATIVE (NEGATIVE); URINE KETONE NEGATIVE (NEGATIVE); URINE LEUK ESTERASE 3+ (NEGATIVE); URINE NITRITE NEGATIVE (NEGATIVE); URINE PROTEIN TRACE (NEGATIVE); URINE RBC 14 /uL (0-23.9); URINE WBC 653 /uL (0-25.8)
[2023-02-16] MEDS: chlordiazePOXIDE HCL 25 MG CAPSULE PO SCH ×4 (05:32→22:26)
[2023-02-16] MEDS: hydrOXYzine PAMOATE 25 MG CAPSULE (FP) PO PRN (05:33)
[2023-02-16] MEDS: AMOX TR/POT CLAV 875MG/125MG TABLETS (FP) PO SCH ×2 (07:10→17:32)
[2023-02-16] MEDS: QUEtiapine FUMARATE 25 MG TABLET PO SCH ×2 (10:55→22:26)
[2023-02-16] MEDS: NICOTINE 14 MG/24 HOURS TOPICAL PATCH TD SCH (10:55)
[2023-02-16] MEDS: PRENATAL VITAMINS W/ FOLIC ACID TABLET (FP) PO SCH (10:55)
[2023-02-16] MEDS ORDERED: NITROFURANTOIN MACROCRYSTAL 50 MG CAPSULE (FP) PO SCH ×2 (12:00→18:00)
[2023-02-16] MEDS: NITROFURANTOIN MACROCRYSTAL 50 MG CAPSULE (FP) PO SCH (17:32)
[2023-02-16] MEDS: MELATONIN 5 MG TABLETS PO SCH (22:26)
[2023-02-16] MEDS: OLANZapine 5 MG TABLET PO SCH (22:26)
[2023-02-16] MEDS: THIAMINE HCL 100 MG TABLET (FP) PO SCH (22:26)
[2023-02-17] MEDS ORDERED: chlordiazePOXIDE HCL 10 MG CAPSULE PO PRN
[2023-02-17] MEDS: NITROFURANTOIN MACROCRYSTAL 50 MG CAPSULE (FP) PO SCH ×5 (00:29→17:55)
[2023-02-17] MEDS: chlordiazePOXIDE HCL 10 MG CAPSULE PO SCH ×5 (06:00→22:33)
[2023-02-17] MEDS: AMOX TR/POT CLAV 875MG/125MG TABLETS (FP) PO SCH ×2 (06:59→17:55)
[2023-02-17] MEDS: PRENATAL VITAMINS W/ FOLIC ACID TABLET (FP) PO SCH (10:56)
[2023-02-17] MEDS: NICOTINE 14 MG/24 HOURS TOPICAL PATCH TD SCH (10:56)
[2023-02-17] MEDS: QUEtiapine FUMARATE 25 MG TABLET PO SCH ×2 (10:57→22:33)
[2023-02-17] MEDS: METHOCARBAMOL 500 MG TABLET PO PRN (10:58)
[2023-02-17] MEDS: hydrOXYzine PAMOATE 25 MG CAPSULE (FP) PO PRN (10:58)
[2023-02-17 21:37] VITALS: TEMP 97.7
[2023-02-17] MEDS: THIAMINE HCL 100 MG TABLET (FP) PO SCH (22:33)
[2023-02-17] MEDS: OLANZapine 5 MG TABLET PO SCH (22:33)
[2023-02-17] MEDS: MELATONIN 5 MG TABLETS PO SCH (22:36)
[2023-02-18] MEDS ORDERED: chlordiazePOXIDE HCL 10 MG CAPSULE PO SCH (05:00)
[2023-02-18] MEDS: NITROFURANTOIN MACROCRYSTAL 50 MG CAPSULE (FP) PO SCH ×2 (05:48→11:30)
[2023-02-18 06:34] VITALS: BP 103/68; PULSE 80; RESP 16
[2023-02-18] MEDS: AMOX TR/POT CLAV 875MG/125MG TABLETS (FP) PO SCH (08:32)
[2023-02-18] MEDS: NICOTINE 14 MG/24 HOURS TOPICAL PATCH TD SCH (09:44)
[2023-02-18] MEDS: PRENATAL VITAMINS W/ FOLIC ACID TABLET (FP) PO SCH (09:44)
[2023-02-18] MEDS: QUEtiapine FUMARATE 25 MG TABLET PO SCH (09:45)
[2023-02-19] MEDS ORDERED: chlordiazePOXIDE HCL 10 MG CAPSULE PO ONE (05:00)
== END 2023-02-18 09:53 | disposition home or self-care (01) | DRG 774 ==
LOC: YASAS 19:41 → Y6N 02-15 04:54
PROVIDERS: ADMIT Allergy & Immunology; ATTEND Surgery
PROC: HZ2ZZZZ Detoxification Services for Substance Abuse Treatment (ICD-10-PCS; principal; 2023-02-15)
DX: F10.230 Alcohol dependence with withdrawal, uncomplicated (principal); F14.20 Cocaine dependence, uncomplicated; F17.210 Nicotine dependence, cigarettes, uncomplicated; E87.6 Hypokalemia; I11.0 Hypertensive heart disease with heart failure; I50.9 Heart failure, unspecified; J44.9 Chronic obstructive pulmonary disease, unspecified; J45.20 Mild intermittent asthma, uncomplicated; G40.909 Epilepsy, unspecified, not intractable, without status epilepticus; N39.0 Urinary tract infection, site not specified; Z62.810 Personal history of physical and sexual abuse in childhood; Z86.19 Personal history of other infectious and parasitic diseases; Z86.79 Personal history of other diseases of the circulatory system; Z20.822 Contact with and (suspected) exposure to COVID-19; Z88.6 Allergy status to analgesic agent; Z91.018 Allergy to other foods
CPT/HCPCS: 36415; 80053; 81003; 81025; 83036; 84132; 85027; 86593; 86780; 87635

== ENCOUNTER 2023-05-22 13:06 | Inpatient (IN) | payer OTHER ==
[2023-05-22 13:52] VITALS: BMI 23.5
[2023-05-22] MEDS ORDERED: ONDANSETRON *ODT* 4 MG TABLET SL PRN (17:34)
[2023-05-22] MEDS ORDERED: LOPERAMIDE HCL 2 MG CAPSULE PO PRN (17:34)
[2023-05-22] MEDS ORDERED: IBUPROFEN 600 MG TABLET (FP) PO PRN (17:34)
[2023-05-22] MEDS ORDERED: ACETAMINOPHEN 325 MG TABLET (FP) PO PRN (17:34)
[2023-05-22] MEDS ORDERED: BENZONATATE 200 MG CAPSULE PO PRN (17:34)
[2023-05-22] MEDS ORDERED: METHOCARBAMOL 500 MG TABLET PO PRN (17:34)
[2023-05-22] MEDS ORDERED: DICYCLOMINE HCL 10 MG CAPSULE PO PRN (17:34)
[2023-05-22] MEDS ORDERED: MAGNESIUM HYDROX 2400MG/30ML ORAL SUSPENSION 30 ML CUP PO PRN (17:34)
[2023-05-22] MEDS ORDERED: IBUPROFEN 400 MG TABLET (FP) PO PRN (17:34)
[2023-05-22] MEDS ORDERED: MAG HYDROX/AL HYDROX/SIMETH 30 ML UNIT-DOSE CUP PO PRN (17:34)
[2023-05-22] MEDS ORDERED: POLYETHYLENE GLYCOL (HEALTHYLAX) 3350 17 GM PACKET PO PRN (17:34)
[2023-05-22] MEDS ORDERED: BISMUTH SUBSALICYLATE 524 MG/30 ML PO PRN (17:34)
[2023-05-22] MEDS ORDERED: NALOXONE HCL (KLOXXADO) 8 MG SPRAY NS PRN (17:34)
[2023-05-22] MEDS ORDERED: guaiFENesin 600 MG TABLET.ER (FP) PO PRN (17:34)
[2023-05-22] MEDS ORDERED: chlordiazePOXIDE HCL 25 MG CAPSULE PO PRN (17:34)
[2023-05-22] MEDS ORDERED: NALOXONE HCL 0.4 MG/ML VIAL IM PRN (17:34)
[2023-05-22] MEDS ORDERED: ONDANSETRON *ODT* 4 MG TABLET ONE (18:01)
[2023-05-22] MEDS ORDERED: levETIRAcetam 500 MG TABLET (FP) PO SCH (22:00)
[2023-05-22] MEDS: THIAMINE HCL 100 MG TABLET (FP) PO SCH ×2 (22:38→22:45)
[2023-05-22] MEDS: FAMOTIDINE 20 MG TABLET PO SCH (22:38)
[2023-05-22] MEDS: MELATONIN 5 MG TABLETS PO SCH (22:38)
[2023-05-22] MEDS: chlordiazePOXIDE HCL 25 MG CAPSULE PO SCH (22:38)
[2023-05-22] MEDS: APIXABAN 5 MG TABLET PO SCH (22:38)
[2023-05-22] MEDS: PHENYTOIN NA EXTENDED 100 MG CAPSULE (FP) PO SCH (22:38)
[2023-05-23] MEDS: chlordiazePOXIDE HCL 25 MG CAPSULE PO SCH ×4 (05:40→22:28)
[2023-05-23] MEDS: BENZOCAINE/MENTHOL (CHLORASEPTIC ) LOZENGE MM PRN (05:48)
[2023-05-23] MEDS: PRENATAL VITAMINS W/ FOLIC ACID TABLET (FP) PO SCH (10:41)
[2023-05-23] MEDS: hydrOXYzine PAMOATE 25 MG CAPSULE (FP) PO PRN (10:42)
[2023-05-23] MEDS: APIXABAN 5 MG TABLET PO SCH ×2 (10:42→22:27)
[2023-05-23] MEDS: FAMOTIDINE 20 MG TABLET PO SCH ×2 (10:42→22:27)
[2023-05-23] MEDS: DIGOXIN 0.125 MG TABLET PO SCH (10:42)
[2023-05-23] MEDS: LIDOCAINE HCL 5% TOP OINTMENT 50 GM TUBE TP SCH (10:43)
[2023-05-23] MEDS: QUEtiapine FUMARATE 25 MG TABLET PO SCH ×2 (13:33→22:27)
[2023-05-23] MEDS: ALBUTEROL SO4 HFA INHALER IH PRN (21:34)
[2023-05-23] MEDS: THIAMINE HCL 100 MG TABLET (FP) PO SCH (22:27)
[2023-05-23] MEDS: PHENYTOIN NA EXTENDED 100 MG CAPSULE (FP) PO SCH (22:27)
[2023-05-23] MEDS: MELATONIN 5 MG TABLETS PO SCH (22:27)
[2023-05-24] MEDS: chlordiazePOXIDE HCL 25 MG CAPSULE PO SCH ×4 (05:55→22:55)
[2023-05-24] MEDS: PRENATAL VITAMINS W/ FOLIC ACID TABLET (FP) PO SCH (10:47)
[2023-05-24] MEDS: LIDOCAINE HCL 5% TOP OINTMENT 50 GM TUBE TP SCH (10:48)
[2023-05-24] MEDS: QUEtiapine FUMARATE 25 MG TABLET PO SCH ×2 (10:48→22:52)
[2023-05-24] MEDS: FAMOTIDINE 20 MG TABLET PO SCH ×2 (10:48→22:53)
[2023-05-24] MEDS: APIXABAN 5 MG TABLET PO SCH ×2 (10:48→22:52)
[2023-05-24] MEDS ORDERED: ASPIRIN 81 MG CHEWABLE TABLETS PO SCH (11:15)
[2023-05-24] MEDS: DIGOXIN 0.125 MG TABLET PO SCH (11:27)
[2023-05-24] MEDS: PHENYTOIN NA EXTENDED 100 MG CAPSULE (FP) PO SCH (22:52)
[2023-05-24] MEDS: THIAMINE HCL 100 MG TABLET (FP) PO SCH (22:52)
[2023-05-24] MEDS: MELATONIN 5 MG TABLETS PO SCH (22:53)
[2023-05-25] MEDS ORDERED: chlordiazePOXIDE HCL 10 MG CAPSULE PO PRN
[2023-05-25] MEDS: chlordiazePOXIDE HCL 10 MG CAPSULE PO SCH ×4 (05:20→23:15)
[2023-05-25] MEDS: BENZOCAINE/MENTHOL (CHLORASEPTIC ) LOZENGE MM PRN (05:22)
[2023-05-25] MEDS: hydrOXYzine PAMOATE 25 MG CAPSULE (FP) PO PRN (05:22)
[2023-05-25] MEDS: QUEtiapine FUMARATE 25 MG TABLET PO SCH ×2 (10:37→23:15)
[2023-05-25] MEDS: PRENATAL VITAMINS W/ FOLIC ACID TABLET (FP) PO SCH (10:37)
[2023-05-25] MEDS: APIXABAN 5 MG TABLET PO SCH ×2 (10:37→23:14)
[2023-05-25] MEDS: DIGOXIN 0.125 MG TABLET PO SCH (10:37)
[2023-05-25] MEDS: FAMOTIDINE 20 MG TABLET PO SCH ×2 (10:37→23:15)
[2023-05-25] MEDS: LIDOCAINE HCL 5% TOP OINTMENT 50 GM TUBE TP SCH (10:38)
[2023-05-25] MEDS: ALBUTEROL SO4 HFA INHALER IH PRN (10:58)
[2023-05-25] MEDS ORDERED: COLLOIDAL OATMEAL 1 BAR EACH TP PRN ×2 (11:19→11:20)
[2023-05-25 13:30] VITALS: TEMP 98.4
[2023-05-25 15:57] VITALS: BP 113/73; PULSE 91; RESP 18
[2023-05-25] MEDS: PHENYTOIN NA EXTENDED 100 MG CAPSULE (FP) PO SCH (23:14)
[2023-05-25] MEDS: MELATONIN 5 MG TABLETS PO SCH (23:14)
[2023-05-25] MEDS: THIAMINE HCL 100 MG TABLET (FP) PO SCH (23:15)
[2023-05-26] MEDS ORDERED: chlordiazePOXIDE HCL 10 MG CAPSULE PO SCH (05:00)
[2023-05-27] MEDS ORDERED: chlordiazePOXIDE HCL 10 MG CAPSULE PO ONE (05:00)
== END 2023-05-25 23:00 | disposition left against medical advice (07) | DRG 770 ==
LOC: YASAS 13:06 → Y6N 17:41
PROVIDERS: ADMIT Allergy & Immunology; ATTEND Surgery
PROC: HZ2ZZZZ Detoxification Services for Substance Abuse Treatment (ICD-10-PCS; principal; 2023-05-22)
DX: F10.230 Alcohol dependence with withdrawal, uncomplicated (principal); F14.10 Cocaine abuse, uncomplicated; F17.210 Nicotine dependence, cigarettes, uncomplicated; I11.0 Hypertensive heart disease with heart failure; I50.9 Heart failure, unspecified; I48.91 Unspecified atrial fibrillation; Z79.01 Long term (current) use of anticoagulants; G40.909 Epilepsy, unspecified, not intractable, without status epilepticus; S09.90XA Unspecified injury of head, initial encounter; S49.92XA Unspecified injury of left shoulder and upper arm, initial encounter; W06.XXXA Fall from bed, initial encounter; Y92.230 Patient room in hospital as the place of occurrence of the external cause; Z88.6 Allergy status to analgesic agent
CPT/HCPCS: 87635; 93005; 93010; Q0162

== ENCOUNTER 2023-05-25 16:31 | Emergency (ER) | payer OTHER ==
[2023-05-25 16:35] VITALS: BP 113/77; PULSE 90; RESP 18; TEMP 98; BMI 27.8
== END 2023-05-25 19:02 | disposition left against medical advice (07) ==
LOC: JERFT 16:31
DX: Z04.3 Encounter for examination and observation following other accident (principal); Z53.21 Procedure and treatment not carried out due to patient leaving prior to being seen by health care provider
CPT/HCPCS: 99283-25

== ENCOUNTER 2023-09-08 11:22 | Inpatient (IN) | payer OTHER ==
[2023-09-08 12:07] VITALS: BMI 26.3
[2023-09-08] MEDS ORDERED: BISACODYL 5 MG TABLET.DR (FP) PO PRN (12:18)
[2023-09-08] MEDS ORDERED: hydrOXYzine PAMOATE 25 MG CAPSULE (FP) PO PRN (12:18)
[2023-09-08] MEDS ORDERED: P-EPHED 60MG/TRIPROLIDI 2.5MG TABLET PO PRN (12:18)
[2023-09-08] MEDS ORDERED: LOPERAMIDE HCL 2 MG CAPSULE PO PRN (12:18)
[2023-09-08] MEDS ORDERED: BENZONATATE 200 MG CAPSULE PO PRN (12:18)
[2023-09-08] MEDS ORDERED: DOCUSATE SODIUM 100 MG CAPSULE (FP) PO PRN (12:18)
[2023-09-08] MEDS ORDERED: MAGNESIUM HYDROX 2400MG/30ML ORAL SUSPENSION 30 ML CUP PO PRN (12:18)
[2023-09-08] MEDS ORDERED: POLYETHYLENE GLYCOL (HEALTHYLAX) 3350 17 GM PACKET PO PRN (12:18)
[2023-09-08] MEDS ORDERED: ALBUTEROL SO4 HFA INHALER IH PRN (12:20)
[2023-09-08] MEDS ORDERED: NITROGLYCERIN SUBLINGUAL 1/150 0.4 MG TAB SL PRN (12:21)
[2023-09-08] MEDS: guaiFENesin 600 MG TABLET.ER (FP) PO PRN (19:21)
[2023-09-08] MEDS ORDERED: APIXABAN 5 MG TABLET PO SCH ×2 (20:00→22:00)
[2023-09-08] MEDS: PHENYTOIN NA EXTENDED 100 MG CAPSULE (FP) PO SCH (21:42)
[2023-09-08] MEDS: APIXABAN 5 MG TABLET PO ONE (21:43)
[2023-09-08] MEDS: THIAMINE HCL 100 MG TABLET (FP) PO SCH (21:43)
[2023-09-08] MEDS: FAMOTIDINE 20 MG TABLET PO SCH (21:43)
[2023-09-08] MEDS: levETIRAcetam 500 MG TABLET (FP) PO SCH (21:43)
[2023-09-08] MEDS: MELATONIN 5 MG TABLETS PO SCH (21:43)
[2023-09-09] MEDS: APIXABAN 5 MG TABLET PO SCH (06:14)
[2023-09-09] MEDS: DIGOXIN 0.125 MG TABLET PO SCH (07:33)
[2023-09-09] MEDS: PRENATAL VITAMINS W/ FOLIC ACID TABLET (FP) PO SCH (09:25)
[2023-09-09] MEDS ORDERED: DIGOXIN 0.125 MG TABLET PO SCH (10:00)
[2023-09-09] MEDS: FLUOCINONIDE 0.05% GEL (15 GM) TP SCH (12:13)
[2023-09-09 15:02] LABS: POTASSIUM 5.5 mmol/L (3.5-5.1)
[2023-09-09 15:03] LABS: HEMATOCRIT 36.7 % (32.4-45.2); HEMOGLOBIN 12.2 GM/dL (10.7-15.3); MCH 30.5 pg (25.7-33.7); MCHC 33.3 g/dl (32.0-36.0); MEAN CELL VOLUME 91.6 fl (80-96); MEAN PLT VOLUME 9.4 fl (7.5-11.1); PLATELET COUNT 208 10^3/uL (134-434); RBC 4.01 M/mm3 (3.60-5.2); RDW 14.9 % (11.6-15.6); WHITE BLOOD COUNT 3.7 K/mm3 (4.0-10.0)
[2023-09-09 15:10] LABS: ALBUMIN 3.2 g/dl (3.4-5.0); BLOOD UREA NITROGEN 21.9 mg/dL (7-18); CALCIUM 8.7 mg/dL (8.5-10.1)
[2023-09-09 15:13] LABS: CREATININE 0.6 mg/dL (0.55-1.3)
[2023-09-09 15:15] LABS: BILIRUBIN,TOTAL 0.2 mg/dL (0.2-1); TOT PROT 6.7 g/dl (6.4-8.2)
[2023-09-09] MEDS: ACETAMINOPHEN 325 MG TABLET (FP) PO PRN (18:53)
[2023-09-09] MEDS: MAG HYDROX/AL HYDROX/SIMETH 30 ML UNIT-DOSE CUP PO PRN (19:28)
[2023-09-09] MEDS ORDERED: QUEtiapine FUMARATE 25 MG TABLET PO SCH (22:00)
[2023-09-09] MEDS ORDERED: OLANZapine 5 MG TABLET PO SCH (22:00)
[2023-09-09] MEDS: OLANZapine 5 MG TABLET PO SCH (22:52)
[2023-09-10] MEDS: QUEtiapine FUMARATE 25 MG TABLET PO SCH (09:19)
[2023-09-10] MEDS: BENZOCAINE/MENTHOL (CHLORASEPTIC ) LOZENGE MM PRN (09:20)
[2023-09-11] MEDS: PRENATAL VITAMINS W/ FOLIC ACID TABLET (FP) PO SCH (09:13)
[2023-09-11] MEDS: QUEtiapine FUMARATE 25 MG TABLET PO SCH (09:13)
[2023-09-11 09:17] VITALS: PULSE 87
[2023-09-11 09:23] VITALS: BP 105/70; RESP 18; TEMP 98.8
== END 2023-09-11 11:08 | disposition left against medical advice (07) | DRG 770 ==
LOC: YASAS 11:22 → Y3NR 12:41
PROVIDERS: ADMIT Allergy & Immunology; ATTEND Psychiatry & Neurology Pain Medicine
PROC: HZ42ZZZ Group Counseling for Substance Abuse Treatment, Cognitive-Behavioral (ICD-10-PCS; principal; 2023-09-08)
DX: F10.20 Alcohol dependence, uncomplicated (principal); F14.20 Cocaine dependence, uncomplicated; F25.9 Schizoaffective disorder, unspecified; F31.9 Bipolar disorder, unspecified; F19.24 Other psychoactive substance dependence with psychoactive substance-induced mood disorder; F41.9 Anxiety disorder, unspecified; G40.909 Epilepsy, unspecified, not intractable, without status epilepticus; I11.0 Hypertensive heart disease with heart failure; I50.9 Heart failure, unspecified; I48.91 Unspecified atrial fibrillation; Z87.09 Personal history of other diseases of the respiratory system; Z86.11 Personal history of tuberculosis; Z85.3 Personal history of malignant neoplasm of breast; Z62.810 Personal history of physical and sexual abuse in childhood; Z63.8 Other specified problems related to primary support group
CPT/HCPCS: 36415; 80053; 80185; 80305; 80307; 85027; 86593; 86780; 87811; 93005; 93010

== ENCOUNTER 2023-10-21 10:00 | Inpatient (IN) | payer OTHER ==
[2023-10-21 11:36] VITALS: BMI 23.8
[2023-10-21] MEDS ORDERED: BENZONATATE 200 MG CAPSULE PO PRN (13:22)
[2023-10-21] MEDS ORDERED: ACETAMINOPHEN 325 MG TABLET (FP) PO PRN (13:22)
[2023-10-21] MEDS ORDERED: LOPERAMIDE HCL 2 MG CAPSULE PO PRN (13:22)
[2023-10-21] MEDS ORDERED: NALOXONE HCL (KLOXXADO) 8 MG SPRAY NS PRN (13:22)
[2023-10-21] MEDS ORDERED: ASPIRIN 81 MG CHEWABLE TABLETS ONE (13:22)
[2023-10-21] MEDS ORDERED: MAG HYDROX/AL HYDROX/SIMETH 30 ML UNIT-DOSE CUP PO PRN (13:22)
[2023-10-21] MEDS ORDERED: DICYCLOMINE HCL 10 MG CAPSULE PO PRN (13:22)
[2023-10-21] MEDS ORDERED: NALOXONE HCL 0.4 MG/ML VIAL IM PRN (13:22)
[2023-10-21] MEDS ORDERED: MAGNESIUM HYDROX 2400MG/30ML ORAL SUSPENSION 30 ML CUP PO PRN (13:22)
[2023-10-21] MEDS ORDERED: IBUPROFEN 600 MG TABLET (FP) PO PRN (13:22)
[2023-10-21] MEDS ORDERED: BISMUTH SUBSALICYLATE 524 MG/30 ML PO PRN (13:22)
[2023-10-21] MEDS ORDERED: IBUPROFEN 400 MG TABLET (FP) PO PRN (13:22)
[2023-10-21] MEDS ORDERED: POLYETHYLENE GLYCOL (HEALTHYLAX) 3350 17 GM PACKET PO PRN (13:22)
[2023-10-21] MEDS ORDERED: ONDANSETRON *ODT* 4 MG TABLET SL PRN (13:22)
[2023-10-21] MEDS: ASPIRIN 81 MG CHEWABLE TABLETS PO SCH (14:00)
[2023-10-21] MEDS ORDERED: NITROGLYCERIN SUBLINGUAL 1/150 0.4 MG TAB SL PRN (14:05)
[2023-10-21] MEDS ORDERED: ALBUTEROL SO4 HFA INHALER IH PRN (14:05)
[2023-10-21] MEDS ORDERED: NICOTINE POLACRILEX 2 MG GUM BUC PRN (14:35)
[2023-10-21] MEDS: METHOCARBAMOL 500 MG TABLET PO ONE (14:55)
[2023-10-21] MEDS: NICOTINE 14 MG/24 HOURS TOPICAL PATCH TD SCH (14:56)
[2023-10-21] MEDS: DIGOXIN 0.125 MG TABLET PO SCH (14:57)
[2023-10-21] MEDS: hydrOXYzine PAMOATE 25 MG CAPSULE (FP) PO PRN (17:49)
[2023-10-21] MEDS: PHENYTOIN NA EXTENDED 100 MG CAPSULE (FP) PO SCH (17:52)
[2023-10-21] MEDS: guaiFENesin 600 MG TABLET.ER (FP) PO PRN (19:24)
[2023-10-21] MEDS: BENZOCAINE/MENTHOL (CHLORASEPTIC ) LOZENGE MM PRN (19:27)
[2023-10-21] MEDS: MELATONIN 5 MG TABLETS PO SCH (22:10)
[2023-10-21] MEDS: THIAMINE 100 MG TABLET PO SCH (22:10)
[2023-10-21] MEDS: FAMOTIDINE 20 MG TABLET PO SCH (22:10)
[2023-10-21] MEDS: levETIRAcetam 500 MG TABLET (FP) PO SCH (22:10)
[2023-10-21] MEDS: APIXABAN 5 MG TABLET PO SCH (22:10)
[2023-10-22] MEDS: METHOCARBAMOL 500 MG TABLET PO PRN (01:17)
[2023-10-22 09:28] VITALS: BP 122/69; PULSE 89; RESP 16; TEMP 97.3
[2023-10-22] MEDS: amLODIPine BESYLATE 5 MG TABLET (FP) PO SCH (09:33)
[2023-10-22] MEDS: PRENATAL VITAMINS W/ FOLIC ACID TABLET (FP) PO SCH (09:34)
== END 2023-10-22 11:25 | disposition home or self-care (01) | DRG 774 ==
LOC: YASAS 10:00 → Y6N 14:27
PROVIDERS: ADMIT Allergy & Immunology; ATTEND Surgery
PROC: HZ2ZZZZ Detoxification Services for Substance Abuse Treatment (ICD-10-PCS; principal; 2023-10-21)
DX: F10.230 Alcohol dependence with withdrawal, uncomplicated (principal); F14.20 Cocaine dependence, uncomplicated; F17.210 Nicotine dependence, cigarettes, uncomplicated; I10 Essential (primary) hypertension; I48.91 Unspecified atrial fibrillation; J45.20 Mild intermittent asthma, uncomplicated; J43.0 Unilateral pulmonary emphysema [MacLeod's syndrome]; G40.909 Epilepsy, unspecified, not intractable, without status epilepticus; R29.2 Abnormal reflex; Z99.89 Dependence on other enabling machines and devices; Z86.11 Personal history of tuberculosis; Z79.01 Long term (current) use of anticoagulants
CPT/HCPCS: 80305; 80307; 81025; 93005; 93010